=== PATIENT | female | born 1945 | race Caucasian/White ===

== ENCOUNTER 2019-11-25 13:09 | Outpatient (RCR) | payer MEDICARE, MEDICAID, SELFPAY ==
[2019-11-25 14:14] LABS: Basophils % 0.3 %; Eosinophils # 0.2 10^3/uL (0.0-0.8); Eosinophils % 3.2 %; Hematocrit 30.7 % (37.0-47.0); Hemoglobin 9.5 g/dL (11.5-15.3); Lymphocytes # 2.8 10^3/uL (0.8-4.8); Lymphocytes % 39.2 %; Mean Corpuscular HGB Conc 30.9 g/dL (30.0-36.0); Mean Corpuscular Hemoglobin 32.2 pg (28.0-34.0); Mean Corpuscular Volume 104.1 fL (81-99); Mean Platelet Volume 11.5 fL (7.4-10.4); Monocytes # 0.5 10^3/uL (0.2-0.9); Monocytes % 6.8 %; Neutrophils # 3.6 10^3/uL (1.8-7.7); Neutrophils % 50.2 %; Nucleated Red Blood Cells % 0 %; Platelet Count 205 10^3/cmm (130-400); Red Blood Count 2.95 10^6/uL (4.1-5.3); Red Cell Distribution Width 13.2 % (12.1-15.1); White Blood Count 7.1 10^3/uL (4.0-10.0)
[2019-11-25 14:34] LABS: Anion Gap 13.9 (5-19); Blood Urea Nitrogen 39 mg/dL (8-23); Calcium 8.8 mg/dL (8.5-10.5); Carbon Dioxide 29 mmol/L (22-29); Chloride 101 mmol/L (98-107); Glucose 110 mg/dL (74-106); Osmolality Calculated 286 mOsm/kg (285-295); Potassium 4.9 mmol/L (3.5-5.1); Sodium 139 mmol/L (136-145)
[2019-11-25 14:46] LABS: Estmated Average Glucose 189; Hemoglobin A1C 8.2 % (4.0-6.0)
== END 2019-12-03 23:59 | disposition home or self-care (01) ==
LOC: LAB 13:09
PROVIDERS: Family Provider Internal Medicine; Visit Provider Internal Medicine
DX: I50.9 Heart failure, unspecified (principal); E11.9 Type 2 diabetes mellitus without complications
CPT/HCPCS: 80048; 83036; 85025

== ENCOUNTER 2020-01-11 10:23 | Inpatient (IN) | payer MEDICARE, MEDICAID, SELFPAY ==
[2020-01-11] VITALS (46 sets, daily range): BP systolic 76–154; BP diastolic 50–102; PULSE 55–90; RESP 14–28; TEMP 36.3; O2SAT 79–100
--- NOTE | 2020-01-11 10:36 | ED_ITS ---
Entered by Michelle Pearson, acting as scribe for Domingo Aguilar DO HPI - SOB/Dyspnea General: Chief Complaint: Shortness of Breath/Dyspnea Stated Complaint: SOB, FLU LIKE SYMPTOMS Time Seen by Provider: 01/11/20 10:36 Source: patient, EMS and RN notes reviewed Mode of arrival: EMS Limitations: no limitations History of Present Illness: HPI Narrative: 74 yo female presents to ED from [facility] with complaints of shortness of breath. The patient was diagnosed with flu last week and was given Tamiflu. She has been having shortness of breath but she began having increased difficulty breathing this morning. The patient answered yes when asked if she wanted to be intubated for assistance to breathe. Atropine given at 1100. MD elicited complaint: shortness of breath Pertinent past history: other (flu 1 week ago) Onset (ago): hour(s) (today) Context: recent illness (flu) Timing: constant and progressively worsening Severity: severe Exacerbating factors: lying flat, exertion, movement and talking Relieving factors: nothing Known history of: other (flu) Associated symptoms: Reports diaphoresis Treatment prior to arrival: oxygen Review of Systems General: Reports: 10 or more systems reviewed and unremarkable except in HPI and below Const: Reports: diaphoresis [facility] ED PFSH: Social History Smoking and tobacco status: unknown if ever smoked Physical Exam Const: COMMON NORMALS: well nourished HENMT: COMMON NORMALS: normocephalic, head/scalp atraumatic, hearing grossly normal bilaterally, external ears normal, EAC's normal, TM's normal bilaterally, external nose normal, nasal mucous membranes and turbinates normal, moist oral mucous membranes, oropharynx normal, dentition normal and gingiva normal HEAD & SCALP: normocephalic and atraumatic NOSE: external nose normal and nasal mucous membranes and turbinates normal EXTERNAL EAR: Yes external ears normal EXTERNAL AUDITORY CANAL: EAC's normal TYMPANIC MEMBRANE: TM's normal bilaterally Eye: COMMON NORMALS: PERRL, EOMs intact bilaterally, conjunctivae normal, no scleral icterus, no papilledema, normal visual abdi by confrontation and fundi normal bilaterally CONJUNCTIVA: Yes conjunctivae normal PUPIL: Yes PERRL DIRECT OPHTHALMOSCOPY: Yes no papilledema and Yes fundi normal bilaterally Neck/C-Spine: COMMON NORMALS: full ROM, no lymphadenopathy, supple, no meningeal signs, no JVD, thyroid normal and no carotid bruits THYROID: thyroid normal Chest: COMMONS NORMALS: inspection of chest normal and palpation of chest normal Cardio: COMMON NORMALS: no JVD, S1 normal heart sound, S2 normal heart sound, no gallops, no clicks, no murmurs, no rub and peripheral pulses 2+ throughout HEART SOUNDS: S1 normal and S2 normal PERIPHERAL PULSES: pulses 2+ throughout GI: COMMON NORMALS: normal to inspection, nondistended, normoactive bowel sounds, soft to palpation, non-tender, no hepatosplenomegaly, no masses and no bruits PALPATION: Yes soft and Yes no hepatosplenomegaly : COMMON NORMALS: Yes no CVA tenderness and Yes external appearance normal BLADDER/KIDNEY EXAM: Yes no CVA tenderness Back/Pelvis: COMMON NORMALS: no CVA tenderness, thoracic and lumbar spine nor mal to inspection, no thoracic nor lumbar tenderness, thoraco-lumbar ROM normal and straight leg raise negative bilaterally Extremity: COMMON NORMALS: normal to inspection, full ROM, normal capillary refill, no joint enlargement, no clubbing, cyanosis or edema, no calf tenderness and no pedal edema Neuro: MENINGEAL SIGNS: Yes no meningeal signs Skin: COMMON NORMALS: no rashes or lesions noted, no wounds, skin turgor normal, no jaundice, no petechiae and no mottling GENERAL SKIN EXAM: no rashes or lesions noted and turgor normal Procedures Intubation Time out performed: No sedative: Etomidate Mg Given: 20 paralytic: Succinylcholine Mg Given: 200 Laryngoscope: Meghana ET Tube Size: 8 ET Tube Uncuffed: No Tube Placement Confirmation: visualized tube passing through cords, equal breath sounds bilaterally, no breath sounds over epigastrium and confirmation by capnometry Patient Tolerated Procedure: well Intubation Complications: none Course Vital Signs: Vital signs: Vital Signs Pulse Rate 63 01/11/20 11:10 Respiratory Rate 14 01/11/20 11:38 MDM - SOB/Dyspnea MDM Narrative: Medical decision making narrative: Upon arrival to the emergency room patient was lethargic and nearly comatose. She was breathing at a slow rate with a great deal of difficulty and distress. It appeared that the accessory abdominal muscles were the only thing that kept her respirated. Documentation from the longterm reveals patient has signed an advance directive. Patient was still conscious enough to answer whether or not she wished to be put on the ventilator to which she said yes. Lab Data: Labs: Lab Results 01/11/20 01/11/20 01/11/20 Range/Units 11:02 11:02 11:02 WBC 13.8 H (4.0-10.0) 10^3/ uL RBC 2.85 L (4.1-5.3) 10^6/u L Hgb 8.8 L (11.5-15.3) g/dL Hct 30.3 L (37.0-47.0) % MCV 106.3 H (81-99) fL MCH 30.9 (28.0-34.0) pg MCHC 29.0 L (30.0-36.0) g/dL RDW 14.0 (12.1-15.1) % Plt Count 278 (130-400) 10^3/c mm MPV 11.3 H (7.4-10.4) fL Neut % (Auto) 83.7 % Lymph % (Auto) 12.8 % Fountain % (Auto) 2.5 % Eos % (Auto) 0.1 % Baso % (Auto) 0.1 % Neut # (Auto) 11.6 H (1.8-7.7) 10^3/u L Lymph # (Auto) 1.8 (0.8-4.8) 10^3/u L Fountain # (Auto) 0.3 (0.2-0.9) 10^3/u L Eos # (Auto) 0.0 (0.0-0.8) 10^3/u L Baso # (Auto) 0.0 (0.0-0.1) 10^3/u L Nucleated RBC % (a uto) 0 % Nucleated RBCs # 0.0 /100WBC Sodium 130 L (136-145) mmol/L Potassium 9.2 H* (3.5-5.1) mmol/L Chloride 103 (98-107) mmol/L Carbon Dioxide 17 L (22-29) mmol/L Anion Gap 19.2 H (5-19) BUN 96 H* D (8-23) mg/dL Creatinine 5.0 H (0.5-0.9) mg/dL Glucose 205 H (65-115) mg/dL Calculated Osmolal ity 277 L (285-295) mOsm/k g Lactate (0.5-2.2) mmol/L Calcium 8.6 (8.5-10.5) mg/dL Total Bilirubin 0.3 (0.15-1.2) mg/dL AST 12 (0-32) U/L ALT 7 (0-33) U/L Alkaline Phosphata se 74 (35-105) IU/L Troponin T Baselin e 247 H* (0-10) ng/mL NT-Pro-B Natriuret Pep 8723 H (0-450) pg/mL Total Protein 7.2 (6.6-8.7) g/dL Albumin 2.5 L (3.5-5.2) g/dL Globulin 4.7 H (1.3-4.6) g/dL Urine Color (Yellow) Urine Appearance (CLEAR) Urine pH (5-7) Ur Specific Gravit y (1.005-1.030) Urine Protein (Negative) Urine Glucose (UA) (Normal) Urine Ketones (Negative) Urine Blood (Negative) Urine Nitrate (Negative) Urine Bilirubin (NEGATIVE) Urine Urobilinogen (Negative) mg/dL Ur Leukocyte Alfreda ase (Negative) Urine RBC (0-2) /hpf Urine WBC (0-5) /hpf Ur Squamous Epith Cells (0-5) Amorphous Sediment Urine Bacteria (NONE) Urine Mucus 01/11/20 01/11/20 Range/Units 11:58 12:24 WBC (4.0-10.0) 10^3/ uL RBC (4.1-5.3) 10^6/u L Hgb (11.5-15.3) g/dL Hct (37.0-47.0) % MCV (81-99) fL MCH (28.0-34.0) pg MCHC (30.0-36.0) g/dL RDW (12.1-15.1) % Plt Count (130-400) 10^3/c mm MPV (7.4-10.4) fL Neut % (Auto) % Lymph % (Auto) % Fountain % (Auto) % Eos % (Auto) % Baso % (Auto) % Neut # (Auto) (1.8-7.7) 10^3/u L Lymph # (Auto) (0.8-4.8) 10^3/u L Fountain # (Auto) (0.2-0.9) 10^3/u L Eos # (Auto) (0.0-0.8) 10^3/u L Baso # (Auto) (0.0-0.1) 10^3/u L Nucleated RBC % (a uto) % Nucleated RBCs # /100WBC Sodium (136-145) mmol/L Potassium (3.5-5.1) mmol/L Chloride (98-107) mmol/L Carbon Dioxide (22-29) mmol/L Anion Gap (5-19) BUN (8-23) mg/dL Creatinine (0.5-0.9) mg/dL Glucose (65-115) mg/dL Calculated Osmolal ity (285-295) mOsm/k g Lactate 0.8 (0.5-2.2) mmol/L Calcium (8.5-10.5) mg/dL Total Bilirubin (0.15-1.2) mg/dL AST (0-32) U/L ALT (0-33) U/L Alkaline Phosphata se (35-105) IU/L Troponin T Baselin e (0-10) ng/mL NT-Pro-B Natriuret Pep (0-450) pg/mL Total Protein (6.6-8.7) g/dL Albumin (3.5-5.2) g/dL Globulin (1.3-4.6) g/dL Urine Color Yellow (Yellow) Urine Appearance Cloudy (CLEAR) Urine pH 5 (5-7) Ur Specific Gravit y 1.015 (1.005-1.030) Urine Protein Neg (Negative) Urine Glucose (UA) Norm (Normal) Urine Ketones Negative (Negative) Urine Blood 3+ H (Negative) Urine Nitrate Negative (Negative) Urine Bilirubin Neg (NEGATIVE) Urine Urobilinogen Norm (Negative) mg/dL Ur Leukocyte Alfreda ase Negative (Negative) Urine RBC 0-4 H (0-2) /hpf Urine WBC 0-4 H (0-5) /hpf Ur Squamous Epith Cells 0-4 H (0-5) Amorphous Sediment 1+ Urine Bacteria 1+ H (NONE) Urine Mucus Trace Discharge Plan Discharge Patient Disposition: Admitted As Inpatient Clinical Impression: Acute on chronic respiratory failure Qualifiers: Respiratory failure complication: hypoxia and hypercapnia Qualified Code(s): J96.21 - Acute and chronic respiratory failure with hypoxia Congestive heart failure Qualifiers: Heart failure type: unspecified Heart failure chronicity: chronic Qualified Code(s): I50.9 - Heart failure, unspecified Acute renal failure Qualifiers: Acute renal failure type: unspecified Qualified Code(s): N17.9 - Acute kidney failure, unspecified Pneumonia Qualifiers: Pneumonia type: due to unspecified organism Laterality: left Lung location: lower lobe of lung Qualified Code(s): J18.9 - Pneumonia, unspecified organism Condition: Critical Referrals: Alli Quintero MD [Family Provider] - Coding Level of Care Code ED Forest Technician for Chg Fwd Exam Comprehensive The documentation recorded by the Lili mendoza Valerie R, accurately reflects the service I personally performed and the decisions made by , Domingo Aguilar, Jan 11, 2020 10:23
--- NOTE | 2020-01-11 11:26 | XR_ITS ---
WS: [id number] Portable AP upright chest, 01/11/2020 Clinical Data: resp failure Comparison: Portable chest, 03/06/2012 Findings: The endotracheal tube is above the winter. The nasogastric tube appears to end in the stoma ch. No nodules, masses or effusions are seen. The heart is normal. The pulmonary vascularity is not i ncreased. There is a patchy opacity left lower lobe which could represent pneumonia. The aortic arch and descending aorta show calcification and tortuosity. Monitor leads are on the chest wall. There is a slight dextroscoliosis. XR/XR chest 1V portable [id number] Impression: 1. Endotracheal tube and nasogastric tube in satisfactory position. 2. Patchy opacity in left lower lobe could represent pneumonia and/or atelectas is. 3. Atherosclerosis.
[2020-01-11] MEDS: sodium chloride 0.9% 500 ML IV (11:36)
[2020-01-11 11:37] LABS: Basophils % 0.1 %; Eosinophils % 0.1 %; Hematocrit 30.3 % (37.0-47.0); Hemoglobin 8.8 g/dL (11.5-15.3); Lymphocytes # 1.8 10^3/uL (0.8-4.8); Lymphocytes % 12.8 %; Mean Corpuscular Hemoglobin 30.9 pg (28.0-34.0); Mean Corpuscular Volume 106.3 fL (81-99); Mean Platelet Volume 11.3 fL (7.4-10.4); Monocytes # 0.3 10^3/uL (0.2-0.9); Monocytes % 2.5 %; Neutrophils # 11.6 10^3/uL (1.8-7.7); Neutrophils % 83.7 %; Nucleated Red Blood Cells % 0 %; Platelet Count 278 10^3/cmm (130-400); Red Blood Count 2.85 10^6/uL (4.1-5.3); White Blood Count 13.8 10^3/uL (4.0-10.0)
[2020-01-11 11:47] LABS: ABG PCO2 41.3 mmHg (35-45); Arterial Blood Gas Hematocrit 25.3 % (37-47); Blood Gas Operator Identificat glc; Blood Gas Sample Site Brachial, right; Blood Gas Sample Type Arterial; Blood Gas Tidal Volume 0.45; HCO3 ABG 16.2 mmol/L (22-26); Oxygen Device VENT
[2020-01-11] MEDS: midazolam 1 mg/mL INJ 2 mL 4 MG IV (11:51)
[2020-01-11] MEDS: vecuronium 10 mg SDV IVP (11:52)
[2020-01-11] MEDS: water for injection-sterile 10 ML (11:53)
[2020-01-11 11:59] LABS: Alanine Aminotransferase 7 U/L (0-33); Albumin Level 2.5 g/dL (3.5-5.2); Alkaline Phosphatase 74 IU/L (35-105); Anion Gap 19.2 (5-19); Aspartate Amino Transferase 12 U/L (0-32); Calcium 8.6 mg/dL (8.5-10.5); Carbon Dioxide 17 mmol/L (22-29); Chloride 103 mmol/L (98-107); Globulin 4.7 g/dL (1.3-4.6); Glucose 205 mg/dL (65-115); NT Pro B Type Natriuretic Pept 8723 pg/mL (0-450); Osmolality Calculated 277 mOsm/kg (285-295); Sodium 130 mmol/L (136-145); Total Bilirubin 0.3 mg/dL (0.15-1.2); Total Protein 7.2 g/dL (6.6-8.7)
[2020-01-11] MEDS: dextrose 50% syringe 50 mL IVP (12:00)
[2020-01-11] MEDS: sodium bicarbonate 8.4% 1 mEq/mL 50mL Syr 25 MEQ IVP (12:01)
[2020-01-11] MEDS: insulin regular-human 100 units/1 mL 5 UNIT IVP (12:01)
[2020-01-11 12:04] LABS: Blood Urea Nitrogen 96 mg/dL (8-23); Potassium 9.2 mmol/L (3.5-5.1); Troponin(5th) Baseline 247 ng/mL (0-10)
[2020-01-11 12:17] LABS: Lactate (Lactic Acid level) 0.8 mmol/L (0.5-2.2)
[2020-01-11] MEDS: DOPamine drip 400 MG/250 ML PREMIX 22.7 MG (12:22)
[2020-01-11] MEDS: sodium polystyrene sulfonate 15 gm/60 mL Btl PO (12:44)
[2020-01-11 13:17] LABS: Glucose Urine UA Norm (Normal); Protein Urine Neg (Negative); Specific Gravity, Urine 1.015 (1.005-1.030); Urine Appearance Cloudy (CLEAR); Urine Color Yellow (Yellow); pH Urine 5 (5-7)
[2020-01-11 13:18] LABS: Add Urine Microscopic? YES; Bilirubin Urine Neg (NEGATIVE); Blood Urine 3+ (Negative); Ketones Urine Negative (Negative); Leukocyte Esterase Urine Negative (Negative); Nitrate Urine Negative (Negative); Urobilinogen Urine Norm (Negative)
[2020-01-11] MEDS: cefTRIAXone 1,000 MG in sodium chloride 0.9% (plus) 50 ML 100 MG IV (13:18)
[2020-01-11 13:19] LABS: RBC Urine 0-4 /hpf (0-2); Squamous Epithelial Cell Urine 0-4 (0-5); WBC Urine 0-4 /hpf (0-5)
[2020-01-11 13:20] LABS: Add Urine Culture? No; Amorphous Sediment Urine 1+; Bacteria Urine 1+; Mucus Urine TRACE
--- NOTE | 2020-01-11 13:28 | ECG_ITS ---
Measurements Intervals [place] Rate: 62 P: ID: 0 QRS: -61 QRSD: 214 T: 2 QT: 526 QTc: 536 ATRIAL FIBRILLATION RIGHT BUNDLE BRANCH BLOCK [120+ ms QRS DURATION, UPRIGHT V1, 40+ ms S IN I/aVL/V4/V5/V6] ANTERIOR MYOCARDIAL INFARCTION , OF INDETERMINATE AGE [40+ ms Q WAVE AND/OR ST/T ABNORMALITY IN V3/V4] INFERIOR MYOCARDIAL INFARCTION , PROBABLY OLD [40+ ms Q WAVE AND/OR ST/T ABNORMALITY IN II/aVF] No previous ECG available for comparison Electronically Signed On 01-12-2020 9:06:43 CDT by Chuck Cottrell M.D. [email or web address]
--- NOTE | 2020-01-11 13:50 | PM.CONSULT ---
Providers/Reason For Consult Consulting Physican/Specialty*: telenephrology. roslyn lorenz md Reason for Consult*: TOLU on CKD stage 3b/ 4, hyperkalemia, acidosis Requesting Physcian: Dr. 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 h/o CHF, DM, CAD, rods in legs. pt is NH dependent. pt was tld that her kidneys were deteriorating. pt was diagnosed w/ influenzae last week- given tamiflu. she is now in Er in septic shock, w/ hyperkalemia and TOLU. pt is intubated and i can not get a further hx. Review of Systems Narrative: intubated/ unable to obtain Meds/Allergies Home Medications and Allergies Home Medications Medication Instructions Recorded Confirmed Type acetaminophen 650 mg PO Q4H PRN 01/11/20 01/11/20 History albuterol sulfate 2.5 mg INHALATION Q4H PRN 01/11/20 01/11/20 History amlodipine 5 mg PO DAILY 01/11/20 01/11/20 History aspirin 81 mg PO DAILY 01/11/20 01/11/20 History atorvastatin 20 mg PO DAILY 01/11/20 01/11/20 History bisacodyl 5 - 10 mg PO DAILY PRN 01/11/20 01/11/20 History carvedilol 12.5 mg PO BID 01/11/20 01/11/20 History citalopram 20 mg PO DAILY 01/11/20 01/11/20 History clonidine HCl 0.1 mg PO BID 01/11/20 01/11/20 History cyanocobalamin (vitamin B-12) 1,000 mcg IM Q30D 01/11/20 01/11/20 History dextran 70-hypromellose (PF) 1 drp OPHTHALMIC (EYE) QID 01/11/20 01/11/20 History [Artificial Tears (PF)] furosemide [Lasix] 40 mg PO BID 01/11/20 01/11/20 History insulin degludec [Tresiba 60 unit SUBCUT BEDTIME 01/11/20 01/11/20 History FlexTouch U-200] isosorbide mononitrate 60 mg PO DAILY 01/11/20 01/11/20 History loperamide 2 mg PO Q4H PRN 01/11/20 01/11/20 History menthol [Biofreeze (menthol)] 1 % TOPICAL TID PRN 01/11/20 01/11/20 History oseltamivir [Tamiflu] 30 mg PO BID 01/11/20 01/11/20 History polyethylene glycol 3350 [Miralax] 17 g PO DAILY 01/11/20 01/11/20 History potassium chloride 20 meq PO BID 01/11/20 01/11/20 History quinapril 20 mg PO DAILY 01/11/20 01/11/20 History rivaroxaban [Xarelto] 15 mg PO DAILY 01/11/20 01/11/20 History sennosides-docusate sodium 1 tab-cap PO BID 01/11/20 01/11/20 History [Senna-S] spironolactone 25 mg PO DAILY 01/11/20 01/11/20 History vit C,R-Eo-uomlu-lutein-zeaxan 1 tab PO DAILY 01/11/20 01/11/20 History [PreserVision AREDS-2] Allergies Allergy/AdvReac Type Severity Reaction Status Date / Time adhesive tape Allergy Unknown Verified 01/11/20 10:41 nifedipine [From Procardia] Allergy Unknown Verified 01/11/20 10:41 Penicillins Allergy Unknown Verified 01/11/20 10:41 Current Medications Current Medications Generic Name Dose Route Start Last Admin Trade Name Freq PRN Reason Stop Dose Admin Midazolam HCl 4 mg 01/11/20 11:45 01/11/20 11:51 Versed IV 4 mg PRN PRN Administration sedation for et tube Vecuronium [place] 10 mg 01/11/20 11:24 01/11/20 11:52 Norcuron IVP 10 mg ONCE PRN Administration AGITATION PFSH Acute PFSH: Social History Smoking and tobacco status: unknown if ever smoked Vitals/I&O/Wt Last Vital Signs Pulse 55 L 01/11/20 13:34 Resp 18 01/11/20 13:34 BP 107/56 01/11/20 13:34 Pulse Ox 100 01/11/20 13:34 01/10/20 01/11/20 01/11/20 22:59 06:59 14:59 Intake Total 500 / 500 Balance 500 / 500 Weight last 48 hrs Weight 125.191 kg Physical Exam Narrative: EXAM NARRATIVE: ill appearing, intubated on doapmine heent- nc/at neck supple lungs- poor air movement on left side heart reg +TY abd soft, nt, +BS ext + edema- states is chronic neuro- sedated pulses weak Urinary Catheter Management^: Riggins: Cath Placed During This Visit: yes Urinary Catheter Date of Insertion: 01/11/20 Urinary Catheter Time of Insertion: 12:29 Data Micro: Micro: Microbiology 01/11/20 11:50 Blood Culture - Pr eliminary Blood SPECIMEN [facility] FISH 01/11/20 11:58 Blood Culture - Pr eliminary Blood SPECIMEN [facility] FISH A&P Additional A&P Information 74 yr old female w/ CHF, Q a fib, CAD, DM, weak- retirement dep. recent influenzae. now here w/ septic shock and pna. 1. CKD stage 3b/4- b/l cr 2.6 from dm, CHF, HTN -check renal us 2. TOLU- from pt being ill w/ flu and pna- yet on sade-i, lasix, aldactone and other bp meds -likely ATN 3. hyperkalemia- from dm, ckd, AK, sade-i, and aldactone, and takes oral potassium recs- d/c all anti-htn meds give ivf -check renal us -check urine studies -treat k medically -GET A STAT DIALYSIS CATHETER AND WE WILL ATTEMPT DIALYSIS. -I EXPLAINED TO PTS FAMILY THE HIGH RISK OF DIALYSIS. THEY UNDERSTAND AND ACCEPT DIALYSIS CATHETER AND HEMODIALYSIS 4. Sepsis/ pna- abx as per hospitalist and critical care 5. anemia w/ high MCV- check b12 and folate level can be form CKD 6. DM control 7. dose all meds for ESRD 8. VDRF as per critical care and hopitalist Consult Attestations Medical Necessity Statement: septic shock, TOLU, hyperkalemia, VDRF Time Spent in Patient Care: Greater than 35 minutes (>than 50% of time spent in counselling and/or direct pt care on unit). Critical Care Time: Critical Care Time (min): 45 Coding Level of Care Code Acute Photoengraving Photographer for Betty Jerry
--- NOTE | 2020-01-11 15:14 | US_ITS ---
WS: [id number] Bilateral renal ultrasound, 01/11/2020 Clinical Data: milena on ckd Comparison: Renal ultrasound, 06/04/2011. Findings: The right kidney measures 9.1 cm x 5.6 cm x 5.6 cm and the left kidney is 9.1 cm x 5.5 cm x 4.5 cm. T he kidneys were difficult to see. The abdominal aorta and inferior vena cava show no vascular abnorma lities. US/US renal BI with bladder Impression: Negative bilateral renal ultrasound.
--- NOTE | 2020-01-11 15:24 | P.HP_ITS ---
Providers/Chief Complaint Admitting Physician: Lizzy Glez DO Chief Complaint: SOB, FLU LIKE SYMPTOMS History of Present Illness Mora Messer is a 74 year old female that presented from nursing home facility due to concern for shortness of breath. Patient was noted to have history of chronic kidney disease, had been told by providers in the past that she may be nearing dialysis requirements. Family was available at bedside and reported the patient had influenza last week had been on Tamiflu. They reported that she had not been taking any of her other medications over the past week due to trouble swallowing. Patient was noted to have hypoxia and shallow respirations and therefore intubated by ER physician. Labs were obtained and patient was noted to be hyperkalemic therefore nephrology consultation was placed in the ED. No information available from patient due to clinical condition. Review of Systems General: Reports: ROS unobtainable due to endotracheal tube Medications/Allergies Home Medications Medication Instructions Recorded Confirmed Last Taken Type acetaminophen 650 mg PO Q4H PRN 01/11/20 01/11/20 Unknown History albuterol sulfate 2.5 mg INHALATION Q4H PRN 01/11/20 01/11/20 Unknown History amlodipine 5 mg PO DAILY 01/11/20 01/11/20 01/10/20 History aspirin 81 mg PO DAILY 01/11/20 01/11/20 01/10/20 History atorvastatin 20 mg PO DAILY 01/11/20 01/11/20 01/10/20 History bisacodyl 5 - 10 mg PO DAILY PRN 01/11/20 01/11/20 Unknown History carvedilol 12.5 mg PO BID 01/11/20 01/11/20 01/10/20 History citalopram 20 mg PO DAILY 01/11/20 01/11/20 01/10/20 History clonidine HCl 0.1 mg PO BID 01/11/20 01/11/20 01/10/20 History cyanocobalamin (vitamin B-12) 1,000 mcg IM Q30D 01/11/20 01/11/20 12/28/19 His tory dextran 70-hypromellose (PF) 1 drp OPHTHALMIC (EYE) QID 01/11/20 01/11/20 Unknown History [Artificial Tears (PF)] furosemide [Lasix] 40 mg PO BID 01/11/20 01/11/20 Unknown History insulin degludec [Tresiba 60 unit SUBCUT BEDTIME 01/11/20 01/11/20 Unknown History FlexTouch U-200] isosorbide mononitrate 60 mg PO DAILY 01/11/20 01/11/20 Unknown History loperamide 2 mg PO Q4H PRN 01/11/20 01/11/20 Unknown History menthol [Biofreeze (menthol)] 1 % TOPICAL TID PRN 01/11/20 01/11/20 01/10/20 History oseltamivir [Tamiflu] 30 mg PO BID 01/11/20 01/11/20 Unknown History polyethylene glycol 3350 [Miralax] 17 g PO DAILY 01/11/20 01/11/20 Unknown History potassium chloride 20 meq PO BID 01/11/20 01/11/20 Unknown History quinapril 20 mg PO DAILY 01/11/20 01/11/20 Unknown History rivaroxaban [Xarelto] 15 mg PO DAILY 01/11/20 01/11/20 Unknown History sennosides-docusate sodium 1 tab-cap PO BID 01/11/20 01/11/20 Unknown History [Senna-S] spironolactone 25 mg PO DAILY 01/11/20 01/11/20 Unknown History vit C,U-Il-uqdtx-lutein-zeaxan 1 tab PO DAILY 01/11/20 01/11/20 Unknown History [PreserVision AREDS-2] Allergies Allergy/AdvReac Type Severity Reaction Status Date / Time adhesive tape Allergy Unknown Verified 01/11/20 10:41 nifedipine [From Procardia] Allergy Unknown Verified 01/11/20 10:41 Penicillins Allergy Unknown Verified 01/11/20 10:41 PFSH Acute PFSH: Medical History Atrial fibrillation Chronic anticoagulation Chronic venous stasis Coronary artery disease Diabetes mellitus type 2, insulin dependent History of CVA (cerebrovascular accident) Hyperlipidemia Hypertension Macular degeneration Morbid obesity Peripheral neuropathy Pulmonary hypertension Surgical History History of appendectomy History of arthroscopic knee surgery Bilateral History of cholecystectomy History of hysterectomy History of lumpectomy of left breast Social History Smoking and tobacco status: unknown if ever smoked Vitals/I&O/Wt Last Vital Signs Pulse 73 01/11/20 15:20 Resp 18 01/11/20 15:20 BP 125/71 01/11/20 15:20 Pulse Ox 100 01/11/20 15:20 01/11/20 01/11/20 01/11/20 06:59 14:59 22:59 Intake Total 500 / 500 Balance 500 / 500 Weight last 48 hrs Weight 125.191 kg Physical Exam Const: GENERAL APPEARANCE: patient mechanically ventilated HENMT: COMMON NORMALS: normocephalic and head/scalp atraumatic HEAD & SCALP: normocephalic and atraumatic Eye: COMMON NORMALS: PERRL PUPIL: Yes PERRL Neck/C-Spine: COMMON NORMALS: supple GENERAL: Yes normal visual inspection Resp: OTHER: ET tube in place. Diminished breath sounds bilaterally, no appreciable wheezing Cardio: OTHER: Distant heart sounds, bradycardic, regular rhythm GI: OTHER: Morbidly obese with large pannus. Anterior abdominal wall bruising, no appreciable tenderness to palpation, normal bowel sounds Extremity: OTHER: Bilateral lower extremity chronic venous stasis with lower extremity stasis ulcers Neuro: OTHER: Intubated, resting tremor in the left upper extremity Skin: OTHER: Crusting lesions under the breast bilaterally, bilateral lower extremity venous stasis with superficial ulceration Urinary Catheter Management^: Riggins: Cath Placed During This Visit: yes Urinary Catheter Date of Insertion: 01/11/20 Urinary Catheter Time of Insertion: 12:29 Sepsis: Is patient septic: Yes Focused sepsis exam performed: Yes Date exam was performed: 01/11/20 Time exam was performed: 14:30 Data : 01/12/20 04:24 01/12/20 04:24 Micro: Microbiology 01/11/20 11:15 Gram Stain - Final Sputum - Endotracheal Wash 01/11/20 11:50 Blood Culture - Preliminary Blood SPECIMEN COLLECTED 01/11/20 11:58 Blood Culture - Preliminary Blood SPECIMEN COLLECTED A&P Assessment and plan (1) Acute renal failure: Nephrology consulted while patient was in the ER. Plan for emergent dialysis Dialysis catheter placed by wildland fire operations specialist, appreciate consultation and recommendations in patient's care. Patient given sodium bicarb, Insulin and D50 in the emergency department, also given calcium gluconate Admit to ICU Status: Acute Qualifiers: Acute renal failure type: unspecified Qualified Code(s): N17.9 - Acute kidney failure, unspecified Code(s): N17.9 - Acute kidney failure, unspecified (2) Pneumonia: Given Rocephin in the emergency department We will start on broad-spectrum antibiotics due to concern for septic shock, vancomycin and cefepime Blood culture, urine culture and sputum culture are all ordered and pending Caution with aggressive IV fluids due to history of congestive heart failure and acute renal failure Placed on dopamine drip on the emergency department, will continue at this time. Patient had some intermittent bradycardia while in the emergency department. Patient with recent diagnosis of influenza, had completed course of Tamiflu. Treatment was started on 01/04/2020 Status: Acute Qualifiers: Laterality: left Lung location: lower lobe of lung Pneumonia type: due to unspecified organism Qualified Code(s): J18.9 - Pneumonia, unspecified organism Code(s): J18.9 - Pneumonia, unspecified organism (3) Congestive heart failure: Reported history of diastolic CHF, last echocardiogram from 2011 Very cautious with IV fluids at this time, however will continue to monitor blood pressure closely and maintain blood pressure with dopamine at this time. Patient currently on dialysis. Status: Acute Qualifiers: Heart failure chronicity: chronic Heart failure type: unspecified Qualified Code(s): I50.9 - Heart failure, unspecified Code(s): I50.9 - Heart failure, unspecified Additional A&P Information Acute on chronic anemia: Hemoglobin of 8.8, macrocytic, previously baseline hemoglobin appears to be around 10. No evidence of any active bleeding at this time. Hyperkalemia with acute renal failure: Plan as noted above Metabolic acidosis: Secondary to above, continue with treatment as above Diabetes mellitus, insulin-dependent, continue on sliding scale insulin as needed Hypertension: Currently hypotensive, holding home medications. Holding home Coreg, Lasix, Imdur, quinapril, amlodipine, Aldactone Hyperlipidemia: On atorvastatin, holding at this time Recent diagnosis of influenza: Completed course of Tamiflu On chronic anticoagulation: On Xarelto 15 mg daily Atrial fibrillation: On Coreg 12.5 mg twice daily, in sinus rhythm at this time Diastolic congestive heart failure: As noted above holding home Lasix and dialysis plan as above History of CVA with chronic left-sided weakness according to family Elevated troponin: Likely type II process due to sepsis with septic and acute renal failure: Continue monitoring on telemetry with serial EKG and troponin Hypoalbuminemia Morbid obesity Chronic long term resident GERD: IV PPI DVT PPx: Heparin Code Status: DNR/currently intubated, patient reportedly agreed to intubation while in the emergency department. . Long discussion with patient's family members while in the emergency department about patient being critically ill and requiring emergent dialysis. They verbalized understanding, son agreed that she would not want further resuscitat ion, therefore DO NOT RESUSCITATE stands at this time. Patient remains intubated will continue with other measures. Long discussion with many family members present about the severity of her illness and poor prognosis. Attestations Medical Necessity Statement*: Patient requires hospitalization due to acute renal failure with hyperkalemia, acute respiratory failure, metabolic acidosis and sepsis. Expected stay greater than 2 midnights Critical Care Time: The high probability of a clinically significant, sudden or life threatening deterioration of the patient's respiratory, renal, cardiac system(s) required my full and direct attention, intervention and personal management. The critical care time is as shown. This time is in addition to time spent performing any reported procedures but includes the following: [x] Data and vital sign review and interpretation [x] Patient assessment, examination and intervention [x] Documentation [x] Medication orders and management Critical Care Time (min): 65 Coding Level of Care Code Acute Senior Brand Manager for Chg Fwd Exam Expanded Problem Focused Diagnoses Acute renal failure N17.9 Acute renal failure type: unspecified Pneumonia J18.9 Laterality: left Lung location: lower lobe of lung Pneumonia type: due to unspecified organism Congestive heart failure I50.9 Heart failure chronicity: chronic Heart failure type: unspecified
[2020-01-11] MEDS: calcium gluconate 0.1 gm/mL 10% SDV 10mL 1 GM IVP (15:25)
[2020-01-11 15:56] LABS: Glucose Point of Care 277 mg/dL (70-110)
--- NOTE | 2020-01-11 16:15 | USCV_ITS ---
Mora Messer Age: 74 Gender: F : 1945 Exam Date: 01/11/2020 20:03 Ordering Phys: Lizzy Glez DO Technologist: Ximena Bran Exam Location: [facility] [place] Indication: CHF BP: 121 / 63 HR: 60 Rhythm: Sinus Technical Quality: Adequate MEASUREMENTS (Male / Female) Normal Values 2D ECHO LV Diastolic Diameter PLAX 4.4 cm 4.2 - 5.9 / 3.9 - 5.3 cm LV Systolic Diameter PLAX 3.7 cm LV Chamber Size 3.7 cm IVS Diastolic Thickness 1.2 cm 0.6 - 1.0 / 0.6 - 0.9 cm IVS Systolic Thickness 1.7 cm LVPW Diastolic Thickness 2.7 cm 0.6 - 1.0 / 0.6 - 0.9 cm LVPW Systolic Thickness 2.9 cm RV Chamber Size 2.7 cm LVOT Diameter 2.1 cm LV Ejection Fraction 2D Teich 33.8 % LV Ejection Fraction MOD 2C 45.2 % LV Ejection Fraction 2C AL 47.4 % LA Diameter 6.0 cm M-MODE LV Diastolic Diameter MM 6.1 cm 4.2 - 5.9 / 3.9 - 5.3 cm LV Systolic Diameter MM 3.5 cm LV Ejection Fraction MM Teich 73.6 % IVS Diastolic Thickness MM 1.5 cm 0.6 - 1.0 / 0.6 - 0.9 cm IVS Systolic Thickness MM 2.0 cm LVPW Diastolic Thickness MM 0.8 cm 0.6 - 1.0 / 0.6 - 0.9 cm LVPW Systolic Thickness MM 2.1 cm Aortic Annulus Diameter 3.3 cm LA Ao Ratio MM 1.8 MV E Point Septal Separation 0.9 cm DOPPLER AV Peak Velocity 181.0 cm/s LVOT Peak Velocity 127.0 cm/s AV Area Cont Eq vti 2.4 cm squared AV Area Cont Eq pk 2.4 cm squared MV Area PHT 3.1 cm squared Mitral E to A Ratio 5.8 MV E' Velocity 7.0 cm/s Mitral E to MV E' Ratio 13.1 Mitral E to LV E' Lateral Ratio 15.5 Mitral E to LV E' Septal Ratio 11.5 TR Peak Velocity 375.0 cm/s TR Peak Gradient 56.3 mmHg TR Mean Velocity 199.6 cm/s TR Mean Gradient 19.0 mmHg TR Velocity Time Integral 99.8 cm TV Peak E Velocity 84.0 cm/s Right Atrial Pressure 3.0 mmHg Pulmonary Artery Systolic Pressu 59.3 mmHg FINDINGS Left Ventricle Normal left ventricular size and systolic function, EF 55 %. No regional wall motion abnormalities. Right Ventricle Normal right ventricular size and systolic function. Right Atrium Normal right atrial size. Left Atrium Mildly increased left atrial size. Mitral Valve Thickened mitral valve. Mild mitral annular calcification. Trace mitral valve regurgitation. Aortic Valve Thickened aortic valve. Tricuspid Valve No gross abnormalities noted Pulmonic Valve Not visualized well Pericardium No pericardial effusion. Aorta Normal aortic annulus size. CONCLUSIONS Normal left ventricular size and systolic function, EF 55 %. No regional wall motion abnormalities. Mildly increased left atrial size. Thickened mitral valve. Mild mitral annular calcification. Features of the aortic valve sclerosis. There is no pericardial effusion. There are no intracardiac masses. Technically difficult study because of the poor ultrasonic window. No previous study is available for comparison. Dr Jaye Peralta MD FACC (Electronically Signed) Final Date: 11 January 2020 21:16 S
[2020-01-11 16:25] LABS: Urine Appearance SL Hazy (CLEAR); Urine Color Yellow (Yellow)
[2020-01-11 16:26] LABS: Bilirubin Urine Neg (NEGATIVE); Blood Urine 3+ (Negative); Glucose Urine UA 1+ (Normal); Ketones Urine 1+ (Negative); Leukocyte Esterase Urine Negative (Negative); Nitrate Urine Negative (Negative); Protein Urine Neg (Negative); Specific Gravity, Urine 1.015 (1.005-1.030); Urobilinogen Urine Norm (Negative); pH Urine 5 (5-7)
[2020-01-11 16:29] LABS: Bacteria Urine 1+; Squamous Epithelial Cell Urine 0-4 (0-5); WBC Urine 0-4 /hpf (0-5)
[2020-01-11] MEDS: sodium bicarbonate 150 MEQ in dextrose 5% 1,000 ML 125 MEQ IV (16:29)
[2020-01-11 16:30] LABS: Hepatitis B Surface Antigen. Non-Reactive (Nonreactive)
[2020-01-11 16:31] LABS: Hepatitis C Virus Antibody Non-Reactive (Nonreactive)
[2020-01-11 16:31] LABS: Add Urine Culture? No
[2020-01-11 16:46] LABS: ABG PCO2 41.8 mmHg (35-45); ABG PH Result 7.29 (7.35-7.45); Arterial Blood Gas Hematocrit 29.5 % (37-47); Base Excess ABG -5.9 mmol/L (-2.0-2.0); Blood Gas Sample Type Not specified; Carboxyhemoglobin 0.8 %THgb (0.4-20.1); HCO3 ABG 20.3 mmol/L (22-26); HGB O2 Sat 89.4 % (95-100); Ionized Calcium Level - ABG 1.1 mmol/L (1.1-1.4); Methemoglobin 0.4 % (0.4-1.5); Oxygen Device VENT; Oxygen Saturation ABG 90.5; PO2 ABG 55.4 mmHg (80.0-100.0); Total Hemoglobin 9.6 g/dL (12-16)
[2020-01-11] MEDS: propofol 1,000 MG/100 ML INJ 22.5 MG IV (16:50)
[2020-01-11 16:53] LABS: Creatinine Urine, Random 102 mg/dL (28-217); Microalbum Creatinine Ratio Ur 39 mg/dL (0-20); Microalbumin Random Urine 4 ug/dL (0-20); Potassium, Radom Urine 51 mmol/L; Urine Creatinine 103 mg/dL (28-217); Urine Random Chloride 23 mmol/L; Urine Random Sodium 28 mmol/L
[2020-01-11 16:56] LABS: Urine Protein Random 40 mg/dL
--- NOTE | 2020-01-11 17:28 | ECG_ITS ---
Measurements Intervals [place] Rate: 60 P: ID: 0 QRS: 250 QRSD: 194 T: 92 QT: 499 QTc: 502 ATRIAL FIBRILLATION RIGHT AXIS DEVIATION [QRS AXIS > 100] RIGHT BUNDLE BRANCH BLOCK [120+ ms QRS DURATION, UPRIGHT V1, 40+ ms S IN I/aVL/V4/V5/V6] INFERIOR MYOCARDIAL INFARCTION , OF INDETERMINATE AGE [40+ ms Q WAVE AND/OR ST/T ABNORMALITY IN II/aVF] ANTEROLATERAL MYOCARDIAL INFARCTION , OF INDETERMINATE AGE [40+ ms Q WAVE IN I/aVL/V3-V6] ST DEPRESSION, CONSIDER SUBENDOCARDIAL INJURY [0.1+ mV ST DEPRESSION] No previous ECG available for comparison Electronically Signed On 01-12-2020 9:06:24 CDT by Chuck Cottrell M.D. [id number]
[2020-01-11 18:21] LABS: Glucose Point of Care 213 mg/dL (70-110)
[2020-01-11 18:29] LABS: Troponin 5 6HR 192.8 ng/mL (0-10)
[2020-01-11 18:35] LABS: Urine Eosinophil Count 0 (0-0)
[2020-01-11 18:36] LABS: Eosinophil Urine No Eosinophils Seen
--- NOTE | 2020-01-11 18:36 | P.CONIM_ITS ---
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 She has chronic kidney disease, previous history of cerebrovasc ular accident, peripheral neuropathy. She also has history of atrial fibrillation and is on chronic anticoagulation therapy. It appears that the patient has advanced chronic kidney disease. Her creatinine was 2.6 in November 25. The patient was brought to the hospital today from [facility] with worsening shortness of breath. It appears that the patient was treated with Tamiflu for a diagnosis of influenza last week. Upon presentation to the hospital, the patient was barely responsive and was in profound shortness of breath. The patient was DNI DNR however at the emergency department the provider had a conversation with the patient and the patient agreed to get intubated and she was intubated. A post intubation chest x-ray reveals consolidation involving left mid and lower lung zone. On blood work, the patient was found to have leukocytosis. Her potassium was 9.2. The patient was intubated using succinylcholine prior to the labs are available. Her BUN was elevated at 96 from a baseline of higher 30s and her creatinine was 5. The EKG showed atrial fibrillation with prolonged QRS of 240 ms and a QTC of 536 ms. The patient was given insulin and dextrose, half amp of bicarb as I was told by the nurse in the ER. I am unclear whether the patient received any IV calcium gluconate or calcium chloride. When I evaluated the patient in the ER, her heart rate was in the 40s and there was still QRS widening and prolonged QTC. The patient was receiving 5 mcg of dopamine. The patient was emergently given 2 Amp of bicarb. Her minute ventilation was increased to alkalinize her serum. The patient was then brought to the ICU and the dialysis was started. Over the last few hours, we have been able to make significant improvement. Currently the patient is on pressure control ventilation with PEEP of 12, pressure above PEEP of 15, FiO2 of 40% and respiratory rate of 20. I had performed a bedside ultrasound. There are bilateral air eyes in the anterior chest, B-lines in the lateral chest on the left side, small left-sided pleural effusion. There is good cardiac contractility no wall motion abnormalities. No significant valvular abnormalities were identified. After an extensive discussion with the family the family has decided to keep her DNR. Review of Systems Narrative: To assess Meds/Allergies Home Medications and Allergies Home Medications Medication Instructions Recorded Confirmed Type acetaminophen 650 mg PO Q4H PRN 01/11/20 01/11/20 History albuterol sulfate 2.5 mg INHALATION Q4H PRN 01/11/20 01/11/20 History amlodipine 5 mg PO DAILY 01/11/20 01/11/20 History aspirin 81 mg PO DAILY 01/11/20 01/11/20 History atorvastatin 20 mg PO DAILY 01/11/20 01/11/20 History bisacodyl 5 - 10 mg PO DAILY PRN 01/11/20 01/11/20 History carvedilol 12.5 mg PO BID 01/11/20 01/11/20 History citalopram 20 mg PO DAILY 01/11/20 01/11/20 History clonidine HCl 0.1 mg PO BID 01/11/20 01/11/20 History cyanocobalamin (vitamin B-12) 1,000 mcg IM Q30D 01/11/20 01/11/20 History dextran 70-hypromellose (PF) 1 drp OPHTHALMIC (EYE) QID 01/11/20 01/11/20 History [Artificial Tears (PF)] furosemide [Lasix] 40 mg PO BID 01/11/20 01/11/20 History insulin degludec [Tresiba 60 unit SUBCUT BEDTIME 01/11/20 01/11/20 History FlexTouch U-200] isosorbide mononitrate 60 mg PO DAILY 01/11/20 01/11/20 History loperamide 2 mg PO Q4H PRN 01/11/20 01/11/20 History menthol [Biofreeze (menthol)] 1 % TOPICAL TID PRN 01/11/20 01/11/20 History oseltamivir [Tamiflu] 30 mg PO BID 01/11/20 01/11/20 History polyethylene glycol 3350 [Miralax] 17 g PO DAILY 01/11/20 01/11/20 History potassium chloride 20 meq PO BID 01/11/20 01/11/20 History quinapril 20 mg PO DAILY 01/11/20 01/11/20 History rivaroxaban [Xarelto] 15 mg PO DAILY 01/11/20 01/11/20 History sennosides-docusate sodium 1 tab-cap PO BID 01/11/20 01/11/20 History [Senna-S] spironolactone 25 mg PO DAILY 01/11/20 01/11/20 History vit C,D-Vp-ehwbq-lutein-zeaxan 1 tab PO DAILY 01/11/20 01/11/20 History [PreserVision AREDS-2] Allergies Allergy/AdvReac Type Severity Reaction Status Date / Time adhesive tape Allergy Unknown Verified 01/11/20 10:41 nifedipine [From Procardia] Allergy Unknown Verified 01/11/20 10:41 Penicillins Allergy Unknown Verified 01/11/20 10:41 Current Medications Current Medications Generic Name Dose Route Start Last Admin Trade Name Freq PRN Reason Stop Dose Admin Sodium Bicarbonate 150 meq/ 1,150 mls @ 125 mls/hr 01/11/20 15:14 01/11/20 16:29 Dextrose IV 125 mls/hr .Q9H12M NAGA Administration Propofol 1,000 mg in 100 mls @ 0 mls/hr 01/11/20 16:45 01/11/20 16:50 Diprivan IV 30 mcg/kg/min .Q0M NAGA 22.5 mls/hr Administration Protocol Per Protocol Midazolam HCl 4 mg 01/11/20 11:45 01/11/20 11:51 Versed IV 4 mg PRN PRN Administration sedation for et tube Vecuronium [place] 10 mg 01/11/20 11:24 01/11/20 11:52 Norcuron IVP 10 mg ONCE PRN Administration AGITATION PFSH Acute PFSH: Medical History Atrial fibrillation Chronic anticoagulation Chronic venous stasis Coronary artery disease Diabetes mellitus type 2, insulin dependent History of CVA (cerebrovascular accident) Hyperlipidemia Hypertension Macular degeneration Morbid obesity Peripheral neuropathy Pulmonary hypertension Surgical History History of appendectomy History of arthroscopic knee surgery Bilateral History of cholecystectomy History of hysterectomy History of lumpectomy of left breast Social History Smoking and tobacco status: unknown if ever smoked Vitals/I&O/Wt Last Vital Signs Pulse 75 01/11/20 18:00 Resp 20 H 01/11/20 18:10 BP 109/61 01/11/20 18:00 Pulse Ox 97 01/11/20 18:00 01/11/20 01/11/20 01/11/20 06:59 14:59 22:59 Intake Total 500 / 500 Balance 500 / 500 Weight last 48 hrs Weight 276 lb Weight 276 lb Physical Exam Narrative: EXAM NARRATIVE: General: The patient is intubated and sedated. Neck: Assessment of JVD is difficult because of body habitus Respiratory: Auscultation: Crackles at the left lower lung base, no wheezing or rhonchi, bronchial breath sound in the left anterior chest in the midlung zone Cardiovascular: Variable first heart sound, no murmur, chronic skin changes in bilateral lower extremities Abdomen: Soft, distended from obesity, sluggish bowel sounds Skin: Chronic skin changes in bilateral lower extremity, very easy bruising throughout the chest Neuro: Unable to assess because of clinical condition Urinary Catheter Management^: Riggins: Cath Placed During This Visit: yes Urinary Catheter Date of Insertion: 01/11/20 Urinary Catheter Time of Insertion: 12:29 Data Micro: Micro: Microbiology 01/11/20 11:15 Gram Stain - Final Sputum - Endotrac heal Wash 01/11/20 11:50 Blood Culture - Pr eliminary Blood SPECIMEN COLLE FISH 01/11/20 11:58 Blood Culture - Pr eliminary Blood SPECIMEN [facility] Other Data: Other data: I have reviewed the patient's laboratory, microbiologic and radiologic data. Chest x-ray obtained post intubation revealed atelectasis of the left upper lobe with mediastinal shift, infiltrate in the left lower lung. The blood cultures are negative so far. The sputum Gram stain shows gram-negative rods and gram-positive cocci in pairs. A&P Assessment and plan (1) Pneumonia: The patient has left lower lobe pneumonia. The Gram stain of the Endo tracheal aspirate is positive for gram-positive cocci in pairs and gram-negative rods. Given the fact that she is coming from correction home facility she is at high risk for having resistant gram-negative organisms. The patient is currently getting treated with broad-spectrum antibiotic cefepime and vancomycin. We will also add azithromycin for period of 5 days Follow the final culture results. Will optimize and de-escalate on the antibiotic regimen based on the culture data. Status: Acute Qualifiers: Laterality: left Lung location: lower lobe of lung Pneumonia type: due to unspecified organism Qualified Code(s): J18.9 - Pneumonia, unspecified organism Code(s): J18.9 - Pneumonia, unspecified organism (2) Acute on chronic respiratory failure: The patient is currently on mechanical ventilation. She is receiving low tidal volume ventilation with a pressure control of 15 over the PEEP of 12. Her FiO2 requirement has dropped down to 40%. When I initially evaluated the patient in the ER, she was on a significant amount of Pap. I believe this was secondary to the atelectasis of the left upper lobe. I believe this is possibly resolved now with improvement in the lung compliance as well as oxygenation. We will titrate down the FiO2 and a PEEP as possible. The patient has a BMI of 47. She would possibly need a higher PEEP to compensate for the heavy chest wall. We will switch her sedation to fentanyl and as needed propofol infusion. Status: Acute Qualifiers: Respiratory failure complication: hypoxia and hypercapnia Qualified Code(s): J96.21 - Acute and chronic respiratory failure with hypoxia; J96.22 - Acute and chronic respiratory failure with hypercapnia Code(s): J96.20 - Acute and chronic respiratory failure, unspecified whether with hypoxia or hypercapnia (3) Hyperkalemia: The patient is undergoing dialysis. We will repeat a BMP 2 hours post dialysis. As the patient was given therapy for intracellular shift a potassium from the extracellular space there is a chance that following the completion of the dialysis there might be shift from intra-cellular to extracellular space again. The patient will be managed accordingly. Status: Acute Code(s): E87.5 - Hyperkalemia (4) CKD (chronic kidney disease): The etiology of the hyperkalemia is likely related to her CKD. It appears that the patient is on an GOLDEN inhibitor. Whether she had a prerenal component from her recent sickness is unclear. However the patient is having minimal urine output at this point and is in ATN. Thank you for the consultation I will continue to follow her. Status: Acute Code(s): N18.9 - Chronic kidney disease, unspecified Coding Level of Care Code Acute Chipper Feeder for [facility] Fwd Diagnoses Pneumonia J18.9 Laterality: left Lung location: lower lobe of lung Pneumonia type: due to unspecified organism Acute on chronic respiratory failure J96.21; J96.22 Respiratory failure complication: hypoxia and hypercapnia Hyperkalemia E87.5 CKD (chronic kidney disease) N18.9 Time Spent (min) 61
--- NOTE | 2020-01-11 18:54 | PM.DIACAT ---
 Procedure Note: Date of procedure: 01/11/20 Pre-op diagnosis: Hyperkalemia with EKG changes Post-op diagnosis: same Procedure Performed: femoral dialysis catheter Procedure: Name of the procedure: Right femoral vein hemodialysis catheter placement under ultrasound guidance. Anesthesia: The patient was given 10 mL of 1% lidocaine. Description of the procedure: The right femoral vein was identified with ultrasound from compressibility and lack of pulsatility. The site was prepared using sterile technique. The skin, subcutaneous tissue was anesthetized with 1% lidocaine. The introducer needle was then advanced under direct ultrasound guidance until flashback was noted. Dark nonpulsatile blood was noted. Using Seldinger technique the right femoral vein HD catheter was put in. There was flashback from both ports. And there was good blood return. Complication: None Blood loss: 5 mL. Coding Level of Care Code Acute Web Marketing Coordinator for Betty Jerry
--- NOTE | 2020-01-11 18:56 | PM.ACPR ---
Procedure/Consent Time out: Time Out Performed: Yes Consent: Consent for Procedure: Emergency procedure Procedure Narrative: Name of the Procedure: Right femoral Central venous catheter placement under ultrasound guidance. Indication: Access for vasopressor administration Anesthesiia: Lidocaine 1%, 5 ml Description of the procedure: The right femoral vein was identified with the Ultrasound from collapsibility and lack of pulsatility. The site was prepared using sterile technique. The skin and subcuteneous tissue was anesthetized using lidocaine. The introducer needle was advanced under US guidance till flash back was noted. Dark, non pulsatile blood noted. Using seldinger technique the CVC was put in.Blood return was noted in all ports. Catheter was secured with suture and covered with transparent dressing. Complications: None Acute Procedures Epistaxis Control: Time out performed: Yes
[2020-01-11 19:25] LABS: Magnesium 2.4 mg/dL (1.7-2.3); Phosphorus 2.8 mg/dL (2.5-4.5)
[2020-01-11 19:31] LABS: INR 2.06 (0.8-1.2)
[2020-01-11] MEDS: heparin, porcine 1,000 unit/mL INJ 10 mL HE (19:46)
[2020-01-11] MEDS: cefepime 1,000 MG in sodium chloride 0.9% (plus) 100 ML 200 MG IV (20:02)
[2020-01-11] MEDS: vancomycin 1,000 MG in sodium chloride 0.9% 250 ML 250 MG IV (20:02)
--- NOTE | 2020-01-11 20:05 | PC.NURSE ---
1500-IN ER WITH DR QUINONEZ & DR MONTENEGRO. ASSISTED WITH TRANSFER TO ICU AFTER PLACEMENT OF CENTRAL LINES TO RIGHT GROIN. DIALYSIS NURSE HERE & HD STARTED FABIAN TO ROOM. FAMILY UPDATED ON CONDITION. RIGHT GROIN OOZING FROM INSERTION SITES, DR QUINONEZ NOTIFIED, DESMOPRESSIN 28MCG GIVEN OVER 30 MINUTES BY IVPB. DRESSING CHANGE DONE WITH DIALYSIS NURSE MICKI HOLLOWAY. OG TO LIS WITH GREEN DRAINAGE.
[2020-01-11 20:20] LABS: Anion Gap 21.5 (5-19); Blood Urea Nitrogen 50 mg/dL (8-23); Calcium 8.9 mg/dL (8.5-10.5); Carbon Dioxide 22 mmol/L (22-29); Chloride 99 mmol/L (98-107); Glucose 195 mg/dL (65-115); Osmolality Calculated 288 mOsm/kg (285-295); Potassium 5.5 mmol/L (3.5-5.1); Sodium 137 mmol/L (136-145)
[2020-01-11] MEDS: azithromycin 500 MG in sodium chloride 0.9% 250 ML 250 MG IV (21:40)
[2020-01-11 21:43] LABS: Glucose Point of Care 205 mg/dL (70-110)
[2020-01-12] VITALS (98 sets, daily range): BP systolic 83–171; BP diastolic 44–114; PULSE 60–102; RESP 15–37; TEMP 36.4–37.7; O2SAT 91–100
[2020-01-12 04:12] LABS: ABG PCO2 36.2 mmHg (35-45); ABG PH Result 7.35 (7.35-7.45); Alveolar-Arterial Oxygen Gradi 92.7 mmHg (5-10); Base Excess ABG -5.2 mmol/L (-2.0-2.0); Blood Gas Sample Site Brachial, left; Blood Gas Sample Type Arterial; Carboxyhemoglobin 0.7 %THgb (0.4-20.1); HCO3 ABG 19.9 mmol/L (22-26); HGB O2 Sat 96.2 % (95-100); Ionized Calcium Level - ABG 1.2 mmol/L (1.1-1.4); Oxygen Device VENT; Oxygen Saturation ABG 95.8; PO2 ABG 73.3 mmHg (80.0-100.0); Potassium Level - ABG 5.5 mmol/L (3.5-5.0); Total Hemoglobin 9.5 g/dL (12-16)
[2020-01-12 04:44] LABS: Basophils % 0.1 %; Hematocrit 26.2 % (37.0-47.0); Hemoglobin 7.8 g/dL (11.5-15.3); Lymphocytes # 0.7 10^3/uL (0.8-4.8); Lymphocytes % 5.1 %; Mean Corpuscular HGB Conc 29.8 g/dL (30.0-36.0); Mean Corpuscular Hemoglobin 29.7 pg (28.0-34.0); Mean Corpuscular Volume 99.6 fL (81-99); Mean Platelet Volume 11.3 fL (7.4-10.4); Monocytes # 0.3 10^3/uL (0.2-0.9); Monocytes % 1.7 %; Neutrophils # 13.3 10^3/uL (1.8-7.7); Neutrophils % 92.2 %; Nucleated Red Blood Cells % 0 %; Platelet Count 274 10^3/cmm (130-400); Red Blood Count 2.63 10^6/uL (4.1-5.3); White Blood Count 14.4 10^3/uL (4.0-10.0)
[2020-01-12 05:02] LABS: Alanine Aminotransferase 6 U/L (0-33); Albumin Level 2.5 g/dL (3.5-5.2); Alkaline Phosphatase 71 IU/L (35-105); Anion Gap 26.6 (5-19); Aspartate Amino Transferase 10 U/L (0-32); Blood Urea Nitrogen 56 mg/dL (8-23); Calcium 8.9 mg/dL (8.5-10.5); Carbon Dioxide 19 mmol/L (22-29); Chloride 98 mmol/L (98-107); Globulin 4.6 g/dL (1.3-4.6); Glucose 267 mg/dL (65-115); Osmolality Calculated 294 mOsm/kg (285-295); Potassium 5.6 mmol/L (3.5-5.1); Sodium 138 mmol/L (136-145); Total Bilirubin 0.3 mg/dL (0.15-1.2); Total Protein 7.1 g/dL (6.6-8.7)
--- NOTE | 2020-01-12 06:00 | XRR_ITS ---
PROCEDURE INFORMATION: Exam: XR Chest, 1 View Exam date and time: 01/12/2020 5:19 AM Age: 74 years old Clinical indication: Device placement; Other: Og; Additional info: Intubated TECHNIQUE: Imaging protocol: XR of the chest Views: Frontal portable supine view of the chest. COMPARISON: CR XR chest 1V portable [id number] 01/11/2020 12:32 PM FINDINGS: Tubes, catheters and devices: The endotracheal tube tip is approximately 6.5 cm above the winter. EKG leads are present overlying the chest. The feeding tube enters the stomach with the tip off the limits of the image. Lungs: Mild left lateral basilar subsegmental atelectasis. The lungs are otherwise peripherally clear bilaterally. The pulmonary vasculature remains congested. Pleural space: No pleural effusion. No pneumothorax. Heart/Mediastinum: Stable mild cardiomegaly. Mediastinum: Stable. Vasculature: Moderate aortic arch atherosclerotic calcification without ectasia. Bones/joints: Stable. Other findings: Respiratory tubing overlies the right upper chest. XR/XR chest 1V portable [id number] IMPRESSION: 1. Mild left lateral basilar subsegmental atelectasis. 2. Persistent pulmonary vascular congestion.
--- NOTE | 2020-01-12 06:59 | PC.NURSE ---
SHIFT SUMMARY PT HAS REMAINED SEDATED, WILL OPEN EYES AND ANSWER YES OR NO. WILL SQUEEZE HANDS. PT HAD 300 URINE OUTPUT. PT FAMILY HAS BEEN IN AND OUT OF ROOM SEEING PATIENT THROUGH OUT THE SHIFT. PT CENTRAL LINE SITE IS STILL OOZING, PRESSURE DRESSING HAS BEEN APPLIED AND REAPPLIED ONE TIME. PT LUNGS REMAIN VERY DIMINISHED. PT HAS BEEN TURNED PERIODICALLY, PT CENTRAL LINE REMAINS PATENT.
--- NOTE | 2020-01-12 07:34 | P.PN_ITS ---
Subjective Subjective: Interval history: intubated, sedated in ICU- unable to obtain Medications: Reviewed: Yes Medication Review Details: Current Medications Acetaminophen (Tylenol) 650 mg PO Q6H PRN PRN Reason: Mild/Mod Pain Or Temp >/= 101 Dextrose (D50w) 25 ml IVP ONCE PRN; Protocol PRN Reason: hypoglycemia protocol Dextrose (D50w) 50 ml IVP PRN PRN; Protocol PRN Reason: hypoglycemia protocol Glucagon (Glucagen) 1 mg IM ONCE PRN; Protocol PRN Reason: Adult Acute Hypoglycemia Prot. Heparin Sodium (Beef Lung) (Heparin) 5,000 unit SUBCUT Q12H NAGA Last Admin: 01/12/20 02:22 Dose: Not Given Documented by: Vancomycin HCl 1,000 mg/ (Sodium Chloride) 250 mls @ 250 mls/hr IV Q48H NAGA; Protocol Last Infusion: 01/12/20 02:22 Dose: Infused Documented by: Cefepime HCl 1,000 mg/ Sodium (Chloride) 100 mls @ 200 mls/hr IV Q24H NAGA; Protocol Last Infusion: 01/12/20 02:22 Dose: Infused Documented by: Dextrose (D5w) 500 mls @ 100 mls/hr IV ONCE PRN; Protocol PRN Reason: Adult Acute Hypoglycemia Prot Norepinephrine Bitartrate 4 mg (/ Dextrose) 254 mls @ 0 mls/hr IV .Q0M NAGA; Protocol Azithromycin 500 mg/ Sodium (Chloride) 250 mls @ 250 mls/hr IV Q24H NAAG; Tania col Last Infusion: 01/12/20 02:22 Dose: Infused Documented by: Fentanyl 1,000 mcg/ Sodium (Chloride) 100 mls @ 0 mls/hr IV .Q0M NAGA; Protocol Last Titration: 01/12/20 02:22 Dose: 30 mcg/hr, 3 mls/hr Documented by: Insulin Aspart (Novolog) 0 unit SUBCUT BEDTIME NAGA; Protocol Last Admin: 01/11/20 21:40 Dose: 3 unit Documented by: Insulin Aspart (Novolog) 0 unit SUBCUT TIDWM NAGA; Protocol Last Admin: 01/11/20 19:50 Dose: Not Given Documented by: Midazolam HCl (Versed) 4 mg IV PRN PRN PRN Reason: sedation for et tube Last Admin: 01/11/20 11:51 Dose: 4 mg Documented by: Morphine Sulfate (Morphine) 2 mg IVP Q4H PRN PRN Reason: SEVERE PAIN Naloxone HCl (Narcan) 0.1 mg IVP Q2M PRN PRN Reason: OPIATERV Ondansetron HCl (Zofran) 4 mg IVP Q8H PRN PRN Reason: vomiting, or N/V if npo Pantoprazole Sodium (Protonix) 40 mg IVP DAILY NAGA Vitals/I&O/Wt Last Vital Signs Temp 97.8 F 01/12/20 02:00 Pulse 74 01/12/20 06:30 Resp 19 H 01/12/20 06:17 BP 98/55 01/12/20 06:30 Pulse Ox 100 01/12/20 06:30 01/11/20 01/12/20 01/12/20 22:59 06:59 14:59 Intake Total 0 / 500 612.7 / 1112.7 Output Total 300 / 310 Balance -10 490 312.7 / 802.7 Weight last 48 hrs Weight 125.191 kg Weight 125.191 kg Physical Exam Narrative: EXAM NARRATIVE: vs noted- a fib. intubated- fio2 of 30%, overbreathing the vent heent- nc/at, OGT w/ bloody emesis neck supple lungs left > rt ronchi heart irreg irreg abd soft, nt, nd, + bs ext b/l edema rt femorral dialysis catheter and oozing around it neuro- sedated. not interactive. Urinary Catheter Management^: Riggins: Cath Placed During This Visit: yes Urinary Catheter Date of Insertion: 01/11/20 Urinary Catheter Time of Insertion: 12:29 Data : 01/12/20 04:24 01/12/20 04:24 Micro: Microbiology 01/11/20 11:15 Gram Stain - Final Sputum - Endotracheal Wash 01/11/20 11:50 Blood Culture - Preliminary Blood SPECIMEN COLLECTED 01/11/20 11:58 Blood Culture - Preliminary Blood SPECIMEN COLLECTED A&P Additional A&P Information 74 yr old female w/ CHF, Q a fib, CAD, DM, weak- longterm dep. recent influenzae. now here w/ septic shock and pna. 1. CKD stage 3b/4- b/l cr 2.6 from dm, CHF, HTN -check renal us 2. TOLU- from pt being ill w/ flu and pna- yet on sade-i, lasix, aldactone and other bp meds -likely ATN -kand acidosis improved w/ dialysis. -remains oliguric and k is 5.6 -repeat hd today for 3 hrs, 2k bath, no fluid removal 3. hyperkalemia- from dm, ckd, AK, sade-i, and aldactone, and takes oral potassium -improving w/ HD recs- d/c all anti-htn meds -can d/c ivf -check renal us - urine studies noted- no significant proteinuria 4. Sepsis/ pna- abx as per hospitalist and critical care -monitor vanco levels 5. anemia w/ high MCV- check b12 and folate level can be form CKD -hgb dropping and bloody OGT emesis- consider GI eval 6. + troponins w/ relatively normal EF on echo- per cardiology 7.DM control 8. dose all meds for ESRD 9. VDRF as per critical care and hopitalist prognosis remains poor w/ AMI, TOLU, VDRF, PNA beni longterm pt- discuss goals of care w/ family as per hospitalist and critical care. if family has any questions, i am happy to speak w/ them. Attestations Medical Necessity Statement*: tolu, pna, AMI, VDRF Time Spent in Patient Care: Greater than 35 minutes Coding Level of Care Code Acute Surgical Services Director for Patrickg Rosalino
[2020-01-12 07:38] LABS: Glucose Point of Care 265 mg/dL (70-110)
[2020-01-12] MEDS: pantoprazole 40 mg SDV IVP ×2 (07:54→20:50)
--- NOTE | 2020-01-12 10:35 | PC.NURSE ---
1035- DIALYSIS NURSE AT BEDSIDE. ARTIFACT NOTED ON TELEMETRY & UPON ENTERING ROOM. PT HAD A HOLD OF HER ET TUBE & HAD PULLED IT OUT. ORAL SUCTIONING DONE, NON RE-BREATHER PLACED ON PT. DR MONTENEGRO NOTIFIED & AT BEDSIDE. FENTANYL DOSE DECREASED. PT ALERT & ANSWERING QUESTIONS. WILL CONTINUE TO MONITOR CLOSELY. DR QUINONEZ/DR MONTENEGRO/DR ROBISON ALL AWARE, NEW ORDERS RECEIVED. DIALYSIS NURSE AWARE & WILL PULL 1 LITER OFF IF TOLERATED BY PT.
--- NOTE | 2020-01-12 10:48 | PC.CHAP ---
Pastoral Care Encounter/Spiritual Assessment Type of Contact [] Declined fruit washer visit [] Patient/Family/Request visit [] Outpatient visit [] Follow-up visit [] Physician referral [] Code/Alert [x] Routine visit [] Staff referral [] Actively dying [x] Patient sleeping [] Family support [] [] Out of room [] Palliative care [] [] Receiving care in room [] Pre-surgical visit [] Trauma [] Long length of stay [x] ICU visit [] Other: Relational/Emotional Strength [] Patient feels connected with others/family/visitors/staff [] Distress [] Loneliness/isolation [] Abandonment Spirituality of Patient [] Person of Pao [] Attends Voodoo of their Pao [] Believes in Prayer [] Reads Bible or Jehovah'S Witness materials [] There are Spiritual issues to be addressed Senior Safety Management Consultant Interventions [] Prayer [] Active listening [] Non-anxious presence [] Spiritual/emotional support [] Crisis/trauma care [] Spiritual counseling [] Bereavement support [] Provided bereavement packet [] Provided Bible/devotional materials [] Provided toy/stuffed animal, coloring book to patient or family member [] Provided Communion [] Anointing/[place] [] Salvation [x] Completed spiritual assessment [] Other: Impact on Illness or Injury [] Angry [] Fearful [] Anxious [] Often cries [] Exhaustion [] Unable to work [] Unable to attend rastafarian [] Unable to walk/stand [] Unable to read [] Unable to drive [] Unable to eat/drink [] Unable to sleep [] Unable to be with family [] Patient intubated [] Other: Summary Patient resting well. Large amount of family present. Marie Bowles family member... will be assisting with pastoral care. Time spent with patient 10 min
--- NOTE | 2020-01-12 10:58 | P.PN_ITS ---
Subjective Subjective: Interval history: Intubated this morning at time of exam. Medications: Reviewed: Yes Medication Review Details: Current Medications Acetaminophen (Tylenol) 650 mg PO Q6H PRN PRN Reason: Mild/Mod Pain Or Temp >/= 101 Dextrose (D50w) 25 ml IVP ONCE PRN; Protocol PRN Reason: hypoglycemia protocol Dextrose (D50w) 50 ml IVP PRN PRN; Protocol PRN Reason: hypoglycemia protocol Glucagon (Glucagen) 1 mg IM ONCE PRN; Protocol PRN Reason: Adult Acute Hypoglycemia Prot. Heparin Sodium (Beef Lung) (Heparin) 5,000 unit SUBCUT Q12H NAGA Last Admin: 01/12/20 02:22 Dose: Not Given Documented by: Vancomycin HCl 1,000 mg/ (Sodium Chloride) 250 mls @ 250 mls/hr IV Q48H NAGA; Protocol Last Infusion: 01/12/20 02:22 Dose: Infused Documented by: Cefepime HCl 1,000 mg/ Sodium (Chloride) 100 mls @ 200 mls/hr IV Q24H NAGA; Protocol Last Infusion: 01/12/20 02:22 Dose: Infused Documented by: Dextrose (D5w) 500 mls @ 100 mls/hr IV ONCE PRN; Protocol PRN Reason: Adult Acute Hypoglycemia Prot Norepinephrine Bitartrate 4 mg (/ Dextrose) 254 mls @ 0 mls/hr IV .Q0M NAGA; Protocol Azithromycin 500 mg/ Sodium (Chloride) 250 mls @ 250 mls/hr IV Q24H NAGA; Protoc ol Last Infusion: 01/12/20 02:22 Dose: Infused Documented by: Fentanyl 1,000 mcg/ Sodium (Chloride) 100 mls @ 0 mls/hr IV .Q0M NAGA; Protocol Last Titration: 01/12/20 02:22 Dose: 30 mcg/hr, 3 mls/hr Documented by: Insulin Aspart (Novolog) 0 unit SUBCUT BEDTIME NAGA; Protocol Last Admin: 01/11/20 21:40 Dose: 3 unit Documented by: Insulin Aspart (Novolog) 0 unit SUBCUT TIDWM NAGA; Protocol Last Admin: 01/11/20 19:50 Dose: Not Given Documented by: Midazolam HCl (Versed) 4 mg IV PRN PRN PRN Reason: sedation for et tube Last Admin: 01/11/20 11:51 Dose: 4 mg Documented by: Morphine Sulfate (Morphine) 2 mg IVP Q4H PRN PRN Reason: SEVERE PAIN Naloxone HCl (Narcan) 0.1 mg IVP Q2M PRN PRN Reason: OPIATERV Ondansetron HCl (Zofran) 4 mg IVP Q8H PRN PRN Reason: vomiting, or N/V if npo Pantoprazole Sodium (Protonix) 40 mg IVP DAILY NAGA Vitals/I&O/Wt Last Vital Signs Temp 98.6 F 01/12/20 09:45 Pulse 79 01/12/20 09:45 Resp 37 H 01/12/20 09:45 BP 117/57 01/12/20 09:45 Pulse Ox 95 01/12/20 09:45 01/11/20 01/12/20 01/12/20 22:59 06:59 14:59 Intake Total 0 / 500 612.7 / 1112.7 19.067 / 19.067 Output Total 300 / 310 Balance -10 490 312.7 / 802.7 19.067 / 19.067 Weight last 48 hrs Weight 125.191 kg Weight 125.191 kg Physical Exam Const: GENERAL APPEARANCE: patient mechanically ventilated HENMT: COMMON NORMALS: normocephalic and head/scalp atraumatic HEAD & SCALP: normocephalic and atraumatic Eye: COMMON NORMALS: PERRL PUPIL: Yes PERRL Neck/C-Spine: COMMON NORMALS: supple GENERAL: Yes normal visual inspection Resp: OTHER: ET tube in place. Diminished breath sounds bilaterally, no appreciable wheezing Cardio: OTHER: Distant heart sounds, bradycardic, regular rhythm GI: OTHER: Morbidly obese with large pannus. Anterior abdominal wall bruising, no appreciable tenderness to palpation, normal bowel sounds Extremity: OTHER: Bilateral lower extremity chronic venous stasis with lower extremity stasis ulcers Neuro: OTHER: Intubated, resting tremor in the left upper extremity Skin: OTHER: Crusting lesions under the breast bilaterally, bilateral lower extremity venous stasis with superficial ulceration Urinary Catheter Management^: Riggins: Cath Placed During This Visit: yes Urinary Catheter Date of Insertion: 01/11/20 Urinary Catheter Time of Insertion: 12:29 Data : 01/12/20 04:24 01/12/20 04:24 Micro: Microbiology 01/11/20 11:15 Gram Stain - Final Sputum - Endotracheal Wash Sputum Culture - Preliminary Haemophilus species 01/11/20 11:50 Blood Culture - Preliminary Blood SPECIMEN COLLECTED 01/11/20 11:58 Blood Culture - Preliminary Blood SPECIMEN COLLECTED A&P Assessment and plan (1) Acute renal failure: Emergent dialysis performed on admission Repeat dialysis today with removal of [address] Blankenship, nephrology consulted. Appreciate recommendations and assistance in patient's care We will follow-up with recommendations from critical care Potassium improved today Status: Acute Qualifiers: Acute renal failure type: unspecified Qualified Code(s): N17.9 - Acute kidney failure, unspecified Code(s): N17.9 - Acute kidney failure, unspecified (2) Pneumonia: Left lower lobe pneumonia. Sputum culture obtained in the emergency department. Blood culture pending. Continue on broad-spectrum antibiotics with cefepime and vancomycin as well as a azithromycin Respiratory therapy to assess and treat Patient with recent diagnosis of influenza, had completed course of Tamiflu. Treatment was started on 01/04/2020 Status: Acute Qualifiers: Laterality: left Lung location: lower lobe of lung Pneumonia type: due to unspecified organism Qualified Code(s): J18.9 - Pneumonia, unspecified organism Code(s): J18.9 - Pneumonia, unspecified organism (3) Congestive heart failure: Reported history of diastolic CHF, last echocardiogram from 2011, repeat ECHO ordered and LVEF 55% Plan for removal of 1 L of fluid with dialysis today Status: Acute Qualifiers: Heart failure chronicity: chronic Heart failure type: unspecified Qualified Code(s): I50.9 - Heart failure, unspecified Code(s): I50.9 - Heart failure, unspecified Additional A&P Information Acute on chronic anemia: Hemoglobin down to 7.8 today. Type and screen ordered. Transfusion 1 unit packed red blood cells at this time. Patient has had bleeding from the right groin. On chronic Xarelto which is being held. Initially on DVT prophylaxis with heparin, however this is been held due to concern for anemia. Increased Protonix to 40 IV every 12 hours Hyperkalemia with acute renal failure: Improved. Plan as noted above Metabolic acidosis: Improved Diabetes mellitus, insulin-dependent, continue on sliding scale insulin as needed Hypertension: Currently hypotensive, holding home medications. Holding home Coreg, Lasix, Imdur, quinapril, amlodipine, Aldactone Hyperlipidemia: On atorvastatin Recent diagnosis of influenza: Completed course of Tamiflu On chronic anticoagulation: On Xarelto 15 mg daily, holding Atrial fibrillation: On Coreg 12.5 mg twice daily Diastolic congestive heart failure: As noted above holding home Lasix and dialysis plan as above History of CVA with chronic left-sided weakness according to family Elevated troponin: Likely type II process due to sepsis with septic and acute renal failure: Continue monitoring on telemetry Hypoalbuminemia Morbid obesity Chronic intermediate resident GERD: IV PPI DVT PPx: SCDs, heparin discontinued due to concern for acute anemia Code Status: DNR/currently intubated, patient agrees to intubation if needed Attestations Medical Necessity Statement*: Patient requires further hospitalization due to acute renal failure, sepsis, pneumonia Coding Level of Care Code Acute Senior Strategy Manager for [facility] Fwd Exam Expanded Problem Focused Diagnoses Acute renal failure N17.9 Acute renal failure type: unspecified Pneumonia J18.9 Laterality: left Lung location: lower lobe of lung Pneumonia type: due to unspecified organism Congestive heart failure I50.9 Heart failure chronicity: chronic Heart failure type: unspecified
--- NOTE | 2020-01-12 11:11 | PC.RESP ---
1035 pt self extubated, placed on oxymask 5lpm, Dr Glez and Dr Covington notified
[2020-01-12 11:24] LABS: INR 1.72 (0.8-1.2)
[2020-01-12 11:25] LABS: D Dimer 1.17 ug/mIFEU (0-0.59); Fibrinogen 779 mg/dL (184-529); Partial Thromboplastin Time 40.7 SECONDS (23.9-36.7)
[2020-01-12 12:01] LABS: Glucose Point of Care 143 mg/dL (70-110)
[2020-01-12 12:07] LABS: ABG PCO2 46.1 mmHg (35-45); ABG PH Result 7.38 (7.35-7.45); Arterial Blood Gas Hematocrit 31.8 % (37-47); Base Excess ABG 1.4 mmol/L (-2.0-2.0); Blood Gas Allen Test Pos; Blood Gas Sample Site Brachial, right; Blood Gas Sample Type Arterial; Oxygen Device OXY MASK
--- NOTE | 2020-01-12 15:23 | PC.RESP ---
Patient given Pulmonary Rehab information.
--- NOTE | 2020-01-12 16:17 | PC.NURSE ---
SPOKE WITH MICHELA HOLLOWAY AT [facility]. SHE STATES THAT PT WAS TAKING HER MEDICATIONS UNTIL 01/11/20 AM & THAT WAS THE FIRST TIME SHE REFUSED MEDS. STATES THAT PT DOESN'T LIKE TO BATHE OR REPOSITION.
--- NOTE | 2020-01-12 16:42 | PM.PN ---
Subjective Subjective: Interval history: The patient was seen and examined earlier during the day. She had received emergent dialysis yesterday for hyperkalemia with EKG changes. Postdialysis potassium was 5.5. This morning the patient was noted to have worsening acidosis and slowly rising level of potassium and she underwent second dialysis session. The patient self extubated herself. Likely, following extubation she did well. She was saturating well with 15 L oxygen. The patient was still undergoing dialysis. Upon discussion with the clay structure builder and servicer, we decided to remove 1 L of ultrafiltrate. Following that, were able to come down on the oxygen to 2 L. The patient is easily arousable, responsive. Her endotracheal aspirate culture is positive for Haemophilus. Medications: Reviewed: Yes Vitals/I&O/Wt Last Vital Signs Temp 98.7 F 01/12/20 16:00 Pulse 78 01/12/20 16:00 Resp 35 H 01/12/20 16:00 BP 109/63 01/12/20 16:00 Pulse Ox 91 01/12/20 16:00 01/12/20 01/12/20 01/12/20 06:59 14:59 22:59 Intake Total 612.7 / 1112.7 381.108 / 381.108 Output Total 300 / 310 800 / 800 Balance 312.7 / 802.7 -418.892 / -418.892 Weight last 48 hrs Weight 276 lb Weight 276 lb Physical Exam Narrative: EXAM NARRATIVE: General: Patient is easily arousable and responsive Neck: Assessment of JVD is difficult because of body habitus Respiratory: Auscultation: Crackles at the left lower lung base, no wheezing or rhonchi, bronchial breath sound in the left anterior chest in the midlung zone Cardiovascular: Variable first heart sound, no murmur, chronic skin changes in bilateral lower extremities Abdomen: Soft, distended from obesity, sluggish bowel sounds Skin: Chronic skin changes in bilateral lower extremity, very easy bruising throughout the chest Neuro: Patient is arousable and follows simple commands and answer questions Urinary Catheter Management^: Riggins: Cath Placed During This Visit: yes Urinary Catheter Date of Insertion: 01/11/20 Urinary Catheter Time of Insertion: 12:29 Data : 01/12/20 04:24 01/12/20 04:24 Micro: Microbiology 01/11/20 11:50 Blood Culture - Preliminary Blood NEGATIVE TO DATE 01/11/20 11:58 Blood Culture - Preliminary Blood NEGATIVE TO DATE 01/11/20 11:15 Gram Stain - Final Sputum - Endotracheal Wash Sputum Culture - Preliminary Haemophilus species Other data: I have reviewed the patient laboratory, radiology and microbiology data. A chest x-ray this morning while the patient was intubated revealed persistent left upper lobe atelectasis with volume loss, left lower lobe consolidation and small pleural effusion. Endotracheal aspirate is growing Haemophilus. The patient has a drop in hemoglobin to 7.8. A&P Assessment and plan (1) Pneumonia: The patient has left lower lobe pneumonia secondary to Haemophilus infection. We have discontinued vancomycin, cefepime and azithromycin and starting her on ceftriaxone. She does have evidence of left upper lobe atelectasis. She is going to likely to require aggressive chest physical therapy. Status: Acute Qualifiers: Laterality: left Lung location: lower lobe of lung Pneumonia type: due to unspecified organism Qualified Code(s): J18.9 - Pneumonia, unspecified organism Code(s): J18.9 - Pneumonia, unspecified organism (2) Acute on chronic respiratory failure: The respiratory failure is getting better. Patient is on antibiotic for her pneumonia. The patient will benefit from mobilization to a chair as soon as she is stable. We were able to come down on the oxygen requirement upon removal of a liter of ultrafiltrate. An echocardiogram performed yesterday the mitral valve E over E prime was 15 which is consistent with increased pulmonary capillary wedge pressure. The patient has a previous diagnosis of heart failure with preserved ejection fraction. We will have to keep a close eye for her to get volume overloaded. Status: Acute Qualifiers: Respiratory failure complication: hypoxia and hypercapnia Qualified Code(s): J96.21 - Acute and chronic respiratory failure with hypoxia; J96.22 - Acute and chronic respiratory failure with hypercapnia Code(s): J96.20 - Acute and chronic respiratory failure, unspecified whether with hypoxia or hypercapnia (3) Hyperkalemia: There are multiple etiologies for hyperkalemia. The patient was on GOLDEN inhibitor, getting potassium supplementation and on potassium sparing diuretic. She also had received succinylcholine for paralysis yesterday. She received 2 sessions of dialysis so far. There is no EKG evidence for hyperkalemic changes. Status: Acute Code(s): E87.5 - Hyperkalemia (4) CKD (chronic kidney disease): The patient has developed TOLU on CKD. She likely has ATN. Likely, she has put is about 300 cc of urine so far. Am hoping this would get better down the line. Status: Acute Code(s): N18.9 - Chronic kidney disease, unspecified Attestations Medical Necessity Statement*: Will defer to the primary team. Coding Level of Care Code Acute Branch Administrator for [facility] Fwd Diagnoses Pneumonia J18.9 Laterality: left Lung location: lower lobe of lung Pneumonia type: due to unspecified organism Acute on chronic respiratory failure J96.21; J96.22 Respiratory failure complication: hypoxia and hypercapnia Hyperkalemia E87.5 CKD (chronic kidney disease) N18.9 Time Spent (min) 35
[2020-01-12 17:25] LABS: Glucose Point of Care 176 mg/dL (70-110)
[2020-01-12] MEDS: cefTRIAXone 1,000 MG in sodium chloride 0.9% (plus) 100 ML 100 MG IV (17:26)
--- NOTE | 2020-01-12 18:06 | XRR_ITS ---
PROCEDURE INFORMATION: Exam: XR Chest, 1 View Exam date and time: 01/12/2020 6:55 PM Age: 74 years old Clinical indication: Shortness of breath; Additional info: SOB TECHNIQUE: Imaging protocol: XR of the chest Views: 1 view. COMPARISON: CR XR chest 1V portable [id number] 01/12/2020 5:07 AM FINDINGS: Tubes, catheters and devices: The NG tube and ET tube have been removed. Lungs: Mild bronchial cuffing. The lungs are clear. Pleural space: Unremarkable. No pleural effusion. No pneumothorax. Heart/Mediastinum: The heart size is upper normal. Bones/joints: Unremarkable. XR/XR chest 1V portable [id number] IMPRESSION: 1. Mild bronchial cuffing can be seen with bronchitis or vascular congestion.
--- NOTE | 2020-01-12 19:24 | PC.NURSE ---
BLOOD TRANSFUSED PER DIALYSIS NURSE.
--- NOTE | 2020-01-12 19:32 | PC.NURSE ---
WASTE 55ML FENTANYL IV DRIP. WITNESSED BY SHANNA RODRIGUEZ RN.
[2020-01-12] MEDS: FUROsemide 10 mg/mL SDV 10mL 120 MG IVP (20:52)
[2020-01-12 21:03] LABS: Glucose Point of Care 177 mg/dL (70-110)
[2020-01-13] VITALS (102 sets, daily range): BP systolic 125–166; BP diastolic 67–105; PULSE 77–125; RESP 8–37; TEMP 36.9–37.4; O2SAT 90–100
[2020-01-13 05:14] LABS: Basophils % 0.1 %; Hematocrit 28.5 % (37.0-47.0); Hemoglobin 8.6 g/dL (11.5-15.3); Lymphocytes # 1.8 10^3/uL (0.8-4.8); Lymphocytes % 13.2 %; Mean Corpuscular HGB Conc 30.2 g/dL (30.0-36.0); Mean Corpuscular Hemoglobin 29.3 pg (28.0-34.0); Mean Corpuscular Volume 96.9 fL (81-99); Monocytes % 6.9 %; Neutrophils # 10.9 10^3/uL (1.8-7.7); Neutrophils % 78.4 %; Nucleated Red Blood Cells % 0 %; Platelet Count 281 10^3/cmm (130-400); Red Blood Count 2.94 10^6/uL (4.1-5.3); Red Cell Distribution Width 14.7 % (12.1-15.1)
[2020-01-13 05:33] LABS: Alanine Aminotransferase 6 U/L (0-33); Albumin Level 2.5 g/dL (3.5-5.2); Alkaline Phosphatase 75 IU/L (35-105); Anion Gap 18.5 (5-19); Aspartate Amino Transferase 11 U/L (0-32); Blood Urea Nitrogen 37 mg/dL (8-23); Calcium 8.8 mg/dL (8.5-10.5); Carbon Dioxide 27 mmol/L (22-29); Chloride 97 mmol/L (98-107); Globulin 4.6 g/dL (1.3-4.6); Glucose 195 mg/dL (65-115); Osmolality Calculated 289 mOsm/kg (285-295); Potassium 4.5 mmol/L (3.5-5.1); Sodium 138 mmol/L (136-145); Total Bilirubin 0.3 mg/dL (0.15-1.2); Total Protein 7.1 g/dL (6.6-8.7)
[2020-01-13 09:20] LABS: Glucose Point of Care 174 mg/dL (70-110)
[2020-01-13] MEDS: pantoprazole 40 mg SDV IVP ×2 (09:38→20:20)
--- NOTE | 2020-01-13 10:25 | PM.PN ---
Subjective Subjective: Interval history: Self extubated yesterday during dialysis. She had a pretty good night, temporarily needing BIPAP. She is now breathing comfortably on nasal O2. Still has overt generalized edema. Had 400ml yesterday in response to lasix. Choked on some ice chips today, pending S&S eval. No coughing or resp distress. Medications: Reviewed: Yes Medication Review Details: Current Medications Acetaminophen (Tylenol) 650 mg PO Q6H PRN PRN Reason: Mild/Mod Pain Or Temp >/= 101 Dextrose (D50w) 25 ml IVP ONCE PRN; Protocol PRN Reason: hypoglycemia protocol Dextrose (D50w) 50 ml IVP PRN PRN; Protocol PRN Reason: hypoglycemia protocol Glucagon (Glucagen) 1 mg IM ONCE PRN; Protocol PRN Reason: Adult Acute Hypoglycemia Prot. Heparin Sodium (Beef Lung) (Heparin) 5,000 unit SUBCUT Q12H NAGA Last Admin: 01/12/20 02:22 Dose: Not Given Documented by: Vancomycin HCl 1,000 mg/ (Sodium Chloride) 250 mls @ 250 mls/hr IV Q48H NAGA; Protocol Last Infusion: 01/12/20 02:22 Dose: Infused Documented by: Cefepime HCl 1,000 mg/ Sodium (Chloride) 100 mls @ 200 mls/hr IV Q24H NAGA; Protocol Last Infusion: 01/12/20 02:22 Dose: Infused Documented by: Dextrose (D5w) 500 mls @ 100 mls/hr IV ONCE PRN; Protocol PRN Reason: Adult Acute Hypoglycemia Prot Norepinephrine Bitartrate 4 mg (/ Dextrose) 254 mls @ 0 mls/hr IV .Q0M NAGA; Protocol Azithromycin 500 mg/ Sodium (Chloride) 250 mls @ 250 mls/hr IV Q24H NAGA; Protocol Last Infusion: 01/12/20 02:22 Dose: Infused Documented by: Fentanyl 1,000 mcg/ Sodium (Chloride) 100 mls @ 0 mls/hr IV .Q0M NAGA; Protocol Last Titration: 01/12/20 02:22 Dose: 30 mcg/hr, 3 mls/hr Documented by: Insulin Aspart (Novolog) 0 unit SUBCUT BEDTIME NAGA; Protocol Last Admin: 01/11/20 21:40 Dose: 3 unit Documented by: Insulin Aspart (Novolog) 0 unit SUBCUT TIDWM NAGA; Protocol Last Admin: 01/11/20 19:50 Dose: Not Given Documented by: Midazolam HCl (Versed) 4 mg IV PRN PRN PRN Reason: sedation for et tube Last Admin: 01/11/20 11:51 Dose: 4 mg Documented by: Morphine Sulfate (Morphine) 2 mg IVP Q4H PRN PRN Reason: SEVERE PAIN Naloxone HCl (Narcan) 0.1 mg IVP Q2M PRN PRN Reason: OPIATERV Ondansetron HCl (Zofran) 4 mg IVP Q8H PRN PRN Reason: vomiting, or N/V if npo Pantoprazole Sodium (Protonix) 40 mg IVP DAILY [facility] Vitals/I&O/Wt Last Vital Signs Temp 99.0 F 01/13/20 08:00 Pulse 91 01/13/20 09:21 Resp 18 01/13/20 08:00 BP 164/99 01/13/20 08:00 Pulse Ox 98 01/13/20 09:21 01/12/20 01/13/20 01/13/20 22:59 06:59 14:59 Intake Total 100 / 831.108 Output Total 225 / 1025 275 / 1300 Balance -125 / -193.892 -275 / -468.892 Weight last 48 hrs Weight 119.89 kg Weight 125.191 kg Physical Exam Narrative: EXAM NARRATIVE: General: Patient is easily arousable and responsive Neck: Assessment of JVD is difficult because of body habitus Respiratory: Auscultation: Crackles at the left lower lung base, no wheezing or rhonchi, bronchial breath sound in the left anterior chest in the midlung zone Cardiovascular: Variable first heart sound, no murmur, chronic skin changes in bilateral lower extremities Abdomen: Soft, distended from obesity, sluggish bowel sounds Skin: Chronic skin changes in bilateral lower extremity, very easy bruising throughout the chest Neuro: Patient is arousable and follows simple commands and answer questions Const: COMMON NORMALS: well nourished GENERAL APPEARANCE: patient mechanically ventilated HENMT: COMMON NORMALS: normocephalic, head/scalp atraumatic, hearing grossly normal bilaterally, external ears normal, EAC's normal, TM's normal bilaterally, external nose normal, nasal mucous membranes and turbinates normal, moist oral mucous membranes, oropharynx normal, dentition normal and gingiva normal HEAD & SCALP: normocephalic and atraumatic NOSE: external nose normal and nasal mucous membranes and turbinates normal EXTERNAL EAR: Yes external ears normal EXTERNAL AUDITORY CANAL: EAC's normal TYMPANIC MEMBRANE: TM's normal bilaterally Eye: COMMON NORMALS: PERRL, EOMs intact bilaterally, conjunctivae normal, no scleral icterus, no papilledema, normal visual abdi by confrontation and fundi normal bilaterally CONJUNCTIVA: Yes conjunctivae normal PUPIL: Yes PERRL DIRECT OPHTHALMOSCOPY: Yes no papilledema and Yes fundi normal bilaterally Neck/C-Spine: COMMON NORMALS: full ROM, no lymphadenopathy, supple, no meningeal signs, no JVD, thyroid normal and no carotid bruits GENERAL: Yes normal visual inspection THYROID: thyroid normal Chest: COMMONS NORMALS: inspection of chest normal and palpation of chest normal Resp: OTHER: ET tube in place. Diminished breath sounds bilaterally, no appreciable wheezing Cardio: COMMON NORMALS: no JVD, S1 normal heart sound, S2 normal heart sound, no gallops, no clicks, no murmurs, no rub and peripheral pulses 2+ throughout HEART SOUNDS: S1 normal and S2 normal PERIPHERAL PULSES: pulses 2+ throughout OTHER: Distant heart sounds, bradycardic, regular rhythm GI: COMMON NORMALS: normal to inspection, nondistended, normoactive bowel sounds, soft to palpation, non-tender, no hepatosplenomegaly, no masses and no bruits PALPATION: Yes soft and Yes no hepatosplenomegaly OTHER: Morbidly obese with large pannus. Anterior abdominal wall bruising, no appreciable tenderness to palpation, normal bowel sounds : COMMON NORMALS: Yes no CVA tenderness and Yes external appearance normal BLADDER/KIDNEY EXAM: Yes no CVA tenderness Back/Pelvis: COMMON NORMALS: no CVA tenderness, thoracic and lumbar spine normal to inspection, no thoracic nor lumbar tenderness, thoraco-lumbar ROM normal and straight leg raise negative bilaterally Extremity: COMMON NORMALS: normal to inspection, full ROM, normal capillary refill, no joint enlargement, no clubbing, cyanosis or edema, no calf tenderness and no pedal edema OTHER: Bilateral lower extremity chronic venous stasis with lower extremity stasis ulcers Neuro: MENINGEAL SIGNS: Yes no meningeal signs OTHER: Intubated, resting tremor in the left upper extremity Skin: COMMON NORMALS: no rashes or lesions noted, no wounds, skin turgor normal, no jaundice, no petechiae and no mottling GENERAL SKIN EXAM: no rashes or lesions noted and turgor normal OTHER: Crusting lesions under the breast bilaterally, bilateral lower extremity venous stasis with superficial ulceration Urinary Catheter Management^: Riggins: Cath Placed During This Visit: yes Urinary Catheter Date of Insertion: 01/11/20 Urinary Catheter Time of Insertion: 12:29 Data : 01/13/20 04:35 01/13/20 04:35 Micro: Microbiology 01/11/20 11:15 Gram Stain - Final Sputum - Endotracheal Wash Sputum Culture - Final Haemophilus influenzae 01/11/20 12:24 Urine Culture - Preliminary Urine Catheterized Gram Negative Rods 01/11/20 11:50 Blood Culture - Preliminary Blood NEGATIVE TO DATE 01/11/20 11:58 Blood Culture - Preliminary Blood NEGATIVE TO DATE A&P Additional A&P Information 1. TOLU - Baseline creatinine ~ 2.6ml/min, eGFR 17ml/min - TOLU likely related to infection and hemodynamics causing ATN picture - UO marginal, no indication for dialysis today, and will give her the day to monitor with likelihood of dialysis tomorrow - Lasix 80mg iv x 1 today - avoid the usuals - dose meds for eGFR <15 2. Resp distress from pna - H-influenzae - on Abx - O2 and BIPAP as needed 3. Lytes ok 4. Anemia mild 5. S&S eval 6. OOB to chair, PT/OT - making good progress Attestations Medical Necessity Statement*: eal for TOLU Coding Level of Care Code Acute Engraver Picture for [facility] Rosalino
--- NOTE | 2020-01-13 11:08 | ECG_ITS ---
Measurements Intervals [place] Rate: 88 P: [place]: 0 QRS: 18 QRSD: 155 T: -34 QT: 409 QTc: 495 ATRIAL FIBRILLATION WITH ABERRANT CONDUCTION OR VENTRICULAR PREMATURE COMPLEXES RIGHT BUNDLE BRANCH BLOCK [120+ ms QRS DURATION, UPRIGHT V1, 40+ ms S IN I/aVL/V4/V5/V6] POSSIBLE SEPTAL MYOCARDIAL INFARCTION [30 ms Q WAVE IN V1/V2], OF INDETERMINATE AGE Compared to ECG 01/11/2020 13:55:18 Ventricular premature complex(es) now present Aberrant conduction of supraventricular beat(s) now present Myocardial infarct finding still present Electronically Signed On 01-13-2020 17:24:51 CDT by Chuck Cottrell M.D. [email or web address]
[2020-01-13] MEDS: FUROsemide 10 mg/mL SDV 10mL 80 MG IVP (11:35)
[2020-01-13 11:45] LABS: Glucose Point of Care 175 mg/dL (70-110)
--- NOTE | 2020-01-13 13:02 | P.PN_ITS ---
Subjective Subjective: Interval history: Patient awake in bed at time of exam this morning. Eating ice chips but continued to have cough, nonproductive. She denied any abdominal pain, no nausea, no chest pain. Discussed with patient reason for admission and treatment that has been performed thus far, she denied any questions or concerns Medications: Reviewed: Yes Medication Review Details: Current Medications Acetaminophen (Tylenol) 650 mg PO Q6H PRN PRN Reason: Mild/Mod Pain Or Temp >/= 101 Dextrose (D50w) 25 ml IVP ONCE PRN; Protocol PRN Reason: hypoglycemia protocol Dextrose (D50w) 50 ml IVP PRN PRN; Protocol PRN Reason: hypoglycemia protocol Glucagon (Glucagen) 1 mg IM ONCE PRN; Protocol PRN Reason: Adult Acute Hypoglycemia Prot. Heparin Sodium (Beef Lung) (Heparin) 5,000 unit SUBCUT Q12H NAGA Last Admin: 01/12/20 02:22 Dose: Not Given Documented by: Vancomycin HCl 1,000 mg/ (Sodium Chloride) 250 mls @ 250 mls/hr IV Q48H NAGA; Protocol Last Infusion: 01/12/20 02:22 Dose: Infused Documented by: Cefepime HCl 1,000 mg/ Sodium (Chloride) 100 mls @ 200 mls/hr IV Q24H NAGA; Protocol Last Infusion: 01/12/20 02:22 Dose: Infused Documented by: Dextrose (D5w) 500 mls @ 100 mls/hr IV ONCE PRN; Protocol PRN Reason: Adult Acute Hypoglycemia Prot Norepinephrine Bitartrate 4 mg (/ Dextrose) 254 mls @ 0 mls/hr IV .Q0M NAGA; Protocol Azithromycin 500 mg/ Sodium (Chloride) 250 mls @ 250 mls/hr IV Q24H NAGA; Protocol Last Infusion: 01/12/20 02:22 Dose: Infused Documented by: Fentanyl 1,000 mcg/ Sodium (Chloride) 100 mls @ 0 mls/hr IV .Q0M NAGA; Protocol Last Titration: 01/12/20 02:22 Dose: 30 mcg/hr, 3 mls/hr Documented by: Insulin Aspart (Novolog) 0 unit SUBCUT BEDTIME NAGA; Protocol Last Admin: 01/11/20 21:40 Dose: 3 unit Documented by: Insulin Aspart (Novolog) 0 unit SUBCUT TIDWM NAGA; Protocol Last Admin: 01/11/20 19:50 Dose: Not Given Documented by: Midazolam HCl (Versed) 4 mg IV PRN PRN PRN Reason: sedation for et tube Last Admin: 01/11/20 11:51 Dose: 4 mg Documented by: Morphine Sulfate (Morphine) 2 mg IVP Q4H PRN PRN Reason: SEVERE PAIN Naloxone HCl (Narcan) 0.1 mg IVP Q2M PRN PRN Reason: OPIATERV Ondansetron HCl (Zofran) 4 mg IVP Q8H PRN PRN Reason: vomiting, or N/V if npo Pantoprazole Sodium (Protonix) 40 mg IVP DAILY NAGA Vitals/I&O/Wt Last Vital Signs Temp 99.0 F 01/13/20 08:00 Pulse 94 01/13/20 12:00 Resp 33 H 01/13/20 12:00 BP 158/80 01/13/20 12:00 Pulse Ox 99 01/13/20 12:00 01/12/20 01/13/20 01/13/20 22:59 06:59 14:59 Intake Total 100 / 831.108 120 / 120 Output Total 225 / 1025 275 / 1300 600 / 600 Balance -125 / -193.892 -275 / -468.892 -480 / -480 Weight last 48 hrs Weight 119.89 kg Weight 125.191 kg Physical Exam Const: COMMON NORMALS: oriented x3 GENERAL APPEARANCE: cooperative NUTRITIONAL APPEARANCE: obese HENMT: COMMON NORMALS: normocephalic and head/scalp atraumatic HEAD & SCALP: normocephalic and atraumatic Eye: COMMON NORMALS: PERRL PUPIL: Yes PERRL Neck/C-Spine: COMMON NORMALS: supple GENERAL: Yes normal visual inspection Resp: EFFORT & INSPECTION: Yes actively coughing AUSCULTATION: diminished lung sounds OTHER: improved breath sounds bilaterally today, NC in place, cough with ice ships GI: OTHER: Morbidly obese with large pannus. Abdomen is soft, nontender, normal bowel sounds Extremity: OTHER: 2+ edema in LE bilaterally Neuro: COMMON NORMALS: oriented x3 Skin: OTHER: Crusting lesions under the breast bilaterally, bilateral lower extremity venous stasis with superficial ulceration Urinary Catheter Management^: Riggins: Cath Placed During This Visit: yes Urinary Catheter Date of Insertion: 01/11/20 Urinary Catheter Time of Insertion: 12:29 Data : 01/13/20 04:35 01/13/20 04:35 Micro: Microbiology 01/11/20 11:15 Gram Stain - Final Sputum - Endotracheal Wash Sputum Culture - Final Haemophilus influenzae 01/11/20 12:24 Urine Culture - Preliminary Urine Catheterized Gram Negative Rods 01/11/20 11:50 Blood Culture - Preliminary Blood NEGATIVE TO DATE 01/11/20 11:58 Blood Culture - Preliminary Blood NEGATIVE TO DATE A&P Assessment and plan (1) Acute renal failure: Improved today Holding nephrotoxic medications. Hold on further dialysis at this time. Urine output slightly increased Dr. Blankenship, nephrology consulted. Appreciate recommendations and assistance in patient's care Lasix 80mg IV today Strict I/Os Dr. Covington, critical care physician, consulted. Appreciate recommendations and assistance in patient's care Status: Acute Qualifiers: Acute renal failure type: unspecified Qualified Code(s): N17.9 - Acute kidney failure, unspecified Code(s): N17.9 - Acute kidney failure, unspecified (2) Pneumonia: Left lower lobe pneumonia. Sputum culture obtained in the emergency department showing Haemophilus influenza. Antibiotic coverage de-escalated to Rocephin Patient with recent diagnosis of influenza, had completed course of Tamiflu. Treatment was started on 01/04/2020 Status: Acute Qualifiers: Laterality: left Lung location: lower lobe of lung Pneumonia type: due to unspecified organism Qualified Code(s): J18.9 - Pneumonia, unspecified organism Code(s): J18.9 - Pneumonia, unspecified organism (3) Congestive heart failure: Diastolic CHF Continues to be fluid overloaded, IV Lasix 80 mg today we will continue to monitor response to diuresis Status: Acute Qualifiers: Heart failure chronicity: chronic Heart failure type: unspecified Qualified Code(s): I50.9 - Heart failure, unspecified Code(s): I50.9 - Heart failure, unspecified Additional A&P Information Acute on chronic anemia: Continue on IV PPI every 12 hours. Hemoglobin at 8.6 today status post 1 unit of packed red blood cells on 01/12/2020. Hyperkalemia with acute renal failure: Resolved Diabetes mellitus, insulin-dependent, continue on sliding scale insulin as needed Hypertension: hypotension resolved and remains off pressors. Restart home Coreg, lasix ordered as noted. Quinapril, amlodipine and aldactone on hold. Hyperlipidemia: On atorvastatin Recent diagnosis of influenza: Completed course of Tamiflu On chronic anticoagulation: On Xarelto 15 mg daily, holding Atrial fibrillation: rate controlled at this time, holding Xarelto and further anticoagulation. 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
[2020-01-13] MEDS: citalopram 20 mg Tablet PO (15:54)
[2020-01-13] MEDS: ipratropium-albuterol 3 mL Neb INHALATION ×2 (16:10→21:16)
[2020-01-13] MEDS: cefTRIAXone 1,000 MG in sodium chloride 0.9% (plus) 100 ML 100 MG IV (17:08)
[2020-01-13] MEDS: carvedilol 12.5 mg Tablet PO (17:09)
[2020-01-13 17:27] LABS: Glucose Point of Care 201 mg/dL (70-110)
--- NOTE | 2020-01-13 18:42 | PM.PN ---
Subjective Subjective: Interval history: Patient is doing much better. She denies any significant shortness of breath. The patient had good urine output overnight after high-dose Lasix. She received another dose of 80 mg of Lasix this morning. I had performed a bedside ultrasound which did not reveal any significant bilateral B-lines, good ejection fraction no evidence of volume overload at this time. Medications: Reviewed: Yes Vitals/I&O/Wt Last Vital Signs Temp 99.0 F 01/13/20 08:00 Pulse 90 01/13/20 18:00 Resp 31 H 01/13/20 18:00 BP 156/81 01/13/20 18:00 Pulse Ox 93 01/13/20 18:00 01/13/20 01/13/20 01/13/20 06:59 14:59 22:59 Intake Total 120 / 120 Output Total 275 / 1300 600 / 600 400 / 1000 Balance -275 / -468.892 -480 / -480 -400 / -880 Weight last 48 hrs Weight 264 lb 5 oz Physical Exam Narrative: EXAM NARRATIVE: General: Patient is awake alert and oriented, no acute distress Neck: Assessment of JVD is difficult because of body habitus Respiratory: Auscultation: Significantly improved breath sound bilaterally, minimal crackles at the right lung base, no wheezing or rhonchi Cardiovascular: Variable first heart sound, no murmur, chronic skin changes in bilateral lower extremities Abdomen: Soft, nontender, distended from obesity, sluggish bowel sounds Skin: Chronic skin changes in bilateral lower extremity, very easy bruising throughout the chest Neuro: Patient is awake alert and oriented, no focal deficit Urinary Catheter Management^: Riggins: Cath Placed During This Visit: yes Urinary Catheter Date of Insertion: 01/11/20 Urinary Catheter Time of Insertion: 12:29 Data : 01/13/20 04:35 01/13/20 04:35 Micro: Microbiology 01/11/20 11:15 Gram Stain - Final Sputum - Endotracheal Wash Sputum Culture - Final Haemophilus influenzae 01/11/20 12:24 Urine Culture - Preliminary Urine Catheterized Gram Negative Rods Other data: I reviewed the patient's laboratory, microbiologic and radiologic data. Sputum culture is positive for Haemophilus, urine culture is growing gram-negative rods however this is only 10-20,000 colonies. Her creatinine is at baseline and acidosis has resolved completely. Last dialysis was yesterday morning. A&P Assessment and plan (1) Pneumonia: Patient is doing well with ceftriaxone. Status: Acute Qualifiers: Laterality: left Lung location: lower lobe of lung Pneumonia type: due to unspecified organism Qualified Code(s): J18.9 - Pneumonia, unspecified organism Code(s): J18.9 - Pneumonia, unspecified organism (2) Acute on chronic respiratory failure: The patient does have evidence of heart failure with preserved ejection fraction however based on the echocardiographic and lung ultrasound there is no evidence of fluid overload. The patient is fortunately making urine with the diuretic. Status: Acute Qualifiers: Respiratory failure complication: hypoxia and hypercapnia Qualified Code(s): J96.21 - Acute and chronic respiratory failure with hypoxia; J96.22 - Acute and chronic respiratory failure with hypercapnia Code(s): J96.20 - Acute and chronic respiratory failure, unspecified whether with hypoxia or hypercapnia (3) Hyperkalemia: Resolved Status: Acute Code(s): E87.5 - Hyperkalemia (4) CKD (chronic kidney disease): I had a discussion with the patient and her granddaughters today. It appears that in November of this year the patient was told that she has some kidney damage and might require dialysis down the line. At that time the patient was not ready for it. The last dialysis session was yesterday. Currently the patient does not have any significant acidosis and hyperkalemia is resolved completely. She is making good urine with some support of the diuretic regimen. I do not believe the patient is current need to be on dialysis at this point. We can resume her diuretic regimen. She is likely to need metolazone in addition to the Lasix to be discharged home. I am going to discontinue the HD catheter as well as the central line tomorrow. Once I take the hemodialysis catheter out tomorrow. The patient can be started on anticoagulation. 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
[2020-01-13] MEDS: atorvastatin 40 mg Tablet 20 MG PO (21:09)
[2020-01-13] MEDS: budesonide 0.5 mg/2 mL Neb INHALATION (21:15)
[2020-01-13 21:22] LABS: Glucose Point of Care 174 mg/dL (70-110)
[2020-01-14] VITALS (49 sets, daily range): BP systolic 99–161; BP diastolic 73–101; PULSE 66–103; RESP 12–33; TEMP 36.4–37.1; O2SAT 80–100
[2020-01-14] MEDS: ipratropium-albuterol 3 mL Neb INHALATION ×4 (03:09→20:18)
[2020-01-14 04:45] LABS: Basophils % 0.2 %; Eosinophils % 0.1 %; Hemoglobin 8.8 g/dL (11.5-15.3); Lymphocytes # 2.1 10^3/uL (0.8-4.8); Lymphocytes % 16.5 %; Mean Corpuscular HGB Conc 30.3 g/dL (30.0-36.0); Mean Corpuscular Hemoglobin 29.2 pg (28.0-34.0); Mean Corpuscular Volume 96.3 fL (81-99); Mean Platelet Volume 10.9 fL (7.4-10.4); Monocytes # 1.1 10^3/uL (0.2-0.9); Monocytes % 8.5 %; Neutrophils # 9.2 10^3/uL (1.8-7.7); Neutrophils % 71.6 %; Nucleated Red Blood Cells % 0 %; Platelet Count 270 10^3/cmm (130-400); Red Blood Count 3.01 10^6/uL (4.1-5.3); Red Cell Distribution Width 14.4 % (12.1-15.1); White Blood Count 12.8 10^3/uL (4.0-10.0)
[2020-01-14 04:56] LABS: INR 1.76 (0.8-1.2)
[2020-01-14 05:07] LABS: Alanine Aminotransferase 6 U/L (0-33); Albumin Level 2.5 g/dL (3.5-5.2); Alkaline Phosphatase 83 IU/L (35-105); Anion Gap 17.1 (5-19); Aspartate Amino Transferase 11 U/L (0-32); Blood Urea Nitrogen 42 mg/dL (8-23); Calcium 8.9 mg/dL (8.5-10.5); Carbon Dioxide 29 mmol/L (22-29); Chloride 97 mmol/L (98-107); Globulin 4.4 g/dL (1.3-4.6); Glucose 199 mg/dL (65-115); Osmolality Calculated 291 mOsm/kg (285-295); Potassium 4.1 mmol/L (3.5-5.1); Sodium 139 mmol/L (136-145); Total Bilirubin 0.4 mg/dL (0.15-1.2); Total Protein 6.9 g/dL (6.6-8.7)
[2020-01-14 07:49] LABS: Glucose Point of Care 199 mg/dL (70-110)
[2020-01-14] MEDS: carvedilol 12.5 mg Tablet PO ×2 (08:08→18:17)
[2020-01-14] MEDS: citalopram 20 mg Tablet PO (08:09)
[2020-01-14] MEDS: pantoprazole 40 mg SDV IVP ×2 (08:09→21:40)
[2020-01-14] MEDS: budesonide 0.5 mg/2 mL Neb INHALATION ×2 (08:58→20:18)
--- NOTE | 2020-01-14 09:50 | PC.SOCIAL ---
IMM Update Pg 2 of IMM given and explained to patient. Verbalized understanding. Copy provided to patient.
--- NOTE | 2020-01-14 10:04 | PC.CHAP ---
Pastoral Care Encounter/Spiritual Assessment Type of Contact [] Declined batter mixer helper visit [] Patient/Family/Request visit [] Outpatient visit [] Follow-up visit [] Physician referral [] Code/Alert [x] Routine visit [] Staff referral [] Actively dying [] Patient sleeping [x] Family support [] [] Out of room [] Palliative care [] [x] Receiving care in room [] Pre-surgical visit [] Trauma [] Long length of stay [x] ICU visit [] Other: Relational/Emotional Strength [] Patient feels connected with others/family/visitors/staff [] Distress [] Loneliness/isolation [] Abandonment Spirituality of Patient [] Person of Pao [] Attends Scientologist of their Pao [] Believes in Prayer [] Reads Bible or Roman Catholic materials [] There are Spiritual issues to be addressed Title I Director Interventions [] Prayer [] Active listening [] Non-anxious presence [] Spiritual/emotional support [] Crisis/trauma care [] Spiritual counseling [] Bereavement support [] Provided bereavement packet [] Provided Bible/devotional materials [] Provided toy/stuffed animal, coloring book to patient or family member [] Provided Communion [] Anointing/[place] [] Salvation [x] Completed spiritual assessment [] Other: Impact on Illness or Injury [] Angry [] Fearful [] Anxious [] Often cries [] Exhaustion [] Unable to work [] Unable to attend gnosticism [] Unable to walk/stand [] Unable to read [] Unable to drive [] Unable to eat/drink [] Unable to sleep [] Unable to be with family [] Patient intubated [] Other: Summary Patient trying to rest. [place] did not disturb. Time spent with patient
[2020-01-14 12:07] LABS: Glucose Point of Care 236 mg/dL (70-110)
--- NOTE | 2020-01-14 14:02 | P.PN_ITS ---
Subjective Subjective: Interval history: no complaints Medications: Reviewed: Yes Vitals/I&O/Wt Last Vital Signs Temp 97.6 F 01/14/20 12:00 Pulse 93 01/14/20 13:00 Resp 19 H 01/14/20 13:00 BP 99/76 01/14/20 13:00 Pulse Ox 84 L 01/14/20 13:00 01/13/20 01/14/20 01/14/20 22:59 06:59 14:59 Intake Total 100 / 220 200 / 200 Output Total 1400 / 2000 350 / 2350 Balance -1300 / -1780 -350 / -2130 200 / 200 Weight last 48 hrs Weight 118.841 kg Weight 119.89 kg Physical Exam Resp: COMMON NORMALS: normal respiratory effort and clear to auscultation bilaterally AUSCULTATION: clear to auscultation bilaterally Cardio: COMMON NORMALS: regular rate and regular rhythm RATE: regular rate RHYTHM: regular rhythm Extremity: COMMON NORMALS: no pedal edema Urinary Catheter Management^: Riggins: Cath Placed During This Visit: yes Urinary Catheter Date of Insertion: 01/11/20 Urinary Catheter Time of Insertion: 12:29 Data : 01/14/20 04:07 01/14/20 04:07 Micro: Microbiology 01/11/20 12:24 Urine Culture - Final Urine Catheterized Escherichia coli 01/11/20 11:15 Gram Stain - Final Sputum - Endotracheal Wash Sputum Culture - Final Haemophilus influenzae A&P Additional A&P Information TOLU - renal function appears close to baseline. No indication for dialysis at this time. Can remove dialysis catheter. Attestations Medical Necessity Statement*: per primary service Coding Level of Care Code Acute Special Assemblies Supervisor for [facility]
--- NOTE | 2020-01-14 14:39 | PC.SOCIAL ---
Patient signed for the MCR Recipient letter for the BPCI advanced and the original is in the chart. Information provided.
--- NOTE | 2020-01-14 14:57 | PM.PN ---
Subjective Subjective: Interval history: Patient resting in bed at time of exam this morning. She denied any chest pain or shortness of breath. Reported her only concern was that she felt tired. Medications: Reviewed: Yes Medication Review Details: Current Medications Acetaminophen (Tylenol) 650 mg PO Q6H PRN PRN Reason: Mild/Mod Pain Or Temp >/= 101 Dextrose (D50w) 25 ml IVP ONCE PRN; Protocol PRN Reason: hypoglycemia protocol Dextrose (D50w) 50 ml IVP PRN PRN; Protocol PRN Reason: hypoglycemia protocol Glucagon (Glucagen) 1 mg IM ONCE PRN; Protocol PRN Reason: Adult Acute Hypoglycemia Prot. Heparin Sodium (Beef Lung) (Heparin) 5,000 unit SUBCUT Q12H NAGA Last Admin: 01/12/20 02:22 Dose: Not Given Documented by: Vancomycin HCl 1,000 mg/ (Sodium Chloride) 250 mls @ 250 mls/hr IV Q48H NAGA; Protocol Last Infusion: 01/12/20 02:22 Dose: Infused Documented by: Cefepime HCl 1,000 mg/ Sodium (Chloride) 100 mls @ 200 mls/hr IV Q24H NAGA; Protocol Last Infusion: 01/12/20 02:22 Dose: Infused Documented by: Dextrose (D5w) 500 mls @ 100 mls/hr IV ONCE PRN; Protocol PRN Reason: Adult Acute Hypoglycemia Prot Norepinephrine Bitartrate 4 mg (/ Dextrose) 254 mls @ 0 mls/hr IV .Q0M NAGA; Protocol Azithromycin 500 mg/ Sodium (Chloride) 250 mls @ 250 mls/hr IV Q24H NAGA; Protocol Last Infusion: 01/12/20 02:22 Dose: Infused Documented by: Fentanyl 1,000 mcg/ Sodium (Chloride) 100 mls @ 0 mls/hr IV .Q0M NAGA; Protocol Last Titration: 01/12/20 02:22 Dose: 30 mcg/hr, 3 mls/hr Documented by: Insulin Aspart (Novolog) 0 unit SUBCUT BEDTIME NAGA; Protocol Last Admin: 01/11/20 21:40 Dose: 3 unit Documented by: Insulin Aspart (Novolog) 0 unit SUBCUT TIDWM NAGA; Protocol Last Admin: 01/11/20 19:50 Dose: Not Given Documented by: Midazolam HCl (Versed) 4 mg IV PRN PRN PRN Reason: sedation for et tube Last Admin: 01/11/20 11:51 Dose: 4 mg Documented by: Morphine Sulfate (Morphine) 2 mg IVP Q4H PRN PRN Reason: SEVERE PAIN Naloxone HCl (Narcan) 0.1 mg IVP Q2M PRN PRN Reason: OPIATERV Ondansetron HCl (Zofran) 4 mg IVP Q8H PRN PRN Reason: vomiting, or N/V if npo Pantoprazole Sodium (Protonix) 40 mg IVP DAILY NAGA Vitals/I&O/Wt Last Vital Signs Temp 97.6 F 01/14/20 12:00 Pulse 95 01/14/20 14:27 Resp 18 01/14/20 14:23 BP 99/76 01/14/20 13:00 Pulse Ox 92 01/14/20 14:23 01/13/20 01/14/20 01/14/20 22:59 06:59 14:59 Intake Total 100 / 220 200 / 200 Output Total 1400 / 2000 350 / 2350 Balance -1300 / -1780 -350 / -2130 200 / 200 Weight last 48 hrs Weight 118.841 kg Weight 119.89 kg Physical Exam Const: COMMON NORMALS: oriented x3 GENERAL APPEARANCE: cooperative NUTRITIONAL APPEARANCE: obese HENMT: COMMON NORMALS: normocephalic and head/scalp atraumatic HEAD & SCALP: normocephalic and atraumatic Eye: COMMON NORMALS: PERRL PUPIL: Yes PERRL Neck/C-Spine: COMMON NORMALS: supple GENERAL: Yes normal visual inspection Resp: EFFORT & INSPECTION: Yes actively coughing AUSCULTATION: diminished lung sounds OTHER: improved breath sounds bilaterally today, NC in place Cardio: OTHER: Irregularly irregular GI: OTHER: Morbidly obese with large pannus. Abdomen is soft, nontender, normal bowel sounds Extremity: OTHER: 2+ edema in LE bilaterally Neuro: COMMON NORMALS: oriented x3 OTHER: Alert and oriented x3 with no acute focal neurologic deficit, mild left-sided weakness that is chronic from prior CVA Skin: OTHER: Crusting lesions under the breast bilaterally, bilateral lower extremity venous stasis with superficial ulceration Urinary Catheter Management^: Riggins: Cath Placed During This Visit: yes Urinary Catheter Date of Insertion: 01/11/20 Urinary Catheter Time of Insertion: 12:29 Data : 01/14/20 04:07 01/14/20 04:07 Micro: Microbiology 01/11/20 12:24 Urine Culture - Final Urine Catheterized Escherichia coli A&P Assessment and plan (1) Acute renal failure: Requiring emergent dialysis on admission, now improved Removal of dialysis catheter today Transfer out of ICU Patient with [address] Covington, critical care physician, consulted. Appreciate recommendations and assistance in patient's care Status: Acute Qualifiers: Acute renal failure type: unspecified Qualified Code(s): N17.9 - Acute kidney failure, unspecified Code(s): N17.9 - Acute kidney failure, unspecified (2) Pneumonia: Left lower lobe pneumonia. Sputum culture obtained in the emergency department showing Haemophilus influenza. Antibiotic coverage de-escalated to Rocephin Patient with recent diagnosis of influenza, had completed course of Tamiflu. Treatment was started on 01/04/2020 Status: Acute Qualifiers: Laterality: left Lung location: lower lobe of lung Pneumonia type: due to unspecified organism Qualified Code(s): J18.9 - Pneumonia, unspecified organism Code(s): J18.9 - Pneumonia, unspecified organism (3) Congestive heart failure: Diastolic CHF Negative fluid balance at this time Status: Acute Qualifiers: Heart failure chronicity: chronic Heart failure type: unspecified Qualified Code(s): I50.9 - Heart failure, unspecified Code(s): I50.9 - Heart failure, unspecified Additional A&P Information Acute on chronic anemia: Continue on IV PPI every 12 hours. Hemoglobin at 8.8 today status post 1 unit of packed red blood cell on 01/12/2020. Hyperkalemia with acute renal failure: Resolved Diabetes mellitus, insulin-dependent, continue on sliding scale insulin as needed Hypertension: hypotension resolved and remains off pressors. Restart home Coreg, lasix ordered as noted. Quinapril, amlodipine and aldactone on hold. 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 GERD: IV PPI DVT PPx: SCDs, heparin discontinued due to concern for acute anemia Code Status: DNR Transfer out of ICU today Attestations Medical Necessity Statement*: Patient transferred out the ICU today, requires further hospitalization due to TOLU with CHF Coding Level of Care Code Acute Securities Compliance Examiner for g Fwd Exam Detailed Diagnoses Acute renal failure N17.9 Acute renal failure type: unspecified Pneumonia J18.9 Laterality: left Lung location: lower lobe of lung Pneumonia type: due to unspecified organism Congestive heart failure I50.9 Heart failure chronicity: chronic Heart failure type: unspecified
[2020-01-14] MEDS: cefTRIAXone 1,000 MG in sodium chloride 0.9% (plus) 100 ML 100 MG IV (16:59)
[2020-01-14 17:31] LABS: Glucose Point of Care 184 mg/dL (70-110)
[2020-01-14] MEDS: atorvastatin 40 mg Tablet 20 MG PO (21:39)
[2020-01-14 21:49] LABS: Glucose Point of Care 221 mg/dL (70-110)
[2020-01-15] VITALS (14 sets, daily range): BP systolic 126–159; BP diastolic 78–97; PULSE 79–95; RESP 17–18; TEMP 36.4–36.8; O2SAT 89–94
[2020-01-15] MEDS: ipratropium-albuterol 3 mL Neb INHALATION ×4 (03:03→21:00)
[2020-01-15 04:58] LABS: Basophils # 0.1 10^3/uL (0.0-0.1); Basophils % 0.5 %; Eosinophils # 0.1 10^3/uL (0.0-0.8); Eosinophils % 0.8 %; Hematocrit 30.1 % (37.0-47.0); Hemoglobin 9.3 g/dL (11.5-15.3); Lymphocytes # 2.1 10^3/uL (0.8-4.8); Lymphocytes % 18.3 %; Mean Corpuscular HGB Conc 30.9 g/dL (30.0-36.0); Mean Corpuscular Hemoglobin 30.2 pg (28.0-34.0); Mean Corpuscular Volume 97.7 fL (81-99); Mean Platelet Volume 10.5 fL (7.4-10.4); Monocytes # 0.8 10^3/uL (0.2-0.9); Monocytes % 7.3 %; Neutrophils # 7.6 10^3/uL (1.8-7.7); Neutrophils % 67.5 %; Nucleated Red Blood Cells % 0 %; Platelet Count 266 10^3/cmm (130-400); Red Blood Count 3.08 10^6/uL (4.1-5.3); White Blood Count 11.3 10^3/uL (4.0-10.0)
[2020-01-15 05:23] LABS: Anion Gap 17.1 (5-19); Blood Urea Nitrogen 44 mg/dL (8-23); Carbon Dioxide 27 mmol/L (22-29); Chloride 95 mmol/L (98-107); Glucose 201 mg/dL (65-115); Osmolality Calculated 284 mOsm/kg (285-295); Potassium 4.1 mmol/L (3.5-5.1); Sodium 135 mmol/L (136-145)
[2020-01-15 05:55] LABS: Slide Review Slide Review Perform
[2020-01-15 06:48] LABS: Glucose Point of Care 197 mg/dL (70-110)
[2020-01-15] MEDS: carvedilol 12.5 mg Tablet PO ×2 (07:41→17:46)
[2020-01-15] MEDS: citalopram 20 mg Tablet PO (07:41)
[2020-01-15] MEDS: aspirin 81 mg Chew Tablet PO (07:41)
[2020-01-15] MEDS: pantoprazole 40 mg SDV IVP ×2 (08:38→21:36)
[2020-01-15] MEDS: budesonide 0.5 mg/2 mL Neb INHALATION ×2 (08:57→21:00)
[2020-01-15 11:16] LABS: Glucose Point of Care 288 mg/dL (70-110)
--- NOTE | 2020-01-15 12:21 | P.PN_ITS ---
Subjective Subjective: Interval history: This morning patient was examined, son is at bedside Patient states that she is doing much better, breathing has improved, still on 5 L oxygen, patient and son are concerned about her going home too soon, she has not gotten out of bed yet Riggins catheter still in place, still feels weak Vitals/I&O/Wt Last Vital Signs Temp 97.5 F L 01/15/20 11:45 Pulse 85 01/15/20 11:45 Resp 18 01/15/20 11:45 BP 153/85 01/15/20 11:45 Pulse Ox 94 01/15/20 11:45 01/14/20 01/15/20 01/15/20 22:59 06:59 14:59 Intake Total 560 / 980 160 / 160 Output Total 820 / 820 150 / 970 200 / 200 Balance -260 / 160 -150 / 10 -40 / -40 Weight last 48 hrs Weight 113.001 kg Weight 113.001 kg Weight 118.841 kg Physical Exam Const: COMMON NORMALS: no apparent distress and oriented x3 HENMT: COMMON NORMALS: normocephalic HEAD & SCALP: normocephalic Neck/C-Spine: COMMON NORMALS: no JVD Resp: COMMON NORMALS: normal respiratory effort, no retractions, no use of accessory muscles and clear to auscultation bilaterally AUSCULTATION: clear to auscultation bilaterally Cardio: COMMON NORMALS: no JVD, regular rate, regular rhythm, S1 normal heart sound and S2 normal heart sound RATE: regular rate RHYTHM: regular rhythm HEART SOUNDS: S1 normal and S2 normal GI: COMMON NORMALS: normal to inspection, nondistended, normoactive bowel sounds, soft to palpation, non-tender, no hepatosplenomegaly, no masses and no bruits PALPATION: Yes soft and Yes no hepatosplenomegaly Extremity: COMMON NORMALS: normal capillary refill, no clubbing, cyanosis or edema, no calf tenderness and no pedal edema Neuro: COMMON NORMALS: oriented x3 Psych: COMMON NORMALS: mental status grossly normal Urinary Catheter Management^: Riggins: Cath Placed During This Visit: yes Urinary Catheter Date of Insertion: 01/11/20 Urinary Catheter Time of Insertion: 12:29 Data : 01/15/20 04:49 01/15/20 04:49 Micro: Microbiology 01/11/20 12:24 Urine Culture - Final Urine Catheterized Escherichia coli A&P Assessment and plan (1) Acute renal failure: Requiring emergent dialysis on admission, now improved Removal of dialysis catheter Creatinine improved to 2.7, diuretics held Patient with 900 cc of urine output in the last 24 hours Status: Acute Qualifiers: Acute renal failure type: unspecified Qualified Code(s): N17.9 - Acute kidney failure, unspecified Code(s): N17.9 - Acute kidney failure, unspecified (2) Pneumonia: Left lower lobe pneumonia. Sputum culture obtained in the emergency department showing Haemophilus influenza. Antibiotic coverage de-escalated to Rocephin Patient with recent diagnosis of influenza, had completed course of Tamiflu. Treatment was started on 01/04/2020 Still requiring 5 L oxygen Nursing staff was advised of up out of bed daily, Bradley lift if required Status: Acute Qualifiers: Laterality: left Lung location: lower lobe of lung Pneumonia type: due to unspecified organism Qualified Code(s): J18.9 - Pneumonia, unspecified organism Code(s): J18.9 - Pneumonia, unspecified organism (3) Congestive heart failure: Diastolic CHF Negative fluid balance at this time Hold Lasix therapy Status: Acute Qualifiers: Heart failure chronicity: chronic Heart failure type: unspecified Qualified Code(s): I50.9 - Heart failure, unspecified Code(s): I50.9 - Heart failure, unspecified Additional A&P Information Acute on chronic anemia: Continue on IV PPI every 12 hours. Hemoglobin at 9.3 today status post 1 unit of packed red blood cell on 01/12/2020. Hyperkalemia with acute renal failure: Resolved Diabetes mellitus, insulin-dependent, continue on sliding scale insulin as needed Hypertension: hypotension resolved and remains off pressors. Restart home Coreg, lasix held . Quinapril, amlodipine and aldactone on hold. Hyperlipidemia: On atorvastatin Recent diagnosis of influenza: Completed course of Tamiflu On chronic anticoagulation: On Xarelto 15 mg daily, holding given anemia Atrial fibrillation: Coreg continued, holding xarelto due to anemia History of CVA with chronic left-sided weakness according to family Elevated troponin: Likely type II process due to sepsis with septic and acute renal failure Hypoalbuminemia Morbid obesity Chronic detention resident patient was advised to get up out of bed GERD: IV PPI DVT PPx: SCDs, heparin discontinued due to concern for acute anemia Code Status: DNR Attestations Medical Necessity Statement*: Patient requires hospitalization for pneumonia, acute renal failure Coding Level of Care Code Acute Development Intern for [facility] Fwd Diagnoses Acute renal failure N17.9 Acute renal failure type: unspecified Pneumonia J18.9 Laterality: left Lung location: lower lobe of lung Pneumonia type: due to unspecified organism Congestive heart failure I50.9 Heart failure chronicity: chronic Heart failure type: unspecified
--- NOTE | 2020-01-15 16:10 | PC.NURSE ---
Pt. up to chair using tangela lift at 1220. pt sat up in chair 4 hours. pt placed back into bed at 1620.
[2020-01-15] MEDS: cefTRIAXone 1,000 MG in sodium chloride 0.9% (plus) 100 ML 100 MG IV (16:44)
[2020-01-15 17:03] LABS: Glucose Point of Care 209 mg/dL (70-110)
[2020-01-15] MEDS: atorvastatin 40 mg Tablet 20 MG PO (21:36)
[2020-01-15 21:43] LABS: Glucose Point of Care 250 mg/dL (70-110)
[2020-01-16] VITALS (14 sets, daily range): BP systolic 112–144; BP diastolic 74–88; PULSE 76–106; RESP 16–20; TEMP 36.6–36.9; O2SAT 89–96
[2020-01-16] MEDS: ipratropium-albuterol 3 mL Neb INHALATION ×4 (02:57→20:53)
[2020-01-16 05:20] LABS: Basophils % 0.3 %; Eosinophils # 0.3 10^3/uL (0.0-0.8); Eosinophils % 2.9 %; Hematocrit 30.4 % (37.0-47.0); Hemoglobin 9.3 g/dL (11.5-15.3); Lymphocytes # 2.1 10^3/uL (0.8-4.8); Lymphocytes % 19.7 %; Mean Corpuscular HGB Conc 30.6 g/dL (30.0-36.0); Mean Corpuscular Hemoglobin 30.3 pg (28.0-34.0); Mean Platelet Volume 10.8 fL (7.4-10.4); Monocytes # 0.8 10^3/uL (0.2-0.9); Monocytes % 7.5 %; Neutrophils # 6.5 10^3/uL (1.8-7.7); Neutrophils % 62.1 %; Nucleated Red Blood Cells % 0 %; Platelet Count 297 10^3/cmm (130-400); Red Blood Count 3.07 10^6/uL (4.1-5.3); Red Cell Distribution Width 13.8 % (12.1-15.1); White Blood Count 10.4 10^3/uL (4.0-10.0)
[2020-01-16 05:40] LABS: Alanine Aminotransferase 7 U/L (0-33); Albumin Level 2.2 g/dL (3.5-5.2); Alkaline Phosphatase 66 IU/L (35-105); Anion Gap 13.3 (5-19); Aspartate Amino Transferase 12 U/L (0-32); Blood Urea Nitrogen 38 mg/dL (8-23); Calcium 8.3 mg/dL (8.5-10.5); Carbon Dioxide 33 mmol/L (22-29); Chloride 96 mmol/L (98-107); Globulin 4.4 g/dL (1.3-4.6); Glucose 236 mg/dL (65-115); Magnesium 1.9 mg/dL (1.7-2.3); Osmolality Calculated 291 mOsm/kg (285-295); Phosphorus 2.9 mg/dL (2.5-4.5); Potassium 4.3 mmol/L (3.5-5.1); Sodium 138 mmol/L (136-145); Total Bilirubin 0.4 mg/dL (0.15-1.2); Total Protein 6.6 g/dL (6.6-8.7)
[2020-01-16 05:53] LABS: Slide Review Slide Review Perform
[2020-01-16 06:10] LABS: Glucose Point of Care 214 mg/dL (70-110)
--- NOTE | 2020-01-16 07:45 | P.PN_ITS ---
Subjective Subjective: Interval history: feels better. has some edema. no n/v/f/c/german/d. states she is eating okay. Medications: Reviewed: Yes Medication Review Details: Current Medications Acetaminophen (Tylenol) 650 mg PO Q6H PRN PRN Reason: Mild/Mod Pain Or Temp >/= 101 Albuterol Sulfate (Albuterol) 2.5 mg INHALATION Q4H.RESPIRATORY PRN PRN Reason: SHORTNESS OF BREATH Albuterol/Ipratropium (Duoneb) 3 ml INHALATION Q6H.RESPIRATORY NAGA Last Admin: 01/16/20 02:57 Dose: 3 ml Documented by: Aspirin (Aspirin Chewable) 81 mg PO DAILY NAGA Last Admin: 01/15/20 07:41 Dose: 81 mg Documented by: Atorvastatin Calcium (Lipitor) 20 mg PO BEDTIME NAGA Last Admin: 01/15/20 21:36 Dose: 20 mg Documented by: Bisacodyl (Dulcolax) 1 - 2 mg PO DAILY PRN PRN Reason: CONSTIPATION Budesonide (Pulmicort) 0.5 mg INHALATION BID.RESPIRATORY NAGA Last Admin: 01/15/20 21:00 Dose: 0.5 mg Documented by: Carvedilol (Coreg) 12.5 mg PO BID NAGA Last Admin: 01/15/20 17:46 Dose: 12.5 mg Documented by: Citalopram Hydrobromide (Celexa) 20 mg PO DAILY NAGA Last Admin: 01/15/20 07:41 Dose: 20 mg Documented by: Dextrose (D50w) 25 ml IVP ONCE PRN; Protocol PRN Reason: hypoglycemia protocol Dextrose (D50w) 50 ml IVP PRN PRN; Protocol PRN Reason: hypoglycemia protocol Glucagon (Glucagen) 1 mg IM ONCE PRN; Protocol PRN Reason: Adult Acute Hypoglycemia Prot. Dextrose (D5w) 500 mls @ 100 mls/hr IV ONCE PRN; Protocol PRN Reason: Adult Acute Hypoglycemia Prot Ceftriaxone Sodium 1,000 mg/ (Sodium Chloride) 100 mls @ 100 mls/hr IV Q24H NAGA; Protocol Last Admin: 01/15/20 16:44 Dose: 100 mls/hr Documented by: Insulin Aspart (Novolog) 0 unit SUBCUT BEDTIME NAGA; Protocol Last Admin: 01/15/20 21:36 Dose: 4 unit Documented by: Insulin Aspart (Novolog) 0 unit SUBCUT TIDWM [facility]; Protocol Last Admin: 01/15/20 17:47 Dose: 6 unit Documented by: Lorazepam (Ativan) 0.5 mg PO BID PRN PRN Reason: ANXIETY Naloxone HCl (Narcan) 0.1 mg IVP Q2M PRN PRN Reason: OPIATERV Ondansetron HCl (Zofran) 4 mg IVP Q8H PRN PRN Reason: vomiting, or N/V if npo Pantoprazole Sodium (Protonix) 40 mg IVP Q12H [facility] Last Admin: 01/15/20 21:36 Dose: 40 mg Documented by: Vitals/I&O/Wt Last Vital Signs Temp 97.9 F 01/16/20 07:27 Pulse 106 H 01/16/20 07:27 Resp 20 H 01/16/20 07:27 BP 144/88 01/16/20 07:27 Pulse Ox 91 01/16/20 07:27 Weight last 48 hrs Weight 114.305 kg Weight 113.001 kg Weight 113.001 kg Physical Exam Narrative: EXAM NARRATIVE: vs noted- a fib heent- nc/at, eomi, anicteric neck supple, no jvp, lungs left base dullness, rt clear heart irreg irreg. +TY abd soft, nt, nd, + bs ext b/l edema trace pulses + b/l neuro- a,a, o x 3, weak, but moves. Urinary Catheter Management^: Riggins: Cath Placed During This Visit: yes Urinary Catheter Date of Insertion: 01/11/20 Urinary Catheter Time of Insertion: 12:29 Data : 01/16/20 04:46 01/16/20 04:46 A&P Additional A&P Information TOLU - renal function appears close to baseline. improved atn 2. dm control 3. ckd stage 4- stable 4. metabolic alkalosis- either dry or compensation of resp acidosis- defer to hospitalist if want to check abg 5. dose meds for CKD stage 4 5. pna- renal dose abc Attestations Medical Necessity Statement*: improved tolu. cjd stable stage 4. pna as per hospitlaits. needs rehab Time Spent in Patient Care: 16 - 35 minutes Coding Level of Care Code Acute Electro Mechanical Engineer for [facility] Rosalino
[2020-01-16] MEDS: aspirin 81 mg Chew Tablet PO (08:29)
[2020-01-16] MEDS: carvedilol 12.5 mg Tablet PO ×2 (08:29→17:14)
[2020-01-16] MEDS: pantoprazole 40 mg SDV IVP ×2 (08:29→21:53)
[2020-01-16] MEDS: citalopram 20 mg Tablet PO (08:29)
[2020-01-16] MEDS: budesonide 0.5 mg/2 mL Neb INHALATION ×2 (09:30→20:53)
--- NOTE | 2020-01-16 10:53 | PC.CHAP ---
Pastoral Care Encounter/Spiritual Assessment Type of Contact [] Declined small products ii assembler visit [] Patient/Family/Request visit [] Outpatient visit [] Follow-up visit [] Physician referral [] Code/Alert [] Routine visit [] Staff referral [] Actively dying [] Patient sleeping [] Family support [] [] Out of room [] Palliative care [] [] Receiving care in room [] Pre-surgical visit [] Trauma [] Long length of stay [] ICU visit [x] Other:Patient sleeping. Relational/Emotional Strength [] Patient feels connected with others/family/visitors/staff [] Distress [] Loneliness/isolation [] Abandonment Spirituality of Patient [] Person of Pao [] Attends Hindu of their Pao [] Believes in Prayer [] Reads Bible or Tenriism materials [] There are Spiritual issues to be addressed Instructor Physical Education Interventions [] Prayer [] Active listening [] Non-anxious presence [] Spiritual/emotional support [] Crisis/trauma care [] Spiritual counseling [] Bereavement support [] Provided bereavement packet [] Provided Bible/devotional materials [] Provided toy/stuffed animal, coloring book to patient or family member [] Provided Communion [] Anointing/[place] [] Salvation [] Completed spiritual assessment [] Other: Impact on Illness or Injury [] Angry [] Fearful [] Anxious [] Often cries [] Exhaustion [] Unable to work [] Unable to attend islam [] Unable to walk/stand [] Unable to read [] Unable to drive [] Unable to eat/drink [] Unable to sleep [] Unable to be with family [] Patient intubated [] Other: Summary Follow up needed. Time spent with patient
[2020-01-16 11:48] LABS: Glucose Point of Care 261 mg/dL (70-110)
--- NOTE | 2020-01-16 13:16 | PC.SOCIAL ---
IMM Updated Updated pt on Pg 2 IMM. Pt verbally understands, no questions voiced. Provided pt a copy & left on pt's bedside table. Signed, dated, & timed copy in chart.
--- NOTE | 2020-01-16 16:40 | P.PN_ITS ---
Subjective Subjective: Interval history: Patient states that she got up out of bed yesterday, into a chair, still feels weak to bear weight, no fevers, chills, shortness of breath, is worried about leaving the hospital too soon going to the custodial Vitals/I&O/Wt Last Vital Signs Temp 98.2 F 01/16/20 15:42 Pulse 76 01/16/20 15:42 Resp 18 01/16/20 15:42 BP 124/79 01/16/20 15:42 Pulse Ox 90 01/16/20 15:42 01/16/20 01/16/20 01/16/20 06:59 14:59 22:59 Intake Total 480 / 480 Balance 480 / 480 Weight last 48 hrs Weight 114.305 kg Weight 113.001 kg Weight 113.001 kg Physical Exam Const: COMMON NORMALS: no apparent distress and oriented x3 HENMT: COMMON NORMALS: normocephalic HEAD & SCALP: normocephalic Neck/C-Spine: COMMON NORMALS: no JVD Resp: COMMON NORMALS: normal respiratory effort, no retractions, no use of accessory muscles and clear to auscultation bilaterally AUSCULTATION: clear to auscultation bilaterally Cardio: COMMON NORMALS: no JVD, regular rate, regular rhythm, S1 normal heart sound and S2 normal heart sound RATE: regular rate RHYTHM: regular rhythm HEART SOUNDS: S1 normal and S2 normal GI: COMMON NORMALS: normal to inspection, nondistended, normoactive bowel sounds, soft to palpation, non-tender, no hepatosplenomegaly, no masses and no bruits PALPATION: Yes soft and Yes no hepatosplenomegaly Extremity: COMMON NORMALS: normal capillary refill, no clubbing, cyanosis or edema, no calf tenderness and no pedal edema Neuro: COMMON NORMALS: oriented x3 Psych: COMMON NORMALS: mental status grossly normal Urinary Catheter Management^: Riggins: Cath Placed During This Visit: yes Urinary Catheter Date of Insertion: 01/11/20 Urinary Catheter Time of Insertion: 12:29 Data : 01/16/20 04:46 01/16/20 04:46 Micro: Microbiology 01/11/20 11:50 Blood Culture - Final Blood NO GROWTH AFTER 5 DAYS 01/11/20 11:58 Blood Culture - Final Blood NO GROWTH AFTER 5 DAYS A&P Assessment and plan (1) Acute renal failure: Requiring emergent dialysis on admission, now improved Removal of dialysis catheter Creatinine improved to 2.6, diuretics held Patient with 900 cc of urine output in the last 24 hours Status: Acute Qualifiers: Acute renal failure type: unspecified Qualified Code(s): N17.9 - Acute kidney failure, unspecified Code(s): N17.9 - Acute kidney failure, unspecified (2) Pneumonia: Left lower lobe pneumonia. Sputum culture obtained in the emergency department showing Haemophilus influenza. Antibiotic coverage de-escalated to Rocephin Patient with recent diagnosis of influenza, had completed course of Tamiflu. Treatment was started on 01/04/2020 Still requiring 5 L oxygen Nursing staff was advised of up out of bed daily, Bradley lift if required Status: Acute Qualifiers: Laterality: left Lung location: lower lobe of lung Pneumonia type: due to unspecified organism Qualified Code(s): J18.9 - Pneumonia, unspecified organism Code(s): J18.9 - Pneumonia, unspecified organism (3) Congestive heart failure: Diastolic CHF Negative fluid balance at this time Hold Lasix therapy Status: Acute Qualifiers: Heart failure chronicity: chronic Heart failure type: unspecified Qualified Code(s): I50.9 - Heart failure, unspecified Code(s): I50.9 - Heart failure, unspecified Additional A&P Information Acute on chronic anemia: Continue on IV PPI every 12 hours. Hemoglobin at 9.3 today status post 1 unit of packed red blood cell on 01/12/2020. Hyperkalemia with acute renal failure: Resolved Diabetes mellitus, insulin-dependent, continue on sliding scale insulin as needed Hypertension: hypotension resolved and remains off pressors. Restart home Coreg, lasix held . Quinapril, amlodipine and aldactone on hold. Hyperlipidemia: On atorvastatin Recent diagnosis of influenza: Completed course of Tamiflu On chronic anticoagulation: On Xarelto 15 mg daily, holding given anemia Atrial fibrillation: Coreg continued, holding xarelto due to anemia History of CVA with chronic left-sided weakness according to family Elevated troponin: Likely type II process due to sepsis with septic and acute renal failure Hypoalbuminemia Morbid obesity Chronic custodial resident patient was advised to get up out of bed GERD: IV PPI DVT PPx: SCDs, heparin discontinued due to concern for acute anemia Code Status: DNR Attestations Medical Necessity Statement*: Patient requires continued hospitalization due to acute renal failure, acute respiratory failure Coding Level of Care Code Acute Foreign Food Specialty Cook for g Fwd Diagnoses Acute renal failure N17.9 Acute renal failure type: unspecified Pneumonia J18.9 Laterality: left Lung location: lower lobe of lung Pneumonia type: due to unspecified organism Congestive heart failure I50.9 Heart failure chronicity: chronic Heart failure type: unspecified
[2020-01-16 17:02] LABS: Glucose Point of Care 213 mg/dL (70-110)
[2020-01-16] MEDS: cefTRIAXone 1,000 MG in sodium chloride 0.9% (plus) 100 ML 100 MG IV (17:16)
[2020-01-16 21:35] LABS: Glucose Point of Care 267 mg/dL (70-110)
[2020-01-16] MEDS: atorvastatin 40 mg Tablet 20 MG PO (21:52)
[2020-01-17] VITALS (16 sets, daily range): BP systolic 120–152; BP diastolic 61–88; PULSE 78–91; RESP 16–20; TEMP 36.4–36.8; O2SAT 85–95
[2020-01-17] MEDS: ipratropium-albuterol 3 mL Neb INHALATION ×4 (02:50→21:56)
[2020-01-17 06:24] LABS: Glucose Point of Care 270 mg/dL (70-110)
[2020-01-17 06:29] LABS: Basophils # 0.1 10^3/uL (0.0-0.1); Basophils % 0.6 %; Eosinophils # 0.3 10^3/uL (0.0-0.8); Eosinophils % 3.4 %; Hematocrit 29.2 % (37.0-47.0); Hemoglobin 8.9 g/dL (11.5-15.3); Lymphocytes # 2.3 10^3/uL (0.8-4.8); Mean Corpuscular HGB Conc 30.5 g/dL (30.0-36.0); Mean Corpuscular Hemoglobin 29.9 pg (28.0-34.0); Mean Platelet Volume 10.7 fL (7.4-10.4); Monocytes # 0.9 10^3/uL (0.2-0.9); Monocytes % 8.6 %; Neutrophils # 5.8 10^3/uL (1.8-7.7); Neutrophils % 57.2 %; Nucleated Red Blood Cells % 0 %; Platelet Count 279 10^3/cmm (130-400); Red Blood Count 2.98 10^6/uL (4.1-5.3); Red Cell Distribution Width 13.7 % (12.1-15.1); White Blood Count 10.1 10^3/uL (4.0-10.0)
--- NOTE | 2020-01-17 06:53 | PM.PN ---
Subjective Subjective: Interval history: feels better. denies n/v/f/c/german/d/sob. she remains swollen. eats well. very weak. needs tangela lift to get OOB Medications: Reviewed: Yes Medication Review Details: Current Medications Acetaminophen (Tylenol) 650 mg PO Q6H PRN PRN Reason: Mild/Mod Pain Or Temp >/= 101 Albuterol Sulfate (Albuterol) 2.5 mg INHALATION Q4H.RESPIRATORY PRN PRN Reason: SHORTNESS OF BREATH Albuterol/Ipratropium (Duoneb) 3 ml INHALATION Q6H.RESPIRATORY NAGA Last Admin: 01/17/20 02:50 Dose: 3 ml Documented by: Aspirin (Aspirin Chewable) 81 mg PO DAILY NAGA Last Admin: 01/16/20 08:29 Dose: 81 mg Documented by: Atorvastatin Calcium (Lipitor) 20 mg PO BEDTIME NAGA Last Admin: 01/16/20 21:52 Dose: 20 mg Documented by: Bisacodyl (Dulcolax) 1 - 2 mg PO DAILY PRN PRN Reason: CONSTIPATION Budesonide (Pulmicort) 0.5 mg INHALATION BID.RESPIRATORY NAGA Last Admin: 01/16/20 20:53 Dose: 0.5 mg Documented by: Carvedilol (Coreg) 12.5 mg PO BID NAGA Last Admin: 01/16/20 17:14 Dose: 12.5 mg Documented by: Citalopram Hydrobromide (Celexa) 20 mg PO DAILY NAGA Last Admin: 01/16/20 08:29 Dose: 20 mg Documented by: Dextrose (D50w) 25 ml IVP ONCE PRN; Protocol PRN Reason: hypoglycemia protocol Dextrose (D50w) 50 ml IVP PRN PRN; Protocol PRN Reason: hypoglycemia protocol Glucagon (Glucagen) 1 mg IM ONCE PRN; Protocol PRN Reason: Adult Acute Hypoglycemia Prot. Dextrose (D5w) 500 mls @ 100 mls/hr IV ONCE PRN; Protocol PRN Reason: Adult Acute Hypoglycemia Prot Ceftriaxone Sodium 1,000 mg/ (Sodium Chloride) 100 mls @ 100 mls/hr IV Q24H NAG[facility]; Protocol Last Admin: 01/16/20 17:16 Dose: 100 mls/hr Documented by: Insulin Aspart (Novolog) 0 unit SUBCUT BEDTIME NAGA; Protocol Last Admin: 01/16/20 21:53 Dose: 5 unit Documented by: Insulin Aspart (Novolog) 0 unit SUBCUT TIDWM [facility]; Protocol Last Admin: 01/16/20 17:29 Dose: 6 unit Documented by: Lorazepam (Ativan) 0.5 mg PO BID PRN PRN Reason: ANXIETY Naloxone HCl (Narcan) 0.1 mg IVP Q2M PRN PRN Reason: OPIATERV Ondansetron HCl (Zofran) 4 mg IVP Q8H PRN PRN Reason: vomiting, or N/V if npo Pantoprazole Sodium (Protonix) 40 mg IVP Q12H NAGA Last Admin: 01/16/20 21:53 Dose: 40 mg Documented by: Vitals/I&O/Wt Last Vital Signs Temp 97.5 F L 01/17/20 04:00 Pulse 85 01/17/20 04:00 Resp 20 H 01/17/20 04:00 BP 134/81 01/17/20 04:00 Pulse Ox 94 01/17/20 04:00 01/16/20 01/16/20 01/17/20 14:59 22:59 06:59 Intake Total 480 / 480 0 / 480 Output Total 0 / 0 Balance 480 / 480 0 / 480 Weight last 48 hrs Weight 115.439 kg Weight 114.305 kg Physical Exam Narrative: EXAM NARRATIVE: vs noted- a fib heent- nc/at, eomi, anicteric neck supple, no jvp, lungs - basal dullness and crackles heart irreg irreg. +TY abd soft, nt, nd, + bs ext b/l edema -increasing in both legs pulses + b/l neuro- a,a, o x 3, weak, but moves. Urinary Catheter Management^: Riggins: Cath Placed During This Visit: yes Urinary Catheter Date of Insertion: 01/11/20 Urinary Catheter Time of Insertion: 12:29 Data : 01/16/20 04:46 01/16/20 04:46 Micro: Microbiology 01/11/20 11:50 Blood Culture - Final Blood NO GROWTH AFTER 5 DAYS 01/11/20 11:58 Blood Culture - Final Blood NO GROWTH AFTER 5 DAYS A&P Additional A&P Information TOLU - renal function appears close to baseline. improved atn 2. dm control 3. ckd stage 4- stable 4. metabolic alkalosis- either dry or compensation of resp acidosis- defer to hospitalist if want to check abg 5. dose meds for CKD stage 4 6. pna- renal dose abx 7. has edema- will restart diuretics and monitor uop and labs Attestations Medical Necessity Statement*: per hospitalist. at baseline cr Time Spent in Patient Care: 16 - 35 minutes Coding Level of Care Code Acute Intelligence Specialist for [facility] Rosalino
[2020-01-17 06:54] LABS: Alanine Aminotransferase 7 U/L (0-33); Albumin Level 2.4 g/dL (3.5-5.2); Alkaline Phosphatase 67 IU/L (35-105); Anion Gap 11.5 (5-19); Aspartate Amino Transferase 12 U/L (0-32); Blood Urea Nitrogen 37 mg/dL (8-23); Calcium 8.7 mg/dL (8.5-10.5); Carbon Dioxide 33 mmol/L (22-29); Chloride 97 mmol/L (98-107); Globulin 4.4 g/dL (1.3-4.6); Glucose 269 mg/dL (65-115); Osmolality Calculated 291 mOsm/kg (285-295); Phosphorus 3.2 mg/dL (2.5-4.5); Potassium 4.5 mmol/L (3.5-5.1); Sodium 137 mmol/L (136-145); Total Bilirubin 0.4 mg/dL (0.15-1.2); Total Protein 6.8 g/dL (6.6-8.7)
[2020-01-17 07:43] LABS: Slide Review Slide Review Perform
[2020-01-17 07:46] LABS: Absolute Eosinophils 0.3 10^3/cmm (0.0-0.7); Absolute Segmented Neutrophil 5.6 10/cmm (1.6-7.1); Band Neutrophils Absolute 1.4 10^3/cmm (0.0-1.2); Eosinophils 3 %; Lymphocytes 17 %; Lymphocytes Absolute 1.8 10^3/cmm (1.2-3.4); Monocytes Absolute 0.5 10^3/cmm (0.1-0.6); Segmented Neutrophils 56 %; Total Cells Counted 100 (0-100)
[2020-01-17 07:48] LABS: Platelet Estimate Normal (Normal)
[2020-01-17] MEDS: budesonide 0.5 mg/2 mL Neb INHALATION ×2 (08:33→21:56)
[2020-01-17] MEDS: pantoprazole 40 mg SDV IVP (09:09)
[2020-01-17] MEDS: FUROsemide 10 mg/mL SDV 2mL 20 MG IVP (09:10)
[2020-01-17] MEDS: aspirin 81 mg Chew Tablet PO (09:10)
[2020-01-17] MEDS: carvedilol 12.5 mg Tablet PO ×2 (09:10→17:01)
[2020-01-17] MEDS: citalopram 20 mg Tablet PO (09:10)
[2020-01-17 11:36] LABS: Glucose Point of Care 291 mg/dL (70-110)
[2020-01-17 16:35] LABS: Glucose Point of Care 262 mg/dL (70-110)
--- NOTE | 2020-01-17 17:54 | PM.PN ---
Subjective Subjective: Interval history: I spoke to patient and her son over [employer] video today, I am ready to discharge to retirement, her oxygen requirements have decreased to 3 L, her blood work looks improved, she is getting better, she still quite weak to get out of bed, but is progressing, her kidney function is improving, her creatinine is 2.5, she has been discharged from the nephrology service -However patient states that she does not want to go to the retirement, as the nursing homes are locked down and she will be able to see her family -According to her son, he is concerned about going her going to the retirement, he states that they do not do adequate physical therapy, she developed bedsores, she remains bedbound according to him, he, she does not get the care that she needs, she is at increased risk of getting infections, -Patient states that he wants her to go to a rehab facility at [facility] -I spoke to patient and son, she is ready to discharge, and I will discharge her, I will leave it up to patient and her family to determine with the caseworkers were she would like to go, but medically she is stable to go to the retirement Vitals/I&O/Wt Last Vital Signs Temp 97.7 F 01/17/20 16:00 Pulse 81 01/17/20 16:00 Resp 18 01/17/20 16:00 BP 120/61 01/17/20 16:00 Pulse Ox 91 01/17/20 16:00 01/17/20 01/17/20 01/17/20 06:59 14:59 22:59 Intake Total 600 / 600 Balance 600 / 600 Weight last 48 hrs Weight 115.439 kg Weight 114.305 kg Physical Exam Const: COMMON NORMALS: no apparent distress and oriented x3 HENMT: COMMON NORMALS: normocephalic HEAD & SCALP: normocephalic Neck/C-Spine: COMMON NORMALS: no JVD Resp: COMMON NORMALS: normal respiratory effort, no retractions, no use of accessory muscles and clear to auscultation bilaterally AUSCULTATION: clear to auscultation bilaterally Cardio: COMMON NORMALS: no JVD, regular rate, regular rhythm, S1 normal heart sound and S2 normal heart sound RATE: regular rate RHYTHM: regular rhythm HEART SOUNDS: S1 normal and S2 normal GI: COMMON NORMALS: normal to inspection, nondistended, normoactive bowel sounds, soft to palpation, non-tender, no hepatosplenomegaly, no masses and no bruits PALPATION: Yes soft and Yes no hepatosplenomegaly Extremity: COMMON NORMALS: no pedal edema Neuro: COMMON NORMALS: oriented x3 Psych: COMMON NORMALS: mental status grossly normal Urinary Catheter Management^: Riggins: Cath Placed During This Visit: yes Urinary Catheter Date of Insertion: 01/11/20 Urinary Catheter Time of Insertion: 12:29 Data : 01/17/20 06:04 01/17/20 06:04 A&P Assessment and plan (1) Acute renal failure: Requiring emergent dialysis on admission, now improved Removal of dialysis catheter Creatinine improved to 2.5, diuretics held Patient with 900 cc of urine output in the last 24 hours Status: Acute Qualifiers: Acute renal failure type: unspecified Qualified Code(s): N17.9 - Acute kidney failure, unspecified Code(s): N17.9 - Acute kidney failure, unspecified (2) Pneumonia: Left lower lobe pneumonia Improving Sputum culture obtained in the emergency department showing Haemophilus influenza. Antibiotic coverage de-escalated to doxycycline Patient with recent diagnosis of influenza, had completed course of Tamiflu. Treatment was started on 01/04/2020 Still requiring 3 L oxygen, but improved from 5 L a few days ago Nursing staff was advised of up out of bed daily, Bradley lift if required Status: Acute Qualifiers: Laterality: left Lung location: lower lobe of lung Pneumonia type: due to unspecified organism Qualified Code(s): J18.9 - Pneumonia, unspecified organism Code(s): J18.9 - Pneumonia, unspecified organism (3) Congestive heart failure: Diastolic CHF Negative fluid balance at this time Hold Lasix therapy Status: Acute Qualifiers: Heart failure chronicity: chronic Heart failure type: unspecified Qualified Code(s): I50.9 - Heart failure, unspecified Code(s): I50.9 - Heart failure, unspecified Additional A&P Information Acute on chronic anemia: Switch to oral PPI, hemoglobin stable at 8.9 Hyperkalemia with acute renal failure: Resolved Diabetes mellitus, insulin-dependent, continue on sliding scale insulin as needed, will start 10 units of Tresiba tonight Hypertension: Restart amlodipine 5 mg once daily, Coreg 12.5 mg twice daily, clonidine 0.1 mg twice daily on hold, Imdur 60 mg once daily on hold, nephrotoxic agents on hold Hyperlipidemia: On atorvastatin Recent diagnosis of influenza: Completed course of Tamiflu On chronic anticoagulation with atrial fibrillation: On Xarelto 15 mg daily, will continue Xarelto, monitor hemoglobin Atrial fibrillation: Coreg continued, holding xarelto due to anemia History of CVA with chronic left-sided weakness according to family Elevated troponin: Likely type II process due to sepsis with septic and acute renal failure Hypoalbuminemia Morbid obesity Chronic retirement resident patient was advised to get up out of bed GERD: Oral Protonix DVT PPx: SCDs, Xarelto Code Status: DNR Attestations Medical Necessity Statement*: Patient has been discharged with medical service, appealing discharge, Coding Level of Care Code Acute Mechanical 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 Diagnoses Acute renal failure N17.9 Acute renal failure type: unspecified Pneumonia J18.9 Laterality: left Lung location: lower lobe of lung Pneumonia type: due to unspecified organism Congestive heart failure I50.9 Heart failure chronicity: chronic Heart failure type: unspecified
[2020-01-17] MEDS: atorvastatin 40 mg Tablet 20 MG PO (20:36)
[2020-01-17 21:42] LABS: Glucose Point of Care 274 mg/dL (70-110)
[2020-01-18] VITALS (13 sets, daily range): BP systolic 116–130; BP diastolic 58–82; PULSE 71–106; RESP 16–24; TEMP 36.4–37.1; O2SAT 90–96
[2020-01-18] MEDS: ipratropium-albuterol 3 mL Neb INHALATION ×4 (02:49→20:04)
[2020-01-18 05:24] LABS: Basophils % 0.3 %; Eosinophils # 0.4 10^3/uL (0.0-0.8); Eosinophils % 4.4 %; Hemoglobin 9.2 g/dL (11.5-15.3); Lymphocytes # 2.5 10^3/uL (0.8-4.8); Lymphocytes % 27.8 %; Mean Corpuscular HGB Conc 30.7 g/dL (30.0-36.0); Mean Corpuscular Hemoglobin 30.5 pg (28.0-34.0); Mean Corpuscular Volume 99.3 fL (81-99); Mean Platelet Volume 10.9 fL (7.4-10.4); Monocytes # 0.9 10^3/uL (0.2-0.9); Monocytes % 10.4 %; Neutrophils # 4.5 10^3/uL (1.8-7.7); Neutrophils % 50.3 %; Nucleated Red Blood Cells % 0 %; Platelet Count 293 10^3/cmm (130-400); Red Blood Count 3.02 10^6/uL (4.1-5.3); Red Cell Distribution Width 13.6 % (12.1-15.1); White Blood Count 8.9 10^3/uL (4.0-10.0)
[2020-01-18 05:43] LABS: Alanine Aminotransferase 8 U/L (0-33); Albumin Level 2.5 g/dL (3.5-5.2); Alkaline Phosphatase 64 IU/L (35-105); Anion Gap 15.1 (5-19); Aspartate Amino Transferase 15 U/L (0-32); Blood Urea Nitrogen 40 mg/dL (8-23); Calcium 8.9 mg/dL (8.5-10.5); Carbon Dioxide 28 mmol/L (22-29); Chloride 95 mmol/L (98-107); Glucose 217 mg/dL (65-115); Magnesium 2.1 mg/dL (1.7-2.3); Osmolality Calculated 282 mOsm/kg (285-295); Phosphorus 3.3 mg/dL (2.5-4.5); Potassium 4.1 mmol/L (3.5-5.1); Sodium 134 mmol/L (136-145); Total Bilirubin 0.4 mg/dL (0.15-1.2); Total Protein 6.5 g/dL (6.6-8.7)
[2020-01-18 06:38] LABS: Slide Review Slide Review Perform
[2020-01-18 06:49] LABS: Glucose Point of Care 244 mg/dL (70-110)
--- NOTE | 2020-01-18 08:01 | PM.PN ---
Subjective Subjective: Interval history: feels better. no n/v/f/c/german/d. at baseline breathing. Medications: Reviewed: Yes Medication Review Details: Current Medications Acetaminophen (Tylenol) 650 mg PO Q6H PRN PRN Reason: Mild/Mod Pain Or Temp >/= 101 Albuterol Sulfate (Albuterol) 2.5 mg INHALATION Q4H.RESPIRATORY PRN PRN Reason: SHORTNESS OF BREATH Albuterol/Ipratropium (Duoneb) 3 ml INHALATION Q6H.RESPIRATORY NAGA Last Admin: 01/18/20 02:49 Dose: 3 ml Documented by: Amlodipine Besylate (Norvasc) 5 mg PO DAILY NAGA Aspirin (Aspirin Chewable) 81 mg PO DAILY NAGA Last Admin: 01/17/20 09:10 Dose: 81 mg Documented by: Atorvastatin Calcium (Lipitor) 20 mg PO BEDTIME NAGA Last Admin: 01/17/20 20:36 Dose: 20 mg Documented by: Bisacodyl (Dulcolax) 1 - 2 mg PO DAILY PRN PRN Reason: CONSTIPATION Budesonide (Pulmicort) 0.5 mg INHALATION BID.RESPIRATORY NAGA Last Admin: 01/17/20 21:56 Dose: 0.5 mg Documented by: Carvedilol (Coreg) 12.5 mg PO BID NAGA Last Admin: 01/17/20 17:01 Dose: 12.5 mg Documented by: Citalopram Hydrobromide (Celexa) 20 mg PO DAILY NAGA Last Admin: 01/17/20 09:10 Dose: 20 mg Documented by: Dextrose (D50w) 25 ml IVP ONCE PRN; Protocol PRN Reason: hypoglycemia protocol Dextrose (D50w) 50 ml IVP PRN PRN; Protocol PRN Reason: hypoglycemia protocol Doxycycline Monohydrate (Vibramycin) 100 mg PO BID NAGA; Protocol Furosemide (Lasix) 20 mg PO DAILY@0800 NAGA Glucagon (Glucagen) 1 mg IM ONCE PRN; Protocol PRN Reason: Adult Acute Hypoglycemia Prot. Dextrose (D5w) 500 mls @ 100 mls/hr IV ONCE PRN; Protocol PRN Reason: Adult Acute Hypoglycemia Prot Insulin Aspart (Novolog) 0 unit SUBCUT BEDTIME NAGA; Protocol Last Admin: 01/17/20 21:13 Dose: 5 unit Documented by: Insulin Aspart (Novolog) 0 unit SUBCUT TIDWM NAGA; Protocol Last Admin: 01/17/20 17:01 Dose: 10 unit Documented by: Lorazepam (Ativan) 0.5 mg PO BID PRN PRN Reason: ANXIETY Naloxone HCl (Narcan) 0.1 mg IVP Q2M PRN PRN Reason: OPIATERV Non-Formulary Medication (Vit C,R-Of-Xchsa-Lutein-Zeaxan [Preservision Areds-2]) 1 tab PO DAILY NAGA Non-Formulary Medication (Insulin Degludec [Tresiba Flextouch U-200]) 10 unit SUBCUT BEDTIME NAGA Last Admin: 01/17/20 22:07 Dose: Not Given Documented by: Ondansetron HCl (Zofran) 4 mg IVP Q8H PRN PRN Reason: vomiting, or N/V if npo Pantoprazole Sodium (Protonix) 40 mg PO BID NAGA Potassium Chloride (Klor-Con 10) 20 meq PO DAILY [facility] Vitals/I&O/Wt Last Vital Signs Temp 97.6 F 01/18/20 04:00 Pulse 84 01/18/20 04:00 Resp 20 H 01/18/20 04:00 BP 130/63 01/18/20 04:00 Pulse Ox 90 01/18/20 04:00 01/17/20 01/18/20 01/18/20 22:59 06:59 14:59 Intake Total 120 / 720 Balance 120 / 720 Weight last 48 hrs Weight 112.582 kg Weight 115.439 kg Physical Exam Narrative: EXAM NARRATIVE: vs noted- a fib heent- nc/at, eomi, anicteric neck supple, no jvp, lungs - basal dullness and crackles heart irreg irreg. +TY abd soft, nt, nd, + bs ext b/l edema -stable pulses + b/l neuro- a,a, o x 3, weak Urinary Catheter Management^: Riggins: Cath Placed During This Visit: yes Urinary Catheter Date of Insertion: 01/11/20 Urinary Catheter Time of Insertion: 12:29 Data : 01/18/20 04:21 01/18/20 04:21 A&P Additional A&P Information TOLU - renal function appears close to baseline. improved atn 2. dm control 3. ckd stage 4- stable 4. hyponatremia- fluid restrict. chck ur lytes and tsh. -can be lasix or chf k okay w/ lasix and low dose potassium 5. dose meds for CKD stage 4 6. pna- renal dose abx 7.agree w/ PT Attestations Medical Necessity Statement*: per hospitalist Time Spent in Patient Care: 16 - 35 minutes Coding Level of Care Code Acute Ingredient Scaler for Betty Jerry
[2020-01-18] MEDS: budesonide 0.5 mg/2 mL Neb INHALATION ×2 (08:35→20:04)
[2020-01-18 08:54] LABS: Thyroid Stimulating Hormone 3.41 uIU/mL (0.27-4.20)
[2020-01-18] MEDS: doxycycline 100 mg Tablet PO ×3 (09:07→17:54)
[2020-01-18] MEDS: pantoprazole DR 40 mg Tablet PO ×2 (09:08→17:56)
[2020-01-18] MEDS: citalopram 20 mg Tablet PO (09:08)
[2020-01-18] MEDS: carvedilol 12.5 mg Tablet PO ×2 (09:09→17:56)
[2020-01-18] MEDS: FUROsemide 20 mg Tablet PO (09:09)
[2020-01-18] MEDS: aspirin 81 mg Chew Tablet PO (09:10)
[2020-01-18] MEDS: amlodipine 5 mg Tablet 2.5 MG PO (09:10)
[2020-01-18] MEDS: rivaroxaban 10 mg Tablet 15 MG PO (09:14)
[2020-01-18 11:32] LABS: Glucose Point of Care 250 mg/dL (70-110)
--- NOTE | 2020-01-18 12:12 | PC.RESP ---
Patient given Pulmonary Rehab information.
--- NOTE | 2020-01-18 13:04 | PC.SOCIAL ---
Late Entry for 01/17/2020 1700 Received a call from JANNET Aguilar that patient has appealed discharge. Detailed Notice of Discharge filled out, signed by patient and faxed to [facility] with requested records. A copy was given to patient. . Faxed information approx [phone]. Received confirmation that fax was successfully sent.
--- NOTE | 2020-01-18 14:41 | P.PN_ITS ---
Subjective Subjective: Interval history: This morning patient is sitting in bed, having lunch, has no complaints, is on 2 L nasal cannula, creatinine is 2.7, patient's and family are appealing discharge Vitals/I&O/Wt Last Vital Signs Temp 97.8 F 01/18/20 11:40 Pulse 103 H 01/18/20 14:09 Resp 17 01/18/20 14:04 BP 127/82 01/18/20 11:40 Pulse Ox 91 01/18/20 14:04 01/17/20 01/18/20 01/18/20 22:59 06:59 14:59 Intake Total 120 / 720 Balance 120 / 720 Weight last 48 hrs Weight 112.582 kg Weight 115.439 kg Physical Exam Const: COMMON NORMALS: no apparent distress and oriented x3 HENMT: COMMON NORMALS: normocephalic HEAD & SCALP: normocephalic Neck/C-Spine: COMMON NORMALS: no JVD Resp: COMMON NORMALS: normal respiratory effort, no retractions, no use of accessory muscles and clear to auscultation bilaterally AUSCULTATION: clear to auscultation bilaterally Cardio: COMMON NORMALS: no JVD, regular rate, regular rhythm, S1 normal heart sound and S2 normal heart sound RATE: regular rate RHYTHM: regular rhythm HEART SOUNDS: S1 normal and S2 normal GI: COMMON NORMALS: normal to inspection, nondistended, normoactive bowel sounds, soft to palpation, non-tender, no hepatosplenomegaly, no masses and no bruits PALPATION: Yes soft and Yes no hepatosplenomegaly Extremity: COMMON NORMALS: normal capillary refill, no clubbing, cyanosis or edema, no calf tenderness and no pedal edema Neuro: COMMON NORMALS: oriented x3 Psych: COMMON NORMALS: mental status grossly normal Urinary Catheter Management^: Riggins: Cath Placed During This Visit: yes, but has since been removed by the nurse Reason for Continuing Indwelling Catheter: Decision to DC Catheter Urinary Catheter Date of Insertion: 01/11/20 Urinary Catheter Time of Insertion: 12:29 Date Urinary Catheter Removed: 01/15/20 Time Urinary Catheter Discontinued: 11:19 Data : 01/18/20 04:21 01/18/20 04:21 A&P Assessment and plan (1) Acute renal failure: Requiring emergent dialysis on admission, now improved Removal of dialysis catheter Creatinine improved to 2.7, diuretics held Status: Acute Qualifiers: Acute renal failure type: unspecified Qualified Code(s): N17.9 - Acute kidney failure, unspecified Code(s): N17.9 - Acute kidney failure, unspecified (2) Pneumonia: Left lower lobe pneumonia Improving Sputum culture obtained in the emergency department showing Haemophilus influenza. Antibiotic coverage de-escalated to doxycycline Patient with recent diagnosis of influenza, had completed course of Tamiflu. Treatment was started on 01/04/2020 Now on 2 L nasal cannula Nursing staff was advised of up out of bed daily, Bradley lift if required Status: Acute Qualifiers: Laterality: left Lung location: lower lobe of lung Pneumonia type: due to unspecified organism Qualified Code(s): J18.9 - Pneumonia, unspecified organism Code(s): J18.9 - Pneumonia, unspecified organism (3) Congestive heart failure: Diastolic CHF Negative fluid balance at this time Hold Lasix therapy Status: Acute Qualifiers: Heart failure chronicity: chronic Heart failure type: unspecified Qualified Code(s): I50.9 - Heart failure, unspecified Code(s): I50.9 - Heart failure, unspecified Additional A&P Information Acute on chronic anemia: Switch to oral PPI, hemoglobin stable at 9.2, on Xarelto Hyperkalemia with acute renal failure: Resolved Diabetes mellitus, insulin-dependent, continue on sliding scale insulin as needed, on 10 units of Tresiba nightly Hypertension: Restart amlodipine 5 mg once daily, Coreg 12.5 mg twice daily, clonidine 0.1 mg twice daily on hold, Imdur 60 mg once daily on hold, nephrotoxic agents on hold Hyperlipidemia: On atorvastatin Recent diagnosis of influenza: Completed course of Tamiflu On chronic anticoagulation with atrial fibrillation: On Xarelto 15 mg daily, will continue Xarelto, monitor hemoglobin Atrial fibrillation: Coreg continued, holding xarelto due to anemia History of CVA with chronic left-sided weakness according to family Elevated troponin: Likely type II process due to sepsis with septic and acute renal failure Hypoalbuminemia Morbid obesity Chronic skilled nursing resident patient was advised to get up out of bed GERD: Oral Protonix DVT PPx: SCDs, Xarelto Code Status: DNR Attestations Medical Necessity Statement*: Patient is ready for discharge, appealing discharge Coding Level of Care Code Acute 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
[2020-01-18 15:10] LABS: Potassium, Radom Urine 19 mmol/L; Urine Creatinine 84 mg/dL (28-217); Urine Random Chloride 23 mmol/L; Urine Random Sodium 37 mmol/L
[2020-01-18 16:31] LABS: Glucose Point of Care 166 mg/dL (70-110)
--- NOTE | 2020-01-18 17:10 | PC.SOCIAL ---
Received call from [facility] at 1615 indicating physician reviewer has completed review and does agree with DC. Clarified patient has until 12 noon tomorrow to DC before charges incur. Updated patient and let her know transport will be arranged in am to discharge to [facility] and she verbalized understanding of outcome and agreement to dc in am. Updated Dr Gant. Notified Elysia HOLLOWAY CM and she will update [facility] and patients Son.
[2020-01-18] MEDS: atorvastatin 40 mg Tablet 20 MG PO (20:57)
[2020-01-18 21:35] LABS: Glucose Point of Care 314 mg/dL (70-110)
[2020-01-19] VITALS (8 sets, daily range): BP systolic 121–145; BP diastolic 72–78; PULSE 66–88; RESP 17–19; TEMP 36.3–36.7; O2SAT 96–99
[2020-01-19] MEDS: ipratropium-albuterol 3 mL Neb INHALATION ×2 (02:15→08:29)
[2020-01-19 05:21] LABS: Basophils # 0.1 10^3/uL (0.0-0.1); Basophils % 0.7 %; Eosinophils # 0.3 10^3/uL (0.0-0.8); Eosinophils % 4.5 %; Hematocrit 29.6 % (37.0-47.0); Hemoglobin 9.1 g/dL (11.5-15.3); Lymphocytes # 2.4 10^3/uL (0.8-4.8); Lymphocytes % 31.8 %; Mean Corpuscular HGB Conc 30.7 g/dL (30.0-36.0); Mean Corpuscular Hemoglobin 30.2 pg (28.0-34.0); Mean Corpuscular Volume 98.3 fL (81-99); Mean Platelet Volume 10.5 fL (7.4-10.4); Monocytes # 0.8 10^3/uL (0.2-0.9); Monocytes % 10.3 %; Neutrophils # 3.6 10^3/uL (1.8-7.7); Neutrophils % 47.5 %; Nucleated Red Blood Cells % 0 %; Platelet Count 279 10^3/cmm (130-400); Red Blood Count 3.01 10^6/uL (4.1-5.3); Red Cell Distribution Width 13.8 % (12.1-15.1); White Blood Count 7.6 10^3/uL (4.0-10.0)
[2020-01-19 05:47] LABS: Alanine Aminotransferase 10 U/L (0-33); Albumin Level 2.4 g/dL (3.5-5.2); Alkaline Phosphatase 70 IU/L (35-105); Anion Gap 12.3 (5-19); Aspartate Amino Transferase 13 U/L (0-32); Blood Urea Nitrogen 38 mg/dL (8-23); Calcium 8.8 mg/dL (8.5-10.5); Carbon Dioxide 32 mmol/L (22-29); Chloride 96 mmol/L (98-107); Globulin 4.5 g/dL (1.3-4.6); Glucose 241 mg/dL (65-115); Osmolality Calculated 287 mOsm/kg (285-295); Potassium 4.3 mmol/L (3.5-5.1); Sodium 136 mmol/L (136-145); Total Bilirubin 0.4 mg/dL (0.15-1.2); Total Protein 6.9 g/dL (6.6-8.7)
[2020-01-19 05:53] LABS: Slide Review Slide Review Perform
[2020-01-19 06:46] LABS: Glucose Point of Care 214 mg/dL (70-110)
--- NOTE | 2020-01-19 08:01 | P.PN_ITS ---
Subjective Subjective: Interval history: feels better. no n/v/f/cp/ german/ diarrhea. improving strength Medications: Reviewed: Yes Medication Review Details: Current Medications Acetaminophen (Tylenol) 650 mg PO Q6H PRN PRN Reason: Mild/Mod Pain Or Temp >/= 101 Albuterol Sulfate (Albuterol) 2.5 mg INHALATION Q4H.RESPIRATORY PRN PRN Reason: SHORTNESS OF BREATH Albuterol/Ipratropium (Duoneb) 3 ml INHALATION Q6H.RESPIRATORY NAGA Last Admin: 01/19/20 02:15 Dose: 3 ml Documented by: Amlodipine Besylate (Norvasc) 2.5 mg PO DAILY [facility] Last Admin: 01/18/20 09:10 Dose: 2.5 mg Documented by: Aspirin (Aspirin Chewable) 81 mg PO DAILY [facility] Last Admin: 01/18/20 09:10 Dose: 81 mg Documented by: Atorvastatin Calcium (Lipitor) 20 mg PO BEDTIME [facility] Last Admin: 01/18/20 20:57 Dose: 20 mg Documented by: Bisacodyl (Dulcolax) 1 - 2 mg PO DAILY PRN PRN Reason: CONSTIPATION Budesonide (Pulmicort) 0.5 mg INHALATION BID.RESPIRATORY [facility] Last Admin: 01/18/20 20:04 Dose: 0.5 mg Documented by: Carvedilol (Coreg) 12.5 mg PO BID [facility] Last Admin: 01/18/20 17:56 Dose: 12.5 mg Documented by: Citalopram Hydrobromide (Celexa) 20 mg PO DAILY [facility] Last Admin: 01/18/20 09:08 Dose: 20 mg Documented by: Dextrose (D50w) 25 ml IVP ONCE PRN; Protocol PRN Reason: hypoglycemia protocol Dextrose (D50w) 50 ml IVP PRN PRN; Protocol PRN Reason: hypoglycemia protocol Doxycycline Monohydrate (Vibramycin) 100 mg PO BID [facility]; Protocol Last Admin: 01/18/20 17:54 Dose: 100 mg Documented by: Furosemide (Lasix) 20 mg PO DAILY@0800 [facility] Last Admin: 01/18/20 09:09 Dose: 20 mg Documented by: Glucagon (Glucagen) 1 mg IM ONCE PRN; Protocol PRN Reason: Adult Acute Hypoglycemia Prot. Dextrose (D5w) 500 mls @ 100 mls/hr IV ONCE PRN; Protocol PRN Reason: Adult Acute Hypoglycemia Prot Insulin Aspart (Novolog) 0 unit SUBCUT BEDTIME NAGA; Protocol Last Admin: 01/18/20 22:16 Dose: 6 unit Documented by: Insulin Aspart (Novolog) 0 unit SUBCUT TIDWM NAGA; Protocol Last Admin: 01/18/20 17:54 Dose: 4 unit Documented by: Naloxone HCl (Narcan) 0.1 mg IVP Q2M PRN PRN Reason: OPIATERV Non-Formulary Medication (Vit C,L-Kx-Icsbw-Lutein-Zeaxan [Preservision Areds-2]) 1 tab PO DAILY [facility] Last Admin: 01/18/20 09:24 Dose: Not Given Documented by: Non-Formulary Medication (Insulin Degludec [Tresiba Flextouch U-200]) 10 unit SUBCUT BEDTIME [facility] Last Admin: 01/18/20 22:18 Dose: Not Given Documented by: Ondansetron HCl (Zofran) 4 mg IVP Q8H PRN PRN Reason: vomiting, or N/V if npo Pantoprazole Sodium (Protonix) 40 mg PO BID [facility] Last Admin: 01/18/20 17:56 Dose: 40 mg Documented by: Potassium Chloride (Klor-Con 10) 20 meq PO EVERY OTHER DAY [facility] Last Admin: 01/18/20 09:08 Dose: 20 meq Documented by: Vitals/I&O/Wt Last Vital Signs Temp 97.6 F 01/19/20 07:52 Pulse 77 01/19/20 07:52 Resp 18 01/19/20 07:52 BP 145/78 01/19/20 07:52 Pulse Ox 96 01/19/20 07:52 01/18/20 01/19/20 01/19/20 22:59 06:59 14:59 Intake Total 300 / 300 Output Total 224 / 224 Balance 76 / 76 Weight last 48 hrs Weight 113.58 kg Weight 112.582 kg Physical Exam Narrative: EXAM NARRATIVE: vs noted- a fib comfortable in bed, NARD heent- nc/at, eomi, anicteric neck supple, no jvp, lungs - basal dullness and crackles heart irreg irreg. +TY abd soft, nt, nd, + bs ext b/l edema -stable pulses + b/l neuro- a,a, o x 3, improving strength daily. mood- good Urinary Catheter Management^: Riggins: Cath Placed During This Visit: yes, but has since been removed by the nurse Reason for Continuing Indwelling Catheter: Decision to DC Catheter Urinary Catheter Date of Insertion: 01/11/20 Urinary Catheter Time of Insertion: 12:29 Date Urinary Catheter Removed: 01/15/20 Time Urinary Catheter Discontinued: 11:19 Data : 01/19/20 05:06 01/19/20 05:06 A&P Additional A&P Information TOLU - renal function appears close to baseline. improved atn 2. dm control 3. ckd stage 4- stable. from dm, htn, obesity 4. hyponatremia- fluid restrict. chck ur lytes and tsh. -can be lasix or chf potassium okay w/ lasix and low dose potassium -monitor weekly chemistries as on kcl and lasix 5. dose meds for CKD stage 4 6 outpt renal f/u. will likely benefit from an ARB- if cr remains stable as outpt. Attestations Medical Necessity Statement*: per hospitalist Time Spent in Patient Care: 16 - 35 minutes Coding Level of Care Code Acute Jigger Machine Operator for Patrickg Rosalino
[2020-01-19] MEDS: rivaroxaban 10 mg Tablet 15 MG PO (08:23)
[2020-01-19] MEDS: FUROsemide 20 mg Tablet PO (08:23)
[2020-01-19] MEDS: doxycycline 100 mg Tablet PO (08:24)
[2020-01-19] MEDS: citalopram 20 mg Tablet PO (08:24)
[2020-01-19] MEDS: amlodipine 5 mg Tablet 2.5 MG PO (08:25)
[2020-01-19] MEDS: aspirin 81 mg Chew Tablet PO (08:25)
[2020-01-19] MEDS: carvedilol 12.5 mg Tablet PO (08:25)
[2020-01-19] MEDS: pantoprazole DR 40 mg Tablet PO (08:26)
[2020-01-19] MEDS: budesonide 0.5 mg/2 mL Neb INHALATION (08:29)
[2020-01-19 11:32] LABS: Osmolality Urine 297 mOsm/kg (50-1200)
== END 2020-01-19 09:20 | disposition skilled nursing facility (03) | DRG 871 ==
LOC: ER 13:27 → ICU 14:33 → MEDSURG 01-14 21:04
PROVIDERS: Internal Medicine Critical Care Medicine; Internal Medicine Nephrology; Admitting Provider Family Medicine; Emergency Provider Family Medicine; Family Provider Internal Medicine; Visit Provider Family Medicine
DX: A41.9 Sepsis, unspecified organism (principal); J18.9 Pneumonia, unspecified organism; J96.21 Acute and chronic respiratory failure with hypoxia; N17.0 Acute kidney failure with tubular necrosis; J96.22 Acute and chronic respiratory failure with hypercapnia; N18.4 Chronic kidney disease, stage 4 (severe); E87.1 Hypo-osmolality and hyponatremia; I13.0 Hypertensive heart and chronic kidney disease with heart failure and stage 1 through stage 4 chronic kidney disease, or unspecified chronic kidney disease; E87.2 Acidosis; I50.30 Unspecified diastolic (congestive) heart failure; E11.9 Type 2 diabetes mellitus without complications; E78.5 Hyperlipidemia, unspecified; I48.91 Unspecified atrial fibrillation; E66.01 Morbid (severe) obesity due to excess calories; K21.9 Gastro-esophageal reflux disease without esophagitis; E87.5 Hyperkalemia; D63.1 Anemia in chronic kidney disease; J10.1 Influenza due to other identified influenza virus with other respiratory manifestations; Z66 Do not resuscitate; Z79.4 Long term (current) use of insulin; Z79.51 Long term (current) use of inhaled steroids; Z79.82 Long term (current) use of aspirin; Z99.2 Dependence on renal dialysis
CPT/HCPCS: 12345; 31500; 36415; 36416; 36430; 36592; 36600; 51702; 71045; 76770; 76857; 80048; 80051; 80053; 80202; 81001; 82044; 82436; 82570; 82803; 82810; 82962; 83605; 83735; 83880; 83935; 83986; 84100; 84133; 84156; 84300; 84443; 84484; 85007; 85025; 85362; 85378; 85384; 85610; 85730; 85999; 86803; 86850; 86900; 86920; 87040; 87070; 87077; 87086; 87186; 87205; 87340; 90935; 92523; 92526; 92610; 93005; 93306; 94002; 94003; 94640; 94660; 94799; 96105; 96372; 96374; 96375; 97110; 97162; 97165; 97530; 97535; 99284; A4570; C9113; J0456; J0610; J0692; J0696; J1265; J1644; J1815; J1940; J2250; J2704; J3010; J3370; J3490; J7040; J7050; J7626; P9016; Q3014

== ENCOUNTER 2020-03-16 10:38 | Inpatient (IN) | payer MEDICARE, MEDICAID, SELFPAY ==
[2020-03-16] VITALS (11 sets, daily range): BP systolic 113–171; BP diastolic 60–104; PULSE 58–70; RESP 22–28; TEMP 36.7–37.1; O2SAT 97–100; BMI 80.6
--- NOTE | 2020-03-16 10:48 | ED_ITS ---
HPI - SOB/Dyspnea General: Chief Complaint: Shortness of Breath/Dyspnea Stated Complaint: SHORT OF BREATH, INC EDEMA [id number] Time Seen by Provider: 03/16/20 10:41 History of Present Illness: HPI Narrative: Patient is a long-term resident presenting by renny today with shortness of breath. She has had these symptoms for several weeks and her lasix dose has been increased but without improvement. She doesn't feel like the lasix is making her urinate like it should. She denies chest pain or abdominal pain. no cough. She has had a low grade temp around 99 per EMS - no temp today. She has had swelling in her legs and her abdomen feels like. MD elicited complaint: shortness of breath Pertinent past history: congestive heart failure Onset (ago): week(s) (2) Severity: moderate Exacerbating factors: lying flat, exertion, movement and talking Relieving factors: oxygen Known history of: congestive heart failure Associated symptoms: Reports orthopnea; Deny abdominal pain, chest pain, nausea, palpitations, polydipsia, polyuria or vomiting Review of Systems General: Reports: 10 or more systems reviewed and unremarkable except in HPI and below Const: Reports: change in appetite and fatigue; Denies: chills or malaise Card: Reports: edema, swelling of feet/ankles, dyspnea on exertion and orthopnea; Denies: chest pain, palpitations or irregular heart rhythm Resp: Reports: dyspnea; Denies: productive cough, non-productive cough or pain on inspiration GI: Reports: bloating; Denies: abdominal pain, nausea or vomiting : Reports: oliguria Neuro: Denies: weakness in extremities or sensory changes Psych: Reports: change in appetite Endo: Reports: tired all the time and cold intolerance; Denies: polyuria or polydipsia PFSH ED PFSH: Medical History (Updated 03/16/20 @ 12:31 by Alli Quintero MD) Atrial fibrillation Chronic anticoagulation Chronic venous stasis CKD (chronic kidney disease) Congestive heart failure Coronary artery disease Diabetes mellitus type 2, insulin dependent History of CVA (cerebrovascular accident) Hyperlipidemia Hypertension Macular degeneration Morbid obesity Peripheral neuropathy Pulmonary hypertension Surgical History History of appendectomy History of arthroscopic knee surgery Bilateral History of cholecystectomy History of hysterectomy History of lumpectomy of left breast Family History (Updated 03/16/20 @ 12:34 by Alli Quintero MD) Other Diabetes Social History (Updated 03/16/20 @ 12:30 by Alli Quintero MD) Smoking and tobacco status: never smoked Alcohol intake: never Substance/Drug Use: never Physical Exam Const: COMMON NORMALS: patient oriented x3 and alert GENERAL APPEARANCE: cooperative and in distress NUTRITIONAL APPEARANCE: obese morbidly obese HENMT: HEAD & SCALP: normal to inspection FACE & SINUS: normal facial exam Neck/C-Spine: COMMON NORMALS: supple and no JVD (unable to appreciate due to body habitus) Resp: EFFORT & INSPECTION: Yes tachypneic, Yes uses accessory muscles and Yes paradoxical thoraco-abdominal movements AUSCULTATION: no rales, no rhonchi, no wheezes and diminished lung sounds bilateral in the lower lung abdi Cardio: COMMON NORMALS: no JVD (unable to appreciate due to body habitus), reg ular rate, regular rhythm and No murmurs present (Cardio) RATE: regular rate RHYTHM: regular rhythm GI: COMMON NORMALS: Normal to inspection, nondistended, normoactive bowel sounds present, Soft to palpation and non-tender PALPATION: Yes Soft to palpation Back/Pelvis: THORACIC SPINE/UPPER BACK: Yes normal to inspection LUMBAR SPINE/LOWER BACK: Yes normal to inspection Extremity: NARRATIVE EXTREMITY EXAM: edema, venous stasis changes on both legs Neuro: COMMON NORMALS: patient oriented x3 SENSORIUM/ORIENTATION: Yes alert Skin: NARRATIVE SKIN EXAM: venous stasis changes to both lower legs Course ED course: CHF - has been on escalating doses of lasix without improvement - a dose of bumex was given in the ED. Bilateral venous dupplex US done and ruled out DVT though technically limited. Seen by Dr. Quintero in the ED and will be admitted for further management. Vital Signs: Vital signs: Vital Signs Temperature 98.8 F 03/16/20 10:39 Pulse Rate 67 03/16/20 13:43 Respiratory Rate 22 H 03/16/20 13:43 Blood Pressure 153/81 03/16/20 13:43 Pulse Oximetry 100 03/16/20 13:43 MDM - SOB/Dyspnea Lab Data: Labs: Lab Results 03/16/20 03/16/20 03/16/20 Range/Units 11:04 11:04 11:04 WBC 8.7 (4.0-10.0) 10^3/ uL RBC 3.22 L (4.1-5.3) 10^6/u L Hgb 9.4 L (11.5-15.3) g/dL Hct 32.8 L (37.0-47.0) % MCV 101.9 H (81-99) fL MCH 29.2 (28.0-34.0) pg MCHC 28.7 L (30.0-36.0) g/dL RDW 14.5 (12.1-15.1) % Plt Count 236 (130-400) 10^3/c mm MPV 10.8 H (7.4-10.4) fL Neut % (Auto) 63.0 % Lymph % (Auto) 26.8 % [place] % (Auto) 6.3 % Eos % (Auto) 3.3 % Baso % (Auto) 0.3 % Neut # (Auto) 5.5 (1.8-7.7) 10^3/u L Lymph # (Auto) 2.3 (0.8-4.8) 10^3/u L [place] # (Auto) 0.6 (0.2-0.9) 10^3/u L Eos # (Auto) 0.3 (0.0-0.8) 10^3/u L Baso # (Auto) 0.0 (0.0-0.1) 10^3/u L Nucleated RBC % (a uto) 0 % Nucleated RBCs # 0.0 /100WBC PT 29.40 H (10.5-13.3) SECO NDS INR 2.67 H (0.8-1.2) Sodium 141 (136-145) mmol/L Potassium 4.6 (3.5-5.1) mmol/L Chloride 98 (98-107) mmol/L Carbon Dioxide 32 H (22-29) mmol/L Anion Gap 15.6 (5-19) BUN 19 (8-23) mg/dL Creatinine 2.0 H (0.5-0.9) mg/dL Glucose 167 H (65-115) mg/dL Calculated Osmolal ity 292 (285-295) mOsm/k g Calcium 8.9 (8.5-10.5) mg/dL Total Bilirubin 0.3 (0.15-1.2) mg/dL AST 13 (0-32) U/L ALT < 5 (0-33) U/L Alkaline Phosphata se 119 H (35-105) IU/L Troponin T Baselin e (0-10) ng/mL NT-Pro-B Natriuret Pep 3762 H (0-450) pg/mL Total Protein 6.6 (6.6-8.7) g/dL Albumin 2.8 L (3.5-5.2) g/dL Globulin 3.8 (1.3-4.6) g/dL / Range/Units 11:04 WBC (4.0-10.0) 10^3/ uL RBC (4.1-5.3) 10^6/u L Hgb (11.5-15.3) g/dL Hct (37.0-47.0) % MCV (81-99) fL MCH (28.0-34.0) pg MCHC (30.0-36.0) g/dL RDW (12.1-15.1) % Plt Count (130-400) 10^3/c mm MPV (7.4-10.4) fL Neut % (Auto) % Lymph % (Auto) % [place] % (Auto) % Eos % (Auto) % Baso % (Auto) % Neut # (Auto) (1.8-7.7) 10^3/u L Lymph # (Auto) (0.8-4.8) 10^3/u L [place] # (Auto) (0.2-0.9) 10^3/u L Eos # (Auto) (0.0-0.8) 10^3/u L Baso # (Auto) (0.0-0.1) 10^3/u L Nucleated RBC % (a uto) % Nucleated RBCs # /100WBC PT (10.5-13.3) SECO NDS INR (0.8-1.2) Sodium (136-145) mmol/L Potassium (3.5-5.1) mmol/L Chloride (98-107) mmol/L Carbon Dioxide (22-29) mmol/L Anion Gap (5-19) BUN (8-23) mg/dL Creatinine (0.5-0.9) mg/dL Glucose (65-115) mg/dL Calculated Osmolal ity (285-295) mOsm/k g Calcium (8.5-10.5) mg/dL Total Bilirubin (0.15-1.2) mg/dL AST (0-32) U/L ALT (0-33) U/L Alkaline Phosphata se (35-105) IU/L Troponin T Baselin e 120 H* (0-10) ng/mL NT-Pro-B Natriuret Pep (0-450) pg/mL Total Protein (6.6-8.7) g/dL Albumin (3.5-5.2) g/dL Globulin (1.3-4.6) g/dL EKG Data^: EKG 1: EKG Interpretation Date: 03/16/20 EKG interpretation time: 11:34 Prior EKG tracings: available for review Ischemic changes: non-specific ST-T wave changes Interpretation: no STEMI - rate 72 - sinus arryhtmia. LAD. q wave in III. Unchanged from prior EKG 2: EKG Interpretation Date: 03/16/20 EKG interpretation time: 13:28 Prior EKG tracings: available for review Interpretation: now showing a fib - which in retrospect was likely the rhythm on the first EKG as well. No ischemic changes. small voltage. Rate 66, QRS 150 Discharge Plan Discharge Patient Disposition: Admitted As Inpatient Admit Provider: lAli Quintero Condition: Stable Coding Level of Care Code ED Geospatial Imagery Intelligence Analyst for Chg Fwd Exam Detailed
--- NOTE | 2020-03-16 10:48 | XR_ITS ---
WS: [id number] PORTABLE CHEST HISTORY: SOB, h/o CHF COMPARISON: 01/12/2020 Lungs are hyperinflated. Mild pulmonary venous congestion. Small bilateral pleural effusions. Partial obscuration of the LEFT lower lobe. Small bilateral pleural effusions. Cardiac size: Moderately enlarged cardiac silhouette. Mediastinum/Aorta: Moderate atherosclerosis aorta. No osseous abnormality seen. XR/XR chest 1V portable [id number] IMPRESSION: 1. Mild CHF. 2. Increasing cardiomegaly and small bilateral pleural effusions. 3. LEFT lower lobe pneumonia not excluded.
[2020-03-16 11:13] LABS: Basophils % 0.3 %; Eosinophils # 0.3 10^3/uL (0.0-0.8); Eosinophils % 3.3 %; Hematocrit 32.8 % (37.0-47.0); Hemoglobin 9.4 g/dL (11.5-15.3); Lymphocytes # 2.3 10^3/uL (0.8-4.8); Lymphocytes % 26.8 %; Mean Corpuscular HGB Conc 28.7 g/dL (30.0-36.0); Mean Corpuscular Hemoglobin 29.2 pg (28.0-34.0); Mean Corpuscular Volume 101.9 fL (81-99); Mean Platelet Volume 10.8 fL (7.4-10.4); Monocytes # 0.6 10^3/uL (0.2-0.9); Monocytes % 6.3 %; Neutrophils # 5.5 10^3/uL (1.8-7.7); Nucleated Red Blood Cells % 0 %; Platelet Count 236 10^3/cmm (130-400); Red Blood Count 3.22 10^6/uL (4.1-5.3); Red Cell Distribution Width 14.5 % (12.1-15.1); White Blood Count 8.7 10^3/uL (4.0-10.0)
--- NOTE | 2020-03-16 11:14 | PC.NURSE ---
pt has bilateral lower extremity pitted edema +3
[2020-03-16 11:20] LABS: INR 2.67 (0.8-1.2)
[2020-03-16 11:31] LABS: Troponin(5th) Baseline 120 ng/mL (0-10)
[2020-03-16 11:37] LABS: Alanine Aminotransferase < 5 U/L (0-33); Albumin Level 2.8 g/dL (3.5-5.2); Alkaline Phosphatase 119 IU/L (35-105); Anion Gap 15.6 (5-19); Blood Urea Nitrogen 19 mg/dL (8-23); Calcium 8.9 mg/dL (8.5-10.5); Carbon Dioxide 32 mmol/L (22-29); Chloride 98 mmol/L (98-107); Globulin 3.8 g/dL (1.3-4.6); Glucose 167 mg/dL (65-115); NT Pro B Type Natriuretic Pept 3762 pg/mL (0-450); Osmolality Calculated 292 mOsm/kg (285-295); Potassium 4.6 mmol/L (3.5-5.1); Sodium 141 mmol/L (136-145); Total Bilirubin 0.3 mg/dL (0.15-1.2); Total Protein 6.6 g/dL (6.6-8.7)
[2020-03-16 11:40] LABS: Aspartate Amino Transferase 13 U/L (0-32)
--- NOTE | 2020-03-16 12:24 | USCV_ITS ---
Mora Messer Age: 74 Gender: F : 1945 Exam Date: 03/16/2020 12:49 Ordering Phys: Humaira Brewer MD Technologist: Susan Cox [place] [facility] [place]ication: SWOLLEN PAINFUL LEGS HISTORY: Swollen painful legs PROCEDURES: The venous duplex Doppler examination of both lower extremities was performed in the standard fashion. The following venous structures were evaluated: common femoral vein, profunda vein, proximal portion of the greater saphenous vein, superficial femoral vein, and the popliteal vein. In addition, the posterior tibial and peroneal trunk were evaluated. Serial compression, augmentation maneuvers, and spectral Doppler flow evaluation were performed. FINDINGS: Normal 2-D Doppler and augmentation and compressibility throughout the lower extremity venous structures. Additional imaging through the proximal calf veins also reveals no thrombus. Limited evaluation of the greater saphenous vein is patent with no thrombus. CONCLUSIONS No DVT bilateral lower extremities. Limited quality examination. Dr. La Nena Kinney DO (Electronically Signed) Final Date: 16 Mar 2020 13:39 S
--- NOTE | 2020-03-16 12:24 | P.HP_ITS ---
Providers/Chief Complaint Chief Complaint: SHORT OF BREATH, INC EDEMA [id number] History of Present Illness Mora Messer is a 74 year old female who presents to the hospital with shortness of breath. Patient reports this is been going on several weeks. No fever. Occasional cough. No vomiting or diarrhea. In reviewing with the nurse they relate that for 2 weeks she has had a worsening accumulation of fluid. They have tried IM Lasix and she did not diurese. She continues to complain of increasing abdominal swelling and shortness of breath. She has had no fevers. She has had no significant cough. She had had no exposure to COVID. Review of Systems General: Reports: 10 or more systems reviewed and unremarkable except in HPI and below Const: Denies: fever(s) or chills Eyes: Denies: change in vision ENMT: Denies: throat pain Card: Reports: dyspnea on exertion and orthopnea; Denies: chest pain Resp: Reports: dyspnea GI: Reports: other (Abdominal bloating) : Denies: difficulty voiding Musc: Denies: neck pain Skin/Breast: Denies: rash Neuro: Denies: headache(s) Psych: Denies: anxiety Endo: Denies: polyuria Reynold/Lymph: Denies: easy bruising All/Imm: Denies: urticaria Medications/Allergies Home Medications Medication Instructions Recorded Confirmed Last Taken Type Artificial Tears (PF) 1 drp OPHTHALMIC (EYE) QID 01/11/20 01/11/20 Unknown History Biofreeze (menthol) 1 % TOPICAL TID PRN 01/11/20 01/11/20 01/10/20 History Miralax 17 g PO DAILY 01/11/20 01/11/20 Unknown History PreserVision AREDS-2 1 tab PO DAILY 01/11/20 01/11/20 Unknown History Senna-S 1 tab-cap PO BID 01/11/20 01/11/20 Unknown History Tresiba FlexTouch U-200 60 unit SUBCUT BEDTIME 01/11/20 01/11/20 Unknown History Xarelto 15 mg PO DAILY 01/11/20 01/11/20 Unknown History acetaminophen 650 mg PO Q4H PRN 01/11/20 01/11/20 Unknown History albuterol sulfate 2.5 mg INHALATION Q4H PRN 01/11/20 01/11/20 Unknown History amlodipine 5 mg PO DAILY 01/11/20 01/11/20 01/10/20 History aspirin 81 mg PO DAILY 01/11/20 01/11/20 01/10/20 History atorvastatin 20 mg PO DAILY 01/11/20 01/11/20 01/10/20 History bisacodyl 5 - 10 mg PO DAILY PRN 01/11/20 01/11/20 Unknown History carvedilol 12.5 mg PO BID 01/11/20 01/11/20 01/10/20 History citalopram 20 mg PO DAILY 01/11/20 01/11/20 01/10/20 History clonidine HCl 0.1 mg PO BID 01/11/20 01/11/20 01/10/20 History cyanocobalamin (vitamin B-12) 1,000 mcg IM Q30D 01/11/20 01/11/20 12/28/19 History isosorbide mononitrate 60 mg PO DAILY 01/11/20 01/11/20 Unknown History loperamide 2 mg PO Q4H PRN 01/11/20 01/11/20 Unknown History insulin aspart U-100 [Novolog See Rx Instructions .ROUTE 01/17/20 Unknown Rx U-100 Insulin aspart] .COMPLEX 30 Days #10 ml potassium chloride 20 meq PO DAILY #0 tab 01/17/20 01/11/20 Unknown Rx Allergies Allergy/AdvReac Type Severity Reaction Status Date / Time adhesive tape Allergy Unknown Verified 03/16/20 10:49 nifedipine [From Procardia] Allergy Unknown Verified 03/16/20 10:49 Penicillins Allergy Unknown Verified 03/16/20 10:49 PFSH Acute PFSH: Medical History (Updated 03/16/20 @ 12:31 by Alli Quintero MD) Atrial fibrillation Chronic anticoagulation Chronic venous stasis CKD (chronic kidney disease) Congestive heart failure Coronary artery disease Diabetes mellitus type 2, insulin dependent History of CVA (cerebrovascular accident) Hyperlipidemia Hypertension Macular degeneration Morbid obesity Peripheral neuropathy Pulmonary hypertension Surgical History History of appendectomy History of arthroscopic knee surgery Bilateral History of cholecystectomy History of hysterectomy History of lumpectomy of left breast Family History (Updated 03/16/20 @ 12:34 by Alli Quintero MD) Other Diabetes Social History (Updated 03/16/20 @ 12:30 by Alli Quintero MD) Smoking and tobacco status: never smoked Alcohol intake: never Substance/Drug Use: never Vitals/I&O/Wt Last Vital Signs Temp 98.8 F 03/16/20 10:39 Pulse 69 03/16/20 12:16 Resp 25 H 03/16/20 12:16 BP 171/104 03/16/20 12:16 Pulse Ox 98 03/16/20 12:16 Weight last 48 hrs Weight 213.188 kg Physical Exam Narrative: EXAM NARRATIVE: General exam demonstrates an obese white female, in mild respiratory distress HEENT: Pupils equally round. Oropharynx clear. Neck is supple, obese, no lymphadenopathy or thyromegaly Cardiovascular regular rate and rhythm without murmur, no S3 or S4 Lungs clear but with significantly diminished breath sounds bilaterally. No crackles. Abdomen is significantly obese making exam difficult. No significant tenderness. Patient reports she feels bloated and swollen. deferred Extremities chronic venous stasis changes with 3+ edema bilaterally left greater than right. Skin findings as above Neuro some evidence of left hemiparesis. Data : 03/16/20 11:04 03/16/20 11:04 Other data: INR is 2.67, LFTs largely normal, troponin I 20, BNP 3762 Chest x-ray with cardiomegaly, small bilateral effusions, increased congestion consistent with CHF EKG demonstrates atrial fibrillation, normal axis, rate of 72, right bundle branch block A&P Assessment and plan (1) Congestive heart failure: Appears to have acute diastolic heart failure. Bumex IV has been given 1 time in the emergency department. Recent echocardiogram demonstrated preserved EF. Tonight, will initiate Lasix 80 mg IV every 12 hours Riggins, to monitor output Close follow-up of renal function No need to repeat echocardiogram Check procalcitonin as x-ray was read as possible left-sided pneumonia. I think this is likely secondary to her heart failure. Secondary to significant lower extremity edema venous duplex bilateral was checked and pending Status: Acute Qualifiers: Heart failure chronicity: chronic Heart failure type: unspecified Qualified Code(s): I50.9 - Heart failure, unspecified Additional A&P Information Chronic kidney disease. Recent renal ultrasound demonstrated no obstruction. Continue to follow closely as we will be diuresing the patient. Type 2 diabetes, sliding scale insulin Morbid obesity. TSH previously checked and normal History of atrial fibrillation, on chronic anticoagulation. Rate is currently controlled. Continue current medications. Hypertension History of CVA with residual left hemiparesis History of coronary artery disease. Troponin elevated, likely type II. Will trend. Likely elevated secondary to heart failure Hyperlipidemia, continue statin Other medical problems as listed in past medical history Attestations Medical Necessity Statement*: Will need greater than 2 midnight stay for evaluation and treatment of congestive heart failure with IV diuresis Time Spent in Patient Care: Greater than 35 minutes Coding Level of Care Code Acute Electric Meter Installer for Betty Jerry Diagnoses Congestive heart failure I50.9 Heart failure chronicity: chronic Heart failure type: unspecified
--- NOTE | 2020-03-16 12:48 | ECG_ITS ---
Measurements Intervals [place] Rate: 66 P: [place]: 0 QRS: 17 QRSD: 150 T: -19 QT: 434 QTc: 458 ATRIAL FIBRILLATION RIGHT BUNDLE BRANCH BLOCK [120+ ms QRS DURATION, UPRIGHT V1, 40+ ms S IN I/aVL/V4/V5/V6] ANTEROSEPTAL MYOCARDIAL INFARCTION , OF INDETERMINATE AGE [40+ ms Q WAVE IN V1-V4] Compared to ECG 03/16/2020 11:37:03 ST (T wave) deviation no longer present Myocardial infarct finding still present Electronically Signed On 03-17-2020 13:06:26 CDT by Chuck Cottrell M.D. [email or web address]
[2020-03-16] MEDS: bumetanide 0.25 mg/mL SDV 10 mL 1 MG IV (13:26)
[2020-03-16 14:05] LABS: Troponin 5 2HR Delta 4.1 ABS# (0-10)
[2020-03-16 14:26] LABS: Troponin 5 2HR 124.1 ng/mL (0-10)
[2020-03-16 14:54] LABS: Procalcitonin 0.04 ng/mL (0-0.5)
[2020-03-16 15:26] LABS: Specific Gravity, Urine 1.015 (1.005-1.030); Urine Color Yellow (Yellow); pH Urine 5 (5-7)
[2020-03-16 15:27] LABS: Bacteria Urine 2+; Bilirubin Urine Neg (NEGATIVE); Blood Urine 3+ (Negative); Glucose Urine UA Norm (Normal); Ketones Urine Negative (Negative); Leukocyte Esterase Urine Negative (Negative); Nitrate Urine Negative (Negative); Protein Urine Neg (Negative); RBC Urine 25-40 /hpf (0-2); Urobilinogen Urine Norm (Negative); WBC Urine 25-40 /hpf (0-5)
[2020-03-16 15:28] LABS: Add Urine Culture? Yes
[2020-03-16 16:46] LABS: Glucose Point of Care 125 mg/dL (70-110)
--- NOTE | 2020-03-16 16:48 | ECG_ITS ---
Measurements Intervals [place] Rate: 72 P: 5 NM: 92 QRS: -44 QRSD: 60 T: -13 QT: 345 QTc: 378 Uncertain irregular rhythm. Atrial fibrillation likely LOW QRS VOLTAGE [QRS DEFLECTION < 0.5/1.0 mV IN LIMB/CHEST LEADS] ANTERIOR MYOCARDIAL INFARCTION , OF INDETERMINATE AGE [40+ ms Q WAVE AND/OR ST/T ABNORMALITY IN V3/V4] Right bundle branch block POSSIBLE INFERIOR MYOCARDIAL INFARCTION , PROBABLY OLD [30 ms Q WAVE IN II/aVF] MARKED ST DEPRESSION, CONSIDER SUBENDOCARDIAL INJURY [0.2+ mV ST DEPRESSION] Compared to ECG 01/13/2020 12:23:28 Short NM interval now present Low QRS voltage now present ST (T wave) deviation now present Myocardial infarct finding still present Electronically Signed On 03-16-2020 11:52:35 CDT by Chuck Cottrell M.D. [email or web address]
[2020-03-16] MEDS: carvedilol 12.5 mg Tablet PO (18:23)
[2020-03-16] MEDS: sennosides-docusate Tablet 1 TAB PO (18:24)
[2020-03-16] MEDS: cloNIDine 0.1 mg Tablet PO (18:24)
[2020-03-16] MEDS: atorvastatin 40 mg Tablet 20 MG PO (20:23)
[2020-03-16] MEDS: FUROsemide 10 mg/mL SDV 10mL 80 MG IVP (20:23)
[2020-03-16 20:31] LABS: Troponin 5 6HR 115.7 ng/mL (0-10)
[2020-03-16 20:44] LABS: Glucose Point of Care 95 mg/dL (70-110)
[2020-03-17] VITALS (9 sets, daily range): BP systolic 130–155; BP diastolic 59–86; PULSE 65–72; RESP 17–29; TEMP 36.4–37; O2SAT 95–98
[2020-03-17 05:05] LABS: Anion Gap 13.7 (5-19); Blood Urea Nitrogen 21 mg/dL (8-23); Calcium 8.3 mg/dL (8.5-10.5); Carbon Dioxide 34 mmol/L (22-29); Chloride 101 mmol/L (98-107); Glucose 81 mg/dL (65-115); Osmolality Calculated 296 mOsm/kg (285-295); Potassium 3.7 mmol/L (3.5-5.1); Sodium 145 mmol/L (136-145)
[2020-03-17 06:24] LABS: Glucose Point of Care 87 mg/dL (70-110)
[2020-03-17 08:24] LABS: Basophils % 0.3 %; Eosinophils # 0.2 10^3/uL (0.0-0.8); Eosinophils % 2.9 %; Hematocrit 34.7 % (37.0-47.0); Hemoglobin 9.9 g/dL (11.5-15.3); Lymphocytes # 2.1 10^3/uL (0.8-4.8); Mean Corpuscular HGB Conc 28.5 g/dL (30.0-36.0); Mean Corpuscular Hemoglobin 28.9 pg (28.0-34.0); Mean Corpuscular Volume 101.5 fL (81-99); Mean Platelet Volume 10.3 fL (7.4-10.4); Monocytes # 0.4 10^3/uL (0.2-0.9); Monocytes % 6.6 %; Neutrophils # 3.8 10^3/uL (1.8-7.7); Neutrophils % 57.9 %; Nucleated Red Blood Cells % 0 %; Platelet Count 236 10^3/cmm (130-400); Red Blood Count 3.42 10^6/uL (4.1-5.3); Red Cell Distribution Width 14.4 % (12.1-15.1); White Blood Count 6.6 10^3/uL (4.0-10.0)
[2020-03-17] MEDS: aspirin 81 mg Chew Tablet PO (08:34)
[2020-03-17] MEDS: citalopram 20 mg Tablet PO (08:34)
[2020-03-17] MEDS: rivaroxaban 10 mg Tablet 15 MG PO (08:34)
[2020-03-17] MEDS: carvedilol 12.5 mg Tablet PO ×2 (08:34→17:22)
--- NOTE | 2020-03-17 08:34 | PM.PN ---
Subjective Subjective: Interval history: Mora reports she feels a little bit better. Less short of breath. Less swollen. No chest pain. Medications: Reviewed: Yes Vitals/I&O/Wt Last Vital Signs Temp 97.6 F 03/17/20 08:26 Pulse 66 03/17/20 08:26 Resp 29 H 03/17/20 08:26 BP 155/85 03/17/20 08:26 Pulse Ox 95 03/17/20 08:26 03/16/20 03/17/20 03/17/20 22:59 06:59 14:59 Intake Total 120 / 120 400 / 520 Output Total 2500 / 2500 Balance 120 / 120 -2100 / -1980 Weight last 48 hrs Weight 135.715 kg Weight 213.188 kg Physical Exam Narrative: EXAM NARRATIVE: General exam no apparent distress Cardiovascular regular rate and rhythm without murmur, no S3 or S4 Lungs diminished breath sounds bilaterally. No wheezing Abdomen obese, positive bowel sounds Extremities with 2-3+ edema Urinary Catheter Management^: Riggins: Cath Placed During This Visit: yes Reason for Continuing Indwelling Catheter: Acute Urinary Retention or Obstruction Urinary Catheter Date of Insertion: 03/16/20 Urinary Catheter Time of Insertion: 13:21 Data : 03/17/20 07:57 03/17/20 04:15 A&P Assessment and plan (1) Congestive heart failure: Consistent with acute diastolic heart failure. Recent echocardiogram demonstrates preserved EF Continue Lasix 80 mg every 12 hours. She has diuresed approximately 2000 cc since admission Renal function has improved Continue Riggins Venous duplex was done of the lower extremities secondary to edema and no DVT was noted. Of note she is on chronic anticoagulation. Status: Acute Qualifiers: Heart failure chronicity: chronic Heart failure type: unspecified Qualified Code(s): I50.9 - Heart failure, unspecified Additional A&P Information Possible UTI. Rocephin initiated. Chronic kidney disease. Recent renal ultrasound demonstrated no obstruction. Renal function improved Type 2 diabetes, sliding scale insulin Morbid obesity. TSH previously checked and normal History of atrial fibrillation, on chronic anticoagulation. Rate is currently controlled. Continue current medications. Hypertension History of CVA with residual left hemiparesis History of coronary artery disease. Troponin elevated, likely type II. Will trend. Likely elevated secondary to heart failure Hyperlipidemia, continue statin Other medical problems as listed in past medical history Attestations Medical Necessity Statement*: Needs continued hospitalization for further diuresis secondary to acute diastolic heart failure Coding Level of Care Code Acute Vacuum Forming Machine Operator for g Fwd Diagnoses Congestive heart failure I50.9 Heart failure chronicity: chronic Heart failure type: unspecified
[2020-03-17] MEDS: isosorbide mononitrate ER 60 mg Tablet PO (08:35)
[2020-03-17] MEDS: cloNIDine 0.1 mg Tablet PO ×2 (08:35→17:22)
[2020-03-17] MEDS: amlodipine 5 mg Tablet PO (08:35)
[2020-03-17] MEDS: FUROsemide 10 mg/mL SDV 10mL 80 MG IVP ×2 (08:36→20:19)
[2020-03-17] MEDS: cefTRIAXone 1,000 MG in sodium chloride 0.9% (plus) 50 ML 100 MG IV (08:50)
--- NOTE | 2020-03-17 10:56 | PC.CHAP ---
Pastoral Care Encounter/Spiritual Assessment Type of Contact [] Declined portable machine cutter visit [] Patient/Family/Request visit [] Outpatient visit [] Follow-up visit [] Physician referral [] Code/Alert [x] Routine visit [] Staff referral [] Actively dying [] Patient sleeping [] Family support [] [] Out of room [] Palliative care [] [] Receiving care in room [] Pre-surgical visit [] Trauma [] Long length of stay [] ICU visit [] Other: Relational/Emotional Strength [x] Patient feels connected with others/family/visitors/staff [] Distress [] Loneliness/isolation [] Abandonment Spirituality of Patient [x] Person of Apo [x] Attends Protestant of their Pao [x] Believes in Prayer [x] Reads Bible or Jain materials [] There are Spiritual issues to be addressed Components Engineer Interventions [x] Prayer [x] Active listening [x] Non-anxious presence [] Spiritual/emotional support [] Crisis/trauma care [] Spiritual counseling [] Bereavement support [] Provided bereavement packet [] Provided Bible/devotional materials [] Provided toy/stuffed animal, coloring book to patient or family member [] Provided Communion [] Anointing/[place] [] Salvation [x] Completed spiritual assessment [] Other: Impact on Illness or Injury [] Angry [] Fearful [] Anxious [] Often cries [] Exhaustion [] Unable to work [] Unable to attend lutheran [] Unable to walk/stand [] Unable to read [] Unable to drive [] Unable to eat/drink [] Unable to sleep [] Unable to be with family [] Patient intubated [] Other: Summary [facility] where she has many friends. She is involved in many activities and synagogue services at the facility. Sh has been there about 8 years and is content. Family have been able to visit only by phone through her window where she can see them. Physical visitation still not allowed and she desperately misses it. (COVID-19 restrictions) Components Engineer Regina Romo Time spent with patient 10 minutes
[2020-03-17 12:09] LABS: Glucose Point of Care 128 mg/dL (70-110)
[2020-03-17 16:39] LABS: Glucose Point of Care 175 mg/dL (70-110)
[2020-03-17 21:28] LABS: Glucose Point of Care 141 mg/dL (70-110)
[2020-03-17] MEDS: atorvastatin 40 mg Tablet 20 MG PO (21:33)
[2020-03-18] VITALS (11 sets, daily range): BP systolic 121–156; BP diastolic 63–87; PULSE 61–70; RESP 22–27; TEMP 36.2–36.9; O2SAT 92–99
[2020-03-18 05:00] LABS: Basophils % 0.3 %; Eosinophils # 0.3 10^3/uL (0.0-0.8); Eosinophils % 3.9 %; Hematocrit 30.5 % (37.0-47.0); Hemoglobin 9.2 g/dL (11.5-15.3); Lymphocytes # 2.4 10^3/uL (0.8-4.8); Lymphocytes % 35.9 %; Mean Corpuscular HGB Conc 30.2 g/dL (30.0-36.0); Mean Corpuscular Volume 99.3 fL (81-99); Mean Platelet Volume 10.6 fL (7.4-10.4); Monocytes # 0.5 10^3/uL (0.2-0.9); Monocytes % 7.7 %; Neutrophils # 3.4 10^3/uL (1.8-7.7); Neutrophils % 51.9 %; Nucleated Red Blood Cells % 0 %; Platelet Count 199 10^3/cmm (130-400); Red Blood Count 3.07 10^6/uL (4.1-5.3); Red Cell Distribution Width 14.5 % (12.1-15.1); White Blood Count 6.6 10^3/uL (4.0-10.0)
[2020-03-18 05:21] LABS: Anion Gap 14.2 (5-19); Blood Urea Nitrogen 25 mg/dL (8-23); Carbon Dioxide 36 mmol/L (22-29); Chloride 100 mmol/L (98-107); Glucose 129 mg/dL (65-115); Osmolality Calculated 303 mOsm/kg (285-295); Potassium 3.2 mmol/L (3.5-5.1); Sodium 147 mmol/L (136-145)
[2020-03-18 06:36] LABS: Glucose Point of Care 141 mg/dL (70-110)
[2020-03-18] MEDS: cefTRIAXone 1,000 MG in sodium chloride 0.9% (plus) 50 ML 100 MG IV (06:46)
[2020-03-18] MEDS: FUROsemide 10 mg/mL SDV 10mL 80 MG IVP (08:53)
[2020-03-18] MEDS: carvedilol 12.5 mg Tablet PO ×2 (08:56→17:54)
[2020-03-18] MEDS: isosorbide mononitrate ER 60 mg Tablet PO (08:56)
[2020-03-18] MEDS: cloNIDine 0.1 mg Tablet PO ×2 (08:56→17:54)
[2020-03-18] MEDS: citalopram 20 mg Tablet PO (08:57)
[2020-03-18] MEDS: rivaroxaban 10 mg Tablet 15 MG PO (08:57)
[2020-03-18] MEDS: amlodipine 5 mg Tablet PO (08:57)
[2020-03-18] MEDS: aspirin 81 mg Chew Tablet PO (08:57)
[2020-03-18] MEDS: sennosides-docusate Tablet 1 TAB PO ×2 (08:57→17:54)
[2020-03-18] MEDS: polyethylene glycol 3350 Pkt 17 gm PO (08:59)
[2020-03-18 11:36] LABS: Glucose Point of Care 159 mg/dL (70-110)
--- NOTE | 2020-03-18 12:06 | P.PN_ITS ---
Subjective Subjective: Interval history: Mora reports she is doing okay. She is less swollen. Less short of breath. No chest pain. Medications: Reviewed: Yes Vitals/I&O/Wt Last Vital Signs Temp 97.1 F L 03/18/20 08:01 Pulse 68 03/18/20 08:01 Resp 25 H 03/18/20 08:01 BP 156/76 03/18/20 08:56 Pulse Ox 99 03/18/20 08:01 03/17/20 03/18/20 03/18/20 22:59 06:59 14:59 Intake Total 480 / 1250 100 / 1350 480 / 480 Output Total 650 / 2000 2000 / 4000 Balance -170 / -750 -1900 / -2650 480 / 480 Weight last 48 hrs Weight 135.851 kg Weight 135.715 kg Physical Exam Narrative: EXAM NARRATIVE: General exam no apparent distress Cardiovascular regular rate and rhythm without murmur, no S3 or S4 Lungs diminished breath sounds bilaterally. No wheezing Abdomen obese, positive bowel sounds. Less edema Extremities with 1+ edema Urinary Catheter Management^: Riggins: Cath Placed During This Visit: yes Reason for Continuing Indwelling Catheter: Acute Urinary Retention or Obstruction Urinary Catheter Date of Insertion: 03/16/20 Urinary Catheter Time of Insertion: 13:21 Data : 03/18/20 04:26 03/18/20 04:26 Micro: Microbiology 03/16/20 13:17 Urine Culture - Preliminary Urine,Clean Catch Gram Negative Rods A&P Assessment and plan (1) Congestive heart failure: Consistent with acute diastolic heart failure. Recent echocardiogram demonstrates preserved EF Hold evening Lasix dose, she is getting close to compensation. She has diuresed 2700 cc over the last 24 hours. Change to oral Bumex on discharge, 2 mg every morning. First dose tomorrow Renal function has stabilized Continue Riggins Venous duplex was done of the lower extremities secondary to edema and no DVT was noted. Of note she is on chronic anticoagulation. Status: Acute Qualifiers: Heart failure chronicity: chronic Heart failure type: unspecified Qualified Code(s): I50.9 - Heart failure, unspecified Additional A&P Information Hypokalemia, supplement potassium possible UTI. Rocephin initiated. Culture growing gram-negative rods Chronic kidney disease. Recent renal ultrasound demonstrated no obstruction. Renal function improved Type 2 diabetes, sliding scale insulin Morbid obesity. TSH previously checked and normal History of atrial fibrillation, on chronic anticoagulation. Rate is currently controlled. Continue current medications. Hypertension History of CVA with residual left hemiparesis History of coronary artery disease. Troponin elevated, likely type II. No significant delta Hyperlipidemia, continue statin Other medical problems as listed in past medical history Attestations Medical Necessity Statement*: Needs continued hospitalization, for close follow-up of renal function in this patient who is receiving IV Lasix for diuresis. Coding Level of Care Code Acute Day Care Supervisor for Betty Jerry Diagnoses Congestive heart failure I50.9 Heart failure chronicity: chronic Heart failure type: unspecified
[2020-03-18 16:54] LABS: Glucose Point of Care 141 mg/dL (70-110)
[2020-03-18 19:37] LABS: Glucose Point of Care 169 mg/dL (70-110)
[2020-03-18] MEDS: atorvastatin 40 mg Tablet 20 MG PO (20:35)
[2020-03-19] VITALS (7 sets, daily range): BP systolic 148–167; BP diastolic 74–88; PULSE 62–78; RESP 22–24; TEMP 36.6–36.7; O2SAT 91–95; BMI 50.8
[2020-03-19 01:59] LABS: Glucose Point of Care 133 mg/dL (70-110)
[2020-03-19 05:21] LABS: Anion Gap 13.9 (5-19); Blood Urea Nitrogen 22 mg/dL (8-23); Calcium 9.1 mg/dL (8.5-10.5); Carbon Dioxide 36 mmol/L (22-29); Chloride 97 mmol/L (98-107); Glucose 129 mg/dL (65-115); Osmolality Calculated 296 mOsm/kg (285-295); Sodium 144 mmol/L (136-145)
[2020-03-19 06:13] LABS: Potassium 2.9 mmol/L (3.5-5.1)
[2020-03-19 07:54] LABS: Glucose Point of Care 139 mg/dL (70-110)
[2020-03-19] MEDS: cefTRIAXone 1,000 MG in sodium chloride 0.9% (plus) 50 ML 100 MG IV (08:45)
[2020-03-19 08:46] LABS: Add On to Lab Order(s) Added
[2020-03-19 08:49] LABS: Glucose Point of Care 154 mg/dL (70-110)
[2020-03-19 09:02] LABS: Magnesium 2.1 mg/dL (1.7-2.3)
[2020-03-19] MEDS: potassium chloride premix 40 MEQ/100 ML PREMIX 25 MEQ IV (09:31)
[2020-03-19] MEDS: polyethylene glycol 3350 Pkt 17 gm PO (09:32)
[2020-03-19] MEDS: bumetanide 1 mg Tablet 2 MG PO (09:33)
[2020-03-19] MEDS: citalopram 20 mg Tablet PO (09:33)
[2020-03-19] MEDS: rivaroxaban 10 mg Tablet 15 MG PO (09:33)
[2020-03-19] MEDS: isosorbide mononitrate ER 60 mg Tablet PO (09:33)
[2020-03-19] MEDS: aspirin 81 mg Chew Tablet PO (09:33)
[2020-03-19] MEDS: carvedilol 12.5 mg Tablet PO (09:33)
[2020-03-19] MEDS: sennosides-docusate Tablet 1 TAB PO (09:35)
[2020-03-19] MEDS: cloNIDine 0.1 mg Tablet PO (09:35)
[2020-03-19] MEDS: amlodipine 5 mg Tablet PO (09:35)
--- NOTE | 2020-03-19 09:45 | PC.SOCIAL ---
IMM Page 2 of IMM given to patient. Initialed, dated, and timed and placed in chart.
[2020-03-19] MEDS: lidocaine 1% INJ 20 mL 5 ML IV (09:57)
[2020-03-19 12:05] LABS: Glucose Point of Care 91 mg/dL (70-110)
[2020-03-19 12:05] LABS: Glucose Point of Care 196 mg/dL (70-110)
--- NOTE | 2020-03-19 12:05 | PM.DCS ---
Discharge Providers Date of Admission: 03/16/20 12:23 Date of Discharge: March 19, 2020 Attending Provider at Admission: Alli Quintero MD Attending Provider at Discharge: Alli Quintero MD Diagnoses at Discharge Discharge Diagnosis (1) Congestive heart failure: Status: Acute Qualifiers: Heart failure chronicity: chronic Heart failure type: unspecified Qualified Code(s): I50.9 - Heart failure, unspecified Reason for Visit Reason for Visit: Reason For Visit: SHORT OF BREATH, INC EDEMA [id number] Hospital Course Hospital Course: Mora presented with complaints of increasing edema in her legs and abdominal area. She was becoming short of breath at the nursing facility, and requiring increased oxygen amount. She denied any chest pain. She was admitted to the hospital with a diagnosis of acute diastolic heart failure. IV diuresis was started with Lasix which she tolerated well. During her time in the hospital she diuresed approximately 8.5 L. Renal function during this time improved and on discharge this was 1.5. Her Lasix was discontinued at discharge, in favor of Bumex which should have more bioavailability. Her output, and creatinine should be monitored closely at the nursing facility and a repeat BMP will be drawn on March 21. Straight cath can occur PRN if needed. She was also treated for UTI, and will be discharged on cefdinir. She ultimately grew Klebsiella from her urine which was sensitive to this. At time of discharge she was much less short of breath, on 2 L or less of oxygen with a normal lung exam. Abdomen was much less swollen as well as extremities. Physical Exam Narrative: EXAM NARRATIVE: General exam no apparent distress Cardiovascular regular and rhythm without murmur Lungs clear Abdomen is soft, obese Extremities trace edema to 1+ edema bilaterally. Urinary Catheter Management^: Riggins: Cath Placed During This Visit: yes Reason for Continuing Indwelling Catheter: Accurate Measurement of Urinary Output in Critically Ill Patients Urinary Catheter Date of Insertion: 03/16/20 Urinary Catheter Time of Insertion: 13:21 Discharge Data Data Completed and Pending: Completed Studies During Hospitalization Category Date Time Status XR chest 1V jess ble [id number] Stat Exams 03/16/20 10:48 [place] [id number] Urgent Ultrasound 03/16/20 12:24 Completed Labs from last 24 hours 03/19/20 03/19/20 03/19/20 12:03 12:02 07:43 Sodium Potassium Chloride Carbon Dioxide Anion Gap BUN Creatinine Glucose POC Glucose 91 196 139 Calculated Osmolal ity Calcium Magnesium 03/19/20 03/19/20 03/19/20 07:26 04:28 01:56 Sodium 144 Potassium 2.9 L Chloride 97 L Carbon Dioxide 36 H Anion Gap 13.9 BUN 22 Creatinine 1.5 H Glucose 129 H POC Glucose 154 133 Calculated Osmolal ity 296 H Calcium 9.1 Magnesium 2.1 03/18/20 03/18/20 19:32 16:48 Sodium Potassium Chloride Carbon Dioxide Anion Gap BUN Creatinine Glucose POC Glucose 169 141 Calculated Osmolal ity Calcium Magnesium Vitals: Last Vital Signs Temp 97.9 F 03/19/20 09:52 Pulse 78 03/19/20 09:52 Resp 22 H 03/19/20 09:52 BP 167/80 03/19/20 09:52 Pulse Ox 91 03/19/20 09:52 Discharge Plan Discharge Patient Disposition: Xfer SNF Condition: Stable Prescriptions: New bumetanide 1 mg Tablet 2 mg PO DAILY Qty: 60 RF: 0 cefdinir 300 mg capsule 300 mg PO Q12H 5 Days Qty: 10 RF: 0 Continued clonidine HCl 0.1 mg Tablet 0.1 mg PO BID RF: 0 Hold Instructions: Resume on 02/01/20. Monitor blood pressures at as outpatient, reinstitute as needed atorvastatin 20 mg Tablet 20 mg PO BEDTIME RF: 0 carvedilol 12.5 mg Tablet 12.5 mg PO BID RF: 0 polyethylene glycol 3350 [Miralax] 17 gram Powder In Packet 17 g PO DAILY RF: 0 sennosides-docusate sodium [Senna-S] 8.6-50 mg Tablet 1 tab-cap PO BID RF: 0 amlodipine 5 mg Tablet 5 mg PO DAILY RF: 0 isosorbide mononitrate 60 mg Tablet Extended Release 24 Hr 60 mg PO DAILY RF: 0 Hold Instructions: Resume on 02/01/20. Reinstitute based on blood pressures citalopram 20 mg Tablet 20 mg PO DAILY RF: 0 aspirin 81 mg Tablet,Chewable 81 mg PO DAILY RF: 0 Artificial Tears (PF) 0.1-0.3 % Dropperette 1 drp OPHTHALMIC (EYE) QID RF: 0 Xarelto 15 mg Tablet 15 mg PO DAILY RF: 0 PreserVision AREDS-2 [id number] Capsule 1 tab PO DAILY RF: 0 Tresiba FlexTouch U-200 200 unit/mL (3 mL) Insulin Pen 62 unit SUBCUT BEDTIME RF: 0 Hold Instructions: Resume on 02/01/20. reinstitue based on blood sugars insulin aspart U-100 [Novolog U-100 Insulin aspart] 100 unit/mL Solution See Rx Instructions .ROUTE .COMPLEX 30 Days Qty: 10 RF: 1 Miralax 17 gram Powder In Packet 17 g PO DAILY RF: 0 potassium chloride 20 mEq tablet extended release 40 meq PO DAILY RF: 0 Tubigripp See Rx Instructions .ROUTE .COMPLEX RF: 0 Discontinued Lasix 40 mg Tablet 40 mg PO QPM RF: 0 Lasix 80 mg Tablet 80 mg PO DAILY RF: 0 Discharge Orders: Discharge Order (Routine); Ordered 03/19/20 Ordered By: Alli Quintero Discharge Diet: Usual diet Discharge Activity: Resume usual activity Activity Restrictions/Additional Instructions: Oxygen 2 L per nasal cannula titrate for sat greater than or equal to 92% Straight cath every 6 hours as needed BMP Friday, March 21 Call physician if any increase in edema Weigh daily x1 week Discharge Attestations Time Spent in Discharge Care*: greater than 30 min Quality Metrics Clinical Quality Measures During this hospital stay, did patient experience: None Coding Level of Care Code Acute Manager Mass for Betty Jerry Diagnoses Congestive heart failure I50.9 Heart failure chronicity: chronic Heart failure type: unspecified
== END 2020-03-19 16:00 | disposition skilled nursing facility (03) | DRG 291 ==
LOC: ER 11:12 → MEDSURG 13:07 → CSU 16:50
PROVIDERS: Emergency Medicine; Admitting Provider Internal Medicine; Family Provider Internal Medicine; Visit Provider Internal Medicine
DX: I13.0 Hypertensive heart and chronic kidney disease with heart failure and stage 1 through stage 4 chronic kidney disease, or unspecified chronic kidney disease (principal); I50.33 Acute on chronic diastolic (congestive) heart failure; I69.954 Hemiplegia and hemiparesis following unspecified cerebrovascular disease affecting left non-dominant side; Z68.43 Body mass index [BMI] 50.0-59.9, adult; N39.0 Urinary tract infection, site not specified; Z79.01 Long term (current) use of anticoagulants; I48.91 Unspecified atrial fibrillation; I87.8 Other specified disorders of veins; N18.9 Chronic kidney disease, unspecified; E11.22 Type 2 diabetes mellitus with diabetic chronic kidney disease; I25.10 Atherosclerotic heart disease of native coronary artery without angina pectoris; E78.5 Hyperlipidemia, unspecified; H35.30 Unspecified macular degeneration; E66.01 Morbid (severe) obesity due to excess calories; E11.42 Type 2 diabetes mellitus with diabetic polyneuropathy; I27.20 Pulmonary hypertension, unspecified; B96.1 Klebsiella pneumoniae [K. pneumoniae] as the cause of diseases classified elsewhere; Z79.82 Long term (current) use of aspirin; Z79.4 Long term (current) use of insulin
CPT/HCPCS: 12345; 36415; 36416; 51702; 71045; 80048; 80053; 81001; 82962; 83735; 83880; 84145; 84484; 85025; 85610; 87077; 87086; 87186; 93005; 93970; 96372; 96375; 99283; J0696; J1815; J1940; J2001; J3480; J3490

== ENCOUNTER 2020-04-04 21:49 | Emergency (ER) | payer MEDICARE, MEDICAID, SELFPAY ==
[2020-04-04 21:50] VITALS: BP 142/72; PULSE 67; RESP 32; TEMP 36.6; O2SAT 100; BMI 49.9
--- NOTE | 2020-04-04 21:50 | XR_ITS ---
WS: [id number] XR ankle LT 2V [id number] REASON FOR EXAM: Injury FINDINGS: 3 views of the left ankle show a spiral displaced fracture of the distal diaphysis of the t ibia with a fracture displacement of the distal one third of the fibula. The ankle mortise appears to be intact. XR/XR ankle LT 2V 33900 IMPRESSION: Displaced spiral fracture of the tibia Displaced fracture of the distal fibula. There is marked osteopenia seen.
--- NOTE | 2020-04-04 21:50 | XR_ITS ---
WS: [id number] XR foot LT 2V [id number] REASON FOR EXAM: Injury FINDINGS: This study shows fractures through the distal diaphysis of the tibia fibula with displaceme nt. The appears to be a fracture through the base of the fifth metatarsal. There is marked osteopenia changes throughout the foot. A calcaneal spur is seen. XR/XR foot LT 2V [id number] IMPRESSION: Displaced fractures through the distal tibia fibula Fractures through the base of the fifth metatarsal. Marked osteopenia changes throughout the foot.
--- NOTE | 2020-04-04 21:50 | XR_ITS ---
WS: [id number] XR tibia fibula LT 2V [id number] REASON FOR EXAM: Injury FINDINGS: 2 views of the tibia-fibula show displaced fracture of the distal one third of the tibia wi th displaced fracture of the distal aspects of the fibula. The alignment is not satisfactory for heal ing. XR/XR tibia fibula LT 2V [id number] IMPRESSION: Spiral displaced fracture of the tibia distal one third Displaced fracture through the distal fibula.
--- NOTE | 2020-04-04 21:51 | XR_ITS ---
WS: [id number] XR chest 1V portable [id number] REASON FOR EXAM: Fall/injury FINDINGS: 1 reevaluation of the chest portable shows bilateral pleural effusion there is increased fl uid seen in the right lung base as compared to previous exam of March 16, 2020. The heart is enlarged with arteriosclerotic changes seen. There is no pneumonia, pleural effusion, pulmonary edema, No osseous abnormalities. XR/XR chest 1V portable [id number] IMPRESSION: Bilateral pleural effusion increasing since 03/16/2020 Arteriosclerotic heart disease.
--- NOTE | 2020-04-04 22:23 | ED_ITS ---
HPI - Fall General: Chief Complaint: Fall Stated Complaint: Fall, Head Lac, Left Calf Lac Time Seen by Provider: 04/04/20 21:50 History of Present Illness: HPI Narrative: Mora is a 74-year-old female who was at the [facility] when she got her left foot caught underneath her motorized wheelchair. This caused her to panic and continue to use the throttle causing her to pull herself forward and throw her face first down to the ground. Patient hit her head and is unsure but does not think she had loss of consciousness. She denies any neck pain and denies any chest pain or shortness of breath. She is visibly short of breath but she says no different than her normal. She does have abdominal pain and left leg pain. Associated symptoms-after fall: Reports abdominal pain and headache(s); Denies chest pain or neck pain Review of Systems Const: Denies: fever(s) or chills Eyes: Denies: change in vision or blurry vision ENMT: Denies: throat pain Card: Denies: chest pain Resp: Reports: dyspnea GI: Reports: abdominal pain; Denies: nausea or vomiting : Denies: flank pain Musc: Denies: neck pain or back pain Neuro: Reports: headache(s) PFSH ED PFSH: Medical History Atrial fibrillation Chronic anticoagulation Chronic venous stasis CKD (chronic kidney disease) Congestive heart failure Coronary artery disease Diabetes mellitus type 2, insulin dependent History of CVA (cerebrovascular accident) Hyperlipidemia Hypertension Macular degeneration Morbid obesity Peripheral neuropathy Pulmonary hypertension Surgical History History of appendectomy History of arthroscopic knee surgery Bilateral History of cholecystectomy History of hysterectomy History of lumpectomy of left breast Family History Other Diabetes Social History Smoking and tobacco status: never smoked Alcohol intake: never Physical Exam Const: COMMON NORMALS: no acute distress, patient oriented x3, no limitations, healthy appearing and well nourished GENERAL APPEARANCE: cooperative, well kempt, well developed and other (Mildly labored breathing) HENMT: COMMON NORMALS: hearing grossly normal bilaterally, external ears normal, EAC's normal, Normal external nose present and moist oral mucous membranes HEAD & SCALP: other (Hematoma and swelling with small laceration to the forehead) NOSE: Normal external nose present and Normal nares present EXTERNAL EAR: Yes external ears normal EXTERNAL AUDITORY CANAL: EAC's normal MOUTH: Normal oral and palatal mucosa present, lip normal and tongue normal Eye: COMMON NORMALS: Equal, round and reactive pupils present, EOMs intact bilaterally, conjunctivae normal and no scleral icterus GENERAL EYE: appearance normal, both eyes and all related structures ALIGNMENT: Yes alignment normal PERIORBITAL: periorbital findings normal EYELID: eyelids normal CONJUNCTIVA: Yes conjunctivae normal SCLERA: sclerae normal PUPIL: Yes Equal, round and reactive pupils present Neck/C-Spine: COMMON NORMALS: full ROM, no lymphadenopathy, supple, no meningeal signs and no JVD GENERAL: Yes normal visual inspection and Yes trachea midline CERVICAL SPINE: Yes cervical ROM normal and No Cervical spine tenderness Chest: COMMONS NORMALS: normal inspection of the chest and normal palpation of entire chest wall Resp: COMMON NORMALS: No use of accessory muscles and clear to auscultation bilaterally EFFORT & INSPECTION: Yes able to speak in complete sentences, Yes symmetric chest movement and Yes paradoxical thoraco-abdominal movements AUSCULTATION: clear to auscultation bilaterally, no crackles, rales, no rhonchi and no wheezes Cardio: COMMON NORMALS: no JVD, regular rate, regular rhythm, S1 normal heart sound present, S2 normal heart sound present, No gallops present (Cardio), No clicks present (Cardio), No murmurs present (Cardio) and No rub (Cardio) RATE: regular rate RHYTHM: regular rhythm and abnormal rhythm irregularly irregular HEART SOUNDS: S1 normal heart sound present and S2 normal heart sound present GI: COMMON NORMALS: Soft to palpation and No hepatosplenomegaly present PALPATION: Yes Soft to palpation, Yes Tenderness to palpation present (GI) (Mild tenderness to palpation without rebound or guarding. No bruising noted.), No Guarding due to palpation present (GI), No Rigid due to palpation, Yes No hepatosplenomegaly present, No Hernia present, No Palpable mass present and No Pulsatile mass present : COMMON NORMALS: Yes no CVA tenderness BLADDER/KIDNEY EXAM: Yes no CVA tenderness EXTERNAL FEMALE EXAM: No Hernia present Back/Pelvis: COMMON NORMALS: no CVA tenderness, thoracic and lumbar spine normal to inspection, no thoracic nor lumbar tenderness and thoraco-lumbar ROM normal Extremity: NARRATIVE EXTREMITY EXAM: Left lower extremity with large laceration of the posterior aspect. Neurovascular intact distal. Neuro: COMMON NORMALS: patient oriented x3, CN's II-XII intact bilaterally, moves all extremities, no focal motor deficits and no sensory deficits noted MENINGEAL SIGNS: Yes no meningeal signs SPEECH: speech normal Psych: APPEARANCE: Yes well kempt Course Vital Signs: Vital signs: Vital Signs Temperature 97.9 F 04/04/20 21:50 Pulse Rate 65 04/05/20 00:39 Respiratory Rate 16 04/05/20 00:39 Blood Pressure 120/79 04/05/20 00:39 Pulse Oximetry 100 04/05/20 00:39 MDM - Fall MDM Narrative: Medical decision making narrative: CT scan is down for contrasted studies. The patient is neurologically intact and will need at least a CT of the head and secondary to her multiple complicated medical problems and abdominal pain I believe she will need a CT of the abdomen and pelvis. I reviewed this all with Dr. Bell he was in agreement. Because we do not have the ability to do this at this time she recommends transfer which I agree with. I reviewed the case in full with Dr. Grubbs at [facility] and he will accept the patient in transfer. Mora's chest x-ray looks like moderate pulmonary vascular congestion with pleural effusions similar to previous. She denies any chest pain and she states that she feels mildly short of breath but no worse than usual she states that she believes her breathing is this way because she is in pain from her leg. Mora's labs have come back showing an elevated troponin but it is lower than her normal. Her EKG is unchanged and she again is not having chest pain and her shortness of breath is at its baseline. I believe this elevation of troponin is secondary to congestive heart failure. Lab Data: Labs: Lab Results 04/04/20 04/04/20 04/04/20 Range/Units 22:36 22:36 22:36 WBC (4.0-10.0) 10^3/ uL RBC (4.1-5.3) 10^6/u L Hgb (11.5-15.3) g/dL Hct (37.0-47.0) % MCV (81-99) fL MCH (28.0-34.0) pg MCHC (30.0-36.0) g/dL RDW (12.1-15.1) % Plt Count (130-400) 10^3/c mm MPV (7.4-10.4) fL Neut % (Auto) % Lymph % (Auto) % [place] % (Auto) % Eos % (Auto) % Baso % (Auto) % Neut # (Auto) (1.8-7.7) 10^3/u L Lymph # (Auto) (0.8-4.8) 10^3/u L [place] # (Auto) (0.2-0.9) 10^3/u L Eos # (Auto) (0.0-0.8) 10^3/u L Baso # (Auto) (0.0-0.1) 10^3/u L Nucleated RBC % (a uto) % Nucleated RBCs # /100WBC PT 26.80 H (10.5-13.3) SECO NDS INR 2.38 H (0.8-1.2) APTT 45.1 H (23.9-36.7) SECO NDS Sodium (136-145) mmol/L Potassium (3.5-5.1) mmol/L Chloride (98-107) mmol/L Carbon Dioxide (22-29) mmol/L Anion Gap (5-19) BUN (8-23) mg/dL Creatinine (0.5-0.9) mg/dL Glucose (65-115) mg/dL Calculated Osmolal ity (285-295) mOsm/k g Calcium (8.5-10.5) mg/dL Total Bilirubin (0.15-1.2) mg/dL AST (0-32) U/L ALT (0-33) U/L Alkaline Phosphata se (35-105) IU/L Troponin T Baselin e 132 H* (0-10) ng/mL NT-Pro-B Natriuret Pep 4197 H (0-450) pg/mL Total Protein (6.6-8.7) g/dL Albumin (3.5-5.2) g/dL Globulin (1.3-4.6) g/dL 04/04/20 04/04/20 Range/Units 22:36 22:36 WBC 9.4 (4.0-10.0) 10^3/ uL RBC 3.10 L (4.1-5.3) 10^6/u L Hgb 9.2 L (11.5-15.3) g/dL Hct 31.8 L (37.0-47.0) % MCV 102.6 H (81-99) fL MCH 29.7 (28.0-34.0) pg MCHC 28.9 L (30.0-36.0) g/dL RDW 14.2 (12.1-15.1) % Plt Count 288 (130-400) 10^3/c mm MPV 10.9 H (7.4-10.4) fL Neut % (Auto) 72.5 % Lymph % (Auto) 16.9 % [place] % (Auto) 5.8 % Eos % (Auto) 4.0 % Baso % (Auto) 0.3 % Neut # (Auto) 6.8 (1.8-7.7) 10^3/u L Lymph # (Auto) 1.6 (0.8-4.8) 10^3/u L [place] # (Auto) 0.6 (0.2-0.9) 10^3/u L Eos # (Auto) 0.4 (0.0-0.8) 10^3/u L Baso # (Auto) 0.0 (0.0-0.1) 10^3/u L Nucleated RBC % (a uto) 0 % Nucleated RBCs # 0.0 /100WBC PT (10.5-13.3) SECO NDS INR (0.8-1.2) APTT (23.9-36.7) SECO NDS Sodium 141 (136-145) mmol/L Potassium 4.7 (3.5-5.1) mmol/L Chloride 99 (98-107) mmol/L Carbon Dioxide 32 H (22-29) mmol/L Anion Gap 14.7 (5-19) BUN 28 H (8-23) mg/dL Creatinine 2.3 H (0.5-0.9) mg/dL Glucose 235 H (65-115) mg/dL Calculated Osmolal ity 297 H (285-295) mOsm/k g Calcium 8.5 (8.5-10.5) mg/dL Total Bilirubin 0.3 (0.15-1.2) mg/dL AST 10 (0-32) U/L ALT < 5 (0-33) U/L Alkaline Phosphata se 112 H (35-105) IU/L Troponin T Baselin e (0-10) ng/mL NT-Pro-B Natriuret Pep (0-450) pg/mL Total Protein 6.2 L (6.6-8.7) g/dL Albumin 3.4 L (3.5-5.2) g/dL Globulin 2.8 (1.3-4.6) g/dL Imaging Data^: CXR: My impression: Cardiomegaly with moderate pulmonary vascular congestion. Unchanged from previous. Left Tib/Fib: My impression: Displaced and slightly angulated tib-fib fracture. Left Ankle: My impression: Distal tib-fib fracture Left Foot: My impression: Fracture at the base of the fifth metatarsal EKG Data^: EKG 1: Attestation: I personally reviewed and interpreted this EKG as follows: EKG interpretation date: 04/04/20 EKG interpretation time: 22:49 Interpretation: Atrial fibrillation with a ventricular rate of 64 beats a minute, right bundle branch block, similar to previous. Discharge Plan Discharge Patient Disposition: Xfer Short-Term Hosp Clinical Impression: Fracture of tibia and fibula, open Qualifiers: Encounter type: initial encounter Open fracture type: open type I or II Latera lity: left Qualified Code(s): S82.202B - Unspecified fracture of shaft of left tibia, initial encounter for open fracture type I or II Head injury Qualifiers: Encounter type: initial encounter Qualified Code(s): S09.90XA - Unspecified injury of head, initial encounter Abdominal injury Qualifiers: Encounter type: initial encounter Qualified Code(s): S39.91XA - Unspecified injury of abdomen, initial encounter Condition: Stable Referrals: Alli Quintero MD [Primary Care Provider] - Discharge Date/Time: 04/05/20 00:44 Coding Level of Care Code ED Surgery Nurse for Chg Fwd Exam Comprehensive
--- NOTE | 2020-04-04 22:27 | ECG_ITS ---
Measurements Intervals [place] Rate: 64 P: -1 NV: 100 QRS: 0 QRSD: 2 T: 0 QT: 102 QTc: 105 Atrial fibrillation with right bundle branch block Diffuse nonspecific T wave changes INDETERMINATE AXIS MODERATE ST DEPRESSION [0.05+ mV ST DEPRESSION] Compared to ECG 03/16/2020 13:26:16 Indeterminate axis now present ST (T wave) deviation now present Myocardial infarct finding no longer present Electronically Signed On 04-05-2020 20:56:18 CDT by Jaye Peralta M.D. [email or web address]
[2020-04-04 23:16] LABS: NT Pro B Type Natriuretic Pept 4197 pg/mL (0-450)
[2020-04-04 23:24] LABS: Troponin(5th) Baseline 132 ng/mL (0-10)
--- NOTE | 2020-04-04 23:25 | PC.NURSE ---
Addendum entered by Latisha Ardon RN 04/05/20 09:45: Jacob Colon RN and Bogdan Browning RN placed 16 fr montes catheter prior to transfer to [facility]. Original Note: baseline troponin 132. Dr quiroga
[2020-04-04] MEDS: morphine 4 mg/mL SDV 1 mL IVP (23:30)
[2020-04-04] MEDS: ondansetron 2 mg/ML SDV 2 mL 4 MG IVP (23:30)
[2020-04-04] MEDS: FUROsemide 10 mg/mL SDV 4mL 40 MG IVP (23:30)
[2020-04-04 23:34] LABS: INR 2.38 (0.8-1.2)
[2020-04-04 23:35] LABS: Partial Thromboplastin Time 45.1 SECONDS (23.9-36.7)
[2020-04-04 23:51] LABS: Basophils % 0.3 %; Eosinophils # 0.4 10^3/uL (0.0-0.8); Hematocrit 31.8 % (37.0-47.0); Hemoglobin 9.2 g/dL (11.5-15.3); Lymphocytes # 1.6 10^3/uL (0.8-4.8); Lymphocytes % 16.9 %; Mean Corpuscular HGB Conc 28.9 g/dL (30.0-36.0); Mean Corpuscular Hemoglobin 29.7 pg (28.0-34.0); Mean Corpuscular Volume 102.6 fL (81-99); Mean Platelet Volume 10.9 fL (7.4-10.4); Monocytes # 0.6 10^3/uL (0.2-0.9); Monocytes % 5.8 %; Neutrophils # 6.8 10^3/uL (1.8-7.7); Neutrophils % 72.5 %; Nucleated Red Blood Cells % 0 %; Platelet Count 288 10^3/cmm (130-400); Red Cell Distribution Width 14.2 % (12.1-15.1); White Blood Count 9.4 10^3/uL (4.0-10.0)
[2020-04-05 00:01] LABS: Alanine Aminotransferase < 5 U/L (0-33); Albumin Level 3.4 g/dL (3.5-5.2); Alkaline Phosphatase 112 IU/L (35-105); Anion Gap 14.7 (5-19); Aspartate Amino Transferase 10 U/L (0-32); Blood Urea Nitrogen 28 mg/dL (8-23); Calcium 8.5 mg/dL (8.5-10.5); Carbon Dioxide 32 mmol/L (22-29); Chloride 99 mmol/L (98-107); Globulin 2.8 g/dL (1.3-4.6); Glucose 235 mg/dL (65-115); Osmolality Calculated 297 mOsm/kg (285-295); Potassium 4.7 mmol/L (3.5-5.1); Sodium 141 mmol/L (136-145); Total Bilirubin 0.3 mg/dL (0.15-1.2); Total Protein 6.2 g/dL (6.6-8.7)
[2020-04-05 00:39] VITALS: BP 120/79; PULSE 65; RESP 16; O2SAT 100
== END 2020-04-05 00:44 | disposition short-term general hospital (02) ==
PROVIDERS: Emergency Provider Emergency Medicine; PCP Internal Medicine
DX: S09.8XXA Other specified injuries of head, initial encounter (principal); S39.91XA Unspecified injury of abdomen, initial encounter; S82.242A Displaced spiral fracture of shaft of left tibia, initial encounter for closed fracture; S82.832A Other fracture of upper and lower end of left fibula, initial encounter for closed fracture; V00.811A Fall from moving wheelchair (powered), initial encounter; Y92.129 Unspecified place in nursing home as the place of occurrence of the external cause; I48.91 Unspecified atrial fibrillation; I11.0 Hypertensive heart disease with heart failure; I50.9 Heart failure, unspecified; I25.10 Atherosclerotic heart disease of native coronary artery without angina pectoris; E11.9 Type 2 diabetes mellitus without complications; Z86.73 Personal history of transient ischemic attack (TIA), and cerebral infarction without residual deficits; E78.5 Hyperlipidemia, unspecified
CPT/HCPCS: 12345; 29515; 36415; 51702; 71045; 73590; 73600; 73620; 80053; 83880; 84484; 85025; 85610; 85730; 93005; 96374; 96375; 99283; 99285; J1940; J2270; J2405

== ENCOUNTER 2020-04-14 08:13 | Outpatient (CLI) | payer MEDICARE, MEDICAID, SELFPAY ==
[2020-04-14] VITALS (9 sets, daily range): BP systolic 134–162; BP diastolic 64–98; PULSE 62–78; RESP 16–18; TEMP 36.1–36.3; O2SAT 100
[2020-04-14 09:07] LABS: Glucose Point of Care 127 mg/dL (70-110)
[2020-04-14 10:28] LABS: Hemoglobin 7.8 g/dL (11.5-15.3)
--- NOTE | 2020-04-14 16:25 | PC.NURSE ---
PT'S IV INFILTRATED AT END OF THE FIRST UNITS OF PRBC, IV DEC'D, ARM ELEVATED AND WARM BLANKET APPLIED. DR MONTENEGRO CONSULTED AND SHE EXAMINED PT. SHE INSTRUCTED US TO USE ICE INSTEAD OF HEAT AND THIS WAS DONE. SHE STATED PT'S CIRCULATION AND SENSATION OF THE RIGHT ARM WAS GOOD, {RIGHT IS THE AFFECTED ARM} . I NOTIFIED DIPTI DYE SEARCH ENGINE OPTIMIZATION STRATEGIST OF ALL THIS INFORMATION. IN INFORMED HER OF OUR DIFFICULTY FINDING ANOTHER IV SITE. SHE STATED TO NOT TRY MORE THAN TWO TIMES AND THAT SHE WAS GOING TO TALK TO PT ABOUT OTHER OPTIONS. REPORT CALLED TO KJ ROSARIO RN AT [facility]. PT DISCHARGED TO [facility] WITH ICE BAG AND NOTIFICATION THAT ONLY ONE UNIT PRBC GIVEN.
== END 2020-04-14 08:14 | disposition home or self-care (01) ==
LOC: GILAB 08:20
PROVIDERS: PCP Internal Medicine; Visit Provider Nurse Practitioner Family
DX: D64.9 Anemia, unspecified (principal)
CPT/HCPCS: 36416; 36430; 82962; 85014; 85018; 86850; 86900; 86920; P9016

== ENCOUNTER 2020-04-19 07:36 | Outpatient (CLI) | payer OTHER, MEDICARE, MEDICAID, SELFPAY ==
[2020-04-19] VITALS (13 sets, daily range): BP systolic 125–149; BP diastolic 64–84; PULSE 54–65; RESP 18–24; TEMP 36.1–36.7; O2SAT 97–100; BMI 48.2
[2020-04-19] MEDS: sodium chloride 0.9% 100 mL Bag IVP ×2 (09:40→11:48)
--- NOTE | 2020-04-19 10:33 | SUR.PREOP ---
0750 Blood Transfusion note: Pt to OPS via wheelchair for transfusion of 2 units PRBCs. Report from [facility] verified that Benadryl 25 mg PO was given at 0620 prior to pts arrival to [facility]. Bradley lift used to transfer patient onto stretcher. Type and screen drawn and sent to lab. 20 gauge started to left forearm. VSS. Pt verbalized understanding of procedure. Consent obtained.
[2020-04-19] MEDS: FUROsemide 40 mg Tablet PO (11:41)
--- NOTE | 2020-04-19 15:03 | SUR.PREOP ---
1430 2nd unit PRBC's infused. No signs of reaction noted. Report called to Camille at [facility].
== END 2020-04-19 07:37 | disposition home or self-care (01) ==
LOC: GILAB 07:40
PROVIDERS: PCP Internal Medicine; Visit Provider Nurse Practitioner Family
DX: D64.9 Anemia, unspecified (principal)
CPT/HCPCS: 36415; 36430; 86850; 86900; 86920; P9016; P9058

== ENCOUNTER 2020-04-24 16:00 | Inpatient (IN) | payer MEDICARE, MEDICAID, SELFPAY ==
[2020-04-24] VITALS (10 sets, daily range): BP systolic 110–133; BP diastolic 56–75; PULSE 53–68; RESP 15–27; TEMP 36.4; O2SAT 93–97; BMI 45.1
--- NOTE | 2020-04-24 16:18 | XRR_ITS ---
PROCEDURE INFORMATION: Exam: XR Chest, 1 View Exam date and time: 04/24/2020 4:19 PM Age: 74 years old Clinical indication: Shortness of breath; Patient HX: SOB x 1 week; Additional info: Dyspnea/cough TECHNIQUE: Imaging protocol: XR of the chest Views: 1 view. COMPARISON: CR XR chest 1V portable [id number] 01/12/2020 5:07 AM FINDINGS: Lungs: There is extensive bilateral alveolar opacity mainly in the lower lobes more on the right than on the left but in somewhat perihilar distribution. This could represent either pulmonary edema, or pneumonia. Pleural space: There are moderate bilateral pleural effusions. Heart/Mediastinum: Heart is upper limits normal in size. Bones/joints: Unremarkable. Other findings: Follow up PA and lateral views are suggested. XR/XR chest 1V portable [id number] IMPRESSION: 1. Bilateral pulmonary edema versus pneumonia. 2. Moderate bilateral pleural effusions. 3. Findings may represent congestive heart failure.
--- NOTE | 2020-04-24 16:18 | ECG_ITS ---
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 Measurements Intervals [place] Rate: 56 P: NE: -1 QRS: 32 QRSD: 145 T: -16 QT: 447 QTc: 434 Interpretive Statements ATRIAL FIBRILLATION WITH SLOW VENTRICULAR RESPONSE INTRAVENTRICULAR CONDUCTION DELAY [130+ ms QRS DURATION] Compared to ECG 04/04/2020 22:49:30 Intraventricular conduction delay now present Right bundle-branch block no longer present T-wave abnormality no longer present Indeterminate axis no longer present ST (T wave) deviation no longer present Electronically Signed On 04-24-2020 18:25:27 CDT by Anabella Pinzon M.D. [id number]
--- NOTE | 2020-04-24 16:19 | ED_ITS ---
Documented by User: Milad Kaba DO 04/24/20 19:02 HPI - SOB/Dyspnea General: Chief Complaint: Shortness of Breath/Dyspnea Stated Complaint: SOB Time Seen by Provider: 04/24/20 16:17 History of Present Illness: HPI Narrative: 74-year-old female comes in complaining of shortness of breath. She is conversationally dyspneic when I take her history. She denies any chest pain. She is very orthopneic. She denies any productive cough. Owen and had surgery on Jess is mildly confused and with family of this patient and simply she has a small amount of dementia. She was seen last week in the hospital at leg ulcer where evidently there was some protruding bone in the left lower leg. She has open sores on the left leg she is currently being treated for normally she is on 2 L/min by nasal cannula but is up to 4 L/min to maintain sats in the upper 90s. She denies any abdominal pain no GI or symptoms. In fact she states she has no pain whatsoever. MD elicited complaint: shortness of breath Pertinent past history: congestive heart failure Onset (ago): day(s) Context: occurred during exertion and other (Recent surgery to her left leg) Severity: severe Exacerbating factors: lying flat, exertion and stress Relieving factors: oxygen and rest Known history of: congestive heart failure Associated symptoms: Reports orthopnea; Deny chest congestion, chest pain, cough, diaphoresis, fever(s), hemoptysis, lightheadedness, syncope or vomiting Treatment prior to arrival: oxygen Review of Systems Const: Denies: fever(s) or diaphoresis ENMT: Denies: throat pain, ear or mastoid pain, nasal discharge or nasal congestion Card: Reports: orthopnea; Denies: chest pain, lightheadedness or syncope Resp: Denies: hemoptysis or chest congestion GI: Denies: vomiting : Denies: flank pain, difficulty voiding, dysuria, urinary frequency or urinary urgency Skin/Breast: Denies: rash or pruritus PFSH ED PFSH: Medical History Atrial fibrillation Chronic anticoagulation Chronic venous stasis CKD (chronic kidney disease) Congestive heart failure Coronary artery disease Diabetes mellitus type 2, insulin dependent History of CVA (cerebrovascular accident) Hyperlipidemia Hypertension Macular degeneration Morbid obesity Peripheral neuropathy Pulmonary hypertension Surgical History History of appendectomy History of arthroscopic knee surgery Bilateral History of cholecystectomy History of hysterectomy History of lumpectomy of left breast Family History Other Diabetes Social History Smoking and tobacco status: never smoked Alcohol intake: never Physical Exam Const: COMMON NORMALS: no acute distress GENERAL APPEARANCE: cooperative and comfortable ORIENTATION/CONSCIOUSNESS: Yes awake, Yes oriented to person, Yes oriented to place and Yes oriented to time HENMT: COMMON NORMALS: normocephalic, atraumatic, hearing grossly normal bilaterally, external ears normal, Normal nasal mucous membranes and turbinates present, moist oral mucous membranes and oropharynx normal HEAD & SCALP: normocephalic and atraumatic NOSE: Normal nasal mucous membranes and turbinates present EXTERNAL EAR: Yes external ears normal Eye: COMMON NORMALS: Equal, round and reactive pupils present, EOMs intact bilaterally, conjunctivae normal and no scleral icterus CONJUNCTIVA: Yes conjunctivae normal PUPIL: Yes Equal, round and reactive pupils present Neck/C-Spine: COMMON NORMALS: full ROM, no lymphadenopathy, supple and no JVD Lymph: LYMPHATIC: no lymphadenopathy noted and no lymphedema noted Resp: EFFORT & INSPECTION: Yes abnormal respiratory pattern, Yes tachypneic and Yes other (Conversationally dyspneic) AUSCULTATION: diminished lung sounds Cardio: COMMON NORMALS: no JVD, regular rate, regular rhythm and No murmurs present (Cardio) RATE: regular rate RHYTHM: regular rhythm GI: COMMON NORMALS: Soft to palpation and No hepatosplenomegaly present AUSCULTATION: Yes normoactive bowel sounds PALPATION: Yes Soft to palpation, No Tenderness to palpation present (GI), No Guarding due to palpation present (GI) and Yes No hepatosplenomegaly present Extremity: COMMON NORMALS: normal to inspection, capillary refill normal, no clubbing, cyanosis or edema, no calf tenderness and no pedal edema Neuro: SENSORIUM/ORIENTATION: Yes oriented to person, Yes oriented to place and Yes oriented to time Skin: COMMON NORMALS: no rashes or lesions noted GENERAL SKIN EXAM: no rashes or lesions noted Course Vital Signs: Vital signs: Vital Signs Temperature 97.6 F 04/24/20 16:01 Pulse Rate 60 04/24/20 21:24 Respiratory Rate 15 04/24/20 21:24 Blood Pressure 116/57 04/24/20 21:24 Pulse Oximetry 95 04/24/20 21:00 MDM - SOB/Dyspnea MDM Narrative: Medical decision making narrative: Care transferred to Dr. Urena at change of shift Lab Data: Labs: Lab Results 04/24/20 04/24/20 04/24/20 Range/Units 16:50 16:50 16:50 WBC 8.8 (4.0-10.0) 10^3/ uL RBC 2.89 L (4.1-5.3) 10^6/u L Hgb 9.0 L (11.5-15.3) g/dL Hct 31.2 L (37.0-47.0) % MCV 108.0 H (81-99) fL MCH 31.1 (28.0-34.0) pg MCHC 28.8 L (30.0-36.0) g/dL RDW 17.8 H (12.1-15.1) % Plt Count 307 (130-400) 10^3/c mm MPV 10.1 (7.4-10.4) fL Neut % (Auto) 72.4 % Lymph % (Auto) 19.0 % [place] % (Auto) 5.0 % Eos % (Auto) 2.6 % Baso % (Auto) 0.5 % Neut # (Auto) 6.4 (1.8-7.7) 10^3/u L Lymph # (Auto) 1.7 (0.8-4.8) 10^3/u L [place] # (Auto) 0.4 (0.2-0.9) 10^3/u L Eos # (Auto) 0.2 (0.0-0.8) 10^3/u L Baso # (Auto) 0.0 (0.0-0.1) 10^3/u L Nucleated RBC % (a uto) 0 % Nucleated RBCs # 0.0 /100WBC Specimen Type Sample Site ABG pH (7.35-7.45) ABG pCO2 (35-45) mmHg ABG pO2 (80.0-100.0) mmH g ABG HCO3 (22-26) mmol/L ABG Base Excess (-2.0-2.0) mmol/ L Jose Test Hematocrit (37-47) % O2 Delivery Device O2 Liters/Min % Claims Correspondence Clerk ID Sodium 143 (136-145) mmol/L Potassium 6.1 H (3.5-5.1) mmol/L Chloride 101 (98-107) mmol/L Carbon Dioxide 34 H (22-29) mmol/L Anion Gap 14.1 (5-19) BUN 53 H (8-23) mg/dL Creatinine 1.6 H (0.5-0.9) mg/dL Glucose 188 H (65-115) mg/dL Calculated Osmolal ity 299 H (285-295) mOsm/k g Calcium 8.7 (8.5-10.5) mg/dL Total Bilirubin 0.7 (0.15-1.2) mg/dL AST 14 (0-32) U/L ALT < 5 (0-33) U/L Alkaline Phosphata se 111 H (35-105) IU/L Troponin T Baselin e 174 H* (0-10) ng/L Troponin T 120 Min [place] (0-10) ng/L Delta Troponin T (0-10) ABS# NT-Pro-B Natriuret Pep 4165 H (0-450) pg/mL Total Protein 6.7 (6.6-8.7) g/dL Albumin 2.9 L (3.5-5.2) g/dL Globulin 3.8 (1.3-4.6) g/dL 04/24/20 04/24/20 Range/Units 18:57 20:40 WBC (4.0-10.0) 10^3/ uL RBC (4.1-5.3) 10^6/u L Hgb (11.5-15.3) g/dL Hct (37.0-47.0) % MCV (81-99) fL MCH (28.0-34.0) pg MCHC (30.0-36.0) g/dL RDW (12.1-15.1) % Plt Count (130-400) 10^3/c mm MPV (7.4-10.4) fL Neut % (Auto) % Lymph % (Auto) % [place] % (Auto) % Eos % (Auto) % Baso % (Auto) % Neut # (Auto) (1.8-7.7) 10^3/u L Lymph # (Auto) (0.8-4.8) 10^3/u L [place] # (Auto) (0.2-0.9) 10^3/u L Eos # (Auto) (0.0-0.8) 10^3/u L Baso # (Auto) (0.0-0.1) 10^3/u L Nucleated RBC % (a uto) % Nucleated RBCs # /100WBC Specimen Type Arterial Sample Site Radial, left ABG pH 7.29 L (7.35-7.45) ABG pCO2 79.9 H* (35-45) mmHg ABG pO2 59.6 L (80.0-100.0) mmH g ABG HCO3 38.0 H (22-26) mmol/L ABG Base Excess 9.2 H (-2.0-2.0) mmol/ L Jose Test Pos Hematocrit 30.0 L (37-47) % O2 Delivery Device Nc O2 Liters/Min 5.0 % Claims Correspondence Clerk ID [email or web address] Sodium (136-145) mmol/L Potassium (3.5-5.1) mmol/L Chloride (98-107) mmol/L Carbon Dioxide (22-29) mmol/L Anion Gap (5-19) BUN (8-23) mg/dL Creatinine (0.5-0.9) mg/dL Glucose (65-115) mg/dL Calculated Osmolal ity (285-295) mOsm/k g Calcium (8.5-10.5) mg/dL Total Bilirubin (0.15-1.2) mg/dL AST (0-32) U/L ALT (0-33) U/L Alkaline Phosphata se (35-105) IU/L Troponin T Baselin e (0-10) ng/L Troponin T 120 Min [place] 158.6 H (0-10) ng/L Delta Troponin T -15.4 L (0-10) ABS# NT-Pro-B Natriuret Pep (0-450) pg/mL Total Protein (6.6-8.7) g/dL Albumin (3.5-5.2) g/dL Globulin (1.3-4.6) g/dL Discharge Plan Discharge Admit Provider: Renata Oscar Clinical Impression: Acute on chronic respiratory failure Qualifiers: Respiratory failure complication: hypoxia and hypercapnia Qualified Code(s): J96.21 - Acute and chronic respiratory failure with hypoxia Congestive heart failure Qualifiers: Heart failure type: other Qualified Code(s): I50.9 - Heart failure, unspecified Condition: Stable Coding Level of Care Code ED Life Coach for [facility] Fwd Exam Comprehensive Documented by User: Tatiana Urena MD 04/24/20 22:19 HPI - SOB/Dyspnea General: Chief Complaint: Shortness of Breath/Dyspnea Stated Complaint: SOB Time Seen by Provider: 04/24/20 16:17 PFSH ED PFSH: Medical History Atrial fibrillation Chronic anticoagulation Chronic venous stasis CKD (chronic kidney disease) Congestive heart failure Coronary artery disease Diabetes mellitus type 2, insulin dependent History of CVA (cerebrovascular accident) Hyperlipidemia Hypertension Macular degeneration Morbid obesity Peripheral neuropathy Pulmonary hypertension Surgical History History of appendectomy History of arthroscopic knee surgery Bilateral History of cholecystectomy History of hysterectomy History of lumpectomy of left breast Family History Other Diabetes Social History Smoking and tobacco status: never smoked Alcohol intake: never Course Vital Signs: Vital signs: Vital Signs Temperature 97.6 F 04/24/20 16:01 Pulse Rate 60 04/24/20 21:24 Respiratory Rate 15 04/24/20 21:24 Blood Pressure 116/57 04/24/20 21:24 Pulse Oximetry 95 04/24/20 21:00 MDM - SOB/Dyspnea MDM Narrative: Medical decision making narrative: Patient presents with pulmonary edema noted on x-ray likely CHF exacerbation. Patient was too large to fit in the CT scanner she has no signs of pulmonary embolism at this time I believe her dyspnea is likely from CHF with the edema on the x-ray. Patient given IV Lasix and placed on BiPAP and is improving here. She was hypercapnic as well on her ABG. Spoke to hospitalist will admit and likely get a VQ scan in the morning. Patient second troponin decreased. She has been stable while in the ER. Lab Data: Labs: Lab Results 04/24/20 04/24/20 04/24/20 Range/Units 16:50 16:50 16:50 WBC 8.8 (4.0-10.0) 10^3/ uL RBC 2.89 L (4.1-5.3) 10^6/u L Hgb 9.0 L (11.5-15.3) g/dL Hct 31.2 L (37.0-47.0) % MCV 108.0 H (81-99) fL MCH 31.1 (28.0-34.0) pg MCHC 28.8 L (30.0-36.0) g/dL RDW 17.8 H (12.1-15.1) % Plt Count 307 (130-400) 10^3/c mm MPV 10.1 (7.4-10.4) fL Neut % (Auto) 72.4 % Lymph % (Auto) 19.0 % [place] % (Auto) 5.0 % Eos % (Auto) 2.6 % Baso % (Auto) 0.5 % Neut # (Auto) 6.4 (1.8-7.7) 10^3/u L Lymph # (Auto) 1.7 (0.8-4.8) 10^3/u L [place] # (Auto) 0.4 (0.2-0.9) 10^3/u L Eos # (Auto) 0.2 (0.0-0.8) 10^3/u L Baso # (Auto) 0.0 (0.0-0.1) 10^3/u L Nucleated RBC % (a uto) 0 % Nucleated RBCs # 0.0 /100WBC Specimen Type Sample Site ABG pH (7.35-7.45) ABG pCO2 (35-45) mmHg ABG pO2 (80.0-100.0) mmH g ABG HCO3 (22-26) mmol/L ABG Base Excess (-2.0-2.0) mmol/ L Jose Test Hematocrit (37-47) % O2 Delivery Device O2 Liters/Min % Claims Correspondence Clerk ID Sodium 143 (136-145) mmol/L Potassium 6.1 H (3.5-5.1) mmol/L Chloride 101 (98-107) mmol/L Carbon Dioxide 34 H (22-29) mmol/L Anion Gap 14.1 (5-19) BUN 53 H (8-23) mg/dL Creatinine 1.6 H (0.5-0.9) mg/dL Glucose 188 H (65-115) mg/dL Calculated Osmolal ity 299 H (285-295) mOsm/k g Calcium 8.7 (8.5-10.5) mg/dL Total Bilirubin 0.7 (0.15-1.2) mg/dL AST 14 (0-32) U/L ALT < 5 (0-33) U/L Alkaline Phosphata se 111 H (35-105) IU/L Troponin T Baselin e 174 H* (0-10) ng/L Troponin T 120 Min [place] (0-10) ng/L Delta Troponin T (0-10) ABS# NT-Pro-B Natriuret Pep 4165 H (0-450) pg/mL Total Protein 6.7 (6.6-8.7) g/dL Albumin 2.9 L (3.5-5.2) g/dL Globulin 3.8 (1.3-4.6) g/dL 04/24/20 04/24/20 Range/Units 18:57 20:40 WBC (4.0-10.0) 10^3/ uL RBC (4.1-5.3) 10^6/u L Hgb (11.5-15.3) g/dL Hct (37.0-47.0) % MCV (81-99) fL MCH (28.0-34.0) pg MCHC (30.0-36.0) g/dL RDW (12.1-15.1) % Plt Count (130-400) 10^3/c mm MPV (7.4-10.4) fL Neut % (Auto) % Lymph % (Auto) % [place] % (Auto) % Eos % (Auto) % Baso % (Auto) % Neut # (Auto) (1.8-7.7) 10^3/u L Lymph # (Auto) (0.8-4.8) 10^3/u L [place] # (Auto) (0.2-0.9) 10^3/u L Eos # (Auto) (0.0-0.8) 10^3/u L Baso # (Auto) (0.0-0.1) 10^3/u L Nucleated RBC % (a uto) % Nucleated RBCs # /100WBC Specimen Type Arterial Sample Site Radial, left ABG pH 7.29 L (7.35-7.45) ABG pCO2 79.9 H* (35-45) mmHg ABG pO2 59.6 L (80.0-100.0) mmH g ABG HCO3 38.0 H (22-26) mmol/L ABG Base Excess 9.2 H (-2.0-2.0) mmol/ L Jose Test Pos Hematocrit 30.0 L (37-47) % O2 Delivery Device Nc O2 Liters/Min 5.0 % Claims Correspondence Clerk ID [email or web address] Sodium (136-145) mmol/L Potassium (3.5-5.1) mmol/L Chloride (98-107) mmol/L Carbon Dioxide (22-29) mmol/L Anion Gap (5-19) BUN (8-23) mg/dL Creatinine (0.5-0.9) mg/dL Glucose (65-115) mg/dL Calculated Osmolal ity (285-295) mOsm/k g Calcium (8.5-10.5) mg/dL Total Bilirubin (0.15-1.2) mg/dL AST (0-32) U/L ALT (0-33) U/L Alkaline Phosphata se (35-105) IU/L Troponin T Baselin e (0-10) ng/L Troponin T 120 Min [place] 158.6 H (0-10) ng/L Delta Troponin T -15.4 L (0-10) ABS# NT-Pro-B Natriuret Pep (0-450) pg/mL Total Protein (6.6-8.7) g/dL Albumin (3.5-5.2) g/dL Globulin (1.3-4.6) g/dL Critical Care Time Critical Care Time: Critical Care Time: Yes Total Critical Care Time: 36 Attestation: This case had a high probability of a clinically significant, sudden, or life threatening deterioration of this patient's condition which required my full and direct attention, intervention and personal management. Discharge Plan Discharge Admit Provider: Renata Oscar Clinical Impression: Acute on chronic respiratory failure Qualifiers: Respiratory failure complication: hypoxia and hypercapnia Qualified Code(s): J 96.21 - Acute and chronic respiratory failure with hypoxia Congestive heart failure Qualifiers: Heart failure type: other Qualified Code(s): I50.9 - Heart failure, unspecified Condition: Stable Coding Level of Care Code ED Life Coach for [facility] Fwd Exam Comprehensive
[2020-04-24 17:04] LABS: Basophils % 0.5 %; Eosinophils # 0.2 10^3/uL (0.0-0.8); Eosinophils % 2.6 %; Hematocrit 31.2 % (37.0-47.0); Lymphocytes # 1.7 10^3/uL (0.8-4.8); Mean Corpuscular HGB Conc 28.8 g/dL (30.0-36.0); Mean Corpuscular Hemoglobin 31.1 pg (28.0-34.0); Mean Platelet Volume 10.1 fL (7.4-10.4); Monocytes # 0.4 10^3/uL (0.2-0.9); Neutrophils # 6.4 10^3/uL (1.8-7.7); Neutrophils % 72.4 %; Nucleated Red Blood Cells % 0 %; Platelet Count 307 10^3/cmm (130-400); Red Blood Count 2.89 10^6/uL (4.1-5.3); Red Cell Distribution Width 17.8 % (12.1-15.1); White Blood Count 8.8 10^3/uL (4.0-10.0)
[2020-04-24 17:30] LABS: Alanine Aminotransferase < 5 U/L (0-33); Albumin Level 2.9 g/dL (3.5-5.2); Alkaline Phosphatase 111 IU/L (35-105); Anion Gap 14.1 (5-19); Aspartate Amino Transferase 14 U/L (0-32); Blood Urea Nitrogen 53 mg/dL (8-23); Calcium 8.7 mg/dL (8.5-10.5); Carbon Dioxide 34 mmol/L (22-29); Chloride 101 mmol/L (98-107); Globulin 3.8 g/dL (1.3-4.6); Glucose 188 mg/dL (65-115); NT Pro B Type Natriuretic Pept 4165 pg/mL (0-450); Osmolality Calculated 299 mOsm/kg (285-295); Potassium 6.1 mmol/L (3.5-5.1); Sodium 143 mmol/L (136-145); Total Bilirubin 0.7 mg/dL (0.15-1.2); Total Protein 6.7 g/dL (6.6-8.7)
--- NOTE | 2020-04-24 17:40 | USCV_ITS ---
Mora Messer Age: 74 Gender: F : 1945 Exam Date: 04/24/2020 18:04 Ordering Phys: Milad Kaba DO Technologist: Mario Alberto Thacker [place] [facility] [place] BILAT [place] HISTORY: Lower extremity swelling. Lower extremity pain. PROCEDURES: The venous duplex Doppler examination of both lower extremities was performed in the standard fashion. The following venous structures were evaluated: common femoral vein, profunda vein, proximal portion of the greater saphenous vein, superficial femoral vein, and the popliteal vein. In addition, the posterior tibial and peroneal trunk were evaluated. Bilaterally, the common femoral, superficial femoral, profunda femoral, popliteal, posterior tibial, greater saphenous veins, and the peroneal trunk were identified and interrogated in the standard fashion. These veins were found to be easily compressible with spontaneous blood flow. No evidence of insufficiency or thrombus noted. FINDINGS: Normal 2-D Doppler and augmentation and compressibility throughout the lower extremity venous structures. Additional imaging through the proximal calf veins also reveals no thrombus. Limited evaluation of the greater saphenous vein is patent with no thrombus.. CONCLUSIONS No evidence of DVT in the above-mentioned identifiable veins. Dr Jaye Peralta MD [facility] (Electronically Signed) Final Date: 26 April 2020 09:45 S
[2020-04-24 17:41] LABS: Troponin(5th) Baseline 174 ng/L (0-10)
[2020-04-24] MEDS: HYDROcodone-acetaminophen 5-325 mg Tablet 1 TAB PO (17:59)
[2020-04-24] MEDS: sodium chloride 0.9% 500 ML 999 ML IV (18:01)
--- NOTE | 2020-04-24 18:18 | ECG_ITS ---
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 Measurements Intervals [place] Rate: 68 P: UT: -1 QRS: 38 QRSD: 144 T: 7 QT: 440 QTc: 470 Interpretive Statements ATRIAL FIBRILLATION INTRAVENTRICULAR CONDUCTION DELAY [130+ ms QRS DURATION] Compared to ECG 04/24/2020 16:17:44 No significant changes Electronically Signed On 04-24-2020 18:53:43 CDT by Anabella Pinzon M.D. [id number]
--- NOTE | 2020-04-24 19:20 | PC.NURSE ---
Received report , went to assess the pt , she was taken to CT. Will assess when pt gets back in room
--- NOTE | 2020-04-24 19:48 | PC.NURSE ---
Report states , does not wear 02 in the NH, but today EMS placed 4 liters NC. Improved respiratory rate and distress.
--- NOTE | 2020-04-24 20:28 | PC.NURSE ---
Informed Dr Urena of Respiratory effort. Noted more wheezing in upper lobes. Orders put in for BiPap
--- NOTE | 2020-04-24 20:32 | PC.NURSE ---
Informed Dr Urena of Respiratory effort has increased. Noted more wheezing in upper lobes. Orders put in for Bipap
[2020-04-24 20:35] LABS: Troponin 5 2HR Delta -15.4 ABS# (0-10)
[2020-04-24 20:36] LABS: Troponin 5 2HR 158.6 ng/L (0-10)
[2020-04-24 20:48] LABS: ABG PH Result 7.29 (7.35-7.45); Base Excess ABG 9.2 mmol/L (-2.0-2.0); Blood Gas Allen Test Pos; Blood Gas Sample Site Radial, left; Blood Gas Sample Type Arterial; Oxygen Device NC; PO2 ABG 59.6 mmHg (80.0-100.0)
[2020-04-24] MEDS: dextrose 50% syringe 50 mL IVP (20:56)
[2020-04-24] MEDS: insulin regular-human 100 units/1 mL 10 UNIT IVP (20:57)
[2020-04-24 21:07] LABS: ABG PCO2 79.9 mmHg (35-45)
[2020-04-24] MEDS: FUROsemide 10 mg/mL SDV 10mL 60 MG IVP (21:10)
--- NOTE | 2020-04-24 21:23 | PM.HP ---
Providers/Chief Complaint Primary Care Provider: Alli Quintero MD Chief Complaint: SOB History of Present Illness Mora Messer is a 74 year old female who carries diagnosis of type 2 diabetes, diastolic congestive heart failure, morbid obesity, chronic atrial fibrillation (on Xarelto), was recently discharged from the hospital after management of CHF exacerbation with Bumex 2 mg daily coming in with chief complaint of worsening shortness of breath. She is a resident of a care home, because of her residual weakness from previous CVA, she uses wheelchair for ambulation, recently had a fall from her wheelchair, she has multiple bruises all over her body. She is stating that despite using Bumex 2 mg daily she has been gaining weight, her legs are more swollen, she has been experiencing orthopnea and PND without any chest pain nausea vomiting or fevers. She spends most of her day in the bed, she eats on her own and has not noticed any dark-colored stools. She is denying fever, chills, production of sputum, exposure to COVID. Diagnostics in the ER revealed hypoxic hypercarbic respiratory failure initially she was given 1 L normal saline and after reviewing chest x-ray and BNP she was given Lasix by the ER Her blood gas did not improve much because of facemask leakage, however at the time of my evaluation she was awake alert oriented x3 without any active respiratory distress, I increased her BiPAP settings to 20/10 increase her rate to 14 from 8, tighten the facemask seal, respiratory therapist changed her mask as well Chest x-ray reveals bilateral pleural effusion right greater than left Hyperkalemia of 6.1, no EKG changes, she was given 10 units of insulin along dextrose 50, Lasix 60 mg Son was at the bedside, on her previous visits to the hospital she has stayed DNR/DNI, however she is full code on this admission, she is expressing her wishes to do CPR intubation in case of cardiac pulmonary arrest Review of Systems Const: Reports: chills, body aches, change in appetite, fatigue and malaise; Denies: fever(s) Eyes: Denies: change in vision ENMT: Denies: throat pain Card: Reports: irregular heart rhythm, swelling of feet/ankles, syncope, dyspnea on exertion and orthopnea; Denies: chest pain Resp: Reports: dyspnea and chest congestion; Denies: productive cough or non-productive cough GI: Denies: abdominal pain, nausea or vomiting : Denies: flank pain Musc: Reports: extremity swelling and limited range of motion Skin/Breast: Reports: lesions and other (Multiple petechiae and bruises of upper arms, facial bruises) Neuro: Reports: weakness in extremities and difficulty walking Psych: Reports: depression Endo: Denies: polyuria Reynold/Lymph: Reports: easy bruising, easy bleeding, petechiae and purpura All/Imm: Denies: urticaria Medications/Allergies Home Medications Medication Instructions Recorded Confirmed Last Taken Type Artificial Tears (PF) 1 drp OPHTHALMIC (EYE) QID 01/11/20 04/24/20 04/24/20 History Xarelto 25 mg PO DAILY 01/11/20 04/24/20 04/23/20 History amlodipine 5 mg PO DAILY 01/11/20 04/24/20 04/24/20 History aspirin 81 mg PO DAILY 01/11/20 04/24/20 04/24/20 History atorvastatin 20 mg PO BEDTIME 01/11/20 04/24/20 04/23/20 History carvedilol 12.5 mg PO BID 01/11/20 04/24/20 04/24/20 History citalopram 20 mg PO DAILY 01/11/20 04/24/20 04/24/20 History isosorbide mononitrate 60 mg PO DAILY 01/11/20 04/24/20 04/24/20 History polyethylene glycol 3350 [Miralax] 17 g PO DAILY 01/11/20 04/24/20 04/24/20 History sennosides-docusate sodium 1 tab-cap PO BID 01/11/20 04/24/20 04/24/20 History [Senna-S] potassium chloride 40 meq PO DAILY 03/16/20 04/24/20 04/24/20 History bumetanide 2 mg PO DAILY #60 tab 03/19/20 04/24/20 04/24/20 Rx acetaminophen 325 mg PO QID 04/24/20 04/24/20 04/24/20 History albuterol sulfate 2.5 mg INHALATION Q4H PRN 04/24/20 04/24/20 04/23/20 History bisacodyl 5 mg PO DAILY 04/24/20 04/24/20 Unknown History diphenhydramine HCl [Benadryl] See Rx Instructions .ROUTE .COMPLEX 04/24/20 04/24/20 04/18/20 History avqzpotcdawp-Aa-ubni-minerals 1 tab PO DAILY 04/24/20 04/24/20 04/24/20 History [Multiple Vitamin, Womens] Allergies Allergy/AdvReac Type Severity Reaction Status Date / Time adhesive tape Allergy Unknown Verified 04/14/20 10:34 nifedipine [From Procardia] Allergy Unknown Verified 04/14/20 10:34 Penicillins Allergy Unknown Verified 04/14/20 10:34 PFSH Acute PFSH: Medical History Atrial fibrillation Chronic anticoagulation Chronic venous stasis CKD (chronic kidney disease) Congestive heart failure Coronary artery disease Diabetes mellitus type 2, insulin dependent History of CVA (cerebrovascular accident) Hyperlipidemia Hypertension Macular degeneration Morbid obesity Peripheral neuropathy Pulmonary hypertension Surgical History History of appendectomy History of arthroscopic knee surgery Bilateral History of cholecystectomy History of hysterectomy History of lumpectomy of left breast Family History Other Diabetes Social History Smoking and tobacco status: never smoked Alcohol intake: never Vitals/I&O/Wt Last Vital Signs Temp 97.6 F 04/24/20 16:01 Pulse 68 04/24/20 21:00 Resp 24 H 04/24/20 20:21 BP 116/57 04/24/20 20:21 Pulse Ox 95 04/24/20 21:00 Weight last 48 hrs Weight 119.295 kg Physical Exam Narrative: EXAM NARRATIVE: Head to toe examination Morbidly obese female currently tolerating BiPAP BiPAP settings 20/10 respiratory rate 14, tidal volume 600, FiO2 40% She is awake alert oriented x3 Tolerating BiPAP No active restaurant distress Assisted breath sounds diminished at the bases with crackles Variable S1-S2 with active signs of heart failure 3+ positive bilateral lower extremity edema Abdomen distended, visceral obesity, nontender She has residual weakness from previous stroke and is not able to lift her arms against resistance, Facial petechiae Multiple petechia purpura of extremities She is wearing compression stockings on lower extremities Data : 04/24/20 16:50 04/24/20 16:50 A&P Assessment and plan (1) Acute respiratory failure with hypoxia and hypercarbia: Status: Acute (2) Congestive heart failure: Status: Acute Qualifiers: Heart failure type: other Qualified Code(s): I50.9 - Heart failure, unspecified (3) Hyperkalemia: Status: Acute (4) Chronic venous stasis: Status: Acute (5) Coronary artery disease: Status: Acute (6) Peripheral neuropathy: Status: Acute (7) Chronic anticoagulation: Status: Acute (8) Atrial fibrillation: Status: Acute (9) Morbid obesity: Status: Acute (10) Diabetes mellitus type 2, insulin dependent: Status: Acute Additional A&P Information Acute hypoxic hypercarbic respiratory failure Secondary to CHF exacerbation Highly doubt PE because of Xarelto usage, not a candidate for CTA chest because of high creatinine, currently doing well on 40% FiO2 on BiPAP Will obtain another blood gas in 30 minutes, she is able to protect her airways and synchronize her breathing with the machine High risk for intubation Monitor in ICU Acute on chronic diastolic congestive heart failure exacerbation Previous echo revealed pulmonary hypertension 45 mmHg She has morbid obesity I believe this is the cause of her CHF exacerbation, I would increase her Bumex to 2 mg every 12 hours Riggins catheter to monitor urine output No active ischemic or infarctive changes however troponins are elevated which might be type II [place], negative delta troponin, patient is chest pain-free, EKG showing A. fib without rvr Most likely because of her body habitus she will need BiPAP at the care home to prevent recurrent admissions to the hospital I would not repeat echo as it was done in January Type 2 diabetes Cardiac consistent carb diet with moderate sliding scale and long-acting insulin Chronic atrial fibrillation with chronic anticoagulation Rate controlled, no active bleeding, hemoglobin stable, she is on aspirin and Xarelto Considering history of anemia she might benefit from Xarelto only and discontinue aspirin on discharge, kindly reevaluate at the time of discharge CVA with residual left hemiparesis No acute decompensation Established coronary disease No ischemic or infarctive change on EKG most likely type II [place] due to CHF exacerbation with abnormal creatinine Full code DVT prophylaxis not needed as patient is on Xarelto Attestations Medical Necessity Statement*: , Continued ICU for monitoring because of hypoxic hypercarbic respiratory failure, she is high risk for intubation because of her BMI, anticipating stay in the hospital cross more than 2 midnights currently need extensive diuresis for CHF exacerbation and evaluation if she required BiPAP on discharge Time Spent in Patient Care: (>than 50% of time spent in counselling and/or direct pt care on unit). 60mins Coding Level of Care Code Acute Varnishing Unit Operator for Betty Jerry Diagnoses Acute respiratory failure with hypoxia and hypercarbia J96.01; J96.02 Congestive heart failure I50.9 Heart failure type: other Hyperkalemia E87.5 Chronic venous stasis I87.8 Coronary artery disease I25.10 Peripheral neuropathy G62.9 Chronic anticoagulation Z79.01 Atrial fibrillation I48.91 Morbid obesity E66.01 Diabetes mellitus type 2, insulin dependent E11.9; Z79.4
[2020-04-24 21:45] LABS: Arterial Blood Gas Hematocrit 27.3 % (37-47); Base Excess ABG 9.4 mmol/L (-2.0-2.0); Blood Gas Allen Test Pos; Blood Gas Sample Site Brachial, left; Blood Gas Sample Type Arterial; HCO3 ABG 37.6 mmol/L (22-26); Oxygen Device BIPAP; PO2 ABG 72.3 mmHg (80.0-100.0)
[2020-04-24 21:46] LABS: ABG PCO2 76.6 mmHg (35-45)
--- NOTE | 2020-04-24 22:18 | ECG_ITS ---
[facility] Test Date: 2020-04-25 Pat Name: Mora Messer Department: Room: [id number] Gender: Female Library Associate: : 1945 Requested By: Milad Bernabe Order Number: [id number] Arsen MD: Jaye Peralta M.D. Measurements Intervals [place] Rate: 55 P: MS: -1 QRS: 31 QRSD: 148 T: -2 QT: 456 QTc: 438 Interpretive Statements ATRIAL FIBRILLATION WITH SLOW VENTRICULAR RESPONSE Right bundle branch block pattern Compared to ECG 04/24/2020 17:53:04 No significant changes Electronically Signed On 04-26-2020 0:06:23 CDT by Jaye Peralta M.D. [id number]
[2020-04-24 22:43] LABS: ABG PCO2 74.5 mmHg (35-45); ABG PH Result 7.31 (7.35-7.45); HCO3 ABG 37.7 mmol/L (22-26); PO2 ABG 69.9 mmHg (80.0-100.0)
[2020-04-24 22:44] LABS: BIPAP 20/8; Oxygen Device BIPAP
[2020-04-25] VITALS (25 sets, daily range): BP systolic 97–151; BP diastolic 49–80; PULSE 53–79; RESP 14–29; TEMP 34.5–36.8; O2SAT 91–100
[2020-04-25] MEDS: calcium gluconate 0.1 gm/mL 10% SDV 10mL 1 GM IVP (00:04)
[2020-04-25] MEDS: bumetanide 0.25 mg/mL SDV 10 mL 2 MG IV ×3 (00:04→21:29)
--- NOTE | 2020-04-25 02:27 | PC.NURSE ---
DR NOTIFICATION dr piedra notified of low temperature, bear hugger was placed on pt. Temp was axillary 92.0, and rectal 94.1.
[2020-04-25] MEDS: acetaminophen 325 mg Tablet 650 MG PO ×2 (03:57→23:02)
[2020-04-25 04:30] LABS: Glucose Point of Care 130 mg/dL (70-110)
[2020-04-25 05:06] LABS: Anion Gap 15.7 (5-19); Blood Urea Nitrogen 53 mg/dL (8-23); Calcium 9.1 mg/dL (8.5-10.5); Carbon Dioxide 34 mmol/L (22-29); Chloride 101 mmol/L (98-107); Glucose 118 mg/dL (65-115); Osmolality Calculated 299 mOsm/kg (285-295); Potassium 5.7 mmol/L (3.5-5.1); Sodium 145 mmol/L (136-145)
--- NOTE | 2020-04-25 05:13 | PC.NURSE ---
DR NOTIFICATION DR INIGUEZ NOTIFIED OF WOUND ON LEFT CALF.
--- NOTE | 2020-04-25 06:38 | PC.NURSE ---
SHIFT SUMMARY PT HAS BEEN TURNED PERIODICALLY. PT IV REMAINS PATENT. PT LEG WAS REDRESSED AND CLEANED WITH SALINE. PT REMAINS ON BIPAP. NO EPISODES OF RESPIRATORY DISTRESS. BED BATH WAS GIVEN.
[2020-04-25 07:43] LABS: Basophils % 0.3 %; Eosinophils # 0.2 10^3/uL (0.0-0.8); Eosinophils % 2.9 %; Hematocrit 28.8 % (37.0-47.0); Hemoglobin 8.2 g/dL (11.5-15.3); Lymphocytes # 1.7 10^3/uL (0.8-4.8); Lymphocytes % 23.3 %; Mean Corpuscular HGB Conc 28.5 g/dL (30.0-36.0); Mean Corpuscular Hemoglobin 29.7 pg (28.0-34.0); Mean Corpuscular Volume 104.3 fL (81-99); Mean Platelet Volume 10.5 fL (7.4-10.4); Monocytes # 0.5 10^3/uL (0.2-0.9); Monocytes % 6.7 %; Neutrophils % 66.3 %; Nucleated Red Blood Cells % 0 %; Platelet Count 277 10^3/cmm (130-400); Red Blood Count 2.76 10^6/uL (4.1-5.3); Red Cell Distribution Width 17.5 % (12.1-15.1); White Blood Count 7.5 10^3/uL (4.0-10.0)
[2020-04-25 09:06] LABS: Bilirubin Urine Neg (NEGATIVE); Blood Urine 3+ (Negative); Glucose Urine UA Norm (Normal); Ketones Urine Negative (Negative); Leukocyte Esterase Urine 2+ (Negative); Nitrate Urine Positive (Negative); Protein Urine Neg (Negative); Urine Appearance Cloudy (CLEAR); Urine Color Yellow (Yellow); Urobilinogen Urine Norm (Negative)
[2020-04-25 09:19] LABS: Add Urine Culture? Yes; Bacteria Urine 1+; Mucus Urine 1+; RBC Urine 15-25 /hpf (0-2); WBC Urine 55-80 /hpf (0-5)
[2020-04-25] MEDS: rivaroxaban 10 mg Tablet 15 MG PO (09:52)
[2020-04-25] MEDS: sennosides-docusate Tablet 1 TAB PO ×2 (09:52→18:21)
[2020-04-25] MEDS: polyethylene glycol 3350 Pkt 17 gm PO (09:52)
--- NOTE | 2020-04-25 13:02 | P.PN_ITS ---
Subjective Subjective: Interval history: Mora reports she is breathing better than she was last night. Now off BiPAP. History and physical reviewed. Patient reports 2 days of increasing swelling and at least 1 day of shortness of breath. Medications: Reviewed: Yes Vitals/I&O/Wt Last Vital Signs Temp 98.1 F 04/25/20 12:01 Pulse 68 04/25/20 12:01 Resp 19 H 04/25/20 12:01 BP 138/71 04/25/20 12:01 Pulse Ox 100 04/25/20 12:01 04/24/20 04/25/20 04/25/20 22:59 06:59 14:59 Output Total 1300 / 1300 Balance -1300 / -1300 Weight last 48 hrs Weight 119.295 kg Physical Exam Narrative: EXAM NARRATIVE: General exam mild respiratory distress Cardiovascular irregular, irregular hythm without murmur Lungs diminished breath sounds at the bases Abdomen is soft obese. Some edema noted Extremities 2-3+ edema. Left calf with some skin breakdown at previous surgical site. Urinary Catheter Management^: Riggins: Cath Placed During This Visit: yes Urinary Catheter Date of Insertion: 04/24/20 Urinary Catheter Time of Insertion: 21:24 Data : 04/25/20 07:19 04/25/20 04:20 A&P Assessment and plan (1) Acute respiratory failure with hypoxia and hypercarbia: Secondary to CHF. Diuresis initiated and patient improved. Status: Acute (2) Congestive heart failure: Acute diastolic heart failure. Continue diuresis with Bumex 2 mg IV every 12 hours Status: Acute Qualifiers: Heart failure type: other Qualified Code(s): I50.9 - Heart failure, unspecified (3) Hyperkalemia: Repeat potassium this afternoon. Consider Kayexalate if not decreasing. Status: Acute (4) Chronic venous stasis: Status: Acute (5) Coronary artery disease: No chest pain. Troponin chronically elevated. Type II. Status: Acute (6) Peripheral neuropathy: Status: Acute (7) Chronic anticoagulation: Status: Acute (8) Atrial fibrillation: Rate controlled. On chronic anticoagulation. Status: Acute (9) Morbid obesity: Status: Acute (10) Diabetes mellitus type 2, insulin dependent: Sliding scale insulin Status: Acute Additional A&P Information Skin breakdown left calf, status post surgery for lower extremity fracture. Wound care will need to be involved at discharge. UTI. Initiate Rocephin chronic kidney disease stage II/III History of CVA Full code DVT prophylaxis not needed as patient is on Xarelto Attestations Medical Necessity Statement*: Needs continued hospital stay for further diuresis secondary to acute diastolic heart failure. Coding Level of Care Code Acute Silvering Applicator for g Fwd Diagnoses Acute respiratory failure with hypoxia and hypercarbia J96.01; J96.02 Congestive heart failure I50.9 Heart failure type: other Hyperkalemia E87.5 Chronic venous stasis I87.8 Coronary artery disease I25.10 Peripheral neuropathy G62.9 Chronic anticoagulation Z79.01 Atrial fibrillation I48.91 Morbid obesity E66.01 Diabetes mellitus type 2, insulin dependent E11.9; Z79.4
[2020-04-25 13:18] LABS: Glucose Point of Care 128 mg/dL (70-110)
[2020-04-25] MEDS: cefTRIAXone 1,000 MG in sodium chloride 0.9% (plus) 50 ML 100 MG IV (13:38)
[2020-04-25 13:42] LABS: Arterial Blood Gas Hematocrit 36.2 % (37-47); Blood Gas Allen Test Pos; Blood Gas Sample Site Brachial, left; Blood Gas Sample Type Arterial
[2020-04-25 15:08] LABS: Anion Gap 14.4 (5-19); Blood Urea Nitrogen 50 mg/dL (8-23); Carbon Dioxide 35 mmol/L (22-29); Chloride 99 mmol/L (98-107); Glucose 125 mg/dL (65-115); Osmolality Calculated 296 mOsm/kg (285-295); Potassium 5.4 mmol/L (3.5-5.1); Sodium 143 mmol/L (136-145)
[2020-04-25 17:08] LABS: Glucose Point of Care 125 mg/dL (70-110)
--- NOTE | 2020-04-25 19:25 | PC.NURSE ---
Patient arrived to the floor from the ICU after report was received via phone. Patient is alert and oriented. Patient was complaining of shortness of breath and oxygen saturation was 88 percent. Patient was placed on Bipap by RT and oxygen saturation is now 99 percent and patient is not in distress. Patient has been oriented to her room and has call light within reach.
--- NOTE | 2020-04-25 19:58 | PC.NURSE ---
Patient had very small BM in bed. Patient was cleaned and repositioned.
[2020-04-25 20:29] LABS: Glucose Point of Care 188 mg/dL (70-110)
[2020-04-25] MEDS: atorvastatin 40 mg Tablet 20 MG PO (21:29)
--- NOTE | 2020-04-25 22:00 | PC.NURSE ---
Patient was offered to be turned on her side and educated that it is good to be off her back sometimes to prevent skin breakdown, however stated I prefer to lay on my back. Will offer again later.
[2020-04-26] VITALS (13 sets, daily range): BP systolic 115–156; BP diastolic 63–89; PULSE 60–84; RESP 12–22; TEMP 36.1–37.6; O2SAT 92–100
--- NOTE | 2020-04-26 03:08 | PC.NURSE ---
Patient was offered to be turned on her side and stated it hurts my legs too much to be turned on my side.
[2020-04-26 04:01] LABS: Basophils % 0.3 %; Eosinophils # 0.2 10^3/uL (0.0-0.8); Eosinophils % 3.1 %; Hematocrit 29.9 % (37.0-47.0); Hemoglobin 8.5 g/dL (11.5-15.3); Lymphocytes # 1.8 10^3/uL (0.8-4.8); Lymphocytes % 25.8 %; Mean Corpuscular HGB Conc 28.4 g/dL (30.0-36.0); Mean Corpuscular Hemoglobin 29.7 pg (28.0-34.0); Mean Corpuscular Volume 104.5 fL (81-99); Mean Platelet Volume 10.3 fL (7.4-10.4); Monocytes # 0.5 10^3/uL (0.2-0.9); Monocytes % 6.9 %; Neutrophils # 4.5 10^3/uL (1.8-7.7); Neutrophils % 63.6 %; Nucleated Red Blood Cells % 0 %; Platelet Count 275 10^3/cmm (130-400); Red Blood Count 2.86 10^6/uL (4.1-5.3); Red Cell Distribution Width 17.7 % (12.1-15.1); White Blood Count 7.1 10^3/uL (4.0-10.0)
[2020-04-26 04:13] LABS: Blood Urea Nitrogen 49 mg/dL (8-23); Calcium 8.7 mg/dL (8.5-10.5); Carbon Dioxide 35 mmol/L (22-29); Chloride 99 mmol/L (98-107); Glucose 126 mg/dL (65-115); Osmolality Calculated 296 mOsm/kg (285-295); Sodium 143 mmol/L (136-145)
[2020-04-26 06:19] LABS: Glucose Point of Care 122 mg/dL (70-110)
[2020-04-26] MEDS: rivaroxaban 10 mg Tablet 15 MG PO (08:06)
[2020-04-26] MEDS: polyethylene glycol 3350 Pkt 17 gm PO (08:06)
[2020-04-26] MEDS: sennosides-docusate Tablet 1 TAB PO ×2 (08:06→18:28)
--- NOTE | 2020-04-26 08:55 | PM.PN ---
Subjective Subjective: Interval history: Mora reports that she is feeling better. Less short of breath. No chest discomfort. Medications: Reviewed: Yes Vitals/I&O/Wt Last Vital Signs Temp 98.0 F 04/26/20 07:37 Pulse 74 04/26/20 07:20 Resp 16 04/26/20 07:20 BP 142/89 04/26/20 07:20 Pulse Ox 100 04/26/20 07:20 04/25/20 04/26/20 04/26/20 22:59 06:59 14:59 Intake Total 240 / 300 100 / 400 540 / 540 Output Total 1500 / 1500 900 / 2400 Balance -1260 / -1200 -800 / -2000 540 / 540 Weight last 48 hrs Weight 119.295 kg Physical Exam Narrative: EXAM NARRATIVE: General exam mild respiratory distress Cardiovascular irregular, irregular rhythm without murmur Lungs diminished breath sounds at the bases Abdomen is soft obese. Some edema noted Extremities 2+ edema. Left calf with some skin breakdown at previous surgical site. Urinary Catheter Management^: Riggins: Cath Placed During This Visit: yes Reason for Continuing Indwelling Catheter: Acute Urinary Retention or Obstruction Urinary Catheter Date of Insertion: 04/24/20 Urinary Catheter Time of Insertion: 21:24 Data : 04/26/20 03:43 04/26/20 03:43 A&P Assessment and plan (1) Acute respiratory failure with hypoxia and hypercarbia: Secondary to CHF. Diuresis initiated and patient improved. Weaning oxygen. Status: Acute (2) Congestive heart failure: Acute diastolic heart failure. Continue diuresis with Bumex 2 mg IV every 12 hours. Approximately 1500 cc were taken off yesterday without worsening renal function. Status: Acute Qualifiers: Heart failure type: other Qualified Code(s): I50.9 - Heart failure, unspecified (3) Hyperkalemia: Resolved with diuresis Status: Acute (4) Chronic venous stasis: Status: Acute (5) Coronary artery disease: No chest pain. Troponin chronically elevated. Type II. Status: Acute (6) Peripheral neuropathy: Status: Acute (7) Chronic anticoagulation: On Xarelto Status: Acute (8) Atrial fibrillation: Rate controlled. On chronic anticoagulation. Status: Acute (9) Morbid obesity: Status: Acute (10) Diabetes mellitus type 2, insulin dependent: Sliding scale insulin Status: Acute Additional A&P Information Skin breakdown left calf, status post surgery for lower extremity fracture. Wound care will need to be involved at discharge. UTI. Continue Rocephin. Await culture chronic kidney disease stage II/III History of CVA Full code DVT prophylaxis not needed as patient is on Xarelto Attestations Medical Necessity Statement*: Needs continued hospitalization for further diuresis secondary to acute diastolic heart failure. Coding Level of Care Code Acute Mandate Retail Service Merchandiser for [facility] Fwd Diagnoses Acute respiratory failure with hypoxia and hypercarbia J96.01; J96.02 Congestive heart failure I50.9 Heart failure type: other Hyperkalemia E87.5 Chronic venous stasis I87.8 Coronary artery disease I25.10 Peripheral neuropathy G62.9 Chronic anticoagulation Z79.01 Atrial fibrillation I48.91 Morbid obesity E66.01 Diabetes mellitus type 2, insulin dependent E11.9; Z79.4
[2020-04-26] MEDS: isosorbide mononitrate ER 60 mg Tablet PO (09:13)
[2020-04-26] MEDS: carvedilol 12.5 mg Tablet PO ×2 (09:13→18:28)
[2020-04-26] MEDS: citalopram 20 mg Tablet PO (09:13)
[2020-04-26 11:16] LABS: Glucose Point of Care 188 mg/dL (70-110)
[2020-04-26] MEDS: bumetanide 0.25 mg/mL SDV 10 mL 2 MG IV ×2 (11:22→23:30)
[2020-04-26] MEDS: cefTRIAXone 1,000 MG in sodium chloride 0.9% (plus) 50 ML 100 MG IV (14:02)
[2020-04-26 17:07] LABS: Glucose Point of Care 141 mg/dL (70-110)
[2020-04-26] MEDS: atorvastatin 40 mg Tablet 20 MG PO (19:37)
[2020-04-26] MEDS: acetaminophen 325 mg Tablet 650 MG PO (19:37)
[2020-04-26 20:10] LABS: Glucose Point of Care 238 mg/dL (70-110)
--- NOTE | 2020-04-26 23:37 | PC.NURSE ---
Patient refuses to be turned at this time. Patient's pillows were readjusted per patient request. Will continue to monitor.
[2020-04-27] VITALS (7 sets, daily range): BP systolic 143–147; BP diastolic 67–71; PULSE 69–76; RESP 14–20; TEMP 36.4–36.5; O2SAT 94–99
[2020-04-27 05:13] LABS: Anion Gap 13.9 (5-19); Blood Urea Nitrogen 47 mg/dL (8-23); Calcium 8.7 mg/dL (8.5-10.5); Carbon Dioxide 37 mmol/L (22-29); Chloride 97 mmol/L (98-107); Glucose 130 mg/dL (65-115); Osmolality Calculated 298 mOsm/kg (285-295); Potassium 3.9 mmol/L (3.5-5.1); Sodium 144 mmol/L (136-145)
--- NOTE | 2020-04-27 05:18 | PC.NURSE ---
Patient had incontinent episode of bowel movement. Patient was given complete bed bath and linen change with 2 assist.
[2020-04-27] MEDS: acetaminophen 325 mg Tablet 650 MG PO (06:08)
[2020-04-27 06:25] LABS: Glucose Point of Care 145 mg/dL (70-110)
--- NOTE | 2020-04-27 08:57 | PC.SOCIAL ---
IMM Page 2 of IMM explained to patient. Initialed, dated, and timed and placed in chart. Copy provided to patient.
--- NOTE | 2020-04-27 09:00 | PC.SOCIAL ---
IMM Page 2 of IMM explained to patient. Initialed, dated, and timed and placed in chart. Copy provided to patient.
[2020-04-27] MEDS: isosorbide mononitrate ER 60 mg Tablet PO (09:12)
[2020-04-27] MEDS: carvedilol 12.5 mg Tablet PO (09:12)
[2020-04-27] MEDS: sennosides-docusate Tablet 1 TAB PO (09:12)
[2020-04-27] MEDS: citalopram 20 mg Tablet PO (09:12)
[2020-04-27] MEDS: polyethylene glycol 3350 Pkt 17 gm PO (09:15)
[2020-04-27] MEDS: rivaroxaban 10 mg Tablet 15 MG PO (09:15)
--- NOTE | 2020-04-27 11:21 | P.DS_ITS ---
Discharge Providers Date of Admission: 04/24/20 21:01 Date of Discharge: April 27, 2020 Attending Provider at Admission: Renata Oscar MD Attending Provider at Discharge: Alli Quintero MD Primary Care Provider: Alli Quintero MD Diagnoses at Discharge Discharge Diagnosis (1) Acute respiratory failure with hypoxia and hypercarbia: Status: Acute Problem details: Resolved (2) Congestive heart failure: Status: Acute Problem details: Improved Qualifiers: Heart failure type: other Qualified Code(s): I50.9 - Heart failure, unspecified (3) Hyperkalemia: Status: Acute Problem details: Resolved (4) Chronic venous stasis: Status: Acute (5) Coronary artery disease: Status: Acute (6) Peripheral neuropathy: Status: Acute (7) Chronic anticoagulation: Status: Acute (8) Atrial fibrillation: Status: Acute (9) Morbid obesity: Status: Acute (10) Diabetes mellitus type 2, insulin dependent: Status: Acute Reason for Visit Reason for Visit: SOB Hospital Course Hospital Course: Mora presented from the nursing facility with increasing shortness of breath. She was found to have acute fluid overload consistent with her acute diastolic congestive heart failure. There was also question of a UTI. She was placed in the unit on BiPAP. She was diuresed with IV Bumex. IV antibiotics consisting of Rocephin was started for UTI. With this treatment she was able to be weaned from BiPAP quickly. Overall during her hospital stay she diuresed 4 L. Urine culture ultimately grew Pseudomonas, therefore Levaquin was started and Bumex discontinued. By end of hospital stay she was back on her baseline of 2 L of oxygen. She believed her chronic edema was at baseline. She reported her chronic shortness of breath was at baseline. It was thought she could be discharged. Discharge creatinine 1.5. She will need a BMP and a CBC in 3 days. She had some noted skin breakdown left calf from pressure, which will need to be evaluated by skin care services at the nursing facility. She also received a lower extremity venous duplex that was negative for DVT during this hospital stay. Physical Exam Narrative: EXAM NARRATIVE: General exam no apparent distress Cardiovascular regular rate and rhythm Lungs clear but diminished breath sounds bilaterally Abdomen is soft obese nontender Extremities trace edema bilaterally, left greater than right Urinary Catheter Management^: Riggins: Cath Placed During This Visit: yes Reason for Continuing Indwelling Catheter: Accurate Measurement of Urinary Output in Critically Ill Patients Urinary Catheter Date of Insertion: 04/24/20 Urinary Catheter Time of Insertion: 21:24 Discharge Data Data Completed and Pending: Completed Studies During Hospitalization Category Date Time Status XR chest 1V jess ble [id number] Stat Exams 04/24/20 16:18 [place] [id number] Urgent Ultrasound 04/24/20 17:40 Completed Labs from last 24 hours 04/27/20 04/27/20 04/26/20 06:12 04:15 20:06 Sodium 144 Potassium 3.9 Chloride 97 L Carbon Dioxide 37 H Anion Gap 13.9 BUN 47 H Creatinine 1.5 H Glucose 130 H POC Glucose 145 238 Calculated Osmolal ity 298 H Calcium 8.7 04/26/20 17:03 Sodium Potassium Chloride Carbon Dioxide Anion Gap BUN Creatinine Glucose POC Glucose 141 Calculated Osmolal ity Calcium Vitals: Last Vital Signs Temp 97.7 F 04/27/20 07:37 Pulse 75 04/27/20 07:37 Resp 20 H 04/27/20 07:37 BP 147/67 04/27/20 07:37 Pulse Ox 99 04/27/20 07:37 Discharge Plan Discharge Patient Disposition: Xfer SNF Condition: Stable Prescriptions: New levofloxacin 500 mg Tablet 500 mg PO DAILY@0600 Qty: 6 RF: 0 bumetanide 2 mg tablet 2 mg PO BID Qty: 60 RF: 0 Continued acetaminophen 325 mg Tablet 325 mg PO QID RF: 0 albuterol sulfate 2.5 mg /3 mL (0.083 %) Solution For Nebulization 2.5 mg INHALATION Q4H PRN (Reason: Shortness Of Breath) RF: 0 Benadryl 25 mg Capsule See Rx Instructions .ROUTE .COMPLEX RF: 0 bisacodyl 5 mg Tablet,Delayed Release (Dr/Ec) 5 mg PO DAILY RF: 0 Multiple Vitamin, Womens Tablet 1 tab PO DAILY RF: 0 atorvastatin 20 mg Tablet 20 mg PO BEDTIME RF: 0 carvedilol 12.5 mg Tablet 12.5 mg PO BID RF: 0 polyethylene glycol 3350 [Miralax] 17 gram Powder In Packet 17 g PO DAILY RF: 0 sennosides-docusate sodium [Senna-S] 8.6-50 mg Tablet 1 tab-cap PO BID RF: 0 isosorbide mononitrate 60 mg Tablet Extended Release 24 Hr 60 mg PO DAILY RF: 0 Hold Instructions: Resume on 02/01/20. Reinstitute based on blood pressures citalopram 20 mg Tablet 20 mg PO DAILY RF: 0 aspirin 81 mg Tablet,Chewable 81 mg PO DAILY RF: 0 Artificial Tears (PF) 0.1-0.3 % Dropperette 1 drp OPHTHALMIC (EYE) QID RF: 0 Xarelto 15 mg Tablet 25 mg PO DAILY RF: 0 Discontinued amlodipine 5 mg Tablet 5 mg PO DAILY RF: 0 potassium chloride 20 mEq tablet extended release 40 meq PO DAILY RF: 0 bumetanide 1 mg Tablet 2 mg PO DAILY Qty: 60 RF: 0 Discharge Orders: Discharge Order (Routine); Ordered 04/27/20 Ordered By: Alli Quintero Referrals: Alli Quintero MD [Primary Care Provider] - Discharge Diet: Cardiac Discharge Activity: Increase activity as tolerated Activity Restrictions/Additional Instructions: Continue oxygen 2 L per nasal cannula, titrate for sat greater than or equal to 92%. Reschedule orthopedic department Skin care to evaluate at [facility] regarding skin breakdown left calf Remove Riggins prior to discharge BMP, CBC 3 days, 10 days. Discharge Attestations Time Spent in Discharge Care*: greater than 30 min Quality Metrics Clinical Quality Measures During this hospital stay, did patient experience: None Coding Level of Care Code Acute Airline Pilot/First Officer for Betty Fwd Diagnoses Acute respiratory failure with hypoxia and hypercarbia J96.01; J96.02 Congestive heart failure I50.9 Heart failure type: other Hyperkalemia E87.5 Chronic venous stasis I87.8 Coronary artery disease I25.10 Peripheral neuropathy G62.9 Chronic anticoagulation Z79.01 Atrial fibrillation I48.91 Morbid obesity E66.01 Diabetes mellitus type 2, insulin dependent E11.9; Z79.4
[2020-04-27 11:37] LABS: Glucose Point of Care 303 mg/dL (70-110)
[2020-04-27] MEDS: bumetanide 0.25 mg/mL SDV 10 mL 2 MG IV (12:05)
[2020-04-27] MEDS: levoFLOXacin 500 mg Tablet PO (12:05)
--- NOTE | 2020-04-27 15:37 | PC.NURSE ---
discharge orders and report phoned to aria at [facility].discharged at this time via [facility] via stretcher.
== END 2020-04-27 15:35 | disposition skilled nursing facility (03) | DRG 291 ==
LOC: ER 21:02 → ICU 22:07 → CSU 04-25 17:58
PROVIDERS: Emergency Medicine; Family Medicine; Admitting Provider Internal Medicine; PCP Internal Medicine; Visit Provider Internal Medicine
DX: I13.0 Hypertensive heart and chronic kidney disease with heart failure and stage 1 through stage 4 chronic kidney disease, or unspecified chronic kidney disease (principal); I50.33 Acute on chronic diastolic (congestive) heart failure; J96.02 Acute respiratory failure with hypercapnia; J96.01 Acute respiratory failure with hypoxia; Z68.42 Body mass index [BMI] 45.0-49.9, adult; I48.20 Chronic atrial fibrillation, unspecified; I69.954 Hemiplegia and hemiparesis following unspecified cerebrovascular disease affecting left non-dominant side; N39.0 Urinary tract infection, site not specified; L97.221 Non-pressure chronic ulcer of left calf limited to breakdown of skin; N18.3 Chronic kidney disease, stage 3 (moderate); E11.22 Type 2 diabetes mellitus with diabetic chronic kidney disease; E87.5 Hyperkalemia; E66.01 Morbid (severe) obesity due to excess calories; Z66 Do not resuscitate; Z79.01 Long term (current) use of anticoagulants; I87.8 Other specified disorders of veins; I25.10 Atherosclerotic heart disease of native coronary artery without angina pectoris; H35.30 Unspecified macular degeneration; E11.42 Type 2 diabetes mellitus with diabetic polyneuropathy; Z79.82 Long term (current) use of aspirin
CPT/HCPCS: 12345; 36415; 36416; 36600; 51702; 71045; 80048; 80053; 81001; 82803; 82962; 83880; 84484; 85025; 87077; 87086; 87186; 93005; 93970; 94660; 96372; 96375; 97161; 97530; 97760; 99284; J0610; J0696; J1815; J1940; J3490; J7040

== ENCOUNTER 2020-06-05 20:26 | Inpatient (IN) | payer MEDICARE, MEDICAID, SELFPAY ==
[2020-06-05 20:26] VITALS: BP 136/76; PULSE 106; RESP 28; TEMP 36.7; O2SAT 91; BMI 42.9
[2020-06-05 20:38] VITALS: BP 124/74; PULSE 16; RESP 74; O2SAT 97
--- NOTE | 2020-06-05 20:38 | XRR_ITS ---
PROCEDURE INFORMATION: Exam: XR Chest, 1 View Exam date and time: 06/05/2020 9:05 PM Age: 74 years old Clinical indication: Prior surgery; Surgery date: 6+ months; Surgery type: Lumpectomy left breast; Patient HX: Dyspnea starting afternoon of 06/05/20. Some chest pain. HX of chf and frequent admissions for respiratory failure TECHNIQUE: Imaging protocol: XR of the chest Views: 1 view. COMPARISON: CR XR chest 1V portable [id number] 04/24/2020 4:37 PM FINDINGS: Lungs: Prominent and indistinct pulmonary vasculature as well as prominence of the interstitium representing edema.. Alveolar airspace disease/consolidation in the perihilar region and within the lung bases left greater than right. Pleural space: Moderate effusions left greater than right Heart/Mediastinum: cardiac silhouette is enlarged. Bones/joints: No acute osseous abnormality Other findings: Moderate effusions left greater than right. XR/XR chest 1V portable [id number] IMPRESSION: Edema with perihilar and basilar consolidation and pleural effusions left greater than right.
[2020-06-05 20:52] LABS: ABG PH Result 7.33 (7.35-7.45); Arterial Blood Gas Hematocrit 26.1 % (37-47); Base Excess ABG 17.9 mmol/L (-2.0-2.0); Blood Gas Allen Test Pos; Blood Gas Sample Site Brachial, right; Blood Gas Sample Type Arterial; Carboxyhemoglobin 2.7 %THgb (0.4-20.1); HCO3 ABG 46.5 mmol/L (22-26); HGB O2 Sat 84.4 % (95-100); Methemoglobin 0.5 % (0.4-1.5); Oxygen Device NC; PO2 ABG 52.7 mmHg (80.0-100.0); Total Hemoglobin 8.5 g/dL (12-16)
--- NOTE | 2020-06-05 20:59 | ED_ITS ---
HPI - SOB/Dyspnea General: Chief Complaint: Shortness of Breath/Dyspnea Stated Complaint: SHORT OF BREATH Time Seen by Provider: 06/05/20 20:32 History of Present Illness: HPI Narrative: This patient is a 74-year-old female presenting from the assisted. She has a history of CHF and frequent admissions for respiratory failure. She said her breathing became worse this afternoon and she may or may not of had some chest pain off and on. When asked about that she says maybe I did, maybe I did not . She denies fever, cough, vomiting, diarrhea. She has chronic swelling in her legs with chronic wounds. She said this feels just like when she normally comes to the hospital with shortness of breath. MD elicited complaint: shortness of breath Pertinent past history: congestive heart failure and diabetes Timing: constant Severity: moderate Exacerbating factors: lying flat, exertion and movement Relieving factors: oxygen Known history of: congestive heart failure Associated symptoms: Reports chest pain; Deny abdominal pain, fever(s), nausea or vomiting Review of Systems General: Reports: 10 or more systems reviewed and unremarkable except in HPI and below Const: Denies: fever(s), chills, fatigue or malaise Eyes: Denies: change in vision ENMT: Denies: odynophagia Card: Reports: chest pain Resp: Reports: dyspnea; Denies: productive cough or non-productive cough GI: Denies: abdominal pain, nausea or vomiting : Denies: flank pain or difficulty voiding Musc: Denies: neck pain or back pain Skin/Breast: Denies: rash Neuro: Denies: headache(s), numbness in extremities or weakness in extremities Reynold/Lymph: Denies: easy bruising or easy bleeding PFSH ED PFSH: Medical History (Updated 06/06/20 @ 08:26 by Ewa Mohamud MD) Atrial fibrillation Chronic anticoagulation Chronic venous stasis CKD (chronic kidney disease) Congestive heart failure Coronary artery disease Diabetes mellitus type 2, insulin dependent History of CVA (cerebrovascular accident) Hyperlipidemia Hypertension Macular degeneration Morbid obesity Peripheral neuropathy Pulmonary hypertension Surgical History History of appendectomy History of arthroscopic knee surgery Bilateral History of cholecystectomy History of hysterectomy History of lumpectomy of left breast Family History Other Diabetes Social History Smoking and tobacco status: never smoked Alcohol intake: never Physical Exam Const: COMMON NORMALS: patient oriented x3, no limitations and alert GENERAL APPEARANCE: cooperative and in distress NUTRITIONAL APPEARANCE: obese morbidly obese ORIENTATION/CONSCIOUSNESS: Yes awake, Yes oriented to person, Yes oriented to place and Yes oriented to time HENMT: HEAD & SCALP: normal to inspection FACE & SINUS: normal facial exam Eye: GENERAL EYE: appearance normal, both eyes and all related structures Neck/C-Spine: COMMON NORMALS: supple, no meningeal signs and no JVD Chest: COMMONS NORMALS: normal inspection of the chest Resp: EFFORT & INSPECTION: Yes tachypneic, Yes respiratory distress, Yes labored, Yes grunting, Yes uses accessory muscles and Yes paradoxical thoraco- abdominal movements AUSCULTATION: diminished lung sounds on the left and diffuse Cardio: COMMON NORMALS: no JVD, regular rate, regular rhythm and No murmurs present (Cardio) RATE: regular rate RHYTHM: regular rhythm GI: COMMON NORMALS: Normal to inspection, nondistended, normoactive bowel sounds present, Soft to palpation and non-tender INSPECTION: Yes normal to inspection AUSCULTATION: Yes normoactive bowel sounds PALPATION: Yes Soft to palpation Back/Pelvis: COMMON NORMALS: thoracic and lumbar spine normal to inspection Extremity: NARRATIVE EXTREMITY EXAM: Chronic venous stasis of both lower extremities. Left lower extremity has a wrap over wounds which are weeping through the wrap. Neuro: COMMON NORMALS: patient oriented x3, moves all extremities, no focal motor deficits and no sensory deficits noted SENSORIUM/ORIENTATION: Yes alert, Yes oriented to person, Yes oriented to place and Yes oriented to time MENINGEAL SIGNS: Yes no meningeal signs Psych: COMMON NORMALS: mental status grossly normal, cooperative and normal affect Skin: COMMON NORMALS: no rashes or lesions noted and turgor normal GENERAL SKIN EXAM: no rashes or lesions noted and turgor normal Course ED course: History of CHF. Patient was in quite a bit of respiratory distress on arrival but says she does well with BiPAP. This was started and she did in fact feel much more comfortable. Work-up is consistent with CHF. She was doing fairly well on BiPAP and will be admitted to the hospital for further management of her symptoms. Vital Signs: Vital signs: Vital Signs Temperature 98.1 F 06/08/20 07:30 Pulse Rate 96 06/08/20 09:13 Respiratory Rate 18 06/08/20 09:13 Blood Pressure 147/80 06/08/20 07:30 Pulse Oximetry 98 06/08/20 09:13 MDM - SOB/Dyspnea Lab Data: Labs: Lab Results 06/05/20 06/05/20 06/05/20 Range/Units 20:45 21:20 21:20 WBC 7.5 (4.0-10.0) 10^3/ uL RBC 2.66 L (4.1-5.3) 10^6/u L Hgb 8.0 L (11.5-15.3) g/dL Hct 28.9 L (37.0-47.0) % MCV 108.6 H (81-99) fL MCH 30.1 (28.0-34.0) pg MCHC 27.7 L (30.0-36.0) g/dL RDW 16.0 H (12.1-15.1) % Plt Count 199 (130-400) 10^3/c mm MPV 10.7 H (7.4-10.4) fL Neut % (Auto) 66.2 % Lymph % (Auto) 25.2 % [place] % (Auto) 5.8 % Eos % (Auto) 2.0 % Baso % (Auto) 0.3 % Neut # (Auto) 4.95 (1.8-7.7) 10^3/u L Lymph # (Auto) 1.9 (0.8-4.8) 10^3/u L [place] # (Auto) 0.4 (0.2-0.9) 10^3/u L Eos # (Auto) 0.2 (0.0-0.8) 10^3/u L Baso # (Auto) 0.0 (0.0-0.1) 10^3/u L Nucleated RBC % (a uto) 0 % Nucleated RBCs # 0.0 /100WBC PT 25.00 H (12.1-14.9) SECO NDS INR 2.18 H (0.8-1.2) Specimen Type Arterial Sample Site Brachial, right ABG pH 7.33 L (7.35-7.45) ABG pCO2 89.0 H* (35-45) mmHg ABG pO2 52.7 L (80.0-100.0) mmH g ABG HCO3 46.5 H (22-26) mmol/L ABG Base Excess 17.9 H (-2.0-2.0) mmol/ L Jose Test Pos Hematocrit 26.1 L (37-47) % Hgb O2 Saturation 84.4 L (95-100) % Carboxyhemoglobin 2.7 (0.4-20.1) %THgb Methemoglobin 0.5 (0.4-1.5) % Total Hemoglobin 8.5 L (12-16) g/dL O2 Delivery Device Nc O2 Liters/Min 4.0 % Ornamental Ironworker Helper ID [id number] Sodium (136-145) mmol/L Potassium (3.5-5.1) mmol/L Chloride (98-107) mmol/L Carbon Dioxide (22-29) mmol/L Anion Gap (5-19) BUN (8-23) mg/dL Creatinine (0.5-0.9) mg/dL GFR Calculation Glucose (65-115) mg/dL Calculated Osmolal ity (285-295) mOsm/k g Lactic Acid (0.5-2.2) mmol/L Calcium (8.5-10.5) mg/dL Total Bilirubin (0.15-1.2) mg/dL AST (0-32) U/L ALT (0-33) U/L Alkaline Phosphata se (35-105) IU/L Troponin T Gen 5 n g/L (0-10) ng/L NT-Pro-B Natriuret Pep (0-450) pg/mL Total Protein (6.6-8.7) g/dL Albumin (3.5-5.2) g/dL Globulin (1.3-4.6) g/dL Vitamin B12 (232-1245) pg/mL Procalcitonin (0-0.5) ng/mL TSH (0.27-4.20) uIU/ mL SARS-CoV-2 Ag (Rap id) (Negative) 06/05/20 06/05/20 06/05/20 Range/Units 21:20 21:20 21:20 WBC (4.0-10.0) 10^3/ uL RBC (4.1-5.3) 10^6/u L Hgb (11.5-15.3) g/dL Hct (37.0-47.0) % MCV (81-99) fL MCH (28.0-34.0) pg MCHC (30.0-36.0) g/dL RDW (12.1-15.1) % Plt Count (130-400) 10^3/c mm MPV (7.4-10.4) fL Neut % (Auto) % Lymph % (Auto) % [place] % (Auto) % Eos % (Auto) % Baso % (Auto) % Neut # (Auto) (1.8-7.7) 10^3/u L Lymph # (Auto) (0.8-4.8) 10^3/u L [place] # (Auto) (0.2-0.9) 10^3/u L Eos # (Auto) (0.0-0.8) 10^3/u L Baso # (Auto) (0.0-0.1) 10^3/u L Nucleated RBC % (a uto) % Nucleated RBCs # /100WBC PT (12.1-14.9) SECO NDS INR (0.8-1.2) Specimen Type Sample Site ABG pH (7.35-7.45) ABG pCO2 (35-45) mmHg ABG pO2 (80.0-100.0) mmH g ABG HCO3 (22-26) mmol/L ABG Base Excess (-2.0-2.0) mmol/ L Jose Test Hematocrit (37-47) % Hgb O2 Saturation (95-100) % Carboxyhemoglobin (0.4-20.1) %THgb Methemoglobin (0.4-1.5) % Total Hemoglobin (12-16) g/dL O2 Delivery Device O2 Liters/Min % Ornamental [employer]worker Helper ID Sodium 139 (136-145) mmol/L Potassium 5.1 (3.5-5.1) mmol/L Chloride 91 L (98-107) mmol/L Carbon Dioxide 43 H* (22-29) mmol/L Anion Gap 10.1 (5-19) BUN 51 H (8-23) mg/dL Creatinine 1.9 H (0.5-0.9) mg/dL GFR Calculation Not Reportable Glucose 156 H (65-115) mg/dL Calculated Osmolal ity 289 (285-295) mOsm/k g Lactic Acid 1.2 (0.5-2.2) mmol/L Calcium 8.3 L (8.5-10.5) mg/dL Total Bilirubin 0.4 (0.15-1.2) mg/dL AST 12 (0-32) U/L ALT 6 (0-33) U/L Alkaline Phosphata se 81 (35-105) IU/L Troponin T Gen 5 n g/L (0-10) ng/L NT-Pro-B Natriuret Pep 6074 H (0-450) pg/mL Total Protein 7.0 (6.6-8.7) g/dL Albumin 3.1 L (3.5-5.2) g/dL Globulin 3.3 (1.3-4.6) g/dL Vitamin B12 651 (232-1245) pg/mL Procalcitonin 0.09 (0-0.5) ng/mL TSH 8.93 H (0.27-4.20) uIU/ mL SARS-CoV-2 Ag (Rap id) (Negative) 06/05/20 06/05/20 Range/Units 21:20 22:03 WBC (4.0-10.0) 10^3/ uL RBC (4.1-5.3) 10^6/u L Hgb (11.5-15.3) g/dL Hct (37.0-47.0) % MCV (81-99) fL MCH (28.0-34.0) pg MCHC (30.0-36.0) g/dL RDW (12.1-15.1) % Plt Count (130-400) 10^3/c mm MPV (7.4-10.4) fL Neut % (Auto) % Lymph % (Auto) % [place] % (Auto) % Eos % (Auto) % Baso % (Auto) % Neut # (Auto) (1.8-7.7) 10^3/u L Lymph # (Auto) (0.8-4.8) 10^3/u L [place] # (Auto) (0.2-0.9) 10^3/u L Eos # (Auto) (0.0-0.8) 10^3/u L Baso # (Auto) (0.0-0.1) 10^3/u L Nucleated RBC % (a uto) % Nucleated RBCs # /100WBC PT (12.1-14.9) SECO NDS INR (0.8-1.2) Specimen Type Sample Site ABG pH (7.35-7.45) ABG pCO2 (35-45) mmHg ABG pO2 (80.0-100.0) mmH g ABG HCO3 (22-26) mmol/L ABG Base Excess (-2.0-2.0) mmol/ L Jose Test Hematocrit (37-47) % Hgb O2 Saturation (95-100) % Carboxyhemoglobin (0.4-20.1) %THgb Methemoglobin (0.4-1.5) % Total Hemoglobin (12-16) g/dL O2 Delivery Device O2 Liters/Min % Ornamental Ironworker Helper ID Sodium (136-145) mmol/L Potassium (3.5-5.1) mmol/L Chloride (98-107) mmol/L Carbon Dioxide (22-29) mmol/L Anion Gap (5-19) BUN (8-23) mg/dL Creatinine (0.5-0.9) mg/dL GFR Calculation Glucose (65-115) mg/dL Calculated Osmolal ity (285-295) mOsm/k g Lactic Acid (0.5-2.2) mmol/L Calcium (8.5-10.5) mg/dL Total Bilirubin (0.15-1.2) mg/dL AST (0-32) U/L ALT (0-33) U/L Alkaline Phosphata se (35-105) IU/L Troponin T Gen 5 n g/L 272 H* (0-10) ng/L NT-Pro-B Natriuret Pep (0-450) pg/mL Total Protein (6.6-8.7) g/dL Albumin (3.5-5.2) g/dL Globulin (1.3-4.6) g/dL Vitamin B12 (232-1245) pg/mL Procalcitonin (0-0.5) ng/mL TSH (0.27-4.20) uIU/ mL SARS-CoV-2 Ag (Rap id) Negative (Negative) Discharge Plan Discharge Patient Disposition: Admitted As Inpatient Admit Provider: Alli Quintero Clinical Impression: Acute pain of left lower extremity Congestive heart failure Qualifiers: Heart failure type: diastolic Heart failure chronicity: acute on chronic Qualified Code(s): I50.33 - Acute on chronic diastolic (congestive) heart failure Condition: Stable Referrals: [facility] [Outside] Alli Quintero MD [Primary Care Provider] - Discharge Date/Time: 06/06/20 00:07 Coding Level of Care Code ED Lusterer for Chg Fwd Exam Comprehensive
[2020-06-05 21:07] VITALS: PULSE 84; RESP 26; O2SAT 94
[2020-06-05 21:28] LABS: Basophils % 0.3 %; Eosinophils # 0.2 10^3/uL (0.0-0.8); Hematocrit 28.9 % (37.0-47.0); Lymphocytes # 1.9 10^3/uL (0.8-4.8); Lymphocytes % 25.2 %; Mean Corpuscular HGB Conc 27.7 g/dL (30.0-36.0); Mean Corpuscular Hemoglobin 30.1 pg (28.0-34.0); Mean Corpuscular Volume 108.6 fL (81-99); Mean Platelet Volume 10.7 fL (7.4-10.4); Monocytes # 0.4 10^3/uL (0.2-0.9); Monocytes % 5.8 %; Neutrophils # 4.95 10^3/uL (1.8-7.7); Neutrophils % 66.2 %; Nucleated Red Blood Cells % 0 %; Platelet Count 199 10^3/cmm (130-400); Red Blood Count 2.66 10^6/uL (4.1-5.3); White Blood Count 7.5 10^3/uL (4.0-10.0)
[2020-06-05 21:36] VITALS: BP 131/78; PULSE 71; RESP 18; O2SAT 96
[2020-06-05 21:41] LABS: INR 2.18 (0.8-1.2)
[2020-06-05 21:48] LABS: Lactic Sepsis W/Reflex 1.2 mmol/L (0.5-2.2)
[2020-06-05 22:00] LABS: Alkaline Phosphatase 81 IU/L (35-105)
[2020-06-05 22:47] LABS: Chloride 91 mmol/L (98-107); Potassium 5.1 mmol/L (3.5-5.1)
[2020-06-05 22:58] LABS: SARS Covid-2 Antigen Negative (Negative)
[2020-06-05 23:17] LABS: Albumin Level 3.1 g/dL (3.5-5.2); Anion Gap 10.1 (5-19); Blood Urea Nitrogen 51 mg/dL (8-23); Calcium 8.3 mg/dL (8.5-10.5); Glucose 156 mg/dL (65-115); NT Pro B Type Natriuretic Pept 6074 pg/mL (0-450); Osmolality Calculated 289 mOsm/kg (285-295)
[2020-06-05 23:22] LABS: Carbon Dioxide 43 mmol/L (22-29)
[2020-06-05 23:23] LABS: Alanine Aminotransferase 6 U/L (0-33); Aspartate Amino Transferase 12 U/L (0-32); Sodium 139 mmol/L (136-145); Total Bilirubin 0.4 mg/dL (0.15-1.2)
[2020-06-05 23:25] LABS: Globulin 3.3 g/dL (1.3-4.6)
[2020-06-05] MEDS: ondansetron 2 mg/ML SDV 2 mL 4 MG IVP (23:39)
[2020-06-05 23:46] VITALS: BP 127/78; PULSE 77; RESP 14; O2SAT 100
--- NOTE | 2020-06-05 23:56 | PM.HP ---
Providers/Chief Complaint Primary Care Provider: Alli Quintero MD Chief Complaint: SHORT OF BREATH History of Present Illness Mora Messer is a 74 year old female nursing facility resident who presents with shortness of breath. History is difficult as she is currently on BiPAP. From what I gather, she became short of breath earlier today. She denies any chest pain. She reports occasional cough. No vomiting. She states she occasionally has difficulty swallowing. No fever. No exposure to COVID that she is aware of. Last discharge for CHF was April 24. Review of Systems General: Reports: 10 or more systems reviewed and unremarkable except in HPI and below Const: Denies: fever(s) Eyes: Denies: change in vision ENMT: Denies: odynophagia Card: Denies: chest pain Resp: Reports: dyspnea and non-productive cough GI: Denies: abdominal pain, nausea or vomiting : Denies: flank pain Musc: Denies: neck pain Skin/Breast: Denies: rash Neuro: Denies: headache(s) Psych: Denies: anxiety or depression Endo: Denies: polyuria Reynold/Lymph: Denies: easy bruising All/Imm: Denies: urticaria Medications/Allergies Home Medications Medication Instructions Recorded Confirmed Last Taken Type Artificial Tears (PF) 1 drp OPHTHALMIC (EYE) QID 01/11/20 06/06/20 04/24/20 History Xarelto 15 mg PO DAILY 01/11/20 06/06/20 04/23/20 History atorvastatin 20 mg PO BEDTIME 01/11/20 06/06/20 04/23/20 History carvedilol 12.5 mg PO BID 01/11/20 06/06/20 04/24/20 History citalopram 20 mg PO DAILY 01/11/20 06/06/20 04/24/20 History isosorbide mononitrate 60 mg PO DAILY 01/11/20 06/06/20 04/24/20 History polyethylene glycol 3350 [Miralax] 17 g PO DAILY 01/11/20 06/06/20 04/24/20 History sennosides-docusate sodium 1 tab-cap PO BID 01/11/20 06/06/20 04/24/20 History [Senna-S] Multiple Vitamin, Womens 1 tab PO DAILY 04/24/20 06/06/2020 History acetaminophen 325 mg PO QID 04/24/20 06/06/20 04/24/20 History albuterol sulfate 2.5 mg INHALATION Q4H PRN 04/24/20 06/06/20 04/23/20 History bumetanide 2 mg PO BID #60 tab 04/27/20 06/06/20 Unknown Rx aspirin [Aspirin Low Dose] 81 mg PO DAILY 06/06/20 06/06/20 Unknown History insulin aspart U-100 [Novolog See Rx Instructions .ROUTE .COMPLEX 06/06/20 06/06/20 Unknown History Flexpen U-100 Insulin] insulin degludec [Tresiba U-100 25 unit SUBCUT BEDTIME 06/06/20 06/06/20 Unknown History Insulin] potassium chloride 20 meq PO DAILY 06/06/20 06/06/20 Unknown History Allergies Allergy/AdvReac Type Severity Reaction Status Date / Time adhesive tape Allergy Unknown Verified 04/14/20 10:34 nifedipine [From Procardia] Allergy Unknown Verified 04/14/20 10:34 Penicillins Allergy Unknown Verified 04/14/20 10:34 PFSH Acute PFSH: Medical History Atrial fibrillation Chronic anticoagulation Chronic venous stasis CKD (chronic kidney disease) Congestive heart failure Improved Coronary artery disease Diabetes mellitus type 2, insulin dependent History of CVA (cerebrovascular accident) Hyperlipidemia Hypertension Macular degeneration Morbid obesity Peripheral neuropathy Pulmonary hypertension Surgical History History of appendectomy History of arthroscopic knee surgery Bilateral History of cholecystectomy History of hysterectomy History of lumpectomy of left breast Family History Other Diabetes Social History Smoking and tobacco status: never smoked Alcohol intake: never Vitals/I&O/Wt Last Vital Signs Temp 98.0 F 06/05/20 20:26 Pulse 77 06/05/20 23:46 Resp 14 06/05/20 23:46 BP 127/78 06/05/20 23:46 Pulse Ox 100 06/05/20 23:46 Weight last 48 hrs Weight 113.398 kg Physical Exam Narrative: EXAM NARRATIVE: General exam is a female, communicating as best she can while on BiPAP. HEENT: BiPAP noted Neck is supple no lymphadenopathy Cardiovascular regular rate and rhythm, heart sounds distant Lungs diminished breath sounds bilaterally left greater than right Abdomen is soft, obese. Some edema is noted. No obvious organomegaly. was deferred Extremities showed venous stasis changes bilaterally, with some edema bilaterally but appears to be close to her baseline. Some skin breakdown is noted left lower extremity, around the calf and corona. Neuro no new focal deficits Skin see extremity exam above Data : 06/05/20 21:20 06/05/20 21:20 Micro: Microbiology 06/05/20 21:20 Blood Culture - Preliminary Blood SPECIMEN COLLECTED 06/05/20 21:22 Blood Culture - Preliminary Blood SPECIMEN COLLECTED Other data: INR is 2.18 pH 7.33, PCO2 89, PO2 52 on 4 L nasal cannula BNP 6074 Troponin not done Covid negative Chest x-ray by my read demonstrates bilateral effusions, with possible infiltrate as well on the left. Certainly the left side of the chest appears worse from previous. EKG was not done. A&P Assessment and plan (1) Congestive heart failure: Acute diastolic heart failure She is on Bumex as an outpatient 2 mg twice daily Initiate Lasix 80 mg twice daily Riggins Monitor for clinical improvement, ability to discontinue BiPAP Status: Acute Qualifiers: Heart failure chronicity: acute on chronic Heart failure type: unspecified Qualified Code(s): I50.9 - Heart failure, unspecified (2) Macrocytic anemia: Check TSH, B12, folate Status: Acute (3) Respiratory failure with hypercapnia: With significant hypercarbia BiPAP as needed Diuresis, to see if she improved significantly to discontinue BiPAP If she does not improve significantly, consider CT or ultrasound of chest to check for significant effusion where thoracentesis may be useful therapeutically and diagnostically. Currently she is not able to lay flat for CT. Hold Xarelto in case thoracentesis is considered She has mentioned some difficulty with swallowing since a hospitalization where she was intubated. Will involve speech therapy. Status: Acute Additional A&P Information History of atrial fibrillation. Check EKG Chronic anticoagulation secondary to atrial fibrillation Chronic kidney disease, stage III History of CVA Diabetes mellitus. Sliding scale insulin Hypertension Hyperlipidemia Coronary disease. Check troponin, EKG History of pulmonary hypertension Multiple other medical problems as in past medical history Full code Xarelto being used for DVT prophylaxis. Will hold in case thoracentesis is needed if patient has significant pleural effusion. SCDs for DVT prophylaxis. Attestations Medical Necessity Statement*: Will need greater than 2 midnight stay for evaluation and treatment of acute diastolic heart failure Time Spent in Patient Care: Greater than 35 minutes Coding Level of Care Code Acute Contact Center Engineer for g Fwd Diagnoses Congestive heart failure I50.9 Heart failure chronicity: acute on chronic Heart failure type: unspecified Macrocytic anemia D53.9 Respiratory failure with hypercapnia J96.92
[2020-06-05 23:59] VITALS: RESP 16; O2SAT 98
[2020-06-05] MEDS: morphine 4 mg/mL SDV 1 mL IVP (23:59)
[2020-06-06] VITALS (15 sets, daily range): BP systolic 100–141; BP diastolic 55–77; PULSE 65–84; RESP 12–26; TEMP 36.4–36.8; O2SAT 89–100
--- NOTE | 2020-06-06 01:42 | ECG_ITS ---
[facility] Test Date: 2020-06-06 Pat Name: Mora Messer Department: Room: 107 Gender: Female General Adjuster: kenisha KEARNEY: 1945 Requested By: Alli Daugherty Order Number: [id number] Arsen MD: Anabella Pinzon M.D. Measurements Intervals [place] Rate: 69 P: [place]: -1 QRS: 40 QRSD: 159 T: 8 QT: 422 QTc: 452 Interpretive Statements ATRIAL FIBRILLATION RIGHT BUNDLE BRANCH BLOCK POSSIBLE SEPTAL MYOCARDIAL INFARCTION, OF INDETERMINATE AGE Compared to ECG 04/25/2020 00:06:44 Myocardial infarct finding now present Electronically Signed On 06-06-2020 12:50:07 CDT by Anabella Pinzon M.D. [email or web address]
[2020-06-06] MEDS: FUROsemide 10 mg/mL SDV 10mL 80 MG IVP (02:27)
[2020-06-06 02:39] LABS: Troponin T (5th) Once 272 ng/L (0-10)
[2020-06-06 03:04] LABS: Add Urine Culture? Yes; Bacteria Urine 1+; Bilirubin Urine Neg (NEGATIVE); Blood Urine 3+ (Negative); Glucose Urine UA Norm (Normal); Ketones Urine Negative (Negative); Leukocyte Esterase Urine Negative (Negative); Nitrate Urine Negative (Negative); Protein Urine Neg (Negative); RBC Urine 25-40 /hpf (0-2); Squamous Epithelial Cell Urine 0-4 (0-5); Urine Appearance SL Hazy (CLEAR); Urine Color Yellow (Yellow); Urobilinogen Urine Norm (Negative); WBC Urine 0-4 /hpf (0-5); pH Urine 5 (5-7)
[2020-06-06 03:07] LABS: Procalcitonin 0.09 ng/mL (0-0.5); Thyroid Stimulating Hormone 8.93 uIU/mL (0.27-4.20); Vitamin B12 651 pg/mL (232-1245)
[2020-06-06 03:39] LABS: Troponin T (5th) Once 272 ng/L (0-10)
[2020-06-06 05:08] LABS: Magnesium 2.7 mg/dL (1.7-2.3)
[2020-06-06 05:09] LABS: Alanine Aminotransferase 6 U/L (0-33); Alkaline Phosphatase 89 IU/L (35-105); Blood Urea Nitrogen 52 mg/dL (8-23); Calcium 8.4 mg/dL (8.5-10.5); Carbon Dioxide 37 mmol/L (22-29); Chloride 94 mmol/L (98-107); Globulin 3.4 g/dL (1.3-4.6); Glucose 109 mg/dL (65-115); Osmolality Calculated 289 mOsm/kg (285-295); Sodium 140 mmol/L (136-145); Total Bilirubin 0.4 mg/dL (0.15-1.2); Total Protein 6.4 g/dL (6.6-8.7)
[2020-06-06 05:25] LABS: Aspartate Amino Transferase 18 U/L (0-32)
[2020-06-06] MEDS: sodium polystyrene sulfonate 15 gm/60 mL Btl 30 GM PO (06:08)
[2020-06-06] MEDS: dextrose 50% syringe 50 mL IVP (06:09)
[2020-06-06 06:10] LABS: Glucose Point of Care 122 mg/dL (70-110)
[2020-06-06] MEDS: insulin regular-human 10 UNIT in SYRINGE 1 EACH IVP (06:10)
[2020-06-06 07:28] LABS: Glucose Point of Care 129 mg/dL (70-110)
--- NOTE | 2020-06-06 08:10 | P.PN_ITS ---
Subjective Subjective: Interval history: Chart reviewed, on 3 L NC, CXR report pending but appears to have at least moderate pleural effusion on L. Has had 200 mL urine output so far, labs noted including hemoglobin, renal function. Remains on BiPAP support, has not diuresed much following dose of Lasix, will try Bumex. Repeat labs showing normalized potassium. Will repeat INR in p.m. in case of need for thoracentesis. Medications: Reviewed: Yes Medication Review Details: Active Medications Generic Name Dose Route Start Last Admin Trade Name Freq PRN Reason Stop Dose Admin Acetaminophen 650 mg 06/06/20 01:51 Tylenol PO Q6H PRN Mild/Mod Pain Or Temp >/= 101 Albuterol Sulfate 2.5 mg 06/06/20 01:57 Albuterol INHALATION Q4H PRN Shortness Of Stephen th Aspirin 81 mg 06/06/20 09:00 Aspirin Ec PO DAILY [facility] Atorvastatin Calci um 20 mg 06/06/20 21:00 Lipitor PO BEDTIME NAGA Carvedilol 12.5 mg 06/06/20 09:00 Coreg PO BID NAGA Citalopram Hydrobr omide 20 mg 06/06/20 09:00 Celexa PO DAILY NAGA Dextrose 25 ml 06/06/20 01:58 D50w IVP ONCE PRN hypoglycemia prot ocol Protocol Dextrose 50 ml 06/06/20 01:58 D50w IVP PRN PRN hypoglycemia prot ocol Protocol Furosemide 80 mg 06/06/20 01:45 06/06/20 02:27 Lasix IVP 80 mg Q12H NAGA Administration Glucagon 1 mg 06/06/20 01:58 Glucagen IM ONCE PRN Adult Acute Hypog lycemia Prot. Protocol Dextrose 500 mls @ 100 mls /hr 06/06/20 01:58 D5w IV ONCE PRN Adult Acute Hypog lycemia Prot Protocol Insulin Aspart 0 unit 06/06/20 08:00 06/06/20 07:08 Novolog SUBCUT Not Given WM&BEDTIME NAGA Protocol Isosorbide Mononit rate 60 mg 06/06/20 09:00 Imdur PO DAILY NAGA Ondansetron HCl 4 mg 06/06/20 01:51 Zofran IVP Q6H PRN vomiting, or N/V if npo Polyethylene Glyco l 17 gm 06/06/20 09:00 Miralax PO DAILY NAGA Senna/Docusate Sod ium 1 tab 06/06/20 09:00 Senna-S PO BID NAGA adhesive tape Allergy (Verified 04/14/20 10:34) Unknown nifedipine [From Procardia] Allergy (Verified 04/14/20 10:34) Unknown Penicillins Allergy (Verified 04/14/20 10:34) Unknown Vitals/I&O/Wt Last Vital Signs Temp 98.1 F 06/06/20 07:43 Pulse 70 06/06/20 07:43 Resp 18 06/06/20 07:43 BP 107/61 06/06/20 07:43 Pulse Ox 99 06/06/20 07:43 06/05/20 06/06/20 06/06/20 22:59 06:59 14:59 Output Total 200 / 200 Balance -200 / -200 Weight last 48 hrs Weight 113.398 kg Physical Exam Const: COMMON NORMALS: no acute distress and alert GENERAL APPEARANCE: cooperative, comfortable, frail appearing and Edematous NUTRITIONAL APPEARANCE: obese morbidly obese ORIENTATION/CONSCIOUSNESS: Yes awake HENMT: COMMON NORMALS: normocephalic and atraumatic HEAD & SCALP: normocephalic and atraumatic Eye: COMMON NORMALS: Equal, round and reactive pupils present, EOMs intact bilaterally and conjunctivae normal CONJUNCTIVA: Yes conjunctivae normal PUPIL: Yes Equal, round and reactive pupils present Neck/C-Spine: COMMON NORMALS: full ROM GENERAL: Yes normal visual inspection and Yes trachea midline Resp: EFFORT & INSPECTION: Yes tachypneic AUSCULTATION: crackles OTHER: -Diminished breath sounds bilaterally, worse on the left, currently on BiPAP with FiO2 40% Cardio: COMMON NORMALS: regular rate, regular rhythm, S1 normal heart sound present, S2 normal heart sound present and No murmurs present (Cardio) RATE: regular rate RHYTHM: regular rhythm HEART SOUNDS: S1 normal heart sound present and S2 normal heart sound present GI: COMMON NORMALS: Normal to inspection, nondistended, normoactive bowel sounds present, Soft to palpation and non-tender INSPECTION: Yes central obesity PALPATION: Yes Soft to palpation : BLADDER/KIDNEY EXAM: Yes catheter in place Catheter type (Female): urethral Extremity: COMMON NORMALS: normal to inspection GENERAL: Yes edema Neuro: COMMON NORMALS: moves all extremities, no focal motor deficits and no sensory deficits noted SENSORIUM/ORIENTATION: Yes alert Psych: COMMON NORMALS: mental status grossly normal, Normal thought process present, cooperative, normal affect and speech normal SPEECH: Yes normal speech THOUGHT PROCESS: Normal thought process present Skin: COMMON NORMALS: no jaundice, no petechiae and no mottling GENERAL SKIN EXAM: Excoriation (in inguinal skin folds) Urinary Catheter Management^: Riggins: Cath Placed During This Visit: yes Reason for Continuing Indwelling Catheter: Acute Urinary Retention or Obstr uction Urinary Catheter Date of Insertion: 06/06/20 Urinary Catheter Time of Insertion: 02: Data : 06/05/20 21:20 06/06/20 09:07 Micro: Microbiology 06/05/20 21:20 Blood Culture - Preliminary Blood SPECIMEN COLLECTED 06/05/20 21: Blood Culture - Preliminary Blood SPECIMEN COLLECTED A&P Assessment and plan (1) Congestive heart failure: -acutely decompensated diastolic CHF, as evidenced by fluid overload on imaging, BNP elevation (though this is chronic), hypoxia, SOB -on IV diuresis with Lasix -daily weights, monitor Is & Os -Echo (01/2020): EF=55%, no RWMA, trace MR -has Riggins catheter in place -initially required BiPAP, now on NC -continue to monitor respiratory status -continue to monitor vital signs, currently stable -telemetry monitoring -may need thoracentesis if significant effusion, Xarelto on hold Status: Acute Qualifiers: Heart failure chronicity: acute on chronic Heart failure type: diastolic Qualified Code(s): I50.33 - Acute on chronic diastolic (congestive) heart failure (2) Respiratory failure with hypercapnia: -noted hypoxia and hypercapnia on ABG -is oxygen dependent at baseline, 2 L NC requirement -likely secondary to fluid overload as noted above -f/u CXR report -no leukocytosis, afebrile, pro-calcitonin and lactic acid wnl -f/u blood cx -COVID-19 negative Status: Acute Qualifiers: Chronicity: acute on chronic Qualified Code(s): J96.22 - Acute and chronic respiratory failure with hypercapnia (3) Macrocytic anemia: -Acute on chronic macrocytic anemia -baseline Hg is 9-10 -continue to monitor H/H -noted vitamin B12, folate levels Status: Chronic (4) Macular degeneration: -resume eye drops Status: Chronic Qualifiers: Eye laterality: unspecified Macular degeneration type: unspecified type Qualified Code(s): H35.30 - Unspecified macular degeneration (5) Hyperlipidemia: -on statin Status: Chronic Qualifiers: Hyperlipidemia type: unspecified Qualified Code(s): E78.5 - Hyperlipidemia, unspecified (6) Hypertension: -VSS; continue to monitor vitals -continue BB Status: Chronic Qualifiers: Hypertension type: essential hypertension Qualified Code(s): I10 - Essential (primary) hypertension (7) Diabetes mellitus type 2, insulin dependent: -A1c-8.2 -Accuchecks, hypoglycemia precautions, ISS -complicated by peripheral neuropathy and nephropathy Status: Chronic (8) History of CVA (cerebrovascular accident): Status: Chronic (9) Morbid obesity: -BMI-43 kg/m2 Status: Chronic Additional A&P Information -CKD stage 2; baseline Cr 1.5-2.2; continue to monitor renal function, avoid nep hrotoxins, renally dose meds -UA with noted hematuria, bacteria -Hyperkalemia; KCl supplementation on hold; continue to monitor particularly with diuresis. Got kayexelate, insulin, D50 and calcium gluconate. Repeat ordered -Troponin elevation noted; chronic, likely type II given acutely decompensated CHF -hx of atrial fibrillation, currently rate controlled, telemetry monitoring, AC on hold in case of need for procedure, INR-2.18 -cardiac consistent carb diet -fall precautions, Bradley lift at [place] -DVT ppx with SCDs for now, can resume xarelto once appropriate -Dispo: return to [facility] -Code status: FULL code Attestations Medical Necessity Statement*: Patient requires hospitalization for continued IV diuresis, monitoring of respiratory and hemodynamic status, may require thoracentesis due to noted bilateral pleural effusions. Time Spent in Patient Care: Greater than 35 minutes (>than 50% of time spent in counselling and/or direct pt care on unit) . Coding Level of Care Code Acute Health Plan Advisor for [facility] Fwd Exam Comprehensive Diagnoses Congestive heart failure I50.33 Heart failure chronicity: acute on chronic Heart failure type: diastolic Respiratory failure with hypercapnia J96.22 Chronicity: acute on chronic Macrocytic anemia D53.9 Macular degeneration H35.30 Eye laterality: unspecified Macular degeneration type: unspecified type Hyperlipidemia E78.5 Hyperlipidemia type: unspecified Hypertension I10 Hypertension type: essential hypertension Diabetes mellitus type 2, insulin dependent E11.9; Z79.4 History of CVA (cerebrovascular accident) Z86.73 Morbid obesity E66.01
[2020-06-06] MEDS: citalopram 20 mg Tablet PO (08:25)
[2020-06-06] MEDS: aspirin 81 mg EC Tablet PO (08:25)
[2020-06-06] MEDS: sennosides-docusate Tablet 1 TAB PO ×2 (08:25→17:06)
[2020-06-06] MEDS: isosorbide mononitrate ER 60 mg Tablet PO (08:25)
[2020-06-06] MEDS: polyethylene glycol 3350 Pkt 17 gm PO (08:25)
[2020-06-06] MEDS: carvedilol 12.5 mg Tablet PO ×2 (08:25→17:06)
[2020-06-06] MEDS: artificial tears Op Soln 15 mL Btl 1 DROP EYE-BOTH ×3 (09:27→20:37)
[2020-06-06 09:33] LABS: Anion Gap 7.6 (5-19); Blood Urea Nitrogen 53 mg/dL (8-23); Calcium 8.7 mg/dL (8.5-10.5); Chloride 95 mmol/L (98-107); Glucose 117 mg/dL (65-115); Osmolality Calculated 293 mOsm/kg (285-295); Potassium 4.6 mmol/L (3.5-5.1); Sodium 142 mmol/L (136-145)
[2020-06-06 09:40] LABS: Carbon Dioxide 44 mmol/L (22-29)
[2020-06-06 11:30] LABS: Glucose Point of Care 98 mg/dL (70-110)
--- NOTE | 2020-06-06 11:30 | PC.NURSE ---
Dr. Mohamud at bedside for assessment, dressings changed per Dr. Mohamud's orders patient tolerated well. patient repositioned bi pap in place.
[2020-06-06] MEDS: bumetanide 0.25 mg/mL SDV 10 mL 2 MG IV ×2 (11:41→23:03)
[2020-06-06 12:31] LABS: INR 1.76 (0.8-1.2)
[2020-06-06 16:39] LABS: Glucose Point of Care 109 mg/dL (70-110)
[2020-06-06] MEDS: atorvastatin 40 mg Tablet 20 MG PO (20:36)
[2020-06-06] MEDS: metOLazone 5 MG Tablet 2.5 MG PO (20:36)
[2020-06-06 20:40] LABS: Glucose Point of Care 114 mg/dL (70-110)
[2020-06-07] VITALS (18 sets, daily range): BP systolic 113–158; BP diastolic 63–94; PULSE 68–111; RESP 14–87; TEMP 35.9–36.9; O2SAT 90–99
[2020-06-07 04:54] LABS: Basophils % 0.3 %; Eosinophils # 0.2 10^3/uL (0.0-0.8); Eosinophils % 2.3 %; Hematocrit 24.9 % (37.0-47.0); Hemoglobin 6.9 g/dL (11.5-15.3); Lymphocytes # 2.5 10^3/uL (0.8-4.8); Lymphocytes % 36.3 %; Mean Corpuscular HGB Conc 27.7 g/dL (30.0-36.0); Mean Corpuscular Hemoglobin 28.9 pg (28.0-34.0); Mean Corpuscular Volume 104.2 fL (81-99); Mean Platelet Volume 10.8 fL (7.4-10.4); Monocytes # 0.5 10^3/uL (0.2-0.9); Monocytes % 7.6 %; Neutrophils # 3.62 10^3/uL (1.8-7.7); Neutrophils % 53.2 %; Nucleated Red Blood Cells % 0 %; Platelet Count 187 10^3/cmm (130-400); Red Blood Count 2.39 10^6/uL (4.1-5.3); Red Cell Distribution Width 16.1 % (12.1-15.1); White Blood Count 6.8 10^3/uL (4.0-10.0)
[2020-06-07 05:21] LABS: INR 1.72 (0.8-1.2)
[2020-06-07 05:50] LABS: Alanine Aminotransferase < 5 U/L (0-33); Albumin Level 2.6 g/dL (3.5-5.2); Alkaline Phosphatase 76 IU/L (35-105); Aspartate Amino Transferase 12 U/L (0-32); Blood Urea Nitrogen 55 mg/dL (8-23); Calcium 8.5 mg/dL (8.5-10.5); Chloride 93 mmol/L (98-107); Globulin 3.3 g/dL (1.3-4.6); Glucose 82 mg/dL (65-115); Osmolality Calculated 294 mOsm/kg (285-295); Sodium 143 mmol/L (136-145); Total Bilirubin 0.4 mg/dL (0.15-1.2); Total Protein 5.9 g/dL (6.6-8.7)
[2020-06-07 05:53] LABS: Carbon Dioxide 45 mmol/L (22-29)
[2020-06-07 06:20] LABS: Glucose Point of Care 98 mg/dL (70-110)
[2020-06-07] MEDS: citalopram 20 mg Tablet PO (08:18)
[2020-06-07] MEDS: nystatin powder 15 gm Btl 1 APPLIC TOPICAL ×2 (08:18→17:49)
[2020-06-07] MEDS: carvedilol 12.5 mg Tablet PO ×2 (08:18→17:48)
[2020-06-07] MEDS: isosorbide mononitrate ER 60 mg Tablet PO (08:18)
[2020-06-07] MEDS: aspirin 81 mg EC Tablet PO (08:18)
[2020-06-07] MEDS: sennosides-docusate Tablet 1 TAB PO ×2 (08:18→17:48)
[2020-06-07] MEDS: polyethylene glycol 3350 Pkt 17 gm PO (08:19)
[2020-06-07] MEDS: artificial tears Op Soln 15 mL Btl 1 DROP EYE-BOTH ×3 (08:19→21:04)
--- NOTE | 2020-06-07 09:32 | P.PN_ITS ---
Subjective Subjective: Interval history: Had 650 mL urine output overnight, on 3 L NC, noted drop in hemoglobin and needs transfusion of blood products, stable renal function. INR-1.72 today. Resting quietly in bed, no apparent distress, much more alert today. Plan for thoracentesis tomorrow if INR down to less than 1.5. Medications: Reviewed: Yes Medication Review Details: Active Medications Generic Name Dose Route Start Last Admin Trade Name Freq PRN Reason Stop Dose Admin Acetaminophen 650 mg 06/06/20 01:51 Tylenol PO Q6H PRN Mild/Mod Pain Or Temp >/= 101 Albuterol Sulfate 2.5 mg 06/06/20 01:57 06/07/20 07:27 Albuterol INHALATION 2.5 mg Q4H PRN Administration Shortness Of Polly th Artificial Tears 1 drop 06/06/20 08:30 06/07/20 08:19 Isopto Tears EYE-BOTH 1 drop Q6H NAGA Administration Aspirin 81 mg 06/06/20 09:00 06/07/20 08:18 Aspirin Ec PO 81 mg DAILY NAGA Administration Atorvastatin Calci um 20 mg 06/06/20 21:00 06/06/20 20:36 Lipitor PO 20 mg BEDTIME NAGA Administration Bumetanide 2 mg 06/06/20 11:30 06/06/20 23:03 Bumex IV 2 mg Q12H NAGA Administration Carvedilol 12.5 mg 06/06/20 09:00 06/07/20 08:18 Coreg PO 12.5 mg BID NAGA Administration Citalopram Hydrobr omide 20 mg 06/06/20 09:00 06/07/20 08:18 Celexa PO 20 mg DAILY NAGA Administration Dextrose 25 ml 06/06/20 01:58 D50w IVP ONCE PRN hypoglycemia prot ocol Protocol Dextrose 50 ml 06/06/20 01:58 D50w IVP PRN PRN hypoglycemia prot ocol Protocol Glucagon 1 mg 06/06/20 01:58 Glucagen IM ONCE PRN Adult Acute Hypog lycemia Prot. Protocol Dextrose 500 mls @ 100 mls /hr 06/06/20 01:58 D5w IV ONCE PRN Adult Acute Hypog lycemia Prot Protocol Insulin Aspart 0 unit 06/06/20 08:00 06/07/20 06:51 Novolog SUBCUT Not Given WM&BEDTIME NAGA Protocol Isosorbide Mononit rate 60 mg 06/06/20 09:00 06/07/20 08:18 Imdur PO 60 mg DAILY NAGA Administration Nystatin 1 applic 06/07/20 09:00 06/07/20 08:18 Nystatin Powder TOPICAL 1 applic BID NAGA Administration Ondansetron HCl 4 mg 06/06/20 01:51 Zofran IVP Q6H PRN vomiting, or N/V if npo Polyethylene Glyco l 17 gm 06/06/20 09:00 06/07/20 08:19 Miralax PO 17 gm DAILY NAGA Administration Senna/Docusate Sod ium 1 tab 06/06/20 09:00 06/07/20 08:18 Senna-S PO 1 tab BID NAGA Administration adhesive tape Allergy (Verified 04/14/20 10:34) Unknown nifedipine [From Procardia] Allergy (Verified 04/14/20 10:34) Unknown Penicillins Allergy (Verified 04/14/20 10:34) Unknown Vitals/I&O/Wt Last Vital Signs Temp 96.6 F L 06/07/20 07:24 Pulse 88 06/07/20 07:33 Resp 17 06/07/20 07:33 BP 158/84 06/07/20 07:24 Pulse Ox 99 06/07/20 07:33 06/06/20 06/07/20 06/07/20 22:59 06:59 14:59 Intake Total 240 / 360 120 / 120 Output Total 400 / 400 650 / 1050 Balance -160 / -40 -650 / -690 120 / 120 Weight last 48 hrs Weight 113.398 kg Physical Exam Const: COMMON NORMALS: no acute distress and alert GENERAL APPEARANCE: cooperative, comfortable, frail appearing and Edematous NUTRITIONAL APPEARANCE: obese morbidly obese ORIENTATION/CONSCIOUSNESS: Yes awake HENMT: COMMON NORMALS: normocephalic and atraumatic HEAD & SCALP: normocephalic and atraumatic Eye: COMMON NORMALS: Equal, round and reactive pupils present, EOMs intact bilaterally and conjunctivae normal CONJUNCTIVA: Yes conjunctivae normal PUPIL: Yes Equal, round and reactive pupils present Neck/C-Spine: COMMON NORMALS: full ROM GENERAL: Yes normal visual inspection and Yes trachea midline Resp: COMMON NORMALS: normal respiratory effort, No retractions and No use of accessory muscles EFFORT & INSPECTION: Yes tachypneic AUSCULTATION: crackles OTHER: -Diminished breath sounds bilaterally, worse on the left, on 3 L nasal cannula Cardio: COMMON NORMALS: regular rate, regular rhythm, S1 normal heart sound present, S2 normal heart sound present and No murmurs present (Cardio) RATE: regular rate RHYTHM: regular rhythm HEART SOUNDS: S1 normal heart sound present and S2 normal heart sound present GI: COMMON NORMALS: Normal to inspection, nondistended, normoactive bowel sounds present, Soft to palpation and non-tender INSPECTION: Yes central obesity PALPATION: Yes Soft to palpation : BLADDER/KIDNEY EXAM: Yes catheter in place Catheter type (Female): urethral Extremity: COMMON NORMALS: normal to inspection GENERAL: Yes edema Neuro: COMMON NORMALS: moves all extremities, no focal motor deficits and no sensory deficits noted SENSORIUM/ORIENTATION: Yes alert Psych: COMMON NORMALS: mental status grossly normal, Normal thought process present, cooperative, normal affect and speech normal SPEECH: Yes normal speech THOUGHT PROCESS: Normal thought process present Skin: COMMON NORMALS: no jaundice, no petechiae and no mottling GENERAL SKIN EXAM: Excoriation (in inguinal skin folds) Urinary Catheter Management^: Riggins: Cath Placed During This Visit: yes Reason for Continuing Indwelling Catheter: Other Urinary Catheter Date of Insertion: 06/06/20 Urinary Catheter Time of Insertion: 02:22 Data : 06/07/20 17:50 06/07/20 04:40 Micro: Microbiology 06/05/20 21:22 Blood Culture - Preliminary Blood NEGATIVE TO DATE 06/05/20 21:20 Blood Culture - Preliminary Blood NEGATIVE TO DATE A&P Assessment and plan (1) Congestive heart failure: -acutely decompensated diastolic CHF, as evidenced by fluid overload on imaging, BNP elevation (though this is chronic), hypoxia, SOB -on IV diuresis with Bumex -daily weights, monitor Is & Os -Echo (01/2020): EF=55%, no RWMA, trace MR -has Riggins catheter in place -initially required BiPAP, now on NC -continue to monitor respiratory status -continue to monitor vital signs, currently stable -telemetry monitoring -may need thoracentesis if significant effusion, Xarelto on hold Status: Acute Qualifiers: Heart failure chronicity: acute on chronic Heart failure type: diastolic Qualified Code(s): I50.33 - Acute on chronic diastolic (congestive) heart failure (2) Respiratory failure with hypercapnia: -noted hypoxia and hypercapnia on ABG -is oxygen dependent at baseline, 2 L NC requirement -likely secondary to fluid overload as noted above -CXR noted indicating bilateral pleural effusions and basilar consolidation -no leukocytosis, afebrile, pro-calcitonin and lactic acid wnl -blood cx: prelim negative -COVID-19 negative -will add empiric Levaquin to cover for possible infection Status: Acute Qualifiers: Chronicity: acute on chronic Qualified Code(s): J96.22 - Acute and ch ronic respiratory failure with hypercapnia (3) Macrocytic anemia: -Acute on chronic macrocytic anemia -baseline Hg is 9-10 -continue to monitor H/H; drop noted this AM, will need transfusion of blood products, start with 1 unit given fluid overload -noted vitamin B12, folate levels Status: Chronic (4) Macular degeneration: -on eye drops Status: Chronic Qualifiers: Eye laterality: unspecified Macular degeneration type: unspecified type Qualified Code(s): H35.30 - Unspecified macular degeneration (5) Hyperlipidemia: -on statin Status: Chronic Qualifiers: Hyperlipidemia type: unspecified Qualified Code(s): E78.5 - Hyperlipidemia, unspecified (6) Hypertension: -VSS; continue to monitor vitals -continue BB Status: Chronic Qualifiers: Hypertension type: essential hypertension Qualified Code(s): I10 - Essential (primary) hypertension (7) Diabetes mellitus type 2, insulin dependent: -A1c-8.2 -Accuchecks, hypoglycemia precautions, ISS -complicated by peripheral neuropathy and nephropathy Status: Chronic (8) History of CVA (cerebrovascular accident): Status: Chronic (9) Morbid obesity: -BMI-43 kg/m2 Status: Chronic Additional A&P Information -CKD stage 2; baseline Cr 1.5-2.2; continue to monitor renal function, avoid nephrotoxins, renally dose meds -UA with noted hematuria, bacteria -Hyperkalemia; KCl supplementation on hold; continue to monitor particularly with diuresis. Got kayexelate, insulin, D50 and calcium gluconate. Normalized -Troponin elevation noted; chronic, likely type II given acutely decompensated CHF -hx of atrial fibrillation, currently rate controlled, telemetry monitoring, AC on hold in case of need for procedure, INR-2.18 -hold citalopram for now with initiation of levaquin to prevent QTc prolongation -cardiac consistent carb diet -fall precautions, Bradley lift at [place] -DVT ppx with SCDs for now, can resume xarelto once appropriate -Dispo: return to [facility] -Code status: FULL code Attestations Medical Necessity Statement*: Patient requires hospitalization for continued IV diuresis, needs transfusion of blood products due to acutely worsening anemia. Time Spent in Patient Care: 16 - 35 minutes (>than 50% of time spent in counselling and/or direct pt care on unit) . Coding Level of Care Code Acute Cement Tester Assistant for g Fwd Exam Comprehensive Diagnoses Congestive heart failure I50.33 Heart failure chronicity: acute on chronic Heart failure type: diastolic Respiratory failure with hypercapnia J96.22 Chronicity: acute on chronic Macrocytic anemia D53.9 Macular degeneration H35.30 Eye laterality: unspecified Macular degeneration type: unspecified type Hyperlipidemia E78.5 Hyperlipidemia type: unspecified Hypertension I10 Hypertension type: essential hypertension Diabetes mellitus type 2, insulin dependent E11.9; Z79.4 History of CVA (cerebrovascular accident) Z86.73 Morbid obesity E66.01
[2020-06-07] MEDS: levofloxacin-dextrose 5 % 750 MG/150 ML PREMIX 100 MG IV (10:10)
--- NOTE | 2020-06-07 10:34 | PC.RESP ---
Pulmonary Rehab information sent to patient.
[2020-06-07 11:40] LABS: Glucose Point of Care 172 mg/dL (70-110)
--- NOTE | 2020-06-07 13:16 | PC.NURSE ---
Dr robledo on unit for assessments instructions to hold bumex until blood transfusion
[2020-06-07] MEDS: sodium chloride 0.9% (100 ml) 100 ML (13:22)
--- NOTE | 2020-06-07 15:53 | PC.NURSE ---
spoke with Dr robledo to confirm that it was ok to give bumex dose now and if she wanted the next dose given 12 hours from this dose instructions to give bumex now and retime for next dose to be 12 hours from now.
[2020-06-07 16:17] LABS: Glucose Point of Care 172 mg/dL (70-110)
[2020-06-07] MEDS: bumetanide 0.25 mg/mL SDV 10 mL 2 MG IV (16:18)
[2020-06-07 17:57] LABS: Hematocrit 30.8 % (37.0-47.0); Hemoglobin 8.7 g/dL (11.5-15.3)
--- NOTE | 2020-06-07 19:45 | PC.NURSE ---
Patient resting in bed on nasal cannula. Patient is alert and oriented and denies any pain. Patient denies needing the bi pap at this time. will continue to monitor.
[2020-06-07] MEDS: atorvastatin 40 mg Tablet 20 MG PO (21:05)
[2020-06-07 21:14] LABS: Glucose Point of Care 196 mg/dL (70-110)
[2020-06-08] VITALS (9 sets, daily range): BP systolic 111–151; BP diastolic 57–87; PULSE 67–97; RESP 18–35; TEMP 36.5–36.8; O2SAT 95–99
[2020-06-08] MEDS: bumetanide 0.25 mg/mL SDV 10 mL 2 MG IV ×2 (04:13→16:53)
[2020-06-08 04:59] LABS: Basophils % 0.3 %; Eosinophils # 0.2 10^3/uL (0.0-0.8); Eosinophils % 2.7 %; Hematocrit 28.5 % (37.0-47.0); Lymphocytes # 2.4 10^3/uL (0.8-4.8); Lymphocytes % 35.6 %; Mean Corpuscular HGB Conc 28.1 g/dL (30.0-36.0); Mean Corpuscular Hemoglobin 28.7 pg (28.0-34.0); Mean Corpuscular Volume 102.2 fL (81-99); Mean Platelet Volume 10.9 fL (7.4-10.4); Monocytes # 0.6 10^3/uL (0.2-0.9); Monocytes % 8.7 %; Neutrophils # 3.46 10^3/uL (1.8-7.7); Neutrophils % 52.2 %; Nucleated Red Blood Cells % 0 %; Platelet Count 188 10^3/cmm (130-400); Red Blood Count 2.79 10^6/uL (4.1-5.3); Red Cell Distribution Width 17.9 % (12.1-15.1); White Blood Count 6.6 10^3/uL (4.0-10.0)
[2020-06-08 05:23] LABS: Alanine Aminotransferase < 5 U/L (0-33); Albumin Level 2.5 g/dL (3.5-5.2); Alkaline Phosphatase 77 IU/L (35-105); Aspartate Amino Transferase 12 U/L (0-32); Blood Urea Nitrogen 52 mg/dL (8-23); Calcium 8.3 mg/dL (8.5-10.5); Chloride 93 mmol/L (98-107); Globulin 3.3 g/dL (1.3-4.6); Glucose 81 mg/dL (65-115); Osmolality Calculated 291 mOsm/kg (285-295); Sodium 142 mmol/L (136-145); Total Bilirubin 0.5 mg/dL (0.15-1.2); Total Protein 5.8 g/dL (6.6-8.7)
[2020-06-08 05:31] LABS: Carbon Dioxide 44 mmol/L (22-29)
--- NOTE | 2020-06-08 05:59 | PC.NURSE ---
End of shift: Patient has rested well this shift. Patient has had no complaints of pain or discomfort. Patient vitals are stable. Patient remains alert and oriented. Will continue to monitor.
[2020-06-08 06:18] LABS: INR 1.79 (0.8-1.2)
[2020-06-08 06:36] LABS: Glucose Point of Care 104 mg/dL (70-110)
[2020-06-08] MEDS: polyethylene glycol 3350 Pkt 17 gm PO (09:09)
[2020-06-08] MEDS: aspirin 81 mg EC Tablet PO (09:09)
[2020-06-08] MEDS: isosorbide mononitrate ER 60 mg Tablet PO (09:09)
[2020-06-08] MEDS: sennosides-docusate Tablet 1 TAB PO ×2 (09:09→18:39)
[2020-06-08] MEDS: nystatin powder 15 gm Btl 1 APPLIC TOPICAL (09:09)
[2020-06-08] MEDS: carvedilol 12.5 mg Tablet PO ×2 (09:09→18:39)
[2020-06-08] MEDS: artificial tears Op Soln 15 mL Btl 1 DROP EYE-BOTH ×3 (09:10→20:37)
--- NOTE | 2020-06-08 09:25 | PC.SOCIAL ---
IMM Update Pg 2 of IMM updated and copy provided to patient.
[2020-06-08 10:45] LABS: Glucose Point of Care 241 mg/dL (70-110)
--- NOTE | 2020-06-08 11:59 | P.PN_ITS ---
Subjective Subjective: Interval history: Had 1350 mL urine output overnight, hemodynamically stable, on 3 L nasal cannula, hemoglobin is 8 today, stable renal function. INR is 1.79 so thoracentesis on hold. Order repeat chest x-ray to monitor progression of bilateral pleural effusions. Appears fatigued, spent much of the day resting in bed. Medications: Reviewed: Yes Medication Review Details: Active Medications Generic Name Dose Route Start Last Admin Trade Name Freq PRN Reason Stop Dose Admin Acetaminophen 650 mg 06/06/20 01:51 Tylenol PO Q6H PRN Mild/Mod Pain Or Temp >/= 101 Albuterol Sulfate 2.5 mg 06/06/20 01:57 06/07/20 07:27 Albuterol INHALATION 2.5 mg Q4H PRN Administration Shortness Of Margaret th Artificial Tears 1 drop 06/06/20 08:30 06/08/20 09:10 Isopto Tears EYE-BOTH 1 drop Q6H NAGA Administration Aspirin 81 mg 06/06/20 09:00 06/08/20 09:09 Aspirin Ec PO 81 mg DAILY NAGA Administration Atorvastatin Calci um 20 mg 06/06/20 21:00 06/07/20 21:05 Lipitor PO 20 mg BEDTIME NAGA Administration Bumetanide 2 mg 06/07/20 16:00 06/08/20 04:13 Bumex IV 2 mg Q12H NAGA Administration Carvedilol 12.5 mg 06/06/20 09:00 06/08/20 09:09 Coreg PO 12.5 mg BID NAGA Administration Citalopram Hydrobr omide 20 mg 06/06/20 09:00 06/07/20 08:18 Celexa PO 20 mg DAILY NAGA Administration Dextrose 25 ml 06/06/20 01:58 D50w IVP ONCE PRN hypoglycemia prot ocol Protocol Dextrose 50 ml 06/06/20 01:58 D50w IVP PRN PRN hypoglycemia prot ocol Protocol Glucagon 1 mg 06/06/20 01:58 Glucagen IM ONCE PRN Adult Acute Hypog lycemia Prot. Protocol Dextrose 500 mls @ 100 mls /hr 06/06/20 01:58 D5w IV ONCE PRN Adult Acute Hypog lycemia Prot Protocol Levofloxacin/Dextr ose 750 mg in 150 mls @ 100 mls/hr 06/07/20 09:45 06/07/20 10:10 Levaquin-D5w IV 100 mls/hr Q48H NAGA Administration Protocol Insulin Aspart 0 unit 06/06/20 08:00 06/08/20 11:40 Novolog SUBCUT 8 unit WM&BEDTIME NAGA Administration Protocol Isosorbide Mononit rate 60 mg 06/06/20 09:00 06/08/20 09:09 Imdur PO 60 mg DAILY NAGA Administration Nystatin 1 applic 06/07/20 09:00 06/08/20 09:09 Nystatin Powder TOPICAL 1 applic BID NAGA Administration Ondansetron HCl 4 mg 06/06/20 01:51 Zofran IVP Q6H PRN vomiting, or N/V if npo Polyethylene Glyco l 17 gm 06/06/20 09:00 06/08/20 09:09 Miralax PO 17 gm DAILY NAGA Administration Senna/Docusate Sod ium 1 tab 06/06/20 09:00 06/08/20 09:09 Senna-S PO 1 tab BID NAGA Administration adhesive tape Allergy (Verified 04/14/20 10:34) Unknown nifedipine [From Procardia] Allergy (Verified 04/14/20 10:34) Unknown Penicillins Allergy (Verified 04/14/20 10:34) Unknown Vitals/I&O/Wt Last Vital Signs Temp 97.9 F 06/08/20 11:36 Pulse 70 06/08/20 11:36 Resp 25 H 06/08/20 11:36 BP 118/57 06/08/20 11:36 Pulse Ox 98 06/08/20 09:13 06/07/20 06/08/20 06/08/20 22:59 06:59 14:59 Intake Total 830 / 1070 120 / 1190 360 / 360 Output Total 1100 / 1100 800 / 1900 Balance -270 / -30 -680 / -710 360 / 360 Physical Exam Const: COMMON NORMALS: no acute distress and alert GENERAL APPEARANCE: cooperative, comfortable, frail appearing and Edematous NUTRITIONAL APPEARANCE: obese morbidly obese ORIENTATION/CONSCIOUSNESS: Yes awake OTHER: -appears fatigued HENMT: COMMON NORMALS: normocephalic and atraumatic HEAD & SCALP: normocephalic and atraumatic Eye: COMMON NORMALS: Equal, round and reactive pupils present, EOMs intact bilaterally and conjunctivae normal CONJUNCTIVA: Yes conjunctivae normal PUPIL: Yes Equal, round and reactive pupils present Neck/C-Spine: COMMON NORMALS: full ROM GENERAL: Yes normal visual inspection and Yes trachea midline Resp: COMMON NORMALS: normal respiratory effort, No retractions and No use of accessory muscles EFFORT & INSPECTION: Yes tachypneic AUSCULTATION: crackles OTHER: -Diminished breath sounds bilaterally, worse on the left, on 3 L nasal cannula Cardio: COMMON NORMALS: regular rate, regular rhythm, S1 normal heart sound present, S2 normal heart sound present and No murmurs present (Cardio) RATE: regular rate RHYTHM: regular rhythm HEART SOUNDS: S1 normal heart sound present and S2 normal heart sound present GI: COMMON NORMALS: Normal to inspection, nondistended, normoactive bowel sounds present, Soft to palpation and non-tender INSPECTION: Yes central o besity PALPATION: Yes Soft to palpation : BLADDER/KIDNEY EXAM: Yes catheter in place Catheter type (Female): urethral Extremity: COMMON NORMALS: normal to inspection GENERAL: Yes edema Neuro: COMMON NORMALS: moves all extremities, no focal motor deficits and no sensory deficits noted SENSORIUM/ORIENTATION: Yes alert Psych: COMMON NORMALS: mental status grossly normal, Normal thought process present, cooperative, normal affect and speech normal SPEECH: Yes normal speech THOUGHT PROCESS: Normal thought process present Skin: COMMON NORMALS: no jaundice, no petechiae and no mottling GENERAL SKIN EXAM: Excoriation (in inguinal skin folds) Urinary Catheter Management^: Riggins: Cath Placed During This Visit: yes Reason for Continuing Indwelling Catheter: Other Urinary Catheter Date of Insertion: 06/06/20 Urinary Catheter Time of Insertion: 02:22 Data : 06/08/20 04:15 06/08/20 04:15 Micro: Microbiology 06/06/20 02:25 Urine Culture - Final Urine,Clean Catch A&P Assessment and plan (1) Congestive heart failure: -acutely decompensated diastolic CHF, as evidenced by fluid overload on imaging, BNP elevation (though this is chronic), hypoxia, SOB -on IV diuresis with Bumex -daily weights, monitor Is & Os -Echo (01/2020): EF=55%, no RWMA, trace MR -has Riggins catheter in place -initially required BiPAP, now on NC -continue to monitor respiratory status -continue to monitor vital signs, currently stable -telemetry monitoring -needs thoracentesis, need INR < 1.5, Xarelto on hold Status: Acute Qualifiers: Heart failure chronicity: acute on chronic Heart failure type: diastolic Qualified Code(s): I50.33 - Acute on chronic diastolic (congestive) heart failure (2) Respiratory failure with hypercapnia: -noted hypoxia and hypercapnia on ABG -is oxygen dependent at baseline, 2 L NC requirement -likely secondary to fluid overload as noted above -CXR noted indicating bilateral pleural effusions and basilar consolidation -no leukocytosis, afebrile, pro-calcitonin and lactic acid wnl -blood cx: prelim negative -COVID-19 negative -on empiric Levaquin to cover for possible infection Status: Acute Qualifiers: Chronicity: acute on chronic Qualified Code(s): J96.22 - Acute and chronic respiratory failure with hypercapnia (3) Macrocytic anemia: -Acute on chronic macrocytic anemia -baseline Hg is 9-10 -continue to monitor H/H; drop noted this AM, will need transfusion of blood products, start with 1 unit given fluid overload -noted vitamin B12, folate levels Status: Chronic (4) Macular degeneration: -on eye drops Status: Chronic Qualifiers: Eye laterality: unspecified Macular degeneration type: unspecified type Qualified Code(s): H35.30 - Unspecified macular degeneration (5) Hyperlipidemia: -on statin Status: Chronic Qualifiers: Hyperlipidemia type: unspecified Qualified Code(s): E78.5 - Hyperlipidemia, unspecified (6) Hypertension: -VSS; continue to monitor vitals -continue BB Status: Chronic Qualifiers: Hypertension type: essential hypertension Qualified Code(s): I10 - Essential (primary) hypertension (7) Diabetes mellitus type 2, insulin dependent: -A1c-8.2 -Accuchecks, hypoglycemia precautions, ISS -complicated by peripheral neuropathy and nephropathy Status: Chronic (8) History of CVA (cerebrovascular accident): Status: Chronic (9) Morbid obesity: -BMI-43 kg/m2 Status: Chronic Additional A&P Information -CKD stage 2; baseline Cr 1.5-2.2; continue to monitor renal function, avoid nephrotoxins, renally dose meds -UA with noted hematuria, bacteria; urine culture negative -Hyperkalemia; KCl supplementation on hold; continue to monitor particularly with diuresis. Got kayexelate, insulin, D50 and calcium gluconate. Normalized -Troponin elevation noted; chronic, likely type II given acutely decompensated CHF -hx of atrial fibrillation, currently rate controlled, telemetry monitoring, AC on hold in case of need for procedure, INR-1.79 -hold citalopram for now with initiation of levaquin to prevent QTc prolongation -cardiac consistent carb diet -fall precautions, Bradley lift at DC -DVT ppx with SCDs for now, can resume xarelto once appropriate -Dispo: return to [facility] -Code status: FULL code Attestations Medical Necessity Statement*: Patient requires hospitalization for continued IV diuresis due to acute CHF exacerbation. Time Spent in Patient Care: 16 - 35 minutes (>than 50% of time spent in counselling and/or direct pt care on unit) . Coding Level of Care Code Acute Electrotype Servicer for g Fwd Exam Comprehensive Diagnoses Congestive heart failure I50.33 Heart failure chronicity: acute on chronic Heart failure type: diastolic Respiratory failure with hypercapnia J96.22 Chronicity: acute on chronic Macrocytic anemia D53.9 Macular degeneration H35.30 Eye laterality: unspecified Macular degeneration type: unspecified type Hyperlipidemia E78.5 Hyperlipidemia type: unspecified Hypertension I10 Hypertension type: essential hypertension Diabetes mellitus type 2, insulin dependent E11.9; Z79.4 History of CVA (cerebrovascular accident) Z86.73 Morbid obesity E66.01
--- NOTE | 2020-06-08 12:00 | XRR_ITS ---
PROCEDURE INFORMATION: Exam: XR Chest, 1 View Exam date and time: 06/08/2020 12:48 PM Age: 74 years old Clinical indication: Condition or disease; Lung condition and disease; Pleural effusion; Other: Not specified; Shortness of breath; Additional info: Progression of bilateral pleural effusions TECHNIQUE: Imaging protocol: XR of the chest Views: 1 view. COMPARISON: CR XR chest 1V portable [id number] 06/05/2020 8:51 PM FINDINGS: Lungs: Bilateral hilar vascular congestion is seen. No consolidation. Pleural space: Bilateral lower lobe pleural effusion. No pneumothorax. Comparison to prior examination bilateral pleural effusions were present. At that time there was diffuse interstitial congestion throughout the left lung which are currently not visible Heart/Mediastinum: There is cardiomegaly for projection. Bones/joints: Unremarkable. XR/XR chest 1V portable [id number] IMPRESSION: 1. Stable bilateral lower lobe pleural effusions. 2. Bilateral hilar vascular congestion 3. Cardiomegaly for projection
[2020-06-08] MEDS: metOLazone 5 MG Tablet 2.5 MG PO (15:18)
[2020-06-08 16:46] LABS: Glucose Point of Care 150 mg/dL (70-110)
[2020-06-08 20:35] LABS: Glucose Point of Care 262 mg/dL (70-110)
[2020-06-08] MEDS: phytonadione (ADULT) 10 mg/mL Ampule 1 mL 5 MG PO (20:36)
[2020-06-08] MEDS: atorvastatin 40 mg Tablet 20 MG PO (20:36)
[2020-06-09] VITALS (12 sets, daily range): BP systolic 105–133; BP diastolic 50–73; PULSE 71–93; RESP 16–35; TEMP 36.6–37.2; O2SAT 92–100
[2020-06-09] MEDS: artificial tears Op Soln 15 mL Btl 1 DROP EYE-BOTH ×4 (01:39→21:09)
[2020-06-09] MEDS: bumetanide 0.25 mg/mL SDV 10 mL 2 MG IV ×2 (03:33→15:25)
[2020-06-09 04:16] LABS: Basophils % 0.2 %; Eosinophils # 0.2 10^3/uL (0.0-0.8); Eosinophils % 3.4 %; Hemoglobin 8.2 g/dL (11.5-15.3); Lymphocytes # 1.7 10^3/uL (0.8-4.8); Lymphocytes % 26.6 %; Mean Corpuscular HGB Conc 28.3 g/dL (30.0-36.0); Mean Corpuscular Hemoglobin 28.7 pg (28.0-34.0); Mean Corpuscular Volume 101.4 fL (81-99); Mean Platelet Volume 10.7 fL (7.4-10.4); Monocytes # 0.7 10^3/uL (0.2-0.9); Monocytes % 10.4 %; Neutrophils # 3.81 10^3/uL (1.8-7.7); Neutrophils % 58.9 %; Nucleated Red Blood Cells % 0 %; Platelet Count 176 10^3/cmm (130-400); Red Blood Count 2.86 10^6/uL (4.1-5.3); White Blood Count 6.5 10^3/uL (4.0-10.0)
[2020-06-09 04:44] LABS: Anion Gap 7.5 (5-19); Blood Urea Nitrogen 50 mg/dL (8-23); Calcium 8.3 mg/dL (8.5-10.5); Chloride 93 mmol/L (98-107); Glucose 105 mg/dL (65-115); Osmolality Calculated 299 mOsm/kg (285-295); Potassium 3.5 mmol/L (3.5-5.1); Sodium 145 mmol/L (136-145)
[2020-06-09 04:46] LABS: Carbon Dioxide 48 mmol/L (22-29)
[2020-06-09 05:04] LABS: INR 1.45 (0.8-1.2)
[2020-06-09 06:29] LABS: Glucose Point of Care 109 mg/dL (70-110)
--- NOTE | 2020-06-09 07:00 | US_ITS ---
WS: [id number] ULTRASOUND-GUIDED THORACENTESIS, LEFT. HISTORY: bilateral pleural effusions, L > R Procedure, risks, and complications were explained to the patient. With the patient in an upright pos ition, the skin over the LEFT posterior thorax was cleansed with ChloraPrep and anesthetized with 1% buffered lidocaine. A 5 [place] Yueh needle is inserted into the pleural fluid without complication. A pproximately 800 cc of slightly tea colored pleural fluid is removed without difficulty. No orders for fluid to be sent for analysis. / thoracentesis [id number] IMPRESSION: 1. LEFT thoracentesis yielding 800 cc of fluid. 2. Chest radiograph to follow to evaluate for pneumothorax.
--- NOTE | 2020-06-09 08:00 | PC.NURSE ---
Bedside ultrasound to verify need for paracentesis with José Miguel from radiology present.
--- NOTE | 2020-06-09 08:46 | PC.NURSE ---
Increased O2 to 4L/NC dueing procedure.
--- NOTE | 2020-06-09 08:47 | XR_ITS ---
WS: [id number] PORTABLE CHEST HISTORY: Status post LEFT thoracentesis. COMPARISON: 06/08/2020 No left-sided pneumothorax status post thoracentesis. Small residual effusion. There is a small RIGHT pleural effusion which has improved since 06/08/2020. Less pulmonary congestion. Cardiac size: Moderately enlarged cardiac silhouette. Mediastinum/Aorta: Mild atherosclerosis aorta. No osseous abnormality seen. XR/XR chest 1V portable [id number] IMPRESSION: 1. No pneumothorax status post LEFT thoracentesis. 2. Very small residual LEFT pleural effusion. 3. Small RIGHT pleural effusion.
[2020-06-09] MEDS: sennosides-docusate Tablet 1 TAB PO ×2 (10:16→18:22)
[2020-06-09] MEDS: carvedilol 12.5 mg Tablet PO ×2 (10:16→18:22)
[2020-06-09] MEDS: isosorbide mononitrate ER 60 mg Tablet PO (10:17)
[2020-06-09] MEDS: aspirin 81 mg EC Tablet PO (10:17)
[2020-06-09] MEDS: levofloxacin-dextrose 5 % 750 MG/150 ML PREMIX 100 MG IV (10:19)
[2020-06-09 11:02] LABS: Glucose Point of Care 243 mg/dL (70-110)
--- NOTE | 2020-06-09 12:10 | PM.PN ---
Subjective Subjective: Interval history: Had thoracentesis done earlier this morning, output of 800 mL from left, reviewed post-procedure x-ray. Had 1000 mL urine output overnight for total negative fluid balance of 1.5 L. Hemodynamically stable, afebrile, on 4 L nasal cannula. Remains on IV diuresis. Stable hemoglobin and renal function. INR down to 1.45. Resting quietly in bed, appears somewhat fatigued, reports breathing is better following thoracentesis, blood-tinged effusion noted. Medications: Reviewed: Yes Medication Review Details: Active Medications Generic Name Dose Route Start Last Admin Trade Name Freq PRN Reason Stop Dose Admin Acetaminophen 650 mg 06/06/20 01:51 Tylenol PO Q6H PRN Mild/Mod Pain Or Temp >/= 101 Albuterol Sulfate 2.5 mg 06/06/20 01:57 06/07/20 07:27 Albuterol INHALATION 2.5 mg Q4H PRN Administration Shortness Of Polly th Artificial Tears 1 drop 06/06/20 08:30 06/09/20 10:27 Isopto Tears EYE-BOTH 1 drop Q6H NAGA Administration Aspirin 81 mg 06/06/20 09:00 06/09/20 10:17 Aspirin Ec PO 81 mg DAILY NAGA Administration Atorvastatin Calci um 20 mg 06/06/20 21:00 06/08/20 20:36 Lipitor PO 20 mg BEDTIME NAGA Administration Bumetanide 2 mg 06/07/20 16:00 06/09/20 03:33 Bumex IV 2 mg Q12H NAGA Administration Carvedilol 12.5 mg 06/06/20 09:00 06/09/20 10:16 Coreg PO 12.5 mg BID NAGA Administration Citalopram Hydrobr omide 20 mg 06/06/20 09:00 06/07/20 08:18 Celexa PO 20 mg DAILY NAGA Administration Dextrose 25 ml 06/06/20 01:58 D50w IVP ONCE PRN hypoglycemia prot ocol Protocol Dextrose 50 ml 06/06/20 01:58 D50w IVP PRN PRN hypoglycemia prot ocol Protocol Glucagon 1 mg 06/06/20 01:58 Glucagen IM ONCE PRN Adult Acute Hypog lycemia Prot. Protocol Dextrose 500 mls @ 100 mls /hr 06/06/20 01:58 D5w IV ONCE PRN Adult Acute Hypog lycemia Prot Protocol Levofloxacin/Dextr ose 750 mg in 150 mls @ 100 mls/hr 06/07/20 09:45 06/09/20 10:19 Levaquin-D5w IV 100 mls/hr Q48H NAGA Administration Protocol Insulin Aspart 0 unit 06/06/20 08:00 06/09/20 07:50 Novolog SUBCUT Not Given WM&BEDTIME NAGA Protocol Isosorbide Mononit rate 60 mg 06/06/20 09:00 06/09/20 10:17 Imdur PO 60 mg DAILY NAGA Administration Nystatin 1 applic 06/07/20 09:00 06/09/20 10:17 Nystatin Powder TOPICAL Not Given BID NAGA Ondansetron HCl 4 mg 06/06/20 01:51 Zofran IVP Q6H PRN vomiting, or N/V if npo Polyethylene Glyco l 17 gm 06/06/20 09:00 06/09/20 10:17 Miralax PO Not Given DAILY NAGA Senna/Docusate Sod ium 1 tab 06/06/20 09:00 06/09/20 10:16 Senna-S PO 1 tab BID NAGA Administration adhesive tape Allergy (Verified 04/14/20 10:34) Unknown nifedipine [From Procardia] Allergy (Verified 04/14/20 10:34) Unknown Penicillins Allergy (Verified 04/14/20 10:34) Unknown Vitals/I&O/Wt Last Vital Signs Temp 98.4 F 06/09/20 11:26 Pulse 80 06/09/20 11:26 Resp 35 H 06/09/20 11:26 BP 105/50 06/09/20 11:26 Pulse Ox 97 06/09/20 11:26 06/08/20 06/09/20 06/09/20 22:59 06:59 14:59 Intake Total 480 / 960 240 / 1200 360 / 360 Output Total 650 / 650 1000 / 1650 Balance -170 / 310 -760 / -450 360 / 360 Physical Exam Const: COMMON NORMALS: no acute distress and alert GENERAL APPEARANCE: cooperative, comfortable, frail appearing and Edematous NUTRITIONAL APPEARANCE: obese morbidly obese ORIENTATION/CONSCIOUSNESS: Yes awake OTHER: -appears fatigued HENMT: COMMON NORMALS: normocephalic and atraumatic HEAD & SCALP: normocephalic and atraumatic Eye: COMMON NORMALS: Equal, round and reactive pupils present, EOMs intact bilaterally and conjunctivae normal CONJUNCTIVA: Yes conjunctivae normal PUPIL: Yes Equal, round and reactive pupils present Neck/C-Spine: COMMON NORMALS: full ROM GENERAL: Yes normal visual inspection and Yes trachea midline Resp: COMMON NORMALS: normal respiratory effort, No retractions and No use of accessory muscles EFFORT & INSPECTION: Yes tachypneic AUSCULTATION: crackles OTHER: -Diminished breath sounds bilaterally, worse on the left, on 4 L nasal cannula Cardio: COMMON NORMALS: regular rate, regular rhythm, S1 normal heart sound present, S2 normal heart sound present and No murmurs present (Cardio) RATE: regular rate RHYTHM: regular rhythm HEART SOUNDS: S1 normal heart sound present and S2 normal heart sound present GI: COMMON NORMALS: Normal to inspection, nondistended, normoactive bowel sounds present, Soft to palpation and non-tender INSPECTION: Yes central obesity PALPATION: Yes Soft to palpation : BLADDER/KIDNEY EXAM: Yes catheter in place Catheter type (Female): urethral Extremity: COMMON NORMALS: normal to inspection GENERAL: Yes edema Neuro: COMMON NORMALS: moves all extremities, no focal motor deficits and no sensory deficits noted SENSORIUM/ORIENTATION: Yes alert Psych: COMMON NORMALS: mental status grossly normal, Normal thought process present, cooperative, normal affect and speech normal SPEECH: Yes normal speech THOUGHT PROCESS: Normal thought process present Skin: COMMON NORMALS: no jaundice, no petechiae and no mottling NARRATIVE SKIN EXAM: -L leg ulcerations GENERAL SKIN EXAM: Excoriation (in inguinal skin folds) Urinary Catheter Management^: Riggins: Cath Placed During This Visit: yes Reason for Continuing Indwelling Catheter: Other Urinary Catheter Date of Insertion: 06/06/20 Urinary Catheter Time of Insertion: 02:22 Data : 06/09/20 03:54 06/09/20 03:54 Micro: Microbiology 06/06/20 02:25 Urine Culture - Final Urine,Clean Catch A&P Assessment and plan (1) Congestive heart failure: -acutely decompensated diastolic CHF, as evidenced by fluid overload on imaging, BNP elevation (though this is chronic), hypoxia, SOB -on IV diuresis with Bumex -daily weights, monitor Is & Os; so far has diuresed 1.5 L -Echo (01/2020): EF=55%, no RWMA, trace MR -has Riggins catheter in place; assess daily for removal -initially required BiPAP, now on NC -continue to monitor respiratory status -continue to monitor vital signs, currently stable -telemetry monitoring -s/p L therapeutic thoracentesis with output of 800 mL; f/u CXR shows minimal L pleural effusion, small R pleural effusion Status: Acute Qualifiers: Heart failure chronicity: acute on chronic Heart failure type: diastolic Qualified Code(s): I50.33 - Acute on chronic diastolic (congestive) heart failure (2) Respiratory failure with hypercapnia: -noted hypoxia and hypercapnia on ABG -is oxygen dependent at baseline, 2 L NC requirement -likely secondary to fluid overload as noted above -CXR noted indicating bilateral pleural effusions and basilar consolidation -no leukocytosis, afebrile, pro-calcitonin and lactic acid wnl -blood cx: prelim negative -COVID-19 negative -on empiric Levaquin to cover for possible infection Status: Acute Qualifiers: Chronicity: acute on chronic Qualified Code(s): J96.22 - Acute and chronic respiratory failure with hypercapnia (3) Macrocytic anemia: -Acute on chronic macrocytic anemia -baseline Hg is 9-10 -continue to monitor H/H; s/p 1 unit of PRBCs -transfuse additional blood products as needed -noted vitamin B12, folate levels -may consider resumption of AC if stable Hg and no further procedures Status: Chronic (4) Macular degeneration: -on eye drops Status: Chronic Qualifiers: Eye laterality: unspecified Macular degeneration type: unspecified type Qualified Code(s): H35.30 - Unspecified macular degeneration (5) Hyperlipidemia: -on statin Status: Chronic Qualifiers: Hyperlipidemia type: unspecified Qualified Code(s): E78.5 - Hyperlipidemia, unspecified (6) Hypertension: -VSS; continue to monitor vitals -continue BB Status: Chronic Qualifiers: Hypertension type: essential hypertension Qualified Code(s): I10 - Essential (primary) hypertension (7) Diabetes mellitus type 2, insulin dependent: -A1c-8.2 -Accuchecks, hypoglycemia precautions, ISS -complicated by peripheral neuropathy and nephropathy Status: Chronic (8) History of CVA (cerebrovascular accident): Status: Chronic (9) Morbid obesity: -BMI-43 kg/m2 Status: Chronic Additional A&P Information -CKD stage 2; baseline Cr 1.5-2.2; continue to monitor renal function, avoid nephrotoxins, renally dose meds -UA with noted hematuria, bacteria; urine culture negative -Hyperkalemia; KCl supplementation on hold; continue to monitor particularly with diuresis. Got kayexelate, insulin, D50 and calcium gluconate. Normalized -Troponin elevation noted; chronic, likely type II given acutely decompensated CHF -hx of atrial fibrillation, currently rate controlled, telemetry monitoring, AC on hold due to need for thoracentesis and anemia. May consider resumption of Xarelto if stable Hg -hold citalopram for now due to levaquin to minimize risk of QTc prolongation -cardiac consistent carb diet -fall precautions, Bradley lift at NC -DVT ppx with SCDs for now, can resume xarelto once appropriate -Dispo: return to [facility] -Code status: FULL code Attestations Medical Necessity Statement*: Patient requires hospitalization for continued IV diuresis secondary to acutely decompensated CHF. Time Spent in Patient Care: 16 - 35 minutes (>than 50% of time spent in counselling and/or direct pt care on unit). Coding Level of Care Code Acute Landing Signal Officer for g Fwd Exam Comprehensive Diagnoses Congestive heart failure I50.33 Heart failure chronicity: acute on chronic Heart failure type: diastolic Respiratory failure with hypercapnia J96.22 Chronicity: acute on chronic Macrocytic anemia D53.9 Macular degeneration H35.30 Eye laterality: unspecified Macular degeneration type: unspecified type Hyperlipidemia E78.5 Hyperlipidemia type: unspecified Hypertension I10 Hypertension type: essential hypertension Diabetes mellitus type 2, insulin dependent E11.9; Z79.4 History of CVA (cerebrovascular accident) Z86.73 Morbid obesity E66.01
[2020-06-09] MEDS: metOLazone 5 MG Tablet 2.5 MG PO (12:54)
[2020-06-09] MEDS: potassium chloride ER 10 mEq Tablet 40 MEQ PO (12:55)
[2020-06-09 16:51] LABS: Glucose Point of Care 142 mg/dL (70-110)
[2020-06-09 20:25] LABS: Glucose Point of Care 221 mg/dL (70-110)
[2020-06-09] MEDS: atorvastatin 40 mg Tablet 20 MG PO (21:10)
[2020-06-10] VITALS (12 sets, daily range): BP systolic 108–166; BP diastolic 61–97; PULSE 74–84; RESP 17–28; TEMP 36.6–37; O2SAT 92–100
[2020-06-10] MEDS: artificial tears Op Soln 15 mL Btl 1 DROP EYE-BOTH ×4 (02:22→20:37)
[2020-06-10] MEDS: bumetanide 0.25 mg/mL SDV 10 mL 2 MG IV ×2 (03:28→18:24)
--- NOTE | 2020-06-10 04:28 | PC.NURSE ---
PT RESTING IN BED. PT TURNED AND REPOSITIONED. PT STATES THAT THEY ARE COMFORTABLE. PT DENIES PAIN AT THIS TIME. WILL CONTINUE TO MONITOR.
[2020-06-10 04:47] LABS: Hematocrit 28.2 % (37.0-47.0); Hemoglobin 7.9 g/dL (11.5-15.3)
[2020-06-10 05:12] LABS: Anion Gap 8.4 (5-19); Blood Urea Nitrogen 49 mg/dL (8-23); Calcium 8.1 mg/dL (8.5-10.5); Chloride 90 mmol/L (98-107); Glucose 108 mg/dL (65-115); Osmolality Calculated 293 mOsm/kg (285-295); Potassium 3.4 mmol/L (3.5-5.1); Sodium 142 mmol/L (136-145)
[2020-06-10 05:26] LABS: Carbon Dioxide 47 mmol/L (22-29)
[2020-06-10 06:44] LABS: Glucose Point of Care 135 mg/dL (70-110)
[2020-06-10] MEDS: isosorbide mononitrate ER 60 mg Tablet PO (09:17)
[2020-06-10] MEDS: polyethylene glycol 3350 Pkt 17 gm PO (09:17)
[2020-06-10] MEDS: nystatin powder 15 gm Btl 1 APPLIC TOPICAL (09:17)
[2020-06-10] MEDS: aspirin 81 mg EC Tablet PO (09:18)
[2020-06-10] MEDS: sennosides-docusate Tablet 1 TAB PO ×2 (09:18→18:24)
[2020-06-10] MEDS: metOLazone 5 MG Tablet 2.5 MG PO (09:18)
[2020-06-10] MEDS: potassium chloride ER 10 mEq Tablet 40 MEQ PO (09:18)
[2020-06-10] MEDS: carvedilol 12.5 mg Tablet PO ×2 (09:18→18:24)
[2020-06-10 11:09] LABS: Glucose Point of Care 178 mg/dL (70-110)
--- NOTE | 2020-06-10 12:04 | PC.SOCIAL ---
IMM updated Updated pt on Pg 2 IMM. No questions voiced. Provided pt a copy. Signed, dated, & timed copy in chart.
--- NOTE | 2020-06-10 12:29 | PM.PN ---
Subjective Subjective: Interval history: Overnight had 650 mL urine output, hemodynamically stable, afebrile, on 2 L nasal cannula, slight drop in hemoglobin from 8.2-7.9, stable renal function with creatinine of 2.1, mild hypokalemia. Negative fluid balance so far is 2.5 L. Resting quietly in bed, no complaints, will transfuse 1 unit of PRBCs and give dose of albumin to optimize diuresis. Medications: Reviewed: Yes Medication Review Details: Active Medications Generic Name Dose Route Start Last Admin Trade Name Freq PRN Reason Stop Dose Admin Acetaminophen 650 mg 06/06/20 01:51 Tylenol PO Q6H PRN Mild/Mod Pain Or Temp >/= 101 Albuterol Sulfate 2.5 mg 06/06/20 01:57 06/07/20 07:27 Albuterol INHALATION 2.5 mg Q4H PRN Administration Shortness Of [place] th Artificial Tears 1 drop 06/06/20 08:30 06/10/20 09:13 Isopto Tears EYE-BOTH 1 drop Q6H NAGA Administration Aspirin 81 mg 06/06/20 09:00 06/10/20 09:18 Aspirin Ec PO 81 mg DAILY NAGA Administration Atorvastatin Calci um 20 mg 06/06/20 21:00 06/09/20 21:10 Lipitor PO 20 mg BEDTIME NAGA Administration Bumetanide 2 mg 06/07/20 16:00 06/10/20 03:28 Bumex IV 2 mg Q12H NAGA Administration Carvedilol 12.5 mg 06/06/20 09:00 06/10/20 09:18 Coreg PO 12.5 mg BID NAGA Administration Citalopram Hydrobr omide 20 mg 06/06/20 09:00 06/07/20 08:18 Celexa PO 20 mg DAILY NAGA Administration Dextrose 25 ml 06/06/20 01:58 D50w IVP ONCE PRN hypoglycemia prot ocol Protocol Dextrose 50 ml 06/06/20 01:58 D50w IVP PRN PRN hypoglycemia prot ocol Protocol Glucagon 1 mg 06/06/20 01:58 Glucagen IM ONCE PRN Adult Acute Hypog lycemia Prot. Protocol Dextrose 500 mls @ 100 mls /hr 06/06/20 01:58 D5w IV ONCE PRN Adult Acute Hypog lycemia Prot Protocol Levofloxacin/Dextr ose 750 mg in 150 mls @ 100 mls/hr 06/07/20 09:45 06/09/20 12:00 Levaquin-D5w IV Infused Q48H NAGA Infusion Protocol Insulin Aspart 0 unit 06/06/20 08:00 06/10/20 12:04 Novolog SUBCUT 4 unit WM&BEDTIME NAGA Administration Protocol Isosorbide Mononit rate 60 mg 06/06/20 09:00 06/10/20 09:17 Imdur PO 60 mg DAILY NAGA Administration Metolazone 2.5 mg 06/09/20 12:15 06/10/20 09:18 Zaroxolyn PO 2.5 mg DAILY NAGA Administration Nystatin 1 applic 06/07/20 09:00 06/10/20 09:17 Nystatin Powder TOPICAL 1 applic BID NAGA Administration Ondansetron HCl 4 mg 06/06/20 01:51 Zofran IVP Q6H PRN vomiting, or N/V if npo Polyethylene Glyco l 17 gm 06/06/20 09:00 06/10/20 09:17 Miralax PO 17 gm DAILY NAGA Administration Potassium Chloride 40 meq 06/09/20 12:20 06/10/20 09:18 Klor-Con 10 PO 40 meq DAILY NAGA Administration Senna/Docusate Sod ium 1 tab 06/06/20 09:00 06/10/20 09:18 Senna-S PO 1 tab BID NAGA Administration adhesive tape Allergy (Verified 04/14/20 10:34) Unknown nifedipine [From Procardia] Allergy (Verified 04/14/20 10:34) Unknown Penicillins Allergy (Verified 04/14/20 10:34) Unknown Vitals/I&O/Wt Last Vital Signs Temp 97.8 F 06/10/20 11:04 Pulse 76 06/10/20 11:04 Resp 27 H 06/10/20 11:04 BP 108/65 06/10/20 11:04 Pulse Ox 98 06/10/20 11:04 06/09/20 06/10/20 06/10/20 22:59 06:59 14:59 Intake Total 480 / 1430 480 / 480 Output Total 1890 / 1890 650 / 2540 Balance -1410 / -460 -650 / -1110 480 / 480 Physical Exam Const: COMMON NORMALS: no acute distress and alert GENERAL APPEARANCE: cooperative, comfortable, frail appearing and Edematous NUTRITIONAL APPEARANCE: obese morbidly obese ORIENTATION/CONSCIOUSNESS: Yes awake OTHER: -appears fatigued HENMT: COMMON NORMALS: normocephalic and atraumatic HEAD & SCALP: normocephalic and atraumatic Eye: COMMON NORMALS: Equal, round and reactive pupils present, EOMs intact bilaterally and conjunctivae normal CONJUNCTIVA: Yes conjunctivae normal PUPIL: Yes Equal, round and reactive pupils present Neck/C-Spine: COMMON NORMALS: full ROM GENERAL: Yes normal visual inspection and Yes trachea midline Resp: COMMON NORMALS: normal respiratory effort, No retractions and No use of accessory muscles EFFORT & INSPECTION: Yes tachypneic AUSCULTATION: crackles OTHER: -Diminished breath sounds bilaterally, worse on the left, on 4 L nasal cannula Cardio: COMMON NORMALS: regular rate, regular rhythm, S1 normal heart sound present, S2 normal heart sound present and No murmurs present (Cardio) RATE: regular rate RHYTHM: regular rhythm HEART SOUNDS: S1 normal heart sound present and S2 normal heart sound present GI: COMMON NORMALS: Normal to inspection, nondistended, normoactive bowel sounds present, Soft to palpation and non-tender INSPECTION: Yes central obesity PALPATION: Yes Soft to palpation : BLADDER/KIDNEY EXAM: Yes catheter in place Catheter type (Female): urethral Extremity: COMMON NORMALS: normal to inspection GENERAL: Yes edema Neuro: COMMON NORMALS: moves all extremities, no focal motor deficits and no sensory deficits noted SENSORIUM/ORIENTATION: Yes alert Psych: COMMON NORMALS: mental status grossly normal, Normal thought process present, cooperative, normal affect and speech normal SPEECH: Yes normal speech THOUGHT PROCESS: Normal thought process present Skin: COMMON NORMALS: no jaundice, no petechiae and no mottling NARRATIVE SKIN EXAM: -L leg ulcerations -Chronic venous stasis dermatitis in bilateral LEs GENERAL SKIN EXAM: Excoriation (in inguinal skin folds) Urinary Catheter Management^: Riggins: Cath Placed During This Visit: yes Reason for Continuing Indwelling Catheter: Other Urinary Catheter Date of Insertion: 06/06/20 Urinary Catheter Time of Insertion: 02:22 Data : 06/10/20 04:09 06/10/20 04:09 A&P Assessment and plan (1) Congestive heart failure: -acutely decompensated diastolic CHF, as evidenced by fluid overload on imaging, BNP elevation (though this is chronic), hypoxia, SOB -on IV diuresis with Bumex and metolazone -daily weights, monitor Is & Os; so far has diuresed 2.5 L -Echo (01/2020): EF=55%, no RWMA, trace MR -has Riggins catheter in place; assess daily for removal -initially required BiPAP, now on NC -continue to monitor respiratory status -continue to monitor vital signs, currently stable -telemetry monitoring -s/p L therapeutic thoracentesis with output of 800 mL; f/u CXR shows minimal L pleural effusion, small R pleural effusion -noted hypoalbuminemia, may benefit from albumin to facilitate diuresis Status: Acute Qualifiers: Heart failure chronicity: acute on chronic Heart failure type: diastolic Qualified Code(s): I50.33 - Acute on chronic diastolic (congestive) heart failure (2) Respiratory failure with hypercapnia: -noted hypoxia and hypercapnia on ABG -is oxygen dependent at baseline, 2 L NC requirement -likely secondary to fluid overload as noted above -CXR noted indicating bilateral pleural effusions and basilar consolidation -no leukocytosis, afebrile, pro-calcitonin and lactic acid wnl -blood cx: prelim negative -COVID-19 negative -on empiric Levaquin to cover for possible infection Status: Acute Qualifiers: Chronicity: acute on chronic Qualified Code(s): J96.22 - Acute and chronic respiratory failure with hypercapnia (3) Macrocytic anemia: -Acute on chronic macrocytic anemia -baseline Hg is 9-10 -continue to monitor H/H; s/p 1 unit of PRBCs -transfuse additional blood products as needed; will transfuse an additional 1 unit of PRBCs due to drop in Hg today -noted vitamin B12, folate levels -may consider resumption of AC if stable Hg and no further procedures Status: Chronic (4) Macular degeneration: -on eye drops Status: Chronic Qualifiers: Eye laterality: unspecified Macular degeneration type: unspecified type Qualified Code(s): H35.30 - Unspecified macular degeneration (5) Hyperlipidemia: -on statin Status: Chronic Qualifiers: Hyperlipidemia type: unspecified Qualified Code(s): E78.5 - Hyperlipidemia, unspecified (6) Hypertension: -VSS; continue to monitor vitals -continue BB Status: Chronic Qualifiers: Hypertension type: essential hypertension Qualified Code(s): I10 - Essential (primary) hypertension (7) Diabetes mellitus type 2, insulin dependent: -A1c-8.2 -Accuchecks, hypoglycemia precautions, ISS -complicated by peripheral neuropathy and nephropathy Status: Chronic (8) History of CVA (cerebrovascular accident): Status: Chronic (9) Morbid obesity: -BMI-43 kg/m2 Status: Chronic Additional A&P Information -CKD stage 2; baseline Cr 1.5-2.2; continue to monitor renal function, avoid nephrotoxins, renally dose meds. At risk for cardiorenal syndrome with decompensated dCHF -UA with noted hematuria, bacteria; urine culture negative -Hyperkalemia; KCl supplementation on hold; continue to monitor particularly with diuresis. Got kayexelate, insulin, D50 and calcium gluconate. Normalized -Troponin elevation noted; chronic, likely type II given acutely decompensated CHF -hx of atrial fibrillation, currently rate controlled, telemetry monitoring, AC on hold due to need for thoracentesis and anemia. May consider resumption of Xarelto if stable Hg -hold citalopram for now due to levaquin to minimize risk of QTc prolongation -noted hypoalbuminemia; will give albumin today -cardiac consistent carb diet -fall precautions, Bradley lift at [place] -DVT ppx with SCDs for now, can resume xarelto once appropriate -Dispo: return to [facility] -Code status: FULL code Attestations Medical Necessity Statement*: Patient requires hospitalization for continued IV diuresis, needs transfusion of additional blood products. Time Spent in Patient Care: 16 - 35 minutes (>than 50% of time spent in counselling and/or direct pt care on unit). 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 [facility] Fwd Exam Comprehensive Diagnoses Congestive heart failure I50.33 Heart failure chronicity: acute on chronic Heart failure type: diastolic Respiratory failure with hypercapnia J96.22 Chronicity: acute on chronic Macrocytic anemia D53.9 Macular degeneration H35.30 Eye laterality: unspecified Macular degeneration type: unspecified type Hyperlipidemia E78.5 Hyperlipidemia type: unspecified Hypertension I10 Hypertension type: essential hypertension Diabetes mellitus type 2, insulin dependent E11.9; Z79.4 History of CVA (cerebrovascular accident) Z86.73 Morbid obesity E66.01
[2020-06-10] MEDS: albumin 12.5 GM/50 ML VIAL IV (13:59)
[2020-06-10] MEDS: sodium chloride 0.9% (100 ml) 100 ML (15:34)
--- NOTE | 2020-06-10 15:48 | PC.NURSE ---
BLOOD TRANSFUSION BLOOD TRANSFUSION STARTED. VITAL SIGNS STABLE AND NO COMPLAINTS OTHERWISE.
[2020-06-10 15:57] LABS: Glucose Point of Care 146 mg/dL (70-110)
--- NOTE | 2020-06-10 18:28 | PC.NURSE ---
BUMEX ADMINISTERED LATE DUE TO BLOOD TRANSFUSION. DR. ORTEGA REQUESTED.
[2020-06-10 20:37] LABS: Glucose Point of Care 244 mg/dL (70-110)
[2020-06-10] MEDS: atorvastatin 40 mg Tablet 20 MG PO (20:37)
--- NOTE | 2020-06-10 21:43 | PC.NURSE ---
PT IS RESTING IN BED. PT TURNED AND REPOSITIONED AND MOVED UP IN THE BED. PT DENIES PAIN AT THIS TIME. WILL CONTINUE TO MONITOR.
[2020-06-11] VITALS (12 sets, daily range): BP systolic 105–185; BP diastolic 65–94; PULSE 66–79; RESP 14–30; TEMP 36.6–36.8; O2SAT 95–100
[2020-06-11] MEDS: artificial tears Op Soln 15 mL Btl 1 DROP EYE-BOTH ×4 (01:55→20:45)
[2020-06-11] MEDS: bumetanide 0.25 mg/mL SDV 10 mL 2 MG IV ×2 (04:46→17:07)
[2020-06-11 04:50] LABS: Basophils % 0.3 %; Eosinophils # 0.4 10^3/uL (0.0-0.8); Eosinophils % 4.5 %; Hematocrit 32.4 % (37.0-47.0); Hemoglobin 9.2 g/dL (11.5-15.3); Lymphocytes # 2.3 10^3/uL (0.8-4.8); Lymphocytes % 29.3 %; Mean Corpuscular HGB Conc 28.4 g/dL (30.0-36.0); Mean Corpuscular Hemoglobin 28.5 pg (28.0-34.0); Mean Corpuscular Volume 100.3 fL (81-99); Monocytes # 0.7 10^3/uL (0.2-0.9); Monocytes % 8.9 %; Neutrophils # 4.46 10^3/uL (1.8-7.7); Neutrophils % 56.6 %; Nucleated Red Blood Cells % 0 %; Platelet Count 180 10^3/cmm (130-400); Red Blood Count 3.23 10^6/uL (4.1-5.3); Red Cell Distribution Width 16.7 % (12.1-15.1); White Blood Count 7.9 10^3/uL (4.0-10.0)
[2020-06-11 05:19] LABS: Anion Gap 7.4 (5-19); Blood Urea Nitrogen 49 mg/dL (8-23); Calcium 8.4 mg/dL (8.5-10.5); Chloride 89 mmol/L (98-107); Glucose 100 mg/dL (65-115); Osmolality Calculated 294 mOsm/kg (285-295); Potassium 3.4 mmol/L (3.5-5.1); Sodium 143 mmol/L (136-145)
[2020-06-11 05:26] LABS: Carbon Dioxide 50 mmol/L (22-29)
[2020-06-11 05:41] LABS: Albumin Level 2.6 g/dL (3.5-5.2)
[2020-06-11 06:39] LABS: Glucose Point of Care 129 mg/dL (70-110)
[2020-06-11] MEDS: sennosides-docusate Tablet 1 TAB PO ×2 (08:23→17:14)
[2020-06-11] MEDS: polyethylene glycol 3350 Pkt 17 gm PO (08:23)
[2020-06-11] MEDS: potassium chloride ER 10 mEq Tablet 40 MEQ PO ×2 (08:23→17:14)
[2020-06-11] MEDS: metOLazone 5 MG Tablet 2.5 MG PO (08:23)
[2020-06-11] MEDS: isosorbide mononitrate ER 60 mg Tablet PO (08:24)
[2020-06-11] MEDS: aspirin 81 mg EC Tablet PO (08:24)
[2020-06-11] MEDS: carvedilol 12.5 mg Tablet PO ×2 (08:24→17:13)
[2020-06-11] MEDS: nystatin powder 15 gm Btl 1 APPLIC TOPICAL ×2 (08:25→17:18)
--- NOTE | 2020-06-11 09:04 | PM.PN ---
Subjective Subjective: Interval history: Had 450 mL urine output overnight, on 2 L NC, hypertensive this AM though has been normotensive previously, mild hypokalemia, improved Hg after transfusion of 1 unit of PRBCs yesterday. Net negative fluid balance of 3.2 L. Resting quietly in bed, no complaints. Medications: Reviewed: Yes Medication Review Details: Active Medications Generic Name Dose Route Start Last Admin Trade Name Freq PRN Reason Stop Dose Admin Acetaminophen 650 mg 06/06/20 01:51 Tylenol PO Q6H PRN Mild/Mod Pain Or Temp >/= 101 Albuterol Sulfate 2.5 mg 06/06/20 01:57 06/07/20 07:27 Albuterol INHALATION 2.5 mg Q4H PRN Administration Shortness Of [place] th Artificial Tears 1 drop 06/06/20 08:30 06/11/20 08:22 Isopto Tears EYE-BOTH 1 drop Q6H NAGA Administration Aspirin 81 mg 06/06/20 09:00 06/11/20 08:24 Aspirin Ec PO 81 mg DAILY NAGA Administration Atorvastatin Calci um 20 mg 06/06/20 21:00 06/10/20 20:37 Lipitor PO 20 mg BEDTIME NAGA Administration Bumetanide 2 mg 06/07/20 16:00 06/11/20 04:46 Bumex IV 2 mg Q12H NAGA Administration Carvedilol 12.5 mg 06/06/20 09:00 06/11/20 08:24 Coreg PO 12.5 mg BID NAGA Administration Citalopram Hydrobr omide 20 mg 06/06/20 09:00 06/07/20 08:18 Celexa PO 20 mg DAILY NAGA Administration Dextrose 25 ml 06/06/20 01:58 D50w IVP ONCE PRN hypoglycemia prot ocol Protocol Dextrose 50 ml 06/06/20 01:58 D50w IVP PRN PRN hypoglycemia prot ocol Protocol Glucagon 1 mg 06/06/20 01:58 Glucagen IM ONCE PRN Adult Acute Hypog lycemia Prot. Protocol Dextrose 500 mls @ 100 mls /hr 06/06/20 01:58 D5w IV ONCE PRN Adult Acute Hypog lycemia Prot Protocol Levofloxacin/Dextr ose 750 mg in 150 mls @ 100 mls/hr 06/07/20 09:45 06/09/20 12:00 Levaquin-D5w IV Infused Q48H NAGA Infusion Protocol Insulin Aspart 0 unit 06/06/20 08:00 06/11/20 08:04 Novolog SUBCUT Not Given WM&BEDTIME NAGA Protocol Isosorbide Mononit rate 60 mg 06/06/20 09:00 06/11/20 08:24 Imdur PO 60 mg DAILY NAGA Administration Metolazone 2.5 mg 06/09/20 12:15 06/11/20 08:23 Zaroxolyn PO 2.5 mg DAILY NAGA Administration Nystatin 1 applic 06/07/20 09:00 06/11/20 08:25 Nystatin Powder TOPICAL 1 applic BID NAGA Administration Ondansetron HCl 4 mg 06/06/20 01:51 Zofran IVP Q6H PRN vomiting, or N/V if npo Polyethylene Glyco l 17 gm 06/06/20 09:00 06/11/20 08:23 Miralax PO 17 gm DAILY NAGA Administration Potassium Chloride 40 meq 06/09/20 12:20 06/11/20 08:23 Klor-Con 10 PO 40 meq DAILY NAGA Administration Senna/Docusate Sod ium 1 tab 06/06/20 09:00 06/11/20 08:23 Senna-S PO 1 tab BID NAGA Administration adhesive tape Allergy (Verified 04/14/20 10:34) Unknown nifedipine [From Procardia] Allergy (Verified 04/14/20 10:34) Unknown Penicillins Allergy (Verified 04/14/20 10:34) Unknown Vitals/I&O/Wt Last Vital Signs Temp 98.0 F 06/11/20 07:24 Pulse 79 06/11/20 07:55 Resp 20 H 06/11/20 07:55 BP 185/94 06/11/20 07:24 Pulse Ox 97 06/11/20 07:55 06/10/20 06/11/20 06/11/20 22:59 06:59 14:59 Intake Total 680.017 / 1160.017 118 / 118 Output Total 1450 / 1450 Balance -769.983 / -289.983 118 / 118 Physical Exam Const: COMMON NORMALS: no acute distress and alert GENERAL APPEARANCE: cooperative, comfortable, frail appearing and Edematous NUTRITIONAL APPEARANCE: obese morbidly obese ORIENTATION/CONSCIOUSNESS: Yes awake OTHER: -appears fatigued HENMT: COMMON NORMALS: normocephalic and atraumatic HEAD & SCALP: normocephalic and atraumatic Eye: COMMON NORMALS: Equal, round and reactive pupils present, EOMs intact bilaterally and conjunctivae normal CONJUNCTIVA: Yes conjunctivae normal PUPIL: Yes Equal, round and reactive pupils present Neck/C-Spine: COMMON NORMALS: full ROM GENERAL: Yes normal visual inspection and Yes trachea midline Resp: COMMON NORMALS: normal respiratory effort, No retractions and No use of accessory muscles EFFORT & INSPECTION: Yes tachypneic AUSCULTATION: crackles OTHER: -Diminished breath sounds bilaterally, worse on the left, on 2 L nasal cannula Cardio: COMMON NORMALS: regular rate, regular rhythm, S1 normal heart sound present, S2 normal heart sound present and No murmurs present (Cardio) RATE: regular rate RHYTHM: regular rhythm HEART SOUNDS: S1 normal heart sound present and S2 normal heart sound present GI: COMMON NORMALS: Normal to inspection, nondistended, normoactive bowel sounds present, Soft to palpation and non-tender INSPECTION: Yes central obesity PALPATION: Yes Soft to palpation : BLADDER/KIDNEY EXAM: Yes catheter in place Catheter type (Female): urethral Extremity: COMMON NORMALS: normal to inspection GENERAL: Yes edema Neuro: COMMON NORMALS: moves all extremities, no focal motor deficits and no sensory deficits noted SENSORIUM/ORIENTATION: Yes alert Psych: COMMON NORMALS: mental status grossly normal, Normal thought process present, cooperative, normal affect and speech normal SPEECH: Yes normal speech THOUGHT PROCESS: Normal thought process present Skin: COMMON NORMALS: no jaundice, no petechiae and no mottling NARRATIVE SKIN EXAM: -L leg ulcerations -Chronic venous stasis dermatitis in bilateral LEs GENERAL SKIN EXAM: Excoriation (in inguinal skin folds) Urinary Catheter Management^: Riggins: Cath Placed During This Visit: yes Reason for Continuing Indwelling Catheter: Other Urinary Catheter Date of Insertion: 06/06/20 Urinary Catheter Time of Insertion: 02:22 Data : 06/11/20 04:22 06/11/20 04:22 Micro: Microbiology 06/05/20 21:22 Blood Culture - Final Blood NO GROWTH AFTER 5 DAYS 06/05/20 21:20 Blood Culture - Final Blood NO GROWTH AFTER 5 DAYS A&P Assessment and plan (1) Congestive heart failure: -acutely decompensated diastolic CHF, as evidenced by fluid overload on imaging, BNP elevation (though this is chronic), hypoxia, SOB -on IV diuresis with Bumex and metolazone -daily weights, monitor Is & Os; so far has diuresed 3.2 L -Echo (01/2020): EF=55%, no RWMA, trace MR -has Riggins catheter in place; assess daily for removal -initially required BiPAP, now on NC -continue to monitor respiratory status -continue to monitor vital signs, currently stable -telemetry monitoring -s/p L therapeutic thoracentesis with output of 800 mL; f/u CXR shows minimal L pleural effusion, small R pleural effusion -noted hypoalbuminemia, may benefit from albumin to facilitate diuresis Status: Acute Qualifiers: Heart failure chronicity: acute on chronic Heart failure type: diastolic Qualified Code(s): I50.33 - Acute on chronic diastolic (congestive) heart failure (2) Respiratory failure with hypercapnia: -noted hypoxia and hypercapnia on ABG -is oxygen dependent at baseline, 2 L NC requirement -likely secondary to fluid overload as noted above -CXR noted indicating bilateral pleural effusions and basilar consolidation -no leukocytosis, afebrile, pro-calcitonin and lactic acid wnl -blood cx: prelim negative -COVID-19 negative -on empiric Levaquin to cover for possible infection Status: Acute Qualifiers: Chronicity: acute on chronic Qualified Code(s): J96.22 - Acute and chronic respiratory failure with hypercapnia (3) Macrocytic anemia: -Acute on chronic macrocytic anemia -baseline Hg is 9-10 -continue to monitor H/H; s/p 2 unit of PRBCs -transfuse additional blood products as needed -noted vitamin B12, folate levels -may consider resumption of AC if stable Hg and no further procedures Status: Chronic (4) Macular degeneration: -on eye drops Status: Chronic Qualifiers: Eye laterality: unspecified Macular degeneration type: unspecified type Qualified Code(s): H35.30 - Unspecified macular degeneration (5) Hyperlipidemia: -on statin Status: Chronic Qualifiers: Hyperlipidemia type: unspecified Qualified Code(s): E78.5 - Hyperlipidemia, unspecified (6) Hypertension: -VSS; continue to monitor vitals -continue BB Status: Chronic Qualifiers: Hypertension type: essential hypertension Qualified Code(s): I10 - Essential (primary) hypertension (7) Diabetes mellitus type 2, insulin dependent: -A1c-8.2 -Accuchecks, hypoglycemia precautions, ISS -complicated by peripheral neuropathy and nephropathy Status: Chronic (8) History of CVA (cerebrovascular accident): Status: Chronic (9) Morbid obesity: -BMI-43 kg/m2 Status: Chronic Additional A&P Information -CKD stage 2; baseline Cr 1.5-2.2; continue to monitor renal function, avoid nephrotoxins, renally dose meds. At risk for cardiorenal syndrome with decompensated dCHF -UA with noted hematuria, bacteria; urine culture negative -Hyperkalemia initially, now hypokalemic likely secondary to diuresis; ongoing supplementation -Troponin elevation noted; chronic, likely type II given acutely decompensated CHF -hx of atrial fibrillation, rate controlled, telemetry monitoring, AC on hold due to anemia. May consider resumption of Xarelto if stable Hg -hold citalopram for now due to levaquin to minimize risk of QTc prolongation -noted hypoalbuminemia; will give additional albumin today -cardiac consistent carb diet -fall precautions, Bradley lift at [place] -DVT ppx with SCDs for now, can resume xarelto once appropriate -Dispo: return to [facility] -Code status: FULL code Attestations Medical Necessity Statement*: Patient requires hospitalization for continued IV diuresis secondary to decompensated diastolic CHF. Time Spent in Patient Care: 16 - 35 minutes (>than 50% of time spent in counselling and/or direct pt care on unit). Coding Level of Care Code Acute Results Engineer for [facility] Fwd Exam Comprehensive Diagnoses Congestive heart failure I50.33 Heart failure chronicity: acute on chronic Heart failure type: diastolic Respiratory failure with hypercapnia J96.22 Chronicity: acute on chronic Macrocytic anemia D53.9 Macular degeneration H35.30 Eye laterality: unspecified Macular degeneration type: unspecified type Hyperlipidemia E78.5 Hyperlipidemia type: unspecified Hypertension I10 Hypertension type: essential hypertension Diabetes mellitus type 2, insulin dependent E11.9; Z79.4 History of CVA (cerebrovascular accident) Z86.73 Morbid obesity E66.01
[2020-06-11] MEDS: albumin 12.5 GM/50 ML VIAL IV (10:44)
[2020-06-11] MEDS: levofloxacin-dextrose 5 % 750 MG/150 ML PREMIX 100 MG IV (10:47)
[2020-06-11 11:43] LABS: Glucose Point of Care 171 mg/dL (70-110)
--- NOTE | 2020-06-11 15:26 | PC.NURSE ---
Bipap applied back on Pt stated she has SOB. spo2 is at 94-96% on 2 L/min. Applied Bipap on. Pt is resting and calm after application. Will monitor.
[2020-06-11 17:13] LABS: Glucose Point of Care 149 mg/dL (70-110)
--- NOTE | 2020-06-11 18:05 | PC.NURSE ---
Pt reuested BIPAP back on
[2020-06-11 20:23] LABS: Glucose Point of Care 177 mg/dL (70-110)
[2020-06-11] MEDS: atorvastatin 40 mg Tablet 20 MG PO (20:45)
--- NOTE | 2020-06-11 21:57 | PC.NURSE ---
PT IS RESTING IN BED AT THIS TIME. BIPAP IS ON. PT DENIES PAIN AT THIS TIME. PT TURNED AND REPOSITIONED. WILL CONTINUE TO MONITOR.
[2020-06-11] MEDS: acetaminophen 325 mg Tablet 650 MG PO (22:14)
[2020-06-12] VITALS (12 sets, daily range): BP systolic 112–180; BP diastolic 54–105; PULSE 68–80; RESP 15–24; TEMP 36.6–36.9; O2SAT 92–100
[2020-06-12] MEDS: artificial tears Op Soln 15 mL Btl 1 DROP EYE-BOTH ×4 (01:43→20:19)
[2020-06-12] MEDS: bumetanide 0.25 mg/mL SDV 10 mL 2 MG IV ×2 (04:23→15:29)
[2020-06-12 04:59] LABS: Hematocrit 28.5 % (37.0-47.0); Hemoglobin 8.2 g/dL (11.5-15.3)
--- NOTE | 2020-06-12 05:11 | PC.NURSE ---
PT WAS TURNED AND REPOSITIONED. PT DENIES PAIN AT THIS TIME. CHOIR TEACHER NURSE GAVE BUMEX. WILL CONTINUE TO MONITOR.
[2020-06-12 05:25] LABS: Anion Gap 7.2 (5-19); Blood Urea Nitrogen 52 mg/dL (8-23); Calcium 8.9 mg/dL (8.5-10.5); Chloride 92 mmol/L (98-107); Glucose 110 mg/dL (65-115); Osmolality Calculated 297 mOsm/kg (285-295); Potassium 3.2 mmol/L (3.5-5.1); Sodium 144 mmol/L (136-145)
[2020-06-12 05:33] LABS: Carbon Dioxide 48 mmol/L (22-29)
[2020-06-12 07:08] LABS: Glucose Point of Care 136 mg/dL (70-110)
[2020-06-12] MEDS: polyethylene glycol 3350 Pkt 17 gm PO (08:07)
[2020-06-12] MEDS: potassium chloride ER 10 mEq Tablet 40 MEQ PO ×2 (08:07→17:03)
[2020-06-12] MEDS: metOLazone 5 MG Tablet 2.5 MG PO (08:08)
[2020-06-12] MEDS: sennosides-docusate Tablet 1 TAB PO ×2 (08:08→17:03)
--- NOTE | 2020-06-12 08:08 | DCPLANNER ---
Pg 2 of IM updated with pt., no questions and copy provided.
[2020-06-12] MEDS: aspirin 81 mg EC Tablet PO (08:09)
[2020-06-12] MEDS: isosorbide mononitrate ER 60 mg Tablet PO (08:09)
[2020-06-12] MEDS: carvedilol 12.5 mg Tablet PO ×2 (08:09→17:03)
[2020-06-12] MEDS: pantoprazole DR 40 mg Tablet PO ×2 (08:09→17:03)
[2020-06-12] MEDS: nystatin powder 15 gm Btl 1 APPLIC TOPICAL ×2 (08:09→17:03)
--- NOTE | 2020-06-12 10:25 | PM.PN ---
Subjective Subjective: Interval history: On 3 L nasal cannula, had 2000 mL urine output for total negative fluid balance of 5 L, noted drop in hemoglobin from 9.2->8.2 today, stable renal function, noted hypokalemia. Resting quietly in bed, no apparent distress, no acute overnight events reported. Medications: Reviewed: Yes Medication Review Details: Active Medications Generic Name Dose Route Start Last Admin Trade Name Freq PRN Reason Stop Dose Admin Acetaminophen 650 mg 06/06/20 01:51 06/11/20 22:14 Tylenol PO 650 mg Q6H PRN Administration Mild/Mod Pain Or Temp >/= 101 Albuterol Sulfate 2.5 mg 06/06/20 01:57 06/11/20 18:08 Albuterol INHALATION 2.5 mg Q4H PRN Administration Shortness Of Polly th Artificial Tears 1 drop 06/06/20 08:30 06/12/20 08:02 Isopto Tears EYE-BOTH 1 drop Q6H NAGA Administration Aspirin 81 mg 06/06/20 09:00 06/12/20 08:09 Aspirin Ec PO 81 mg DAILY NAGA Administration Atorvastatin Calci um 20 mg 06/06/20 21:00 06/11/20 20:45 Lipitor PO 20 mg BEDTIME NAGA Administration Bumetanide 2 mg 06/07/20 16:00 06/12/20 04:23 Bumex IV 2 mg Q12H NAGA Administration Calcium Carbonate 500 mg 06/11/20 18:21 Tums PO Q4H PRN INDIGESTION Carvedilol 12.5 mg 06/06/20 09:00 06/12/20 08:09 Coreg PO 12.5 mg BID NAGA Administration Citalopram Hydrobr omide 20 mg 06/06/20 09:00 06/07/20 08:18 Celexa PO 20 mg DAILY NAGA Administration Dextrose 25 ml 06/06/20 01:58 D50w IVP ONCE PRN hypoglycemia prot ocol Protocol Dextrose 50 ml 06/06/20 01:58 D50w IVP PRN PRN hypoglycemia prot ocol Protocol Glucagon 1 mg 06/06/20 01:58 Glucagen IM ONCE PRN Adult Acute Hypog lycemia Prot. Protocol Hydralazine HCl 10 mg 06/12/20 10:25 Apresoline PO TID NAGA Dextrose 500 mls @ 100 mls /hr 06/06/20 01:58 D5w IV ONCE PRN Adult Acute Hypog lycemia Prot Protocol Levofloxacin/Dextr ose 750 mg in 150 mls @ 100 mls/hr 06/07/20 09:45 06/11/20 10:47 Levaquin-D5w IV 100 mls/hr Q48H NAGA Administration Protocol Insulin Aspart 0 unit 06/06/20 08:00 06/12/20 07:07 Novolog SUBCUT Not Given WM&BEDTIME NAGA Protocol Isosorbide Mononit rate 60 mg 06/06/20 09:00 06/12/20 08:09 Imdur PO 60 mg DAILY NAGA Administration Metolazone 2.5 mg 06/09/20 12:15 06/12/20 08:08 Zaroxolyn PO 2.5 mg DAILY NAGA Administration Nystatin 1 applic 06/07/20 09:00 06/12/20 08:09 Nystatin Powder TOPICAL 1 applic BID NAGA Administration Ondansetron HCl 4 mg 06/06/20 01:51 Zofran IVP Q6H PRN vomiting, or N/V if npo Pantoprazole Sodiu m 40 mg 06/12/20 09:00 06/12/20 08:09 Protonix PO 40 mg BID NAGA Administration Polyethylene Glyco l 17 gm 06/06/20 09:00 06/12/20 08:07 Miralax PO 17 gm DAILY NAGA Administration Potassium Chloride 40 meq 06/11/20 18:00 06/12/20 08:07 Klor-Con 10 PO 40 meq BID NAGA Administration Senna/Docusate Sod ium 1 tab 06/06/20 09:00 06/12/20 08:08 Senna-S PO 1 tab BID NAGA Administration adhesive tape Allergy (Verified 04/14/20 10:34) Unknown nifedipine [From Procardia] Allergy (Verified 04/14/20 10:34) Unknown Penicillins Allergy (Verified 04/14/20 10:34) Unknown Vitals/I&O/Wt Last Vital Signs Temp 98.4 F 06/12/20 07:18 Pulse 76 06/12/20 09:41 Resp 20 H 06/12/20 07:35 BP 180/105 06/12/20 07:18 Pulse Ox 99 06/12/20 09:41 06/11/20 06/12/20 06/12/20 22:59 06:59 14:59 Intake Total 120 / 835 360 / 360 Output Total 900 / 900 1000 / 1900 1000 / 1000 Balance -780 / -65 -1000 / -1065 -640 / -640 Weight last 48 hrs Weight 128.395 kg Weight 127.006 kg Physical Exam Const: COMMON NORMALS: no acute distress and alert GENERAL APPEARANCE: cooperative, comfortable, frail appearing, appears older than stated age and Edematous NUTRITIONAL APPEARANCE: obese morbidly obese ORIENTATION/CONSCIOUSNESS: Yes awake HENMT: COMMON NORMALS: normocephalic and atraumatic HEAD & SCALP: normocephalic and atraumatic Eye: COMMON NORMALS: Equal, round and reactive pupils present, EOMs intact bilaterally and conjunctivae normal CONJUNCTIVA: Yes conjunctivae normal PUPIL: Yes Equal, round and reactive pupils present Neck/C-Spine: COMMON NORMALS: full ROM GENERAL: Yes normal visual inspection and Yes trachea midline Resp: COMMON NORMALS: normal respiratory effort, No retractions and No use of accessory muscles EFFORT & INSPECTION: Yes tachypneic AUSCULTATION: crackles OTHER: -Air entry overall is improving somewhat though still diminished; on 2 L NC Cardio: COMMON NORMALS: regular rate, regular rhythm, S1 normal heart sound present, S2 normal heart sound present and No murmurs present (Cardio) RATE: regular rate RHYTHM: regular rhythm HEART SOUNDS: S1 normal heart sound present and S2 normal heart sound present GI: COMMON NORMALS: Normal to inspection, nondistended, normoactive bowel sounds present, Soft to palpation and non-tender INSPECTION: Yes central obesity PALPATION: Yes Soft to palpation : BLADDER/KIDNEY EXAM: Yes catheter in place Catheter type (Female): urethral Extremity: COMMON NORMALS: normal to inspection GENERAL: Yes edema Neuro: COMMON NORMALS: moves all extremities, no focal motor deficits and no sensory deficits noted SENSORIUM/ORIENTATION: Yes alert Psych: COMMON NORMALS: mental status grossly normal, Normal thought process present, cooperative, normal affect and speech normal SPEECH: Yes normal speech THOUGHT PROCESS: Normal thought process present Skin: COMMON NORMALS: no jaundice, no petechiae and no mottling NARRATIVE SKIN EXAM: -L leg ulcerations -Chronic venous stasis dermatitis in bilateral LEs -Excoriation in skin folds Urinary Catheter Management^: Riggins: Cath Placed During This Visit: yes Reason for Continuing Indwelling Catheter: Acute Urinary Retention or Obstruction Urinary Catheter Date of Insertion: 06/06/20 Urinary Catheter Time of Insertion: 02:22 Data : 06/12/20 04:38 06/12/20 04:38 A&P Assessment and plan (1) Congestive heart failure: -acutely decompensated diastolic CHF, as evidenced by fluid overload on imaging, BNP elevation (though this is chronic), hypoxia, SOB -on IV diuresis with Bumex and metolazone -daily weights, monitor Is & Os; so far has diuresed 5 L -Echo (01/2020): EF=55%, no RWMA, trace MR -has Riggins catheter in place; assess daily for removal -initially required BiPAP, now on NC -continue to monitor respiratory status -continue to monitor vital signs, currently stable -telemetry monitoring -s/p L therapeutic thoracentesis with output of 800 mL; f/u CXR shows minimal L pleural effusion, small R pleural effusion -noted hypoalbuminemia, may benefit from albumin to facilitate diuresis -f/u CXR today Status: Acute Qualifiers: Heart failure chronicity: acute on chronic Heart failure type: diastolic Qualified Code(s): I50.33 - Acute on chronic diastolic (congestive) heart failure (2) Respiratory failure with hypercapnia: -noted hypoxia and hypercapnia on ABG -is oxygen dependent at baseline, 2 L NC requirement -likely secondary to fluid overload as noted above -CXR noted indicating bilateral pleural effusions and basilar consolidation -no leukocytosis, afebrile, pro-calcitonin and lactic acid wnl -blood cx: prelim negative -COVID-19 negative -on empiric Levaquin to cover for possible infection Status: Acute Qualifiers: Chronicity: acute on chronic Qualified Code(s): J96.22 - Acute and chronic respiratory failure with hypercapnia (3) Macrocytic anemia: -Acute on chronic macrocytic anemia -baseline Hg is 9-10 -continue to monitor H/H; s/p 2 unit of PRBCs -transfuse additional blood products as needed -noted vitamin B12, folate levels -may consider resumption of AC if stable Hg and no further procedures Status: Chronic (4) Macular degeneration: -on eye drops Status: Chronic Qualifiers: Eye laterality: unspecified Macular degeneration type: unspecified type Qualified Code(s): H35.30 - Unspecified macular degeneration (5) Hyperlipidemia: -on statin Status: Chronic Qualifiers: Hyperlipidemia type: unspecified Qualified Code(s): E78.5 - Hyperlipidemia, unspecified (6) Hypertension: -VSS; continue to monitor vitals -continue BB Status: Chronic Qualifiers: Hypertension type: essential hypertension Qualified Code(s): I10 - Essential (primary) hypertension (7) Diabetes mellitus type 2, insulin dependent: -A1c-8.2 -Accuchecks, hypoglycemia precautions, ISS -complicated by peripheral neuropathy and nephropathy Status: Chronic (8) History of CVA (cerebrovascular accident): Status: Chronic (9) Morbid obesity: -BMI-43 kg/m2 Status: Chronic Additional A&P Information -CKD stage 2; baseline Cr 1.5-2.2; continue to monitor renal function, avoid nephrotoxins, renally dose meds. At risk for cardiorenal syndrome with decompensated dCHF -UA with noted hematuria, bacteria; urine culture negative -Hyperkalemia initially, now hypokalemic likely secondary to diuresis; ongoing supplementation -Troponin elevation noted; chronic, likely type II given acutely decompensated CHF -hx of atrial fibrillation, rate controlled, telemetry monitoring, AC on hold due to anemia. May consider resumption of Xarelto if stable Hg -hold citalopram for now due to levaquin to minimize risk of QTc prolongation -noted hypoalbuminemia; s/p albumin x 2; give additional dose today -cardiac consistent carb diet -fall precautions, Bradley lift at IA -DVT ppx with SCDs for now, can resume xarelto once appropriate -Dispo: return to [facility] -Code status: FULL code Attestations Medical Necessity Statement*: Patient requires hospitalization for continued aggressive IV diuresis secondary to acutely decompensated diastolic CHF and monitoring of hemoglobin given anemia and need for transfusion of blood products. Time Spent in Patient Care: 16 - 35 minutes (>than 50% of time spent in counselling and/or direct pt care on unit). Coding Level of Care Code Acute Autopsy Assistant for Betty Fwd Exam Comprehensive Diagnoses Congestive heart failure I50.33 Heart failure chronicity: acute on chronic Heart failure type: diastolic Respiratory failure with hypercapnia J96.22 Chronicity: acute on chronic Macrocytic anemia D53.9 Macular degeneration H35.30 Eye laterality: unspecified Macular degeneration type: unspecified type Hyperlipidemia E78.5 Hyperlipidemia type: unspecified Hypertension I10 Hypertension type: essential hypertension Diabetes mellitus type 2, insulin dependent E11.9; Z79.4 History of CVA (cerebrovascular accident) Z86.73 Morbid obesity E66.01
[2020-06-12] MEDS: potassium chloride ER 10 mEq Tablet 20 MEQ PO (10:57)
[2020-06-12] MEDS: hyDRALAzine 10 mg Tablet PO ×3 (10:57→20:20)
[2020-06-12 10:58] LABS: Glucose Point of Care 212 mg/dL (70-110)
--- NOTE | 2020-06-12 14:21 | PC.NURSE ---
Hydralazine 10mg order, first dose given at 1057, second dose scheduled to be given at 1500. Called Dr. Mohamud to clarify second dose to be given at 1500, doctor instructed to give medication as ordered at 1500.
[2020-06-12 16:07] LABS: Glucose Point of Care 178 mg/dL (70-110)
--- NOTE | 2020-06-12 16:15 | XRR_ITS ---
PROCEDURE INFORMATION: Exam: XR Chest, 1 View Exam date and time: 06/12/2020 5:16 PM Age: 74 years old Clinical indication: Condition or disease; Lung condition and disease; Pleural effusion; Other: Not specified; Additional info: Progression of pleural effusions TECHNIQUE: Imaging protocol: XR of the chest Views: 1 view. COMPARISON: CR XR chest 1V portable [id number] 06/09/2020 8:47 AM FINDINGS: Lungs: Suspect at least bibasilar compressive atelectasis. Basilar pneumonia or a mass cannot be excluded on this exam. Pleural space: There are bilateral moderate size pleural effusions. The left pleural effusion is felt to have increased in volume and is reaccumulating. No pneumothorax. Heart/Mediastinum: The heart is partially silhouetted out but is felt to be unchanged. There is evidence of coronary artery disease. Vasculature: The thoracic aorta is atherosclerotic. Bones/joints: No acute osseous abnormality. XR/XR chest 1V portable [id number] IMPRESSION: Bilateral moderate size pleural effusions. The left pleural effusion appears to be reaccumulating.
[2020-06-12 20:08] LABS: Glucose Point of Care 199 mg/dL (70-110)
[2020-06-12] MEDS: atorvastatin 40 mg Tablet 20 MG PO (20:19)
[2020-06-13] VITALS (14 sets, daily range): BP systolic 128–188; BP diastolic 71–95; PULSE 71–88; RESP 14–26; TEMP 36.6–36.8; O2SAT 95–100; BMI 48.0
[2020-06-13] MEDS: bumetanide 0.25 mg/mL SDV 10 mL 2 MG IV (04:59)
[2020-06-13 05:01] LABS: Hematocrit 30.8 % (37.0-47.0); Hemoglobin 8.9 g/dL (11.5-15.3)
--- NOTE | 2020-06-13 05:04 | PC.NURSE ---
PT RESTING IN BED. PT REPOSITIONED AND TURNED. DIRECTOR OF INFECTION CONTROL NURSE GAVE BUMEX IVP. PT DENIES PAIN AT THIS TIME. WILL CONTINUE TO MONITOR.
[2020-06-13 05:27] LABS: Albumin Level 2.9 g/dL (3.5-5.2)
[2020-06-13 05:29] LABS: Blood Urea Nitrogen 49 mg/dL (8-23); Calcium 8.5 mg/dL (8.5-10.5); Chloride 89 mmol/L (98-107); Creatinine Clr Calc Pharmacy 33.7729; Glucose 126 mg/dL (65-115); Osmolality Calculated 300 mOsm/kg (285-295); Potassium 3.1 mmol/L (3.5-5.1); Sodium 145 mmol/L (136-145)
--- NOTE | 2020-06-13 06:19 | PC.NURSE ---
PT IS RESTING IN BED. PT DENIES PAIN AT THIS TIME. WILL CONTINUE TO MONITOR.
[2020-06-13 06:36] LABS: Anion Gap 9.1 (5-19); Carbon Dioxide > 50 mmol/L (22-29)
[2020-06-13 06:46] LABS: Glucose Point of Care 145 mg/dL (70-110)
[2020-06-13] MEDS: artificial tears Op Soln 15 mL Btl 1 DROP EYE-BOTH ×3 (08:50→21:03)
[2020-06-13] MEDS: potassium chloride ER 10 mEq Tablet 40 MEQ PO ×2 (08:50→17:53)
[2020-06-13] MEDS: pantoprazole DR 40 mg Tablet PO ×2 (08:51→17:53)
[2020-06-13] MEDS: metOLazone 5 MG Tablet 2.5 MG PO (08:51)
[2020-06-13] MEDS: carvedilol 12.5 mg Tablet PO ×2 (08:51→17:53)
[2020-06-13] MEDS: isosorbide mononitrate ER 60 mg Tablet PO (08:51)
[2020-06-13] MEDS: sennosides-docusate Tablet 1 TAB PO (08:51)
[2020-06-13] MEDS: aspirin 81 mg EC Tablet PO (08:51)
[2020-06-13] MEDS: hyDRALAzine 10 mg Tablet PO ×3 (08:51→21:02)
--- NOTE | 2020-06-13 09:00 | US_ITS ---
WS: [id number] ULTRASOUND-GUIDED THORACENTESIS CLINICAL INFORMATION: moderate bilateral pleural effusions COMPARISON: None. PROCEDURE: Informed consent: The risks, benefits, and alternatives of the procedure were discussed with the linette ent. Verbal and written consent was obtained. Timeout: A timeout was performed to confirm the correct patient, procedure, and site. Site: Left chest Preparation: A suitable skin site was identified. The patient was prepped and draped in usual sterile fashion. Lidocaine 1% was used for local anesthesia. Catheter: 4 Frisian One-Step catheter. Fluid Volume: 660 ml Color: Dark red Sent to the laboratory for analysis. Complications: None. Post thoracentesis portable chest demonstrates no pneumothorax. US/ thoracentesis [id number] IMPRESSION: 1. Uncomplicated ultrasound-guided Left thoracentesis. 2. 660ml removed
--- NOTE | 2020-06-13 09:03 | PM.PN ---
Subjective Subjective: Interval history: Had 1650 mL urine output overnight for total negative fluid balance of 6 L. Some improvement in Hg (8.2->8.9) and renal function. Worsening metabolic alkalosis and continued hypokalemia. Noted chest x-ray showing bilateral moderate pleural effusions with noted reaccumulation of fluid on the left. Request thoracentesis, repeat coags as well. Thoracentesis done earlier this afternoon with removal of 660 mL from the left. Fluid analysis ordered. Dark red in appearance. Follow-up chest x-ray shows improvement of the left pleural effusion and a small right pleural effusion. On BiPAP due to noted hypercapnia and hypoxia. Medications: Reviewed: Yes Medication Review Details: Active Medications Generic Name Dose Route Start Last Admin Trade Name Freq PRN Reason Stop Dose Admin Acetaminophen 650 mg 06/06/20 01:51 06/11/20 22:14 Tylenol PO 650 mg Q6H PRN Administration Mild/Mod Pain Or Temp >/= 101 Albuterol Sulfate 2.5 mg 06/06/20 01:57 06/11/20 18:08 Albuterol INHALATION 2.5 mg Q4H PRN Administration Shortness Of [place] th Artificial Tears 1 drop 06/06/20 08:30 06/13/20 08:50 Isopto Tears EYE-BOTH 1 drop Q6H NAGA Administration Aspirin 81 mg 06/06/20 09:00 06/13/20 08:51 Aspirin Ec PO 81 mg DAILY NAGA Administration Atorvastatin Calci um 20 mg 06/06/20 21:00 06/12/20 20:19 Lipitor PO 20 mg BEDTIME NAGA Administration Bumetanide 2 mg 06/07/20 16:00 06/13/20 04:59 Bumex IV 2 mg Q12H NAGA Administration Calcium Carbonate 500 mg 06/11/20 18:21 Tums PO Q4H PRN INDIGESTION Carvedilol 12.5 mg 06/06/20 09:00 06/13/20 08:51 Coreg PO 12.5 mg BID NAGA Administration Citalopram Hydrobr omide 20 mg 06/06/20 09:00 06/07/20 08:18 Celexa PO 20 mg DAILY NAGA Administration Dextrose 25 ml 06/06/20 01:58 D50w IVP ONCE PRN hypoglycemia prot ocol Protocol Dextrose 50 ml 08/04/20 01:58 D50w IVP PRN PRN hypoglycemia prot ocol Protocol Glucagon 1 mg 06/06/20 01:58 Glucagen IM ONCE PRN Adult Acute Hypog lycemia Prot. Protocol Hydralazine HCl 10 mg 06/12/20 10:25 06/13/20 08:51 Apresoline PO 10 mg TID NAGA Administration Dextrose 500 mls @ 100 mls /hr 06/06/20 01:58 D5w IV ONCE PRN Adult Acute Hypog lycemia Prot Protocol Insulin Aspart 0 unit 06/06/20 08:00 06/13/20 08:49 Novolog SUBCUT 4 unit WM&BEDTIME NAGA Administration Protocol Isosorbide Mononit rate 60 mg 06/06/20 09:00 06/13/20 08:51 Imdur PO 60 mg DAILY NAGA Administration Metolazone 2.5 mg 06/09/20 12:15 06/13/20 08:51 Zaroxolyn PO 2.5 mg DAILY NAGA Administration Nystatin 1 applic 06/07/20 09:00 06/13/20 08:21 Nystatin Powder TOPICAL Not Given BID NAGA Ondansetron HCl 4 mg 06/06/20 01:51 Zofran IVP Q6H PRN vomiting, or N/V if npo Pantoprazole Sodiu m 40 mg 06/12/20 09:00 06/13/20 08:51 Protonix PO 40 mg BID NAGA Administration Polyethylene Glyco l 17 gm 06/06/20 09:00 06/13/20 08:51 Miralax PO Not Given DAILY NAGA Potassium Chloride 40 meq 06/11/20 18:00 06/13/20 08:50 Klor-Con 10 PO 40 meq BID NAGA Administration Senna/Docusate Sod ium 1 tab 06/06/20 09:00 06/13/20 08:51 Senna-S PO 1 tab BID NAGA Administration adhesive tape Allergy (Verified 04/14/20 10:34) Unknown nifedipine [From Procardia] Allergy (Verified 04/14/20 10:34) Unknown Penicillins Allergy (Verified 04/14/20 10:34) Unknown Vitals/I&O/Wt Last Vital Signs Temp 98.2 F 06/13/20 06:59 Pulse 88 06/13/20 08:10 Resp 17 06/13/20 08:10 BP 188/76 06/13/20 06:59 Pulse Ox 99 06/13/20 08:10 06/12/20 06/13/20 06/13/20 22:59 06:59 14:59 Intake Total 360 / 1080 240 / 1320 360 / 360 Output Total 1650 / 3350 Balance 360 / -620 -1410 / -2030 360 / 360 Weight last 48 hrs Weight 127.006 kg Weight 128.395 kg Weight 127.006 kg Physical Exam Const: COMMON NORMALS: no acute distress and alert GENERAL APPEARANCE: cooperative, comfortable, frail appearing, appears older than stated age and Edematous NUTRITIONAL APPEARANCE: obese morbidly obese ORIENTATION/CONSCIOUSNESS: Yes awake OTHER: -Fatigues very easily even with minimal exertion such as during repositioning HENMT: COMMON NORMALS: normocephalic and atraumatic HEAD & SCALP: normocephalic and atraumatic Eye: COMMON NORMALS: Equal, round and reactive pupils present, EOMs intact bilaterally and conjunctivae normal CONJUNCTIVA: Yes conjunctivae normal PUPIL: Yes Equal, round and reactive pupils present Neck/C-Spine: COMMON NORMALS: full ROM GENERAL: Yes normal visual inspection and Yes trachea midline Resp: COMMON NORMALS: normal respiratory effort, No retractions and No use of accessory muscles EFFORT & INSPECTION: Yes tachypneic AUSCULTATION: crackles OTHER: -Air entry overall is improving somewhat though still diminished; on 2 L NC, transitioned to BiPAP in the afternoon Cardio: COMMON NORMALS: regular rate, regular rhythm, S1 normal heart sound present, S2 normal heart sound present and No murmurs present (Cardio) RATE: regular rate RHYTHM: regular rhythm HEART SOUNDS: S1 normal heart sound present and S2 normal heart sound present OTHER: -Hypertensive GI: COMMON NORMALS: Normal to inspection, nondistended, normoactive bowel sounds present, Soft to palpation and non-tender INSPECTION: Yes central obesity PALPATION: Yes Soft to palpation : BLADDER/KIDNEY EXAM: Yes catheter in place Catheter type (Female): urethral Extremity: COMMON NORMALS: normal to inspection GENERAL: Yes edema Neuro: COMMON NORMALS: moves all extremities, no focal motor deficits and no sensory deficits noted SENSORIUM/ORIENTATION: Yes alert Psych: COMMON NORMALS: mental status grossly normal, Normal thought process present, cooperative, normal affect and speech normal SPEECH: Yes normal speech THOUGHT PROCESS: Normal thought process present Skin: COMMON NORMALS: no jaundice, no petechiae and no mottling NARRATIVE SKIN EXAM: -L leg ulcerations -Chronic venous stasis dermatitis in bilateral LEs -Excoriation in skin folds GENERAL SKIN EXAM: Excoriation (in inguinal skin folds) Urinary Catheter Management^: Riggins: Cath Placed During This Visit: yes Reason for Continuing Indwelling Catheter: Acute Urinary Retention or Obstruction Urinary Catheter Date of Insertion: 06/06/20 Urinary Catheter Time of Insertion: 02:22 Data : 06/13/20 04:05 06/13/20 04:05 A&P Assessment and plan (1) Congestive heart failure: -acutely decompensated diastolic CHF, as evidenced by fluid overload on imaging, BNP elevation (though this is chronic), hypoxia, SOB -on IV diuresis with Bumex and metolazone; due to worsening metabolic alkalosis and hypochloremia, will hold diuresis for today, may be intravascularly depleted -daily weights, monitor Is & Os; so far has diuresed 6 L -Echo (01/2020): EF=55%, no RWMA, trace MR -has Riggins catheter in place; assess daily for removal -initially required BiPAP, now on NC -continue to monitor respiratory status -continue to monitor vital signs, currently stable -telemetry monitoring -s/p L therapeutic thoracentesis with output of 800 mL; f/u CXR shows minimal L pleural effusion, small R pleural effusion -noted hypoalbuminemia, may benefit from albumin to facilitate diuresis -f/u CXR shows moderate bilateral pleural effusions, s/p L thoracentesis with removal of 660 mL. Fluid analysis requested. Follow-up x-ray shows small right pleural effusion and improved left pleural effusion. Pleural fluid Gram stain negative, culture pending. Cytology ordered Status: Acute Qualifiers: Heart failure chronicity: acute on chronic Heart failure type: diastolic Qualified Code(s): I50.33 - Acute on chronic diastolic (congestive) heart failure (2) Respiratory failure with hypercapnia: -noted hypoxia and hypercapnia on ABG -is oxygen dependent at baseline, 2 L NC requirement -likely secondary to fluid overload as noted above -CXR noted indicating bilateral pleural effusions and basilar consolidation -no leukocytosis, afebrile, pro-calcitonin and lactic acid wnl -blood cx: prelim negative -COVID-19 negative -off empiric antibiotics Status: Acute Qualifiers: Chronicity: acute on chronic Qualified Code(s): J96.22 - Acute and chronic respiratory failure with hypercapnia (3) Macrocytic anemia: -Acute on chronic macrocytic anemia -baseline Hg is 9-10 -continue to monitor H/H; s/p 2 unit of PRBCs -transfuse additional blood products as needed -noted vitamin B12, folate levels -may consider resumption of AC if stable Hg and no further procedures Status: Chronic (4) Macular degeneration: -on eye drops Status: Chronic Qualifiers: Eye laterality: unspecified Macular degeneration type: unspecified type Qualified Code(s): H35.30 - Unspecified macular degeneration (5) Hyperlipidemia: -on statin Status: Chronic Qualifiers: Hyperlipidemia type: unspecified Qualified Code(s): E78.5 - Hyperlipidemia, unspecified (6) Hypertension: -VSS; continue to monitor vitals -continue BB Status: Chronic Qualifiers: Hypertension type: essential hypertension Qualified Code(s): I10 - Essential (primary) hypertension (7) Diabetes mellitus type 2, insulin dependent: -A1c-8.2 -Accuchecks, hypoglycemia precautions, ISS -complicated by peripheral neuropathy and nephropathy Status: Chronic (8) History of CVA (cerebrovascular accident): Status: Chronic (9) Morbid obesity: -BMI-48 kg/m2 Status: Chronic Additional A&P Information -CKD stage 2; baseline Cr 1.5-2.2; continue to monitor renal function, avoid nephrotoxins, renally dose meds. At risk for cardiorenal syndrome with decompensated dCHF -UA with noted hematuria, bacteria; urine culture negative -Hyperkalemia initially, now hypokalemic likely secondary to diuresis; ongoing supplementation -Troponin elevation noted; chronic, likely type II given acutely decompensated CHF -hx of atrial fibrillation, rate controlled, telemetry monitoring, AC on hold due to anemia. May consider resumption of Xarelto if stable Hg -resumed citalopram, off levaquin -noted hypoalbuminemia; s/p albumin x 3; additional doses as needed -metabolic alkalosis, hypochloremia -cardiac consistent carb diet -fall precautions, Bradley lift at [place] -DVT ppx with SCDs for now, can resume xarelto once appropriate -Dispo: return to [facility] -Code status: FULL code -Overall prognosis is quite guarded given patient's underlying comorbidities, limited quality of life, limited mobility and recurrent exacerbations of underlying diastolic CHF often resulting in hospitalization and further deconditioning. Need to have a goals of care discussion with patient and family Attestations Medical Necessity Statement*: Patient requires hospitalization for continued management of acutely decompensated diastolic CHF. Time Spent in Patient Care: 16 - 35 minutes (>than 50% of time spent in counselling and/or direct pt care on unit). Coding Level of Care Code Acute Needle Punch Operator for [facility] Fwd Exam Comprehensive Diagnoses Congestive heart failure I50.33 Heart failure chronicity: acute on chronic Heart failure type: diastolic Respiratory failure with hypercapnia J96.22 Chronicity: acute on chronic Macrocytic anemia D53.9 Macular degeneration H35.30 Eye laterality: unspecified Macular degeneration type: unspecified type Hyperlipidemia E78.5 Hyperlipidemia type: unspecified Hypertension I10 Hypertension type: essential hypertension Diabetes mellitus type 2, insulin dependent E11.9; Z79.4 History of CVA (cerebrovascular accident) Z86.73 Morbid obesity E66.01
[2020-06-13 09:47] LABS: Arterial Blood Gas Hematocrit 31.6 % (37-47); Blood Gas Allen Test Pos; Blood Gas Sample Site Radial, right; Blood Gas Sample Type Arterial
[2020-06-13 10:26] LABS: ABG PH Result 7.49 (7.35-7.45)
[2020-06-13 10:27] LABS: ABG PCO2 70.1 mmHg (35-45)
[2020-06-13 10:28] LABS: HCO3 ABG 53.8 mmol/L (22-26); PO2 ABG 74.8 mmHg (80.0-100.0)
[2020-06-13 10:29] LABS: Base Excess ABG 26.6 mmol/L (-2.0-2.0); Oxygen Device bipap
[2020-06-13 10:31] LABS: Blood Gas CCRB Time 1031
[2020-06-13 11:03] LABS: Glucose Point of Care 218 mg/dL (70-110)
[2020-06-13] MEDS: citalopram 20 mg Tablet PO (11:55)
--- NOTE | 2020-06-13 14:59 | XR_ITS ---
WS: [id number] CHEST XRAY TECHNIQUE: Portable chest. CLINICAL INFORMATION: POST THORACENTESIS COMPARISON: None. FINDINGS: Heart: Cardiomegaly. Aortic calcification. Lungs: Small right pleural effusion. Improved left pleural effusion. Bibasilar atelectasis. Bones: Normal visualized bony structures. XR/XR chest 1V portable [id number] IMPRESSION: 1. Status post left thoracentesis. No pneumothorax. Improved left pleural effu halle. 2. Persistent small right pleural effusion.
[2020-06-13 15:23] LABS: Mononuclear %, Pleural Fluid 76 %; Polynuclear Cells, Pleural % 24 %
[2020-06-13 15:24] LABS: Appearance, Pleural Fluid CLOUDY (CLEAR); Color, Pleural Fluid Red (Pale Yellow)
[2020-06-13 15:59] LABS: LDH Pleural Fluid 100 U/L; Pleural Fluid Albumin 1.2 g/dL
[2020-06-13 16:12] LABS: Glucose Point of Care 124 mg/dL (70-110)
--- NOTE | 2020-06-13 16:29 | PC.NURSE ---
THORACENTESIS PERFORMED AT BEDSIDE WITH DR. LEGER AND SENIOR ASSOCIATE. VITAL SIGNS STABLE THROUGHOUT PROCEDURE. NO COMPLAINTS NOTED FROM PATIENT. BANDAID PLACED ON PROCEDURE SITE. WILL CONTINUE TO MONITOR.
[2020-06-13 16:57] LABS: PATH Referal YES
[2020-06-13 20:28] LABS: Glucose Point of Care 238 mg/dL (70-110)
[2020-06-13] MEDS: atorvastatin 40 mg Tablet 20 MG PO (21:02)
[2020-06-14] VITALS (15 sets, daily range): BP systolic 108–146; BP diastolic 64–87; PULSE 66–82; RESP 16–31; TEMP 36.4–37.1; O2SAT 88–100
[2020-06-14 05:24] LABS: Basophils % 0.2 %; Eosinophils # 0.3 10^3/uL (0.0-0.8); Eosinophils % 4.5 %; Hemoglobin 8.7 g/dL (11.5-15.3); Lymphocytes % 30.7 %; Mean Corpuscular Hemoglobin 29.3 pg (28.0-34.0); Mean Platelet Volume 11.1 fL (7.4-10.4); Monocytes # 0.6 10^3/uL (0.2-0.9); Monocytes % 8.6 %; Neutrophils # 3.67 10^3/uL (1.8-7.7); Neutrophils % 55.5 %; Nucleated Red Blood Cells % 0 %; Platelet Count 178 10^3/cmm (130-400); Red Blood Count 2.97 10^6/uL (4.1-5.3); Red Cell Distribution Width 16.1 % (12.1-15.1); White Blood Count 6.6 10^3/uL (4.0-10.0)
[2020-06-14 06:01] LABS: Anion Gap 9.4 (5-19); Blood Urea Nitrogen 43 mg/dL (8-23); Calcium 8.4 mg/dL (8.5-10.5); Chloride 91 mmol/L (98-107); Glucose 127 mg/dL (65-115); Osmolality Calculated 303 mOsm/kg (285-295); Potassium 3.4 mmol/L (3.5-5.1); Sodium 147 mmol/L (136-145)
[2020-06-14 06:10] LABS: Carbon Dioxide 50 mmol/L (22-29)
[2020-06-14 06:31] LABS: Glucose Point of Care 152 mg/dL (70-110)
--- NOTE | 2020-06-14 08:06 | DCPLANNER ---
Pg 2 of IM updated and reviewed with pt. No questions, copy provided.
[2020-06-14] MEDS: potassium chloride ER 10 mEq Tablet 40 MEQ PO ×2 (08:38→17:53)
[2020-06-14] MEDS: citalopram 20 mg Tablet PO (08:39)
[2020-06-14] MEDS: pantoprazole DR 40 mg Tablet PO ×2 (08:39→17:53)
[2020-06-14] MEDS: aspirin 81 mg EC Tablet PO (08:39)
[2020-06-14] MEDS: hyDRALAzine 10 mg Tablet PO ×3 (08:39→20:42)
[2020-06-14] MEDS: carvedilol 12.5 mg Tablet PO ×2 (08:39→17:53)
[2020-06-14] MEDS: isosorbide mononitrate ER 60 mg Tablet PO (08:39)
[2020-06-14] MEDS: artificial tears Op Soln 15 mL Btl 1 DROP EYE-BOTH ×3 (08:46→20:42)
--- NOTE | 2020-06-14 09:51 | P.PN_ITS ---
Subjective Subjective: Interval history: Had 500 mL urine output overnight for total negative fluid balance of 7.5 L. Hemodynamically stable, on 1.5 L nasal cannula. Afebrile, some improvement in hypokalemia, renal function. Slight drop in hemoglobin to 8.7. Diuretics remain on hold. Reports feeling better today, sitting up to have her lunch during my visit. Medications: Reviewed: Yes Medication Review Details: Active Medications Generic Name Dose Route Start Last Admin Trade Name Freq PRN Reason Stop Dose Admin Acetaminophen 650 mg 06/06/20 01:51 06/11/20 22:14 Tylenol PO 650 mg Q6H PRN Administration Mild/Mod Pain Or Temp >/= 101 Albuterol Sulfate 2.5 mg 06/06/20 01:57 06/14/20 07:32 Albuterol INHALATION 2.5 mg Q4H PRN Administration Shortness Of [place] th Artificial Tears 1 drop 06/06/20 08:30 06/14/20 08:46 Isopto Tears EYE-BOTH 1 drop Q6H NAGA Administration Aspirin 81 mg 06/06/20 09:00 06/14/20 08:39 Aspirin Ec PO 81 mg DAILY NAGA Administration Atorvastatin Calci um 20 mg 06/06/20 21:00 06/13/20 21:02 Lipitor PO 20 mg BEDTIME NAGA Administration Bumetanide 2 mg 06/07/20 16:00 06/13/20 04:59 Bumex IV 2 mg Q12H NAGA Administration Calcium Carbonate 500 mg 06/11/20 18:21 Tums PO Q4H PRN INDIGESTION Carvedilol 12.5 mg 06/06/20 09:00 06/14/20 08:39 Coreg PO 12.5 mg BID NAGA Administration Citalopram Hydrobr omide 20 mg 06/06/20 09:00 06/14/20 08:39 Celexa PO 20 mg DAILY NAGA Administration Dextrose 25 ml 06/06/20 01:58 D50w IVP ONCE PRN hypoglycemia prot ocol Protocol Dextrose 50 ml 06/06/20 01:58 D50w IVP PRN PRN hypoglycemia prot ocol Protocol Glucagon 1 mg 06/06/20 01:58 Glucagen IM ONCE PRN Adult Acute Hypog lycemia Prot. Protocol Hydralazine HCl 10 mg 06/12/20 10:25 06/14/20 08:39 Apresoline PO 10 mg TID NAGA Administration Dextrose 500 mls @ 100 mls /hr 06/06/20 01:58 D5w IV ONCE PRN Adult Acute Hypog lycemia Prot Protocol Insulin Aspart 0 unit 06/06/20 08:00 06/14/20 08:38 Novolog SUBCUT 4 unit WM&BEDTIME NAGA Administration Protocol Isosorbide Mononit rate 60 mg 06/06/20 09:00 06/14/20 08:39 Imdur PO 60 mg DAILY NAGA Administration Metolazone 2.5 mg 06/09/20 12:15 06/13/20 08:51 Zaroxolyn PO 2.5 mg DAILY NAGA Administration Nystatin 1 applic 06/07/20 09:00 06/14/20 09:25 Nystatin Powder TOPICAL Not Given BID COUNTS INCLUDE 234 BEDS AT THE [facility] Ondansetron HCl 4 mg 06/06/20 01:51 Zofran IVP Q6H PRN vomiting, or N/V if npo Pantoprazole Sodiu m 40 mg 06/12/20 09:00 06/14/20 08:39 Protonix PO 40 mg BID NAGA Administration Polyethylene Glyco l 17 gm 06/06/20 09:00 06/14/20 09:25 Miralax PO Not Given DAILY NAGA Potassium Chloride 40 meq 06/11/20 18:00 06/14/20 08:38 Klor-Con 10 PO 40 meq BID NAGA Administration Senna/Docusate Sod ium 1 tab 06/06/20 09:00 06/14/20 09:25 Senna-S PO Not Given BID NAGA adhesive tape Allergy (Verified 04/14/20 10:34) Unknown nifedipine [From Procardia] Allergy (Verified 04/14/20 10:34) Unknown Penicillins Allergy (Verified 04/14/20 10:34) Unknown Vitals/I&O/Wt Last Vital Signs Temp 97.6 F 06/14/20 08:00 Pulse 78 06/14/20 08:00 Resp 26 H 06/14/20 08:00 BP 108/64 06/14/20 08:00 Pulse Ox 94 06/14/20 08:00 06/13/20 06/14/20 06/14/20 22:59 06:59 14:59 Intake Total 120 / 480 240 / 240 Output Total 700 / 1350 500 / 1850 Balance -700 / -990 -380 / -1370 240 / 240 Weight last 48 hrs Weight 124.001 kg Weight 127.006 kg Weight 127.006 kg Weight 128.395 kg Physical Exam Const: COMMON NORMALS: no acute distress and alert GENERAL APPEARANCE: cooperative, comfortable, frail appearing, appears older than stated age and Edematous NUTRITIONAL APPEARANCE: obese morbidly obese ORIENTATION/CONSCIOUSNESS: Yes awake OTHER: -Fatigues very easily even with m inimal exertion such as during repositioning HENMT: COMMON NORMALS: normocephalic and atraumatic HEAD & SCALP: normocephalic and atraumatic Eye: COMMON NORMALS: Equal, round and reactive pupils present, EOMs intact bilaterally and conjunctivae normal CONJUNCTIVA: Yes conjunctivae normal P UPIL: Yes Equal, round and reactive pupils present Neck/C-Spine: COMMON NORMALS: full ROM GENERAL: Yes normal visual inspection and Yes trachea midline Resp: COMMON NORMALS: normal respiratory effort, No retractions and No use of accessory muscles EFFORT & INSPECTION: Yes tachypneic AUSCULTATION: crack les OTHER: -off BiPAP, on 1-2 L NC Cardio: COMMON NORMALS: regular rate, regular rhythm, S1 normal heart sound present, S2 normal heart sound present and No murmurs present (Cardio) RATE: regular rate RHYTHM: regular rhythm HEART SOUNDS: S1 normal heart sound present and S2 normal heart sound present OTHER: -Normotensive GI: COMMON NORMALS: Normal to inspection, nondistended, normoactive bowel sounds present, Soft to palpation and non-tender INSPECTION: Yes central obesity PALPATION: Yes Soft to palpation : BLADDER/KIDNEY EXAM: Yes catheter in place Catheter type (Female): urethral Extremity: COMMON NORMALS: normal to inspection GENERAL: Yes edema Neuro: COMMON NORMALS: moves all extremities, no focal motor deficits and no sensory deficits noted SENSORIUM/ORIENTATION: Yes alert Psych: COMMON NORMALS: mental status grossly normal, Normal thought process present, cooperative, normal affect and speech normal SPEECH: Yes normal speech THOUGHT PROCESS: Normal thought process present Skin: COMMON NORMALS: no jaundice, no petechiae and no mottling NARRATIVE SKIN EXAM: -L leg ulcerations -Chronic venous stasis dermatitis in bilateral LEs -Excoriation in skin folds GENERAL SKIN EXAM: Excoriation (in inguinal skin folds) Urinary Catheter Management^: Riggins: Cath Placed During This Visit: yes Reason for Continuing Indwelling Catheter: Acute Urinary Retention or Obstruction Urinary Catheter Date of Insertion: 06/06/20 Urinary Catheter Time of Insertion: 02:22 Data : 06/14/20 04:12 06/14/20 04:12 Micro: Microbiology 06/13/20 14:00 Gram Stain - Final Pleural Fluid A&P Assessment and plan (1) Congestive heart failure: -acutely decompensated diastolic CHF, as evidenced by fluid overload on imaging, BNP elevation (though this is chronic), hypoxia, SOB -IV diuresis on hold with Bumex and metolazone due to worsening metabolic alkalosis and hypochloremia and concern for intravascular depletion -daily weights, monitor Is & Os; so far has diuresed 7.5 L -Echo (01/2020): EF=55%, no RWMA, trace MR -has Riggins catheter in place; assess daily for removal -intermittently requiring BiPAP, now on NC -continue to monitor respiratory status -continue to monitor vital signs, currently stable -telemetry monitoring -s/p L therapeutic thoracentesis with output of 800 mL; f/u CXR shows minimal L pleural effusion, small R pleural effusion -noted hypoalbuminemia, may benefit from albumin to facilitate diuresis -f/u CXR shows moderate bilateral pleural effusions, s/p L thoracentesis with removal of 660 mL. Fluid analysis requested. Follow-up x-ray shows small right pleural effusion and improved left pleural effusion. Pleural fluid Gram stain negative, culture pending. Cytology ordered Status: Acute Qualifiers: Heart failure chronicity: acute on chronic Heart failure type: diastolic Qualified Code(s): I50.33 - Acute on chronic diastolic (congestive) heart failure (2) Respiratory failure with hypercapnia: -noted hypoxia and hypercapnia on ABG -is oxygen dependent at baseline, 2 L NC requirement -likely secondary to fluid overload as noted above -CXR noted indicating bilateral pleural effusions and basilar consolidation -no leukocytosis, afebrile, pro-calcitonin and lactic acid wnl -blood cx: prelim negative -COVID-19 negative -off empiric antibiotics Status: Acute Qualifiers: Chronicity: acute on chronic Qualified Code(s): J96.22 - Acute and chronic respiratory failure with hypercapnia (3) Macrocytic anemia: -Acute on chronic macrocytic anemia -baseline Hg is 9-10 -continue to monitor H/H; s/p 2 unit of PRBCs -transfuse additional blood products as needed -noted vitamin B12, folate levels -may consider resumption of AC if stable Hg and no further procedures Status: Chronic (4) Macular degeneration: -on eye drops Status: Chronic Qualifiers: Eye laterality: unspecified Macular degeneration type: unspecified type Qualified Code(s): H35.30 - Unspecified macular degeneration (5) Hyperlipidemia: -on statin Status: Chronic Qualifiers: Hyperlipidemia type: unspecified Qualified Code(s): E78.5 - Hyperlipid emia, unspecified (6) Hypertension: -VSS; continue to monitor vitals -continue BB Status: Chronic Qualifiers: Hypertension type: essential hypertension Qualified Code(s): I10 - Essential (primary) hypertension (7) Diabetes mellitus type 2, insulin dependent: -A1c-8.2 -Accuchecks, hypoglycemia precautions, ISS -complicated by peripheral neuropathy and nephropathy Status: Chronic (8) History of CVA (cerebrovascular accident): Status: Chronic (9) Morbid obesity: -BMI-47 kg/m2 Status: Chronic Additional A&P Information -CKD stage 2; baseline Cr 1.5-2.2; continue to monitor renal function, avoid nephrotoxins, renally dose meds. At risk for cardiorenal syndrome with decompensated dCHF -UA with noted hematuria, bacteria; urine culture negative -Hyperkalemia initially, now hypokalemic likely secondary to diuresis; ongoing supplementation -Troponin elevation noted; chronic, likely type II given acutely decompensated CHF -hx of atrial fibrillation, rate controlled, telemetry monitoring, AC on hold due to anemia. May consider resumption of Xarelto if stable Hg -on citalopram, off levaquin -noted hypoalbuminemia; s/p albumin x 3; additional doses as needed -metabolic alkalosis, hypochloremia; some improvement today, continue to hold IV diuresis -cardiac consistent carb diet; fluid restriction 1500 mL day -fall precautions, Bradley lift at [place] -DVT ppx with SCDs for now, can resume xarelto once appropriate -Dispo: return to [facility] -Code status: FULL code -Overall prognosis is quite guarded given patient's underlying comorbidities, limited quality of life, limited mobility and recurrent exacerbations of underlying diastolic CHF often resulting in hospitalization and further deconditioning. Need to have a goals of care discussion with patient and family Attestations Medical Necessity Statement*: Patient requires hospitalization for continued management of acutely decompensated diastolic CHF with noted electrolyte abnormalities and concern for possible intravascular depletion. Time Spent in Patient Care: 16 - 35 minutes (>than 50% of time spent in counselling and/or direct pt care on unit) . 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 Teacher for [facility] Fwd Exam Comprehensive Diagnoses Congestive heart failure I50.33 Heart failure chronicity: acute on chronic Heart failure type: diastolic Respiratory failure with hypercapnia J96.22 Chronicity: acute on chronic Macrocytic anemia D53.9 Macular degeneration H35.30 Eye laterality: unspecified Macular degeneration type: unspecified type Hyperlipidemia E78.5 Hyperlipidemia type: unspecified Hypertension I10 Hypertension type: essential hypertension Diabetes mellitus type 2, insulin dependent E11.9; Z79.4 History of CVA (cerebrovascular accident) Z86.73 Morbid obesity E66.01
[2020-06-14 10:53] LABS: Glucose Point of Care 249 mg/dL (70-110)
--- NOTE | 2020-06-14 13:07 | PC.NURSE ---
INSULIN ADMINISTERED LATE DUE TO NOVOLOG BEING STOCKED LATE IN THE PYXIS.
[2020-06-14 17:20] LABS: Glucose Point of Care 273 mg/dL (70-110)
--- NOTE | 2020-06-14 19:19 | PC.NURSE ---
REPORT RECEIVED FROM OFF GOING NURSE. PT IS RESTING IN BED. PT DENIES PAIN AT THIS TIME. REPOSITIONED AND TURNED AT THIS TIME. WILL CONTINUE TO MONITOR.
[2020-06-14 20:07] LABS: Glucose Point of Care 152 mg/dL (70-110)
[2020-06-14] MEDS: atorvastatin 40 mg Tablet 20 MG PO (20:42)
[2020-06-15] VITALS (12 sets, daily range): BP systolic 110–159; BP diastolic 52–83; PULSE 66–85; RESP 16–30; TEMP 36.4–37; O2SAT 90–100
[2020-06-15 04:15] LABS: Basophils % 0.2 %; Eosinophils # 0.3 10^3/uL (0.0-0.8); Hematocrit 29.7 % (37.0-47.0); Hemoglobin 8.4 g/dL (11.5-15.3); Lymphocytes # 2.3 10^3/uL (0.8-4.8); Lymphocytes % 35.4 %; Mean Corpuscular HGB Conc 28.3 g/dL (30.0-36.0); Mean Corpuscular Hemoglobin 28.3 pg (28.0-34.0); Mean Platelet Volume 10.8 fL (7.4-10.4); Monocytes # 0.4 10^3/uL (0.2-0.9); Monocytes % 6.8 %; Neutrophils # 3.45 10^3/uL (1.8-7.7); Neutrophils % 53.4 %; Nucleated Red Blood Cells % 0 %; Platelet Count 179 10^3/cmm (130-400); Red Blood Count 2.97 10^6/uL (4.1-5.3); Red Cell Distribution Width 15.7 % (12.1-15.1); White Blood Count 6.5 10^3/uL (4.0-10.0)
[2020-06-15 04:39] LABS: Blood Urea Nitrogen 46 mg/dL (8-23); Calcium 8.4 mg/dL (8.5-10.5); Chloride 92 mmol/L (98-107); Glucose 137 mg/dL (65-115); Osmolality Calculated 300 mOsm/kg (285-295); Potassium 3.7 mmol/L (3.5-5.1); Sodium 145 mmol/L (136-145)
[2020-06-15 04:55] LABS: Anion Gap 8.7 (5-19)
[2020-06-15 04:56] LABS: Carbon Dioxide 48 mmol/L (22-29)
--- NOTE | 2020-06-15 05:47 | PC.NURSE ---
PT RESTING IN BED AT THIS TIME. PT DENIES PAIN. WORE BIPAP THROUGHOUT NIGHT. WILL CONTINUE TO MONITOR.
[2020-06-15 06:18] LABS: Glucose Point of Care 147 mg/dL (70-110)
[2020-06-15] MEDS: artificial tears Op Soln 15 mL Btl 1 DROP EYE-BOTH ×3 (07:53→20:11)
[2020-06-15] MEDS: hyDRALAzine 10 mg Tablet PO ×3 (08:40→20:11)
[2020-06-15] MEDS: potassium chloride ER 10 mEq Tablet 40 MEQ PO ×2 (08:40→17:53)
[2020-06-15] MEDS: carvedilol 12.5 mg Tablet PO ×2 (08:40→17:53)
[2020-06-15] MEDS: citalopram 20 mg Tablet PO (08:40)
[2020-06-15] MEDS: aspirin 81 mg EC Tablet PO (08:40)
[2020-06-15] MEDS: isosorbide mononitrate ER 60 mg Tablet PO (08:40)
[2020-06-15] MEDS: pantoprazole DR 40 mg Tablet PO ×2 (08:40→17:53)
[2020-06-15 11:17] LABS: Glucose Point of Care 209 mg/dL (70-110)
--- NOTE | 2020-06-15 15:23 | PC.NURSE ---
Patient given a good bath hair brushed, oral care performed, friction managed, sheet changed and smoothed. Patient tolerated well had mild SOB while laying flat although recovered well. Dressing changed to left lower leg see wound flow sheet for details.
[2020-06-15 17:10] LABS: Glucose Point of Care 178 mg/dL (70-110)
--- NOTE | 2020-06-15 18:16 | P.PN_ITS ---
Subjective Subjective: Interval history: At 550 mL urine output for total negative fluid balance of 7.3 L. Hemodynamically stable, on 2 L nasal cannula, afebrile. Used BiPAP support throughout the night. Stable hemoglobin at 8.4, stable renal function. Diuretics remain on hold. Seems to be doing better today. Has had one bowel movement so far today. Reports feeling much better today and inquiring on when she gets to leave the hospital. Has had a good day per nursing staff. Medications: Reviewed: Yes Medication Review Details: Active Medications Generic Name Dose Route Start Last Admin Trade Name Freq PRN Reason Stop Dose Admin Acetaminophen 650 mg 06/06/20 01:51 06/11/20 22:14 Tylenol PO 650 mg Q6H PRN Administration Mild/Mod Pain Or Temp >/= 101 Albuterol Sulfate 2.5 mg 06/06/20 01:57 06/14/20 21:24 Albuterol INHALATION 2.5 mg Q4H PRN Administration Shortness Of Polly th Artificial Tears 1 drop 06/06/20 08:30 06/15/20 15:05 Isopto Tears EYE-BOTH 1 drop Q6H NAGA Administration Aspirin 81 mg 06/06/20 09:00 06/15/20 08:40 Aspirin Ec PO 81 mg DAILY NAGA Administration Atorvastatin Calci um 20 mg 06/06/20 21:00 06/14/20 20:42 Lipitor PO 20 mg BEDTIME NAGA Administration Bumetanide 2 mg 06/07/20 16:00 06/13/20 04:59 Bumex IV 2 mg Q12H NAGA Administration Calcium Carbonate 500 mg 06/11/20 18:21 Tums PO Q4H PRN INDIGESTION Carvedilol 12.5 mg 06/06/20 09:00 06/15/20 17:53 Coreg PO 12.5 mg BID NAGA Administration Citalopram Hydrobr omide 20 mg 06/06/20 09:00 06/15/20 08:40 Celexa PO 20 mg DAILY NAGA Administration Dextrose 25 ml 06/06/20 01:58 D50w IVP ONCE PRN hypoglycemia prot ocol Protocol Dextrose 50 ml 06/06/20 01:58 D50w IVP PRN PRN hypoglycemia prot ocol Protocol Glucagon 1 mg 06/06/20 01:58 Glucagen IM ONCE PRN Adult Acute Hypog lycemia Prot. Protocol Hydralazine HCl 10 mg 06/12/20 10:25 06/15/20 15:07 Apresoline PO 10 mg TID NAGA Administration Dextrose 500 mls @ 100 mls /hr 06/06/20 01:58 D5w IV ONCE PRN Adult Acute Hypog lycemia Prot Protocol Insulin Aspart 0 unit 06/06/20 08:00 06/15/20 17:53 Novolog SUBCUT 4 unit WM&BEDTIME NAGA Administration Protocol Isosorbide Mononit rate 60 mg 06/06/20 09:00 06/15/20 08:40 Imdur PO 60 mg DAILY NAGA Administration Metolazone 2.5 mg 06/09/20 12:15 06/13/20 08:51 Zaroxolyn PO 2.5 mg DAILY NAGA Administration Nystatin 1 applic 06/07/20 09:00 06/15/20 17:53 Nystatin Powder TOPICAL Not Given BID NAGA Ondansetron HCl 4 mg 06/06/20 01:51 Zofran IVP Q6H PRN vomiting, or N/V if npo Pantoprazole Sodiu m 40 mg 06/12/20 09:00 06/15/20 17:53 Protonix PO 40 mg BID NAGA Administration Polyethylene Glyco l 17 gm 06/06/20 09:00 06/15/20 08:40 Miralax PO Not Given DAILY NAGA Potassium Chloride 40 meq 06/11/20 18:00 06/15/20 17:53 Klor-Con 10 PO 40 meq BID NAGA Administration Senna/Docusate Sod ium 1 tab 06/06/20 09:00 06/15/20 17:53 Senna-S PO Not Given BID NAGA adhesive tape Allergy (Verified 04/14/20 10:34) Unknown nifedipine [From Procardia] Allergy (Verified 04/14/20 10:34) Unknown Penicillins Allergy (Verified 04/14/20 10:34) Unknown Vitals/I&O/Wt Last Vital Signs Temp 98.6 F 06/15/20 15:33 Pulse 72 06/15/20 15:33 Resp 26 H 06/15/20 15:33 BP 137/75 06/15/20 15:33 Pulse Ox 96 06/15/20 12:00 06/15/20 06/15/20 06/15/20 06:59 14:59 22:59 Intake Total 560 / 560 Output Total 550 / 1050 Balance -550 / -90 560 / 560 Weight last 48 hrs Weight 123.094 kg Weight 124.001 kg Physical Exam Const: COMMON NORMALS: no acute distress and alert GENERAL APPEARANCE: cooperative, comfortable, frail appearing, appears older than stated age and Edematous (improving) NUTRITIONAL APPEARANCE: obese morbidly obese ORIENTATION/CONSCIOUSNESS: Yes awake OTHER: -Fatigues easily even with minimal exertion such as during repositioning HENMT: COMMON NORMALS: normocephalic and atraumatic HEAD & SCALP: normocephalic and atraumatic Eye: COMMON NORMALS: Equal, round and reactive pupils present, EOMs intact bilaterally and conjunctivae normal CONJUNCTIVA: Yes conjunctivae normal PUPIL: Yes Equal, round and reactive pupils present Neck/C-Spine: COMMON NORMALS: full ROM GENERAL: Yes normal visual inspection and Yes trachea midline Resp: COMMON NORMALS: normal respiratory effort, No retractions and No use of accessory muscles EFFORT & INSPECTION: Yes tachypneic AUSCULTATION: crackles OTHER: -off BiPAP, on 1-2 L NC Cardio: COMMON NORMALS: regular rate, regular rhythm, S1 normal heart sound present, S2 normal heart sound present and No murmurs present (Cardio) RATE: regular rate RHYTHM: regular rhythm HEART SOUNDS: S1 normal heart sound present and S2 normal heart sound present OTHER: -Normotensive GI: COMMON NORMALS: Normal to inspection, nondistended, normoactive bowel sounds present, Soft to palpation and non-tender INSPECTION: Yes central obesity PALPATION: Yes Soft to palpation : BLADDER/KIDNEY EXAM: Yes catheter in place Catheter type (Female): urethral Extremity: COMMON NORMALS: normal to inspection GENERAL: Yes edema Neuro: COMMON NORMALS: moves all extremities, no focal motor deficits and no sensory deficits noted SENSORIUM/ORIENTATION: Yes alert Psych: COMMON NORMALS: mental status grossly normal, Normal thought process pr esent, cooperative, normal affect and speech normal SPEECH: Yes normal speech THOUGHT PROCESS: Normal thought process present Skin: COMMON NORMALS: no jaundice, no petechiae and no mottling NARRATIVE SKIN EXAM: -L leg ulcerations -Chronic venous stasis dermatitis in bilateral LEs -Excoriation in skin folds GENERAL SKIN EXAM: Excoriation (in inguinal skin folds) Urinary Catheter Management^: Riggins: Cath Placed During This Visit: yes Reason for Continuing Indwelling Catheter: Acute Urinary Retention or Obs truction Urinary Catheter Date of Insertion: 06/06/20 Urinary Catheter Time of Insertion: 02:22 Data : 06/15/20 03:55 06/15/20 03:55 Micro: Microbiology 06/13/20 14:00 Gram Stain - Final Pleural Fluid Body Fluid Culture - Preliminary A&P Assessment and plan (1) Congestive heart failure: -acutely decompensated diastolic CHF, as evidenced by fluid overload on imaging, BNP elevation (though this is chronic), hypoxia, SOB -IV diuresis on hold with Bumex and metolazone due to worsening metabolic alkalosis and hypochloremia and concern for intravascular depletion. Will resume diuresis -daily weights, monitor Is & Os; so far has diuresed 7.3 L -Echo (01/2020): EF=55%, no RWMA, trace MR -has Riggins catheter in place; assess daily for removal -intermittently requiring BiPAP, now on NC -continue to monitor respiratory status -continue to monitor vital signs, currently stable -telemetry monitoring -s/p L therapeutic thoracentesis with output of 800 mL; f/u CXR shows minimal L pleural effusion, small R pleural effusion -noted hypoalbuminemia, may benefit from albumin to facilitate diuresis -f/u CXR shows moderate bilateral pleural effusions, s/p L thoracentesis with removal of 660 mL. Fluid analysis requested. Follow-up x-ray shows small right pleural effusion and improved left pleural effusion. Pleural fluid Gram stain negative, culture pending. Cytology ordered Status: Acute Qualifiers: Heart failure chronicity: acute on chronic Heart failure type: diastolic Qualified Code(s): I50.33 - Acute on chronic diastolic (congestive) heart failure (2) Respiratory failure with hypercapnia: -noted hypoxia and hypercapnia on ABG -is oxygen dependent at baseline, 2 L NC requirement -likely secondary to fluid overload as noted above -CXR noted indicating bilateral pleural effusions and basilar consolidation -no leukocytosis, afebrile, pro-calcitonin and lactic acid wnl -blood cx: prelim negative -COVID-19 negative -off empiric antibiotics Status: Acute Qualifiers: Chronicity: acute on chronic Qualified Code(s): J96.22 - Acute and chronic respiratory failure with hypercapnia (3) Macrocytic anemia: -Acute on chronic macrocytic anemia -baseline Hg is 9-10 -continue to monitor H/H; s/p 2 unit of PRBCs -transfuse additional blood products as needed -noted vitamin B12, folate levels -may consider resumption of AC if stable Hg and no further procedures Status: Chronic (4) Macular degeneration: -on eye drops Status: Chronic Qualifiers: Eye laterality: unspecified Macular degeneration type: unspecified type Qualified Code(s): H35.30 - Unspecified macular degeneration (5) Hyperlipidemia: -on statin Status: Chronic Qualifiers: Hyperlipidemia type: unspecified Qualified Code(s): E78.5 - Hyperlipidemia, unspecified (6) Hypertension: -VSS; continue to monitor vitals -continue BB Status: Chronic Qualifiers: Hypertension type: essential hypertension Qualified Code(s): I10 - Essential (primary) hypertension (7) Diabetes mellitus type 2, insulin dependent: -A1c-8.2 -Accuchecks, hypoglycemia precautions, ISS -complicated by peripheral neuropathy and nephropathy Status: Chronic (8) History of CVA (cerebrovascular accident): Status: Chronic (9) Morbid obesity: -BMI-47 kg/m2 Status: Chronic Additional A&P Information -CKD stage 2; baseline Cr 1.5-2.2; continue to monitor renal function, avoid nephrotoxins, renally dose meds. At risk for cardiorenal syndrome with decompensated dCHF -UA with noted hematuria, bacteria; urine culture negative -Hyperkalemia initially, now hypokalemic likely secondary to diuresis; ongoing supplementation -Troponin elevation noted; chronic, likely type II given acutely decompensated CHF -hx of atrial fibrillation, rate controlled, telemetry monitoring, AC on hold due to anemia. May consider resumption of Xarelto if stable Hg -on citalopram, off levaquin -noted hypoalbuminemia; s/p albumin x 3; additional doses as needed -metabolic alkalosis, hypochloremia; some improvement today, continue to hold IV diuresis -cardiac consistent carb diet; fluid restriction 1500 mL day -fall precautions, Bradley lift at [place] -DVT ppx with SCDs for now, can resume xarelto once appropriate -Dispo: return to [facility] -Code status: FULL code -Overall prognosis is quite guarded given patient's underlying comorbidities, limited quality of life, limited mobility and recurrent exacerbations of underlying diastolic CHF often resulting in hospitalization and further deconditioning. Need to have a goals of care discussion with patient and family Attestations Medical Necessity Statement*: Patient requires hospitalization for continued management of acutely decompensated CHF requiring continued diuresis. Time Spent in Patient Care: 16 - 35 minutes (>than 50% of time spent in counselling and/or direct pt care on unit) . Coding Level of Care Code Acute Human Resource Analyst for g Fwd Exam Comprehensive Diagnoses Congestive heart failure I50.33 Heart failure chronicity: acute on chronic Heart failure type: diastolic Respiratory failure with hypercapnia J96.22 Chronicity: acute on chronic Macrocytic anemia D53.9 Macular degeneration H35.30 Eye laterality: unspecified Macular degeneration type: unspecified type Hyperlipidemia E78.5 Hyperlipidemia type: unspecified Hypertension I10 Hypertension type: essential hypertension Diabetes mellitus type 2, insulin dependent E11.9; Z79.4 History of CVA (cerebrovascular accident) Z86.73 Morbid obesity E66.01
[2020-06-15] MEDS: atorvastatin 40 mg Tablet 20 MG PO (20:11)
--- NOTE | 2020-06-15 22:35 | PC.NURSE ---
PT RESTING IN BED. PT TURNED AND REPOSITIONED AND PUT ON BIPAP. PT DENIES PAIN AT THIS TIME. WILL CONTINUE TO MONITOR.
[2020-06-16] VITALS (9 sets, daily range): BP systolic 129–144; BP diastolic 62–79; PULSE 69–85; RESP 16–25; TEMP 36.5–36.9; O2SAT 95–100
[2020-06-16] MEDS: bumetanide 0.25 mg/mL SDV 10 mL 2 MG IV (03:16)
[2020-06-16 04:49] LABS: Basophils % 0.3 %; Eosinophils # 0.3 10^3/uL (0.0-0.8); Eosinophils % 3.5 %; Hemoglobin 8.7 g/dL (11.5-15.3); Lymphocytes # 2.2 10^3/uL (0.8-4.8); Lymphocytes % 30.9 %; Mean Corpuscular HGB Conc 28.1 g/dL (30.0-36.0); Mean Corpuscular Hemoglobin 28.2 pg (28.0-34.0); Mean Corpuscular Volume 100.6 fL (81-99); Monocytes # 0.5 10^3/uL (0.2-0.9); Monocytes % 7.2 %; Neutrophils # 4.18 10^3/uL (1.8-7.7); Nucleated Red Blood Cells % 0 %; Platelet Count 203 10^3/cmm (130-400); Red Blood Count 3.08 10^6/uL (4.1-5.3); Red Cell Distribution Width 15.7 % (12.1-15.1); White Blood Count 7.2 10^3/uL (4.0-10.0)
[2020-06-16 05:07] LABS: Blood Urea Nitrogen 43 mg/dL (8-23); Calcium 8.3 mg/dL (8.5-10.5); Chloride 93 mmol/L (98-107); Glucose 141 mg/dL (65-115); Osmolality Calculated 296 mOsm/kg (285-295); Sodium 143 mmol/L (136-145)
[2020-06-16 05:10] LABS: Carbon Dioxide 45 mmol/L (22-29)
[2020-06-16 06:14] LABS: Glucose Point of Care 298 mg/dL (70-110)
[2020-06-16 06:20] LABS: Glucose Point of Care 156 mg/dL (70-110)
--- NOTE | 2020-06-16 06:32 | PC.NURSE ---
PT RESTING IN BED AT THIS TIME. PT DENIES PAIN. WILL GIVE REPORT TO ON COMING NURSE.
[2020-06-16] MEDS: citalopram 20 mg Tablet PO (08:35)
[2020-06-16] MEDS: sennosides-docusate Tablet 1 TAB PO (08:35)
[2020-06-16] MEDS: isosorbide mononitrate ER 60 mg Tablet PO (08:35)
[2020-06-16] MEDS: carvedilol 12.5 mg Tablet PO (08:35)
[2020-06-16] MEDS: artificial tears Op Soln 15 mL Btl 1 DROP EYE-BOTH (08:35)
[2020-06-16] MEDS: hyDRALAzine 10 mg Tablet PO (08:35)
[2020-06-16] MEDS: pantoprazole DR 40 mg Tablet PO (08:35)
[2020-06-16] MEDS: potassium chloride ER 10 mEq Tablet 40 MEQ PO (08:36)
[2020-06-16] MEDS: aspirin 81 mg EC Tablet PO (08:36)
--- NOTE | 2020-06-16 08:58 | PM.DCS ---
Discharge Providers Date of Admission: 06/05/20 23:39 Date of Discharge: June 16, 2020 Attending Provider at Admission: Alli Quintero MD Attending Provider at Discharge: Ewa Mohamud MD Consults: None Primary Care Provider: Alli Quintero MD Diagnoses at Discharge Discharge Diagnosis (1) Congestive heart failure: Status: Acute Problem details: -acutely decompensated diastolic CHF, as evidenced by fluid overload on imaging, BNP elevation (though this is chronic), hypoxia, SOB -resume oral diuresis -daily weights, monitor Is & Os; so far has diuresed 8.8 L/6 kg -Echo (01/2020): EF=55%, no RWMA, trace MR -Riggins catheter removed prior to d/c -intermittently requiring BiPAP, now on NC -continue to monitor respiratory status -continue to monitor vital signs, currently stable -telemetry monitoring -s/p L therapeutic thoracentesis with output of 800 mL; f/u CXR shows minimal L pleural effusion, small R pleural effusion -noted hypoalbuminemia, may benefit from albumin to facilitate diuresis -f/u CXR shows moderate bilateral pleural effusions, s/p L thoracentesis with removal of 660 mL. Fluid analysis consistent with exudative effusion. Follow-up x-ray shows small right pleural effusion and improved left pleural effusion. Pleural fluid Gram stain negative, culture prelim negative. Cytology pending Qualifiers: Heart failure chronicity: acute on chronic Heart failure type: diastolic Qualified Code(s): I50.33 - Acute on chronic diastolic (congestive) heart failure (2) Respiratory failure with hypercapnia: Status: Acute Problem details: -noted hypoxia and hypercapnia on ABG -is oxygen dependent at baseline, 2 L NC requirement -likely secondary to fluid overload as noted above -CXR noted indicating bilateral pleural effusions and basilar consolidation -no leukocytosis, afebrile, pro-calcitonin and lactic acid wnl -blood cx: prelim negative -COVID-19 negative -off empiric antibiotics Qualifiers: Chronicity: acute on chronic Qualified Code(s): J96.22 - Acute and chronic respiratory failure with hypercapnia (3) Macrocytic anemia: Status: Chronic Problem details: -Acute on chronic macrocytic anemia -baseline Hg is 9-10 -continue to monitor H/H; s/p 2 unit of PRBCs -noted vitamin B12, folate levels -continue to hold AC (4) Macular degeneration: Status: Chronic Problem details: -on eye drops Qualifiers: Eye laterality: unspecified Macular degeneration type: unspecified type Qualified Code(s): H35.30 - Unspecified macular degeneration (5) Hyperlipidemia: Status: Chronic Problem details: -on statin Qualifiers: Hyperlipidemia type: unspecified Qualified Code(s): E78.5 - Hyperlipidemia, unspecified (6) Hypertension: Status: Chronic Problem details: -VSS; continue to monitor vitals -continue BB Qualifiers: Hypertension type: essential hypertension Qualified Code(s): I10 - Essential (primary) hypertension (7) Diabetes mellitus type 2, insulin dependent: Status: Chronic Problem details: -A1c-8.2 -Accuchecks, hypoglycemia precautions, ISS -complicated by peripheral neuropathy and nephropathy (8) History of CVA (cerebrovascular accident): Status: Chronic (9) Morbid obesity: Status: Chronic Problem details: -BMI-47 kg/m2 Other Information Additional DC diagnoses/information: -CKD stage 2; baseline Cr 1.5-2.2; continue to monitor renal function, avoid nephrotoxins, renally dose meds. At risk for cardiorenal syndrome with decompensated dCHF -UA with noted hematuria, bacteria; urine culture negative -Hyperkalemia initially, now hypokalemic likely secondary to diuresis; ongoing supplementation -Troponin elevation noted; chronic, likely type II given acutely decompensated CHF -hx of atrial fibrillation, rate controlled, telemetry monitoring, AC on hold due to anemia. May consider resumption of Xarelto if stable Hg on d/c -on citalopram, off levaquin -noted hypoalbuminemia; s/p albumin x 3; additional doses as needed -metabolic alkalosis, hypochloremia; due to diuresis Reason for Visit Reason for Visit: SHORT OF BREATH Hospital Course Hospital Course: Patient was admitted to the cardiac stepdown unit and started on aggressive IV diuresis secondary to acutely decompensated CHF with anasarca and noted bilateral pleural effusions. Diuresis has been gradual but overall she has lost about 8.8 L /6 kg of fluid. She had thoracentesis done on the left twice initially with removal of 800 mL and secondly with removal of 660 mL. Cytology is pending, fluid analysis is consistent with exudative effusion, Gram stain is negative and culture is prelim negative. Blood culture is negative. She was initially covered with empiric Levaquin and was screened for COVID-19 which was negative. With lack of fever, no leukocytosis and normal pro-calcitonin and lactic acid, antibiotics were discontinued. She has been anemic and has required transfusion of 2 units of PRBCs during her hospital stay. As such anticoagulation has been held and will be discontinued save for low-dose aspirin. If noted stability in hemoglobin and no bleeding source identified may consider resumption of Xarelto. Riggins catheter was placed in the ER to allow for accurate ins and outs particularly in light of need for aggressive IV diuresis. She did develop some electrolyte abnormalities indicative of intravascular depletion at which point diuresis was held. Electrolytes have improved and renal function has been stable so diuretics have been resumed. She has required BiPAP support off and on and has been weaned to 2 L nasal cannula. Will require continued supplemental oxygen which can be titrated as needed to keep her oxygen saturation at/or above 92% or for patient comfort. Patient has noted hypoalbuminemia and received doses of albumin to facilitate diuresis. Overall her nutritional status is poor which would predispose her to reaccumulation of fluid. She is non-ambulatory at baseline and fatigues easily even with repositioning. Overall prognosis is guarded and she is at high risk for continuing to have exacerbations of diastolic CHF likely requiring hospital re-admission. Potassium was replaced as needed and potassium supplementation has been increased on discharge due to escalated diuresis. She will require follow-up labs, specifically CBC and BMP to be done on Tuesday 06/19 to continue to monitor her hemoglobin, electrolytes and renal function respectively. She will be discharged back to [facility] this afternoon and will need to follow-up with her primary care physician within 1 week or per SNF. Discharge Summary: -Patient to follow up with primary care physician within 1 week or per SNF Physical Exam Const: COMMON NORMALS: no acute distress and alert GENERAL APPEARANCE: cooperative, comfortable, frail appearing, appears older than stated age and Edematous (improving) NUTRITIONAL APPEARANCE: obese morbidly obese ORIENTATION/CONSCIOUSNESS: Yes awake OTHER: -Fatigues easily even with minimal exertion such as during repositioning HENMT: COMMON NORMALS: normocephalic and atraumatic HEAD & SCALP: normocephalic and atraumatic Eye: COMMON NORMALS: Equal, round and reactive pupils present, EOMs intact bilaterally and conjunctivae normal CONJUNCTIVA: Yes conjunctivae normal PUPIL: Yes Equal, round and reactive pupils present Neck/C-Spine: COMMON NORMALS: full ROM GENERAL: Yes normal visual inspection and Yes trachea midline Resp: COMMON NORMALS: normal respiratory effort, No retractions and No use of accessory muscles EFFORT & INSPECTION: Yes tachypneic AUSCULTATION: crackles OTHER: -off BiPAP, on 1-2 L NC Cardio: COMMON NORMALS: regular rate, regular rhythm, S1 normal heart sound present, S2 normal heart sound present and No murmurs present (Cardio) RATE: regular rate RHYTHM: regular rhythm HEART SOUNDS: S1 normal heart sound present and S2 normal heart sound present OTHER: -Normotensive GI: COMMON NORMALS: Normal to inspection, nondistended, normoactive bowel sounds present, Soft to palpation and non-tender INSPECTION: Yes central obesity PALPATION: Yes Soft to palpation Extremity: COMMON NORMALS: normal to inspection GENERAL: Yes edema Neuro: COMMON NORMALS: moves all extremities, no focal motor deficits and no sensory deficits noted SENSORIUM/ORIENTATION: Yes alert Psych: COMMON NORMALS: mental status grossly normal, Normal thought process present, cooperative, normal affect and speech normal SPEECH: Yes normal speech THOUGHT PROCESS: Normal thought process present Skin: COMMON NORMALS: no jaundice, no petechiae and no mottling NARRATIVE SKIN EXAM: -L leg ulcerations -Chronic venous stasis dermatitis in bilateral LEs -Excoriation in skin folds GENERAL SKIN EXAM: Excoriation (in inguinal skin folds) Urinary Catheter Management^: Riggins: Cath Placed During This Visit: yes Reason for Continuing Indwelling Catheter: Acute Urinary Retention or Obstruction Urinary Catheter Date of Insertion: 06/06/20 Urinary Catheter Time of Insertion: 02:22 Discharge Data Data Completed and Pending: Completed Studies During Hospitalization Category Date Time Status CXRP [XR chest 1V portable 64160] R outine Exams 06/09/20 08:47 Completed CXRP [XR chest 1V portable 05718] R outine Exams 06/13/20 14:59 Completed XR chest 1V jess ble 99802 Routine Exams 06/08/20 12:00 Completed XR chest 1V jess ble 52707 Routine Exams 06/12/20 16:15 Completed XR chest 1V jess ble 29597 Urgent Exams 06/05/20 20:38 Completed US thoracentesis 44045 Routine Ultrasound 06/09/20 07:00 Completed US thoracentesis 51722 Routine Ultrasound 06/13/20 09:00 Completed Pending at discharge Category Date Time Status Body Fluid Cultur e & GS Routine Lab 06/13/20 14:00 Results Sputum Culture an d Gram Stain Stat Lab 06/05/20 20:39 Uncollected Cytology [PTH] Ro utine Pth 06/13/20 14:59 Received Labs from last 24 hours 06/16/20 06/16/20 06/16/20 06:14 04:15 04:15 WBC 7.2 RBC 3.08 L Hgb 8.7 L Hct 31.0 L MCV 100.6 H MCH 28.2 MCHC 28.1 L RDW 15.7 H Plt Count 203 MPV 11.0 H Neut % (Auto) 58.0 Lymph % (Auto) 30.9 [place] % (Auto) 7.2 Eos % (Auto) 3.5 Baso % (Auto) 0.3 Neut # (Auto) 4.18 Lymph # (Auto) 2.2 [place] # (Auto) 0.5 Eos # (Auto) 0.3 Baso # (Auto) 0.0 Nucleated RBC % (a uto) 0 Nucleated RBCs # 0.0 Sodium 143 Potassium 4.0 Chloride 93 L Carbon Dioxide 45 H* Anion Gap 9.0 BUN 43 H Creatinine 1.7 H GFR Calculation Not Reportable Glucose 141 H POC Glucose 156 Calculated Osmolal ity 296 H Calcium 8.3 L 06/15/20 06/15/20 06/15/20 20:29 17:05 11:00 WBC RBC Hgb Hct MCV MCH MCHC RDW Plt Count MPV Neut % (Auto) Lymph % (Auto) [place] % (Auto) Eos % (Auto) Baso % (Auto) Neut # (Auto) Lymph # (Auto) [place] # (Auto) Eos # (Auto) Baso # (Auto) Nucleated RBC % (a uto) Nucleated RBCs # Sodium Potassium Chloride Carbon Dioxide Anion Gap BUN Creatinine GFR Calculation Glucose POC Glucose 298 178 209 Calculated Osmolal ity Calcium Vitals: Last Vital Signs Temp 97.7 F 06/16/20 07:44 Pulse 78 06/16/20 08:28 Resp 18 06/16/20 08:23 BP 139/79 06/16/20 07:44 Pulse Ox 98 06/16/20 08:23 Discharge Plan Discharge Patient Disposition: Xfer SNF Condition: Stable Prescriptions: New hydralazine 10 mg Tablet 10 mg PO TID 30 Days Qty: 90 RF: 0 metolazone 5 mg Tablet 2.5 mg PO DAILY Qty: 30 RF: 0 potassium chloride 10 mEq Tablet Extended Release 40 meq PO BID 30 Days Qty: 240 RF: 0 Continued acetaminophen 325 mg Tablet 325 mg PO QID RF: 0 albuterol sulfate 2.5 mg /3 mL (0.083 %) Solution For Nebulization 2.5 mg INHALATION Q4H PRN (Reason: Shortness Of Breath) RF: 0 Multiple Vitamin, Womens Tablet 1 tab PO DAILY RF: 0 atorvastatin 20 mg Tablet 20 mg PO BEDTIME RF: 0 carvedilol 12.5 mg Tablet 12.5 mg PO BID RF: 0 polyethylene glycol 3350 [Miralax] 17 gram Powder In Packet 17 g PO DAILY RF: 0 sennosides-docusate sodium [Senna-S] 8.6-50 mg Tablet 1 tab-cap PO BID RF: 0 isosorbide mononitrate 60 mg Tablet Extended Release 24 Hr 60 mg PO DAILY RF: 0 Hold Instructions: Resume on 02/01/20. Reinstitute based on blood pressures citalopram 20 mg Tablet 20 mg PO DAILY RF: 0 Artificial Tears (PF) 0.1-0.3 % Dropperette 1 drp OPHTHALMIC (EYE) QID RF: 0 Aspirin Low Dose 81 mg Tablet,Delayed Release (Dr/Ec) 81 mg PO DAILY RF: 0 Novolog Flexpen U-100 Insulin 100 unit/mL (3 mL) Insulin Pen See Rx Instructions .ROUTE .COMPLEX RF: 0 Tresiba U-100 Insulin 100 unit/mL Solution 25 unit SUBCUT BEDTIME RF: 0 bumetanide 2 mg tablet 2 mg PO BID Qty: 60 RF: 0 Discontinued Xarelto 15 mg Tablet 15 mg PO DAILY RF: 0 potassium chloride 20 mEq Tablet Extended Release 20 meq PO DAILY RF: 0 Discharge Orders: Discharge Order (Routine); Ordered 06/16/20 Ordered By: Ewa Mohamud Referrals: [facility] [Outside] Alli Quintero MD [Primary Care Provider] - 4-7 days (Post hospital discharge follow up. ) Discharge Diet: Cardiac and Diabetic Discharge Activity: Resume usual activity and Oxygen as instructed Activity Restrictions/Additional Instructions: -Patient will need follow up labs done (CBC, BMP) on Tuesday 06/19 to continue to monitor her hemoglobin, electrolytes, and renal function -Patient will need supplemental oxygen support, currently on 2 L NC, can be titrated to maintain her saturation at/or above 92% or for patient comfort Discharge Attestations Time Spent in Discharge Care*: greater than 30 min Specific Discharge Activities: Specific discharge activities: educating patient, discussing with case planner/social workers/dc planners, documenting/other paperwork and evaluating patient/reviewing data Status at Discharge: Cognitive status at discharge: cognitively intact, Behavioral status at discharge: cooperative and dependent in ADL's, Functional status at discharge: bed bound Overall status at discharge: patient is progressing back to baseline Quality Metrics Clinical Quality Measures During this hospital stay, did patient experience: None Coding Level of Care Code Acute [facility] for [facility] Exam Comprehensive Diagnoses Congestive heart failure I50.33 Heart failure chronicity: acute on chronic Heart failure type: diastolic Respiratory failure with hypercapnia J96.22 Chronicity: acute on chronic Macrocytic anemia D53.9 Macular degeneration H35.30 Eye laterality: unspecified Macular degeneration type: unspecified type Hyperlipidemia E78.5 Hyperlipidemia type: unspecified Hypertension I10 Hypertension type: essential hypertension Diabetes mellitus type 2, insulin dependent E11.9; Z79.4 History of CVA (cerebrovascular accident) Z86.73 Morbid obesity E66.01
--- NOTE | 2020-06-16 10:21 | PC.SOCIAL ---
IMM Updated Page 2 of IMM updated and given to patient. Initialed, dated, and timed and placed back in chart.
--- NOTE | 2020-06-16 13:57 | PC.NURSE ---
patient discharged to [facility] at 1317 all belongings and discharge paper work sent with patient. patient transported to [facility] by medical transport. Report called to Lyla SHERWOOD at [facility].
[2020-06-16 16:41] LABS: Glucose Point of Care 331 mg/dL (70-110)
== END 2020-06-16 13:17 | disposition skilled nursing facility (03) | DRG 291 ==
LOC: ER 23:26 → CSU 23:57
PROVIDERS: Emergency Medicine; Admitting Provider Internal Medicine; PCP Internal Medicine; Visit Provider Family Medicine
DX: I13.0 Hypertensive heart and chronic kidney disease with heart failure and stage 1 through stage 4 chronic kidney disease, or unspecified chronic kidney disease (principal); I50.33 Acute on chronic diastolic (congestive) heart failure; J96.22 Acute and chronic respiratory failure with hypercapnia; J96.21 Acute and chronic respiratory failure with hypoxia; Z68.42 Body mass index [BMI] 45.0-49.9, adult; J91.8 Pleural effusion in other conditions classified elsewhere; E87.2 Acidosis; I48.91 Unspecified atrial fibrillation; Z79.01 Long term (current) use of anticoagulants; I87.8 Other specified disorders of veins; E11.22 Type 2 diabetes mellitus with diabetic chronic kidney disease; N18.2 Chronic kidney disease, stage 2 (mild); I25.10 Atherosclerotic heart disease of native coronary artery without angina pectoris; Z86.73 Personal history of transient ischemic attack (TIA), and cerebral infarction without residual deficits; E78.5 Hyperlipidemia, unspecified; H35.30 Unspecified macular degeneration; E66.01 Morbid (severe) obesity due to excess calories; E11.42 Type 2 diabetes mellitus with diabetic polyneuropathy; E11.21 Type 2 diabetes mellitus with diabetic nephropathy; I27.20 Pulmonary hypertension, unspecified; D53.9 Nutritional anemia, unspecified; E87.5 Hyperkalemia
CPT/HCPCS: 12345; 32555; 36415; 36416; 36430; 36600; 51702; 71045; 80048; 80053; 80500; 81001; 82040; 82042; 82607; 82746; 82803; 82805; 82962; 83605; 83615; 83735; 83880; 83986; 84145; 84443; 84484; 85014; 85018; 85025; 85610; 86850; 86900; 86920; 87040; 87070; 87075; 87086; 87205; 87426; 88112; 88305; 89050; 92523; 92526; 92610; 93005; 94640; 94660; 96372; 96375; 99283; J0610; J1815; J1940; J1956; J2270; J2405; J3430; J3490; J7611; P9016; P9047

== ENCOUNTER 2020-09-11 09:21 | Inpatient (IN) | payer MEDICARE, MEDICAID, SELFPAY ==
[2020-09-11] VITALS (97 sets, daily range): BP systolic 81–207; BP diastolic 59–149; PULSE 74–97; RESP 15–41; TEMP 36.5–37.3; O2SAT 86–100; BMI 44.6
--- NOTE | 2020-09-11 09:32 | ED_ITS ---
HPI - SOB/Dyspnea General: Chief Complaint: Shortness of Breath/Dyspnea Stated Complaint: DIFFICULTY BREATHING Time Seen by Provider: 09/11/20 09:24 History of Present Illness: HPI Narrative: 75-year-old female who presents to the emergency room with complaints of shortness of breath via EMS from [facility]. She has a history of congestive heart failure has had increasing shortness of breath and orthopnea over the last couple of days she r ecently tested negative for Covid yesterday at the care home she also has a history of pneumonia. There is some dementia as well. Which is why she is in the care home. She is reporting some dysuria. She is not had any fevers. MD elicited complaint: shortness of breath (Orthopnea) and cough (Mild) Pertinent past history: congestive heart failure Onset (ago): day(s) Timing: constant Severity: severe Exacerbating factors: lying flat and exertion Relieving factors: oxygen, rest and upright position Known history of: congestive heart failure Associated symptoms: Deny abdominal pain, chest congestion, chest pain, cough, diaphoresis, dizziness, extremity pain, fever(s), hemoptysis, lightheadedness, myalgias, nausea, orthopnea, palpitations, paresthesias, polydipsia, polyuria, rash, sense of impending doom, syncope or vomiting Treatment prior to arrival: oxygen, bronchodilator and diuretics Review of Systems Const: Denies: fever(s) or diaphoresis Card: Denies: chest pain, palpitations, lightheadedness, syncope or orthopnea Resp: Denies: hemoptysis or chest congestion GI: Denies: abdominal pain, nausea or vomiting : Reports: dysuria; Denies: flank pain, difficulty voiding, urinary frequency or urinary urgency Musc: Denies: extremity pain Skin/Breast: Denies: rash or pruritus Neuro: Denies: dizziness Endo: Denies: polyuria or polydipsia PFSH ED PFSH: Medical History Acute on chronic diastolic (congestive) heart failure Atrial fibrillation Chronic anticoagulation Chronic atrial fibrillation Chronic venous stasis CKD (chronic kidney disease) Congestive heart failure -acutely decompensated diastolic CHF, as evidenced by fluid overload on imaging, BNP elevation (though this is chronic), hypoxia, SOB -resume oral diuresis -daily weights, monitor Is & Os; so far has diuresed 8.8 L/6 kg -Echo (01/2020): EF=55%, no RWMA, trace MR -Riggins catheter removed prior to d/c -intermittently requiring BiPAP, now on NC -continue to monitor respiratory status -continue to monitor vital signs, currently stable -telemetry monitoring -s/p L therapeutic thoracentesis with output of 800 mL; f/u CXR shows minimal L pleural effusion, small R pleural effusion -noted hypoalbuminemia, may benefit from albumin to facilitate diuresis -f/u CXR shows moderate bilateral pleural effusions, s/p L thoracentesis with removal of 660 mL. Fluid analysis consistent with exudative effusion. Follow-up x-ray shows small right pleural effusion and improved left pleural effusion. Pleural fluid Gram stain negative, culture prelim negative. Cytology pending Coronary artery disease Diabetes mellitus type 2, insulin dependent -A1c-8.2 -Accuchecks, hypoglycemia precautions, ISS -complicated by peripheral neuropathy and nephropathy History of CVA (cerebrovascular accident) Hyperlipidemia -on statin Hypertension -VSS; continue to monitor vitals -continue BB Macrocytic anemia -Acute on chronic macrocytic anemia -baseline Hg is 9-10 -continue to monitor H/H; s/p 2 unit of PRBCs -noted vitamin B12, folate levels -continue to hold AC Macular degeneration -on eye drops Morbid obesity -BMI-47 kg/m2 Peripheral neuropathy Pulmonary hypertension Surgical History History of appendectomy History of arthroscopic knee surgery Bilateral History of cholecystectomy History of hysterectomy History of lumpectomy of left breast Family History Other Diabetes Social History Smoking and tobacco status: never smoked Alcohol intake: never Physical Exam Const: COMMON NORMALS: no acute distress GENERAL APPEARANCE: cooperative and comfortable HENMT: COMMON NORMALS: normocephalic, atraumatic and hearing grossly normal bilaterally HEAD & SCALP: normocephalic and atraumatic Eye: COMMON NORMALS: Equal, round and reactive pupils present, EOMs intact bilaterally, conjunctivae normal and no scleral icterus CONJUNCTIVA: Yes conjunctivae normal PUPIL: Yes Equal, round and reactive pupils present Neck/C-Spine: COMMON NORMALS: full ROM, no lymphadenopathy and supple Lymph: LYMPHATIC: no lymphadenopathy noted and no lymphedema noted Resp: EFFORT & INSPECTION: Yes able to speak in complete sentences and Yes tachypneic AUSCULTATION: crackles and diminished lung sounds Cardio: COMMON NORMALS: No murmurs present (Cardio) RHYTHM: abnormal rhythm regularly irregular GI: COMMON NORMALS: Soft to palpation and No hepatosplenomegaly present AUSCULTATION: Yes normoactive bowel sounds PALPATION: Yes Soft to palpation, No Tenderness to palpation present (GI), No Guarding due to palpation present (GI) and Yes No hepatosplenomegaly present Extremity: COMMON NORMALS: normal to inspection, capillary refill normal, no clubbing, cyanosis or edema, no calf tenderness and no pedal edema Skin: COMMON NORMALS: no rashes or lesions noted GENERAL SKIN EXAM: no rashes or lesions noted Course Vital Signs: Vital signs: Vital Signs Temperature 98.8 F 09/12/20 00:45 Pulse Rate 74 09/12/20 04:40 Respiratory Rate 19 H 09/12/20 04:40 Blood Pressure 174/98 09/12/20 04:40 Pulse Oximetry 100 09/12/20 04:40 MDM - SOB/Dyspnea MDM Narrative: Medical decision making narrative: Patient given IV diuretics in the emergency room. She did have some hematuria but reviewing previous UAs it looks to be chronic some of it I believe may have been due to trauma from catheterization. Made hospitalist aware admit for congestive heart failure and NSTEMI with significantly increased initial troponin. Her baseline usually appears to be below 200 she is at well over 400 now. Patient started on BiPAP in the emergency room for her acute on chronic hypercapnic respiratory failure. Lab Data: Labs: Lab Results 09/11/20 09/11/20 09/11/20 Range/Units 09:53 10:03 10:03 WBC (4.0-10.0) 10^3/ uL RBC (4.1-5.3) 10^6/u L Hgb (11.5-15.3) g/dL Hct (37.0-47.0) % MCV (81-99) fL MCH (28.0-34.0) pg MCHC (30.0-36.0) g/dL RDW (12.1-15.1) % Plt Count (130-400) 10^3/c mm MPV (7.4-10.4) fL Neut % (Auto) % Lymph % (Auto) % [place] % (Auto) % Eos % (Auto) % Baso % (Auto) % Neut # (Auto) (1.8-7.7) 10^3/u L Lymph # (Auto) (0.8-4.8) 10^3/u L [place] # (Auto) (0.2-0.9) 10^3/u L Eos # (Auto) (0.0-0.8) 10^3/u L Baso # (Auto) (0.0-0.1) 10^3/u L Nucleated RBC % (a uto) % Nucleated RBCs # /100WBC Specimen Type Arterial Sample Site Radial, right ABG pH 7.33 L (7.35-7.45) ABG pCO2 99.6 H* (35-45) mmHg ABG pO2 66.1 L (80.0-100.0) mmH g ABG HCO3 52.7 H (22-26) mmol/L ABG O2 Saturation 93.3 ABG Base Excess 23.1 H (-2.0-2.0) mmol/ L Jose Test Pos A-a O2 Gradient 2.1 L (5-10) mmHg Hematocrit 27.7 L (37-47) % Hgb O2 Saturation 90.6 L (95-100) % Carboxyhemoglobin 2.3 (0.4-20.1) %THgb Methemoglobin 0.6 (0.4-1.5) % Total Hemoglobin 9.0 L (12-16) g/dL Sodium 147.0 H 146 H (131-143) mmol/L Potassium 5.3 H 5.5 H (3.5-5.0) mmol/L Glucose 147.0 H 151 H (70-115) mg/dL Ionized Calcium 1.2 (1.1-1.4) mmol/L O2 Delivery Device Nc O2 Liters/Min 2.0 % FiO2 28.0 % PEEP cmH20 Dye House Supervisor ID Ed Chloride 94 L (98-107) mmol/L Carbon Dioxide 49 H* (22-29) mmol/L Anion Gap 8.5 (5-19) BUN 49 H (8-23) mg/dL Creatinine 2.1 H (0.5-0.9) mg/dL GFR Calculation Not Reportable Calculated Osmolal ity 318 H (285-295) mOsm/k g Lactic Acid 0.8 (0.5-2.2) mmol/L Calcium 9.1 (8.5-10.5) mg/dL Total Bilirubin 0.3 (0.15-1.2) mg/dL AST 11 (0-32) U/L ALT < 5 (0-33) U/L Alkaline Phosphata se 80 (35-105) IU/L Troponin T Baselin e (0-10) ng/L NT-Pro-B Natriuret Pep 6006 H (0-450) pg/mL Total Protein 7.4 (6.6-8.7) g/dL Albumin 3.0 L (3.5-5.2) g/dL Globulin 4.4 (1.3-4.6) g/dL Procalcitonin (0-0.5) ng/mL Serum Ketones Negative (Negative) 09/11/20 09/11/20 09/11/20 Range/Units 10:03 10:03 10:03 WBC 7.8 (4.0-10.0) 10^3/ uL RBC 3.02 L (4.1-5.3) 10^6/u L Hgb 8.8 L (11.5-15.3) g/dL Hct 32.2 L (37.0-47.0) % MCV 106.6 H (81-99) fL MCH 29.1 (28.0-34.0) pg MCHC 27.3 L (30.0-36.0) g/dL RDW 15.8 H (12.1-15.1) % Plt Count 188 (130-400) 10^3/c mm MPV 10.9 H (7.4-10.4) fL Neut % (Auto) 65.3 % Lymph % (Auto) 25.3 % [place] % (Auto) 6.0 % Eos % (Auto) 2.6 % Baso % (Auto) 0.3 % Neut # (Auto) 5.12 (1.8-7.7) 10^3/u L Lymph # (Auto) 2.0 (0.8-4.8) 10^3/u L [place] # (Auto) 0.5 (0.2-0.9) 10^3/u L Eos # (Auto) 0.2 (0.0-0.8) 10^3/u L Baso # (Auto) 0.0 (0.0-0.1) 10^3/u L Nucleated RBC % (a uto) 0 % Nucleated RBCs # 0.0 /100WBC Specimen Type Sample Site ABG pH (7.35-7.45) ABG pCO2 (35-45) mmHg ABG pO2 (80.0-100.0) mmH g ABG HCO3 (22-26) mmol/L ABG O2 Saturation ABG Base Excess (-2.0-2.0) mmol/ L Jose Test A-a O2 Gradient (5-10) mmHg Hematocrit (37-47) % Hgb O2 Saturation (95-100) % Carboxyhemoglobin (0.4-20.1) %THgb Methemoglobin (0.4-1.5) % Total Hemoglobin (12-16) g/dL Sodium (131-143) mmol/L Potassium (3.5-5.0) mmol/L Glucose (70-115) mg/dL Ionized Calcium (1.1-1.4) mmol/L O2 Delivery Device O2 Liters/Min % FiO2 % PEEP cmH20 Dye House Supervisor ID Chloride (98-107) mmol/L Carbon Dioxide (22-29) mmol/L Anion Gap (5-19) BUN (8-23) mg/dL Creatinine (0.5-0.9) mg/dL GFR Calculation Calculated Osmolal ity (285-295) mOsm/k g Lactic Acid (0.5-2.2) mmol/L Calcium (8.5-10.5) mg/dL Total Bilirubin (0.15-1.2) mg/dL AST (0-32) U/L ALT (0-33) U/L Alkaline Phosphata se (35-105) IU/L Troponin T Baselin e 457 H* (0-10) ng/L NT-Pro-B Natriuret Pep (0-450) pg/mL Total Protein (6.6-8.7) g/dL Albumin (3.5-5.2) g/dL Globulin (1.3-4.6) g/dL Procalcitonin 0.11 (0-0.5) ng/mL Serum Ketones (Negative) 09/11/20 Range/Units 11:50 WBC (4.0-10.0) 10^3/ uL RBC (4.1-5.3) 10^6/u L Hgb (11.5-15.3) g/dL Hct (37.0-47.0) % MCV (81-99) fL MCH (28.0-34.0) pg MCHC (30.0-36.0) g/dL RDW (12.1-15.1) % Plt Count (130-400) 10^3/c mm MPV (7.4-10.4) fL Neut % (Auto) % Lymph % (Auto) % [place] % (Auto) % Eos % (Auto) % Baso % (Auto) % Neut # (Auto) (1.8-7.7) 10^3/u L Lymph # (Auto) (0.8-4.8) 10^3/u L [place] # (Auto) (0.2-0.9) 10^3/u L Eos # (Auto) (0.0-0.8) 10^3/u L Baso # (Auto) (0.0-0.1) 10^3/u L Nucleated RBC % (a uto) % Nucleated RBCs # /100WBC Specimen Type Arterial Sample Site Brachial, right ABG pH 7.39 (7.35-7.45) ABG pCO2 86.8 H* (35-45) mmHg ABG pO2 48.2 L (80.0-100.0) mmH g ABG HCO3 52.9 H (22-26) mmol/L ABG O2 Saturation 87.1 ABG Base Excess 24.4 H (-2.0-2.0) mmol/ L Jose Test N/a A-a O2 Gradient Not Reportable (5-10) mmHg Hematocrit 27.8 L (37-47) % Hgb O2 Saturation 84.6 L (95-100) % Carboxyhemoglobin 2.1 (0.4-20.1) %THgb Methemoglobin 0.7 (0.4-1.5) % Total Hemoglobin 9.1 L (12-16) g/dL Sodium 148.0 H (131-143) mmol/L Potassium 4.8 (3.5-5.0) mmol/L Glucose 136.0 H (70-115) mg/dL Ionized Calcium 1.2 (1.1-1.4) mmol/L O2 Delivery Device Bipap O2 Liters/Min 2.0 % FiO2 % PEEP 8.0 cmH20 D[facility] House Supervisor ID yorna Chloride (98-107) mmol/L Carbon Dioxide (22-29) mmol/L Anion Gap (5-19) BUN (8-23) mg/dL Creatinine (0.5-0.9) mg/dL GFR Calculation Calculated Osmolal ity (285-295) mOsm/k g Lactic Acid (0.5-2.2) mmol/L Calcium (8.5-10.5) mg/dL Total Bilirubin (0.15-1.2) mg/dL AST (0-32) U/L ALT (0-33) U/L Alkaline Phosphata se (35-105) IU/L Troponin T Baselin e (0-10) ng/L NT-Pro-B Natriuret Pep (0-450) pg/mL Total Protein (6.6-8.7) g/dL Albumin (3.5-5.2) g/dL Globulin (1.3-4.6) g/dL Procalcitonin (0-0.5) ng/mL Serum Ketones (Negative) Critical Care Time Critical Care Time: Critical Care Time: Yes Total Critical Care Time: 30 Attestation: This case initially on presentation had a high probability of a clinically significant, sudden, or life threatening deterioration of this patient's condition which required my full and direct attention, intervention and personal management. Discharge Plan Discharge Patient Disposition: Admitted As Inpatient Admit Provider: Nevaeh Cortez Clinical Impression: Acute exacerbation of CHF (congestive heart failure), Atrial fibrillation, Chronic anticoagulation, Chronic venous stasis, Pulmonary hypertension, Chronic kidney disease, NSTEMI (non-ST elevated myocardial infarction), COPD (chronic obstructive pulmonary disease), Acute and chronic respiratory failure with hypercapnia Condition: Stable Coding Level of Care Code ED Head Gauge Unit Operator for Betty Jerry
--- NOTE | 2020-09-11 09:35 | XR_ITS ---
WS: [id number] XR chest 1V portable [id number] REASON FOR EXAM: dyspnea/cough FINDINGS: Cardiomegaly with dilated upper lobe veins. Moderately large bilateral pleural effusions. Likely asso ciated lung consolidation/atelectasis. Effusions are larger than on the previous examination of 2019. XR/XR chest 1V portable [id number] IMPRESSION: Enlarging bilateral pleural effusions. Likely decompensated congestive heart fa ilure.
--- NOTE | 2020-09-11 09:38 | ECG_ITS ---
[facility] Test Date: 2020-09-11 Pat Name: Mora Messer Department: Room: Gender: Female Blood Bank Custodian: : 1945 Requested By: Milad Bernabe Order Number: [id number] Arsen MD: Anabella Pinzon M.D. Measurements Intervals [place] Rate: 86 P: 9 WV: 96 QRS: -34 QRSD: 47 T: -19 QT: 281 QTc: 337 Interpretive Statements Atrial fibrillation Right bundle branch block LOW QRS VOLTAGE PROBABLE ANTERIOR MYOCARDIAL INFARCTION , OF INDETERMINATE AGE POSSIBLE INFERIOR MYOCARDIAL INFARCTION , PROBABLY OLD Compared to ECG 06/06/2020 02:13:34 Low QRS voltage now present ST (T wave) deviation now present Myocardial infarct finding still present Electronically Signed On 09-11-2020 18:47:26 PILOT CAN ROUTER by Anabella Pinzon M.D. [id number]
[2020-09-11 10:02] LABS: ABG PH Result 7.33 (7.35-7.45); Arterial Blood Gas Hematocrit 27.7 % (37-47); Base Excess ABG 23.1 mmol/L (-2.0-2.0); Blood Gas Allen Test Pos; Blood Gas Sample Type Arterial; Carboxyhemoglobin 2.3 %THgb (0.4-20.1); HCO3 ABG 52.7 mmol/L (22-26); HGB O2 Sat 90.6 % (95-100); Ionized Calcium Level - ABG 1.2 mmol/L (1.1-1.4); Methemoglobin 0.6 % (0.4-1.5); Oxygen Saturation ABG 93.3; PO2 ABG 66.1 mmHg (80.0-100.0); Potassium Level - ABG 5.3 mmol/L (3.5-5.0)
[2020-09-11 10:05] LABS: ABG PCO2 99.6 mmHg (35-45); Alveolar-Arterial Oxygen Gradi 2.1 mmHg (5-10); Blood Gas Operator Identificat ED; Blood Gas Sample Site Radial, right; Oxygen Device NC
[2020-09-11 10:16] LABS: Basophils % 0.3 %; Eosinophils # 0.2 10^3/uL (0.0-0.8); Eosinophils % 2.6 %; Hematocrit 32.2 % (37.0-47.0); Hemoglobin 8.8 g/dL (11.5-15.3); Lymphocytes % 25.3 %; Mean Corpuscular HGB Conc 27.3 g/dL (30.0-36.0); Mean Corpuscular Hemoglobin 29.1 pg (28.0-34.0); Mean Corpuscular Volume 106.6 fL (81-99); Mean Platelet Volume 10.9 fL (7.4-10.4); Monocytes # 0.5 10^3/uL (0.2-0.9); Neutrophils # 5.12 10^3/uL (1.8-7.7); Neutrophils % 65.3 %; Nucleated Red Blood Cells % 0 %; Platelet Count 188 10^3/cmm (130-400); Red Blood Count 3.02 10^6/uL (4.1-5.3); Red Cell Distribution Width 15.8 % (12.1-15.1); White Blood Count 7.8 10^3/uL (4.0-10.0)
[2020-09-11 10:32] LABS: Ketone (Acetest) Serum Negative (Negative)
[2020-09-11 10:41] LABS: Lactic Sepsis W/Reflex 0.8 mmol/L (0.5-2.2)
[2020-09-11 10:47] LABS: Alanine Aminotransferase < 5 U/L (0-33); Alkaline Phosphatase 80 IU/L (35-105); Anion Gap 8.5 (5-19); Aspartate Amino Transferase 11 U/L (0-32); Blood Urea Nitrogen 49 mg/dL (8-23); Calcium 9.1 mg/dL (8.5-10.5); Chloride 94 mmol/L (98-107); Globulin 4.4 g/dL (1.3-4.6); Glucose 151 mg/dL (65-115); NT Pro B Type Natriuretic Pept 6006 pg/mL (0-450); Osmolality Calculated 318 mOsm/kg (285-295); Potassium 5.5 mmol/L (3.5-5.1); Sodium 146 mmol/L (136-145); Total Bilirubin 0.3 mg/dL (0.15-1.2); Total Protein 7.4 g/dL (6.6-8.7)
[2020-09-11 10:50] LABS: Carbon Dioxide 49 mmol/L (22-29)
[2020-09-11 11:27] LABS: Troponin(5th) Baseline 457 ng/L (0-10)
--- NOTE | 2020-09-11 11:38 | ECG_ITS ---
[facility] Test Date: 2020-09-11 Pat Name: Mora Messer Department: Room: Gender: Female Wheel And Pinion Inspector: : 1945 Requested By: Milad Bernabe Order Number: [id number] Arsen MD: Anabella Pinzon M.D. Measurements Intervals [place] Rate: 80 P: NE: -1 QRS: 32 QRSD: 139 T: -7 QT: 383 QTc: 443 Interpretive Statements ATRIAL FIBRILLATION RIGHT BUNDLE BRANCH BLOCK [120+ ms QRS DURATION, UPRIGHT V1, 40+ ms S IN I/aVL/V4/V5/V6] Compared to ECG 09/11/2020 09:50:35 Right bundle-branch block now present Sinus rhythm no longer present Sinus arrhythmia no longer present Short NE interval no longer present Atrial abnormality no longer present Left-axis deviation no longer present Myocardial infarct finding no longer present ST (T wave) deviation no longer present Electronically Signed On 09-11-2020 18:53:38 STUNT DRIVER by Anabella Pinzon M.D. [id number]
[2020-09-11 12:03] LABS: ABG PH Result 7.39 (7.35-7.45); Arterial Blood Gas Hematocrit 27.8 % (37-47); Base Excess ABG 24.4 mmol/L (-2.0-2.0); Blood Gas Sample Site Brachial, right; Blood Gas Sample Type Arterial; Carboxyhemoglobin 2.1 %THgb (0.4-20.1); HCO3 ABG 52.9 mmol/L (22-26); HGB O2 Sat 84.6 % (95-100); Ionized Calcium Level - ABG 1.2 mmol/L (1.1-1.4); Methemoglobin 0.7 % (0.4-1.5); Oxygen Device BIPAP; Oxygen Saturation ABG 87.1; PO2 ABG 48.2 mmHg (80.0-100.0); Potassium Level - ABG 4.8 mmol/L (3.5-5.0); Total Hemoglobin 9.1 g/dL (12-16)
[2020-09-11 12:06] LABS: ABG PCO2 86.8 mmHg (35-45)
[2020-09-11] MEDS: hyDRALAzine 20 mg/mL INJ 1 mL 10 MG IVP (12:18)
[2020-09-11] MEDS: FUROsemide 10 mg/mL SDV 10mL 60 MG IVP (12:20)
[2020-09-11] MEDS: heparin 5,000 unit/mL INJ 1 mL 4000 UNIT IVP (12:25)
[2020-09-11 13:58] LABS: Urine Appearance SL Hazy (CLEAR); Urine Color Yellow (Yellow)
[2020-09-11 13:59] LABS: Add Urine Microscopic? YES; Bilirubin Urine Neg (Negative); Blood Urine 3+ (Negative); Glucose Urine UA Norm (Normal); Ketones Urine Negative (Negative); Leukocyte Esterase Urine Negative (Negative); Nitrate Urine Negative (Negative); Protein Urine Trace (Negative); Specific Gravity, Urine 1.005 (1.005-1.030); Urobilinogen Urine Norm (Negative); pH Urine 7 (5-7)
[2020-09-11 14:03] LABS: Bacteria Urine TRACE /hpf; RBC Urine 40-50 /hpf (0-2); Squamous Epithelial Cell Urine 0-4 /hpf (0-5); WBC Urine 0-4 /hpf (0-5)
[2020-09-11 14:04] LABS: Add Urine Culture? Yes
--- NOTE | 2020-09-11 15:02 | P.HP_ITS ---
Providers/Chief Complaint Admitting Physician: Nevaeh Cortez MD Primary Care Provider: Alli Quintero MD Chief Complaint: DIFFICULTY BREATHING History of Present Illness Mora Messer is a 75 year old female with a past medical history of atrial fibrillation chronic venous stasis, COPD, CHF, CAD, type 2 diabetes, CVA, hyperlipidemia, hypertension, morbid obesity and pulmonary hypertension who [facility] from the [facility] with chief complaint of shortness of breath. P er patient, she says her shortness of breath has been ongoing for about 2 to 3 days, acutely worsened since this morning. She also endorses some chest pain, however unable to give me any details. I am uncertain if patient is a reliable historian as reviewed in the ER she denies any complaints of chest pain. On presentation to the ER she was noted to be acutely short of breath, with hypercapnic respiratory failure. She is chronically on home oxygen between 2 to 4 L, requiring BiPAP today. At baseline troponin was noted to be elevated at 450 along with elevated BNP. 2-hour troponin remains pending at this time. Creatinine is close to her baseline of 2.0. Covid antigen was checked at the [facility] this morning and was reportedly negative. Chest x-ray today shows enlarging bilateral pleural effusions. May be underlying lung consolidation. Effusions are noted to be larger than previous study of June. Per review of past notes she had undergone uncomplicated left- sided thoracentesis in June 2020. Analysis at that time was consistent with exudative effusion. Pleural fluid culture was negative at this time. Pathology showed acute inflammation with mesothelial cells in the background of blood. No malignancy was identified. ABG today showed 7.33/99.6/66.1/52.7/90.6, improved after approximately 2 hours on BiPAP to 7.9/86.8/48.2/52.9. Review of Systems General: Reports: 10 or more systems reviewed and unremarkable except in HPI and below Const: Denies: fever(s), chills or body aches Eyes: Denies: change in vision, blurry vision or photophobia ENMT: Reports: hoarseness; Denies: throat pain, enlarged tonsils, odynophagia or nasal congestion Card: Denies: chest pain, palpitations, irregular heart rhythm, edema, swe lling of feet/ankles, lightheadedness, pre-syncope, dyspnea on exertion or orthopnea Resp: Denies: dyspnea, productive cough, non-productive cough, wheezing, stridor, pain on inspiration, change in phlegm color, hemoptysis or chest congestion GI: Denies: abdominal pain, nausea, vomiting, hematemesis, coffee ground emesis, dysphagia, heartburn, diarrhea, constipation, GI cramping, change in stool character, hematochezia or melena : Denies: flank pain, difficulty voiding, dysuria, urinary frequency, urinary urgency, urinary hesitancy or hematuria Musc: Denies: neck pain, back pain, extremity pain, joint swelling, joint warmth or deformity Neuro: Denies: headache(s), numbness in extremities, weakness in extremities, sensory changes, difficulty walking, frequent falls, dizziness, vertigo, behavioral changes, Slurred speech present or seizure-like activity Psych: Denies: anxiety, depression, suicidal ideation or homicidal ideation Endo: Denies: polyuria, polydipsia, tired all the time, cold intolerance or hot flashes Reynold/Lymph: Denies: easy bruising or easy bleeding Medications/Allergies Home Medications Medication Instructions Recorded Confirmed Last Taken Type Artificial Tears (PF) 1 drp OPHTHALMIC (EYE) QID 01/11/20 09/11/20 09/11/20 History atorvastatin 20 mg PO BEDTIME 01/11/20 09/11/20 09/10/20 History carvedilol 12.5 mg PO BID 01/11/20 09/11/20 09/11/20 History citalopram 20 mg PO DAILY 01/11/20 09/11/20 09/11/20 History isosorbide mononitrate 60 mg PO DAILY 01/11/20 09/11/20 09/11/20 History polyethylene glycol 3350 [Miralax] 17 g PO DAILY 01/11/20 09/11/20 09/11/20 History sennosides-docusate sodium 1 tab-cap PO BID 01/11/20 09/11/20 09/11/20 History [Senna-S] Multiple Vitamin, Womens 1 tab PO DAILY 04/24/20 09/11/20 09/11/20 History acetaminophen 650 mg PO QID PRN 04/24/20 09/11/20 04/24/20 History albuterol sulfate 2.5 mg INHALATION Q4H PRN 04/24/20 09/11/20 04/23/20 History Tresiba U-100 Insulin 25 unit SUBCUT BEDTIME 06/06/20 09/11/20 09/10/20 History aspirin [Aspirin Low Dose] 81 mg PO DAILY 06/06/20 09/11/20 09/11/20 History insulin aspart U-100 [Novolog See Rx Instructions .ROUTE .COMPLEX 06/06/20 09/11/20 09/10/20 History Flexpen U-100 Insulin] bumetanide 2 mg PO BID #60 tab 06/16/20 09/11/20 09/11/20 Rx metolazone 2.5 mg PO DAILY #30 tab 06/16/20 09/11/20 09/11/20 Rx bisacodyl 5 mg PO DAILY PRN 09/11/20 09/11/20 Unknown History bisacodyl 10 mg NV DAILY PRN 09/11/20 09/11/20 Unknown History furosemide See Rx Instructions .ROUTE .COMPLEX 09/11/20 09/11/20 09/10/20 History menthol [Biofreeze (menthol)] 1 applic TOPICAL TID PRN 09/11/20 09/11/20 Unknown History metolazone See Rx Instructions .ROUTE .COMPLEX 09/11/20 09/11/20 09/11/20 History potassium chloride 10 meq PO BID 09/11/20 09/11/20 09/11/20 History tramadol 50 mg PO BID PRN 09/11/20 09/11/20 Unknown History Allergies Allergy/AdvReac Type Severity Reaction Status Date / Time adhesive tape Allergy Unknown Verified 04/14/20 10:34 nifedipine [From Procardia] Allergy Unknown Verified 04/14/20 10:34 Penicillins Allergy Unknown Verified 04/14/20 10:34 PFSH Acute PFSH: Medical History Atrial fibrillation Chronic anticoagulation Chronic venous stasis CKD (chronic kidney disease) Congestive heart failure -acutely decompensated diastolic CHF, as evidenced by fluid overload on imaging, BNP elevation (though this is chronic), hypoxia, SOB -resume oral diuresis -daily weights, monitor Is & Os; so far has diuresed 8.8 L/6 kg -Echo (01/2020): EF=55%, no RWMA, trace MR -Riggins catheter removed prior to d/c -intermittently requiring BiPAP, now on NC -continue to monitor respiratory status -continue to monitor vital signs, currently stable -telemetry monitoring -s/p L therapeutic thoracentesis with output of 800 mL; f/u CXR shows minimal L pleural effusion, small R pleural effusion -noted hypoalbuminemia, may benefit from albumin to facilitate diuresis -f/u CXR shows moderate bilateral pleural effusions, s/p L thoracentesis with removal of 660 mL. Fluid analysis consistent with exudative effusion. Follow-up x-ray shows small right pleural effusion and improved left pleural effusion. Pleural fluid Gram stain negative, culture prelim negative. Cytology pending Coronary artery disease Diabetes mellitus type 2, insulin dependent -A1c-8.2 -Accuchecks, hypoglycemia precautions, ISS -complicated by peripheral neuropathy and nephropathy History of CVA (cerebrovascular accident) Hyperlipidemia -on statin Hypertension -VSS; continue to monitor vitals -continue BB Macrocytic anemia -Acute on chronic macrocytic anemia -baseline Hg is 9-10 -continue to monitor H/H; s/p 2 unit of PRBCs -noted vitamin B12, folate levels -continue to hold AC Macular degeneration -on eye drops Morbid obesity -BMI-47 kg/m2 Peripheral neuropathy Pulmonary hypertension Surgical History History of appendectomy History of arthroscopic knee surgery Bilateral History of cholecystectomy History of hysterectomy History of lumpectomy of left breast Family History Other Diabetes Social History Smoking and tobacco status: never smoked Alcohol intake: never Vitals/I&O/Wt Last Vital Signs Temp 97.7 F 09/11/20 14:15 Pulse 84 09/11/20 14:30 Resp 26 H 09/11/20 14:30 BP 148/90 09/11/20 14:30 Pulse Ox 99 09/11/20 14:30 Weight last 48 hrs Weight 112.037 kg Weight 117.934 kg Physical Exam Narrative: EXAM NARRATIVE: GENERAL: Awake, alert, currently on BiPAP, able to complete sentences and responds appropriately to questions. [] HEENT: Normocephalic, atraumatic, PERRLA. [] CHEST: Bilateral coarse conducted sounds anteriorly. [] CVS: S1, S2 normal. No murmur, rubs, gallops. Peripheral pulses palpable. [] ABDOMEN: Soft, nontender. Nondistended. Bowel sounds heard. [] NEUROVASCULAR: Awake, alert. Moves all extremities in bed [] EXTREMITIES: No edema. Multiple lower extremity stasis dermatitis changes and chronic appearing wounds. [] Urinary Catheter Management^: Riggins: Cath Placed During This Visit: yes Reason for Continuing Indwelling Catheter: Acute Urinary Retention or Obstruction Urinary Catheter Date of Insertion: 09/11/20 Urinary Catheter Time of Insertion: 11:30 Data : 09/11/20 10:03 09/11/20 10:03 A&P Assessment and plan (1) Acute exacerbation of CHF (congestive heart failure): Status: Acute Qualifiers: Heart failure type: diastolic Qualified Code(s): I50.33 - Acute on chronic diastolic (congestive) heart failure (2) NSTEMI (non-ST elevated myocardial infarction): Status: Acute (3) COPD (chronic obstructive pulmonary disease): Status: Acute Qualifiers: COPD type: unspecified COPD Qualified Code(s): J44.9 - Chronic obstructive pulmonary disease, unspecified (4) Pulmonary hypertension: Status: Acute (5) Chronic venous stasis: Status: Acute (6) Atrial fibrillation: Status: Acute Qualifiers: Atrial fibrillation type: unspecified Qualified Code(s): I48.91 - Unspecified atrial fibrillation (7) Hypertension: Status: Inactive Qualifiers: Hypertension type: essential hypertension Qualified Code(s): I10 - Essential (primary) hypertension (8) CKD (chronic kidney disease): Status: Acute Qualifiers: Chronic kidney disease stage: unspecified stage Qualified Code(s): N18.9 - Chronic kidney disease, unspecified Additional A&P Information Admit to ICU in view of acute hypercapnic respiratory failure #Acute hypoxic hypercapnic respiratory failure, likely secondary to CHF exacerbation Start patient on Lasix 100 mg IV every 12 hours Monitor closely urine output and intake Check daily weight Continue BiPAP, check ABG serially Covid negative on antigen test this morning at [facility]. Last echocardiogram from January 2020 with LVEF 55%, no regional wall motion abnormalities #NSTEMI Baseline troponin greater than 450, awaiting 2-hour trend Patient has been started on heparin drip in the ER, continue same for now monitor serial EKGs and troponin Continue aspirin, statin, beta-vesta Add nitro bid topically, will additionally help with blood pressure control #Hypertension: Continue home medications #CKD: Creatinine currently at baseline Attestations Medical Necessity Statement*: Greater than 2 midnight admission for management of acute hypoxic hypercapnic respiratory failure, CHF exacerbation Coding Level of Care Code 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 Fwd Diagnoses Acute exacerbation of CHF (congestive heart failure) I50.33 Heart failure type: diastolic NSTEMI (non-ST elevated myocardial infarction) I21.4 COPD (chronic obstructive pulmonary disease) J44.9 COPD type: unspecified COPD Pulmonary hypertension I27.20 Chronic venous stasis I87.8 Atrial fibrillation I48.91 Atrial fibrillation type: unspecified Hypertension I10 Hypertension type: essential hypertension CKD (chronic kidney disease) N18.9 Chronic kidney disease stage: unspecified stage
[2020-09-11] MEDS: heparin drip 25,000 UNIT/500 ML PREMIX 32 UNIT IV (15:23)
[2020-09-11 15:57] LABS: Procalcitonin 0.11 ng/mL (0-0.5)
[2020-09-11 16:24] LABS: ABG PH Result 7.49 (7.35-7.45); Arterial Blood Gas Hematocrit 29.9 % (37-47); Base Excess ABG 26.2 mmol/L (-2.0-2.0); Blood Gas Allen Test Pos; Blood Gas Operator Identificat BD; Blood Gas Sample Site Brachial, right; Blood Gas Sample Type Arterial; HCO3 ABG 53.2 mmol/L (22-26); Oxygen Device BIPAP; PO2 ABG 60.3 mmHg (80.0-100.0)
[2020-09-11 16:27] LABS: ABG PCO2 69.8 mmHg (35-45)
--- NOTE | 2020-09-11 16:35 | P.CONIM_ITS ---
Providers/Reason For Consult Consulting Physican/Specialty*: CHAIM Peralta MD/cardiology Reason for Consult*: Patient with elevated troponin T, CHF and atrial fibrillation Attending Physician: Nevaeh Cortez MD Primary Care Provider: Alli Quintero MD History of Present Illness History of Present Illness Mora Messer is a 75 year old female with multiple medical problems, poor historian, [facility] resident for 12 years, presenting with progressive shortness of breath for the last 3 days or so. She might have had some palpitations. No fever or chills. No significant cough. She has some amount of orthopnea. No abdominal pain or dysuria. She was found to have features of congestive heart failure in the emergency room. She also was found to be in atrial fibrillation. Her troponin T was in the 400 range. During her previous hospital admission, the troponin was in the 200 range. Cardiology consult is requested for further cardiac evaluation recommendations. Patient has a history of atherosclerotic heart disease and had a PCI many years ago at the [facility] in [place] by Dr. Marcelino. Details of this is not known. According the patient, she had 2 stent placement at that time. She has a history of recurrent diastolic heart failure. She also is known to have exudative pleural effusion for which he underwent a thoracentesis during the last hospital admission, in April of 2020. She is known to have COPD and pulmonary hypertension. Chronic intermittent atrial fibrillation, high blood pressure, dyslipidemia, chronic venous stasis of the lower extremities, chronic kidney disease and type 2 diabetes. She is morbidly obese. 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 She is nonambulatory. Moves around on a wheelchair. She denies any chest pain or chest tightness. Has not had any recent fever or chills. No other specific complaints. Review of Systems Narrative: CONSTITUTIONAL: No fever or chills. EYES: No blurring of vision or other visual disturbances lately. ENT: No hoarseness of voice, auditory disturbances or sore throat. CARDIOVASCULAR: As mentioned above. RESPIRATORY: History of COPD, pulmonary hypertension, chronic shortness of breath with recent exacerbation as mentioned above GASTROINTESTINAL: No hematemesis or melena. GENITOURINARY: No dysuria or hematuria. INTEGUMENTARY: No skin rashes or history of skin cancer. NEURO: History of CVA with residual left-sided weakness PSYCHIATRIC: No history of psychosis or major depression. HEMATOLOGIC: Chronic anemia ENDOCRINE: History of type 2 diabetes MUSCULOSKELETAL: Degenerative joint disease ALLERGY/IMMUNOLOGY: As mentioned above. Meds/Allergies Home Medications and Allergies Home Medications Medication Instructions Recorded Confirmed Last Taken Type Artificial Tears (PF) 1 drp OPHTHALMIC (EYE) QID 01/11/20 09/11/20 09/11/20 History atorvastatin 20 mg PO BEDTIME 01/11/20 09/11/20 09/10/20 History carvedilol 12.5 mg PO BID 01/11/20 09/11/20 09/11/20 History citalopram 20 mg PO DAILY 01/11/20 09/11/20 09/11/20 History isosorbide mononitrate 60 mg PO DAILY 01/11/20 09/11/20 09/11/20 History polyethylene glycol 3350 [Miralax] 17 g PO DAILY 01/11/20 09/11/20 09/11/20 History sennosides-docusate sodium 1 tab-cap PO BID 01/11/20 09/11/20 09/11/20 History [Senna-S] Multiple Vitamin, Womens 1 tab PO DAILY 04/24/20 09/11/20 09/11/20 History acetaminophen 650 mg PO QID PRN 04/24/20 09/11/20 04/24/20 History albuterol sulfate 2.5 mg INHALATION Q4H PRN 04/24/20 09/11/20 04/23/20 History Tresiba U-100 Insulin 25 unit SUBCUT BEDTIME 06/06/20 09/11/20 09/10/20 History aspirin [Aspirin Low Dose] 81 mg PO DAILY 06/06/20 09/11/20 09/11/20 History insulin aspart U-100 [Novolog See Rx Instructions .ROUTE .COMPLEX 06/06/20 09/11/20 09/10/20 History Flexpen U-100 Insulin] bumetanide 2 mg PO BID #60 tab 06/16/20 09/11/20 09/11/20 Rx metolazone 2.5 mg PO DAILY #30 tab 06/16/20 09/11/20 09/11/20 Rx bisacodyl 5 mg PO DAILY PRN 09/11/20 09/11/20 Unknown History bisacodyl 10 mg [place] DAILY PRN 09/11/20 09/11/20 Unknown History furosemide See Rx Instructions .ROUTE .COMPLEX 09/11/20 09/11/20 09/10/20 History menthol [Biofreeze (menthol)] 1 applic TOPICAL TID PRN 09/11/20 09/11/20 Unknown History metolazone See Rx Instructions .ROUTE .COMPLEX 09/11/20 09/11/20 09/11/20 History potassium chloride 10 meq PO BID 09/11/20 09/11/20 09/11/20 History tramadol 50 mg PO BID PRN 09/11/20 09/11/20 Unknown History Allergies Allergy/AdvReac Type Severity Reaction Status Date / Time adhesive tape Allergy Unknown Verified 04/14/20 10:34 nifedipine [From Procardia] Allergy Unknown Verified 04/14/20 10:34 Penicillins Allergy Unknown Verified 04/14/20 10:34 Current Medications Current Medications Generic Name Dose Route Start Last Admin Trade Name Freq PRN Reason Stop Dose Admin Heparin Sodium/Sodium Chloride 25,000 unit in 500 mls @ 0 mls/hr 09/11/20 12:00 09/11/20 15:23 Heparin Drip IV 13.57 unit/kg/hr .Q0M NAGA 32 mls/hr Administration Protocol Per Protocol PFSH Acute PFSH: Medical History Acute on chronic diastolic (congestive) heart failure Atrial fibrillation Chronic anticoagulation Chronic atrial fibrillation Chronic venous stasis CKD (chronic kidney disease) Congestive heart failure -acutely decompensated diastolic CHF, as evidenced by fluid overload on imaging, BNP elevation (though this is chronic), hypoxia, SOB -resume oral diuresis -daily weights, monitor Is & Os; so far has diuresed 8.8 L/6 kg -Echo (01/2020): EF=55%, no RWMA, trace MR -Riggins catheter removed prior to d/c -intermittently requiring BiPAP, now on NC -continue to monitor respiratory status -continue to monitor vital signs, currently stable -telemetry monitoring -s/p L therapeutic thoracentesis with output of 800 mL; f/u CXR shows minimal L pleural effusion, small R pleural effusion -noted hypoalbuminemia, may benefit from albumin to facilitate diuresis -f/u CXR shows moderate bilateral pleural effusions, s/p L thoracentesis with removal of 660 mL. Fluid analysis consistent with exudative effusion. Follow-up x-ray shows small right pleural effusion and improved left pleural effusion. Pleural fluid Gram stain negative, culture prelim negative. Cytology pending Coronary artery disease Diabetes mellitus type 2, insulin dependent -A1c-8.2 -Accuchecks, hypoglycemia precautions, ISS -complicated by peripheral neuropathy and nephropathy History of CVA (cerebrovascular accident) Hyperlipidemia -on statin Hypertension -VSS; continue to monitor vitals -continue BB Macrocytic anemia -Acute on chronic macrocytic anemia -baseline Hg is 9-10 -continue to monitor H/H; s/p 2 unit of PRBCs -noted vitamin B12, folate levels -continue to hold AC Macular degeneration -on eye drops Morbid obesity -BMI-47 kg/m2 Peripheral neuropathy Pulmonary hypertension Surgical History History of appendectomy History of arthroscopic knee surgery Bilateral History of cholecystectomy History of hysterectomy History of lumpectomy of left breast Family History Other Diabetes Social History Smoking and tobacco status: never smoked Alcohol intake: never Vitals/I&O/Wt Last Vital Signs Temp 97.7 F 09/11/20 14:15 Pulse 84 09/11/20 14:30 Resp 26 H 09/11/20 14:30 BP 148/90 09/11/20 14:30 Pulse Ox 99 09/11/20 14:30 Weight last 48 hrs Weight 247 lb Weight 260 lb Physical Exam Narrative: EXAM NARRATIVE: GENERAL: The patient is alert and oriented times three. Not in any acute distress. Slightly tachypneic HEENT: Minimal pallorno icterus or lymphadenopathy. The pupils are reactant to light. Oral cavity: There are no mucous membrane lesions. Funduscopic examination: The fundus is not visualized NECK: Trachea appears to be central. No masses noted. No JVD or thyromegaly appreciated. No carotid bruit. RESPIRATORY: Chest is symmetrical. No intercostals muscle retraction or any acc essory muscle activation. There is no chest wall tenderness. Breath sounds are heard bilaterally. Few fine rales at the bases.No evidence of any consolidation. Breath sounds are diminished at the bases BREASTS: Deferred. HEART: The PMI could not be palpated. No other palpable precordial events. First heart sound is variable. Second heart sound is normal. No S3. Short systolic murmur the left sternal border. No diastolic murmurs. ABDOMEN: Morbidly obese, pendulous. Nontender. Bowel sounds are normally heard. : Deferred. RECTAL: Deferred. LYMPHATIC: No lymphadenopathy noted in the neck or groin. EXTREMITIES: Features of chronic venous stasis, hyperpigmented skin with some ulcerations. 1-2+ edema of both lower extremities. The dorsalis pedis and posterior pulses are palpable but weak MUSCULOSKELETAL: No acute joint deformities or swelling. SKIN: Hyperpigmented excoriated skin bilaterally NEUROPSYCHIATRIC: The patient is alert and oriented x3. Appears to be in a good mood. The higher functions are grossly within normal limits. Left upper and lower extremity has motor weakness Urinary Catheter Management^: Riggins: Cath Placed During This Visit: yes Reason for Continuing Indwelling Catheter: Acute Urinary Retention or Obstruction Urinary Catheter Date of Insertion: 09/11/20 Urinary Catheter Time of Insertion: 11:30 Data Labs: Other Labs: Laboratory Last Values WBC 7.8 10^3/uL (4.0- 10.0) 09/11/20 10:03 RBC 3.02 10^6/uL (4.1 -5.3) L 09/11/20 10:03 Hgb 8.8 g/dL (11.5-15 .3) L 09/11/20 10:03 Hct 32.2 % (37.0-47.0 ) L 09/11/20 10:03 MCV 106.6 fL (81-99) H 09/11/20 10:03 MCH 29.1 pg (28.0-34. 0) 09/11/20 10:03 MCHC 27.3 g/dL (30.0-3 6.0) L 09/11/20 10:03 RDW 15.8 % (12.1-15.1 ) H 09/11/20 10:03 Plt Count 188 10^3/cmm (130 -400) 09/11/20 10:03 MPV 10.9 fL (7.4-10.4 ) H 09/11/20 10:03 Neut % (Auto) 65.3 % 09/11/20 10:03 Lymph % (Auto) 25.3 % 09/11/20 10:03 [place] % (Auto) 6.0 % 09/11/20 10:03 Eos % (Auto) 2.6 % 09/11/20 10:03 Baso % (Auto) 0.3 % 09/11/20 10:03 Neut # (Auto) 5.12 10^3/uL (1.8 -7.7) 09/11/20 10:03 Lymph # (Auto) 2.0 10^3/uL (0.8- 4.8) 09/11/20 10:03 [place] # (Auto) 0.5 10^3/uL (0.2- 0.9) 09/11/20 10:03 Eos # (Auto) 0.2 10^3/uL (0.0- 0.8) 09/11/20 10:03 Baso # (Auto) 0.0 10^3/uL (0.0- 0.1) 09/11/20 10:03 Nucleated RBC % (a uto) 0 % 09/11/20 10:03 Nucleated RBCs # 0.0 /100WBC 09/11/20 10:03 Specimen Type Arterial 09/11/20 16:10 Sample Site Brachial, right 09/11/20 16:10 ABG pH 7.49 (7.35-7.45) H 09/11/20 16:10 ABG pCO2 69.8 mmHg (35-45) H* 09/11/20 16:10 ABG pO2 60.3 mmHg (80.0-1 00.0) L 09/11/20 16:10 ABG HCO3 53.2 mmol/L (22-2 6) H 09/11/20 16:10 ABG O2 Saturation 87.1 09/11/20 11:50 ABG Base Excess 26.2 mmol/L (-2.0 -2.0) H 09/11/20 16:10 Jose Test Pos 09/11/20 16:10 A-a O2 Gradient Not Reportable 09/11/20 11:50 Hematocrit 29.9 % (37-47) L 09/11/20 16:10 Hgb O2 Saturation 84.6 % (95-100) L 09/11/20 11:50 Carboxyhemoglobin 2.1 %THgb (0.4-20 .1) 09/11/20 11:50 Methemoglobin 0.7 % (0.4-1.5) 09/11/20 11:50 Total Hemoglobin 9.1 g/dL (12-16) L 09/11/20 11:50 Sodium 148.0 mmol/L (131 -143) H 09/11/20 11:50 Potassium 4.8 mmol/L (3.5-5 .0) 09/11/20 11:50 Glucose 136.0 mg/dL (70-1 15) H 09/11/20 11:50 Ionized Calcium 1.2 mmol/L (1.1-1 .4) 09/11/20 11:50 O2 Delivery Device Bipap 09/11/20 16:10 O2 Liters/Min 5.0 % 09/11/20 16:10 FiO2 28.0 % 09/11/20 09:53 PEEP 8.0 cmH20 09/11/20 11:50 World History Teacher ID Bd 09/11/20 16:10 Sodium 146 mmol/L (136-1 45) H 09/11/20 10:03 Potassium 5.5 mmol/L (3.5-5 .1) H 09/11/20 10:03 Chloride 94 mmol/L (98-107 ) L 09/11/20 10:03 Carbon Dioxide 49 mmol/L (22-29) H* 09/11/20 10:03 Anion Gap 8.5 (5-19) 09/11/20 10:03 BUN 49 mg/dL (8-23) H 09/11/20 10:03 Creatinine 2.1 mg/dL (0.5-0. 9) H 09/11/20 10:03 GFR Calculation Not Reportable 09/11/20 10:03 Glucose 151 mg/dL (65-115 ) H 09/11/20 10:03 POC Glucose 135 mg/dL (70-110 ) 09/11/20 17:51 Calculated Osmolal ity 318 mOsm/kg (285- 295) H 09/11/20 10:03 Lactic Acid 0.8 mmol/L (0.5-2 .2) 09/11/20 10:03 Calcium 9.1 mg/dL (8.5-10 .5) 09/11/20 10:03 Total Bilirubin 0.3 mg/dL (0.15-1 .2) 09/11/20 10:03 AST 11 U/L (0-32) 09/11/20 10:03 ALT < 5 U/L (0-33) 09/11/20 10:03 Alkaline Phosphata se 80 IU/L (35-105) 09/11/20 10:03 Troponin T Baselin e 457 ng/L (0-10) H* 09/11/20 10:03 Troponin T 120 Min [place] 453.0 ng/L (0-10) H 09/11/20 14:40 Delta Troponin T Not Reportable 09/11/20 14:40 Troponin T Hi Sens 6Hr 448.8 ng/L (0-10) H 09/11/20 16:25 Troponin T Hi Sens 6Hr Delta -8.2 ng/L (0-12) L 09/11/20 16:25 NT-Pro-B Natriuret Pep 6006 pg/mL (0-450 ) H 09/11/20 10:03 Total Protein 7.4 g/dL (6.6-8.7 ) 09/11/20 10:03 Albumin 3.0 g/dL (3.5-5.2 ) L 09/11/20 10:03 Globulin 4.4 g/dL (1.3-4.6 ) 09/11/20 10:03 Procalcitonin 0.11 ng/mL (0-0.5 ) 09/11/20 10:03 Urine Color Yellow (Yellow) 09/11/20 12:18 Urine Appearance Sl hazy (CLEAR) 09/11/20 12:18 Urine pH 7 (5-7) 09/11/20 12:18 Ur Specific Gravit y 1.005 (1.005-1.0 30) 09/11/20 12:18 Urine Protein Trace (Negative) 09/11/20 12:18 Urine Glucose (UA) Norm (Normal) 09/11/20 12:18 Urine Ketones Negative (Negati ve) 09/11/20 12:18 Urine Blood 3+ (Negative) H 09/11/20 12:18 Urine Nitrate Negative (Negati ve) 09/11/20 12:18 Urine Bilirubin Neg (Negative) 09/11/20 12:18 Urine Urobilinogen Norm mg/dL (Negat jewels) 09/11/20 12:18 Ur Leukocyte Alfreda ase Negative (Negati ve) 09/11/20 12:18 Urine RBC 40-50 /hpf (0-2) H 09/11/20 12:18 Urine WBC 0-4 /hpf (0-5) H 09/11/20 12:18 Ur Squamous Epith Cells 0-4 /hpf (0-5) H 09/11/20 12:18 Amorphous Sediment Not Reportable 09/11/20 12:18 Urine Bacteria Trace /hpf (NONE) 09/11/20 12:18 Serum Ketones Negative (Negati ve) 09/11/20 10:03 Imaging^: CXR: Radiologist's impression: Chest x-ray revealed Cardiomegaly with dilated upper lobe veins. Moderately large bilateral pleural effusions. Likely associated lung consolidation/atelectasis. Effusions are larger than on the previous examination of 06/13/2020. EKG^: EKG 1: My Interpretation: Atrial fibrillation with a controlled reticular response rate. Right bundle branch block pattern. Some nonspecific T wave changes. Otherwise unremarkable. A&P Assessment and plan (1) NSTEMI (non-ST elevated myocardial infarction): Elevated troponin T, may suggest a non-ST elevation myocardial infarction. Her EKG changes are very nonspecific. Hemodynamically she seems to be stable. She was started on IV heparin in the emergency room. I may go ahead and do a limited 2D echocardiogram, to evaluate the LV function. Patient may be kept on the aspirin. I may start her on a low-dose of beta-vesta. Because of the anemia,, chronic kidney disease and IV anticoagulant, she carries a high risk for bleeding. So I may hold off on the Plavix for the time being. Status: Acute (2) Acute on chronic diastolic (congestive) heart failure: Patient may be carefully treated with IV diuretics. Status: Acute (3) CKD (chronic kidney disease): Continue to monitor the kidney function. Status: Acute Qualifiers: Chronic kidney disease stage: unspecified stage Qualified Code(s): N18.9 - Chronic kidney disease, unspecified (4) Pulmonary hypertension: Continue on the current medications for the time being Status: Acute (5) Chronic atrial fibrillation: Since the ventricular response rate is under control, I may hold off on any medication changes at this time. Status: Acute Additional A&P Information Other problems are Anemia Type 2 diabetes Morbid obesity Chronic venous stasis COPD Pulmonary hypertension Bilateral pleural effusion In view of the patient's multiple medical problems, optimizing the medical treatment would be the plan of action at this point. I may go ahead and do a limited 2D echocardiogram, to evaluate the LV function and rule out any other pathology. We may need to consider thoracentesis, if there is no significant improvement in the pleural effusion. Based on the clinical progress and the results of the above, further recommendations will be made. Thank you for the opportunity to evaluate this patient and make these recommendations Coding Level of Care Code Acute Rubbing Bed Operator for suhail Jerry Diagnoses NSTEMI (non-ST elevated myocardial infarction) I21.4 Acute on chronic diastolic (congestive) heart failure I50.33 CKD (chronic kidney disease) N18.9 Chronic kidney disease stage: unspecified stage Pulmonary hypertension I27.20 Chronic atrial fibrillation I48.20
[2020-09-11] MEDS: lanolin oint 7 gm 1 APPLIC TOPICAL (16:40)
[2020-09-11] MEDS: famotidine 20 mg/2 mL INJ IVP (16:41)
[2020-09-11] MEDS: FUROsemide 10 mg/mL SDV 10mL 100 MG IVP (16:41)
[2020-09-11] MEDS: nitroglycerin 1 gm/inch oint Pkt 1.5 INCH TOPICAL ×2 (16:41→22:16)
[2020-09-11] MEDS: carvedilol 12.5 mg Tablet PO (17:05)
[2020-09-11 17:10] LABS: Troponin 5 6HR 448.8 ng/L (0-10); Troponin 5 6HR Delta -8.2 ng/L (0-12)
[2020-09-11 18:13] LABS: Glucose Point of Care 135 mg/dL (70-110)
--- NOTE | 2020-09-11 19:09 | PC.NURSE ---
Pt admitted to ICU at around 14:15 today. Three leg wounds found (left anterior corona, left inner ankle, right anterior corona); new dressings applied. Heparin not infusing as ordered upon arrival; ED nursing staff gave a heparin bolus but did not start the infusion, stating it never arrived from pharmacy. No baseline PTT result found. Notified Dr. Cortez, who instructed to not draw a baseline PTT and just start the infusion now. Infusion started with PTT timed at 6 hours after initiation. Critical troponin results reported to Dr. Cortez (at 15:20 and 17:10), with no orders received each time. Dr. Cortez also notified of elevated BP; see orders. Pt c/o back pain, which she states was relieved with repositioning and pillow placement. Pt alert and oriented to self, location, situation, month, and year. She arrived from ED with BiPAP in place, and only tolerates 20-30min at a time on the nasal cannula before becoming dyspneic and requiring BiPAP again. Granddaughter Pippa was here during visiting hours; her questions were answered.
[2020-09-11] MEDS: atorvastatin 40 mg Tablet 20 MG PO (20:25)
[2020-09-11 20:32] LABS: Glucose Point of Care 136 mg/dL (70-110)
[2020-09-11] MEDS: acetaminophen 325 mg Tablet 650 MG PO (20:32)
[2020-09-12] VITALS (124 sets, daily range): BP systolic 81–207; BP diastolic 51–128; PULSE 63–88; RESP 14–35; TEMP 36.6–37.1; O2SAT 97–100
[2020-09-12 01:28] LABS: Partial Thromboplastin Time > 250.0 SECONDS (23.9-36.7)
[2020-09-12] MEDS: famotidine 20 mg/2 mL INJ IVP ×2 (03:21→17:10)
[2020-09-12] MEDS: FUROsemide 10 mg/mL SDV 10mL 100 MG IVP ×2 (03:21→17:10)
[2020-09-12] MEDS: nitroglycerin 1 gm/inch oint Pkt 1.5 INCH TOPICAL ×3 (03:22→17:10)
[2020-09-12 05:31] LABS: ABG PCO2 81.1 mmHg (35-45); ABG PH Result 7.43 (7.35-7.45); Base Excess ABG 26.3 mmol/L (-2.0-2.0); Blood Gas Allen Test Pos; Blood Gas Operator Identificat JB; Blood Gas Sample Site Radial, right; Blood Gas Sample Type Arterial; HCO3 ABG 54.1 mmol/L (22-26); Oxygen Device BIPAP; PO2 ABG 80.7 mmHg (80.0-100.0)
[2020-09-12 05:52] LABS: Basophils % 0.3 %; Eosinophils # 0.2 10^3/uL (0.0-0.8); Eosinophils % 2.7 %; Hematocrit 29.8 % (37.0-47.0); Hemoglobin 8.3 g/dL (11.5-15.3); Lymphocytes # 2.5 10^3/uL (0.8-4.8); Lymphocytes % 36.4 %; Mean Corpuscular HGB Conc 27.9 g/dL (30.0-36.0); Mean Corpuscular Hemoglobin 29.4 pg (28.0-34.0); Mean Corpuscular Volume 105.7 fL (81-99); Mean Platelet Volume 11.2 fL (7.4-10.4); Monocytes # 0.4 10^3/uL (0.2-0.9); Monocytes % 6.3 %; Neutrophils # 3.75 10^3/uL (1.8-7.7); Neutrophils % 54.2 %; Nucleated Red Blood Cells % 0 %; Platelet Count 183 10^3/cmm (130-400); Red Blood Count 2.82 10^6/uL (4.1-5.3); Red Cell Distribution Width 15.9 % (12.1-15.1); White Blood Count 6.9 10^3/uL (4.0-10.0)
[2020-09-12 06:05] LABS: Partial Thromboplastin Time 86.6 SECONDS (23.9-36.7)
[2020-09-12 06:19] LABS: Alanine Aminotransferase < 5 U/L (0-33); Albumin Level 2.7 g/dL (3.5-5.2); Alkaline Phosphatase 75 IU/L (35-105); Aspartate Amino Transferase 10 U/L (0-32); Blood Urea Nitrogen 51 mg/dL (8-23); Chloride 92 mmol/L (98-107); Globulin 4.1 g/dL (1.3-4.6); Glucose 79 mg/dL (65-115); Magnesium 2.2 mg/dL (1.7-2.3); Osmolality Calculated 317 mOsm/kg (285-295); Sodium 147 mmol/L (136-145); Total Bilirubin 0.4 mg/dL (0.15-1.2); Total Protein 6.8 g/dL (6.6-8.7)
--- NOTE | 2020-09-12 06:21 | USCV_ITS ---
Mora Messer Age: 75 Gender: F : 1945 Exam Date: 09/12/2020 05:57 Ordering Phys: Jaye Peralta MD ([email or web address]) Technologist: Ximena Bran Exam Location: [facility] [place] Indication: CHF/AFIB BP: 127 / 73 HR: 74 Rhythm: Sinus Technical Quality: Adequate MEASUREMENTS (Male / Female) Normal Values 2D ECHO LV Diastolic Diameter PLAX 3.4 cm 4.2 - 5.9 / 3.9 - 5.3 cm LV Systolic Diameter PLAX 2.3 cm LV Chamber Size 3.1 cm IVS Diastolic Thickness 1.7 cm 0.6 - 1.0 / 0.6 - 0.9 cm IVS Systolic Thickness 1.9 cm LVPW Diastolic Thickness 1.8 cm 0.6 - 1.0 / 0.6 - 0.9 cm LVPW Systolic Thickness 2.3 cm RV Chamber Size 3.4 cm LVOT Diameter 2.0 cm LV Ejection Fraction 2D Teich 64.5 % LV Ejection Fraction MOD 2C 47.7 % LV Ejection Fraction 2C AL 50.5 % LA Diameter 3.4 cm LA Width 3.0 cm LA Height 5.0 cm RA Width 3.2 cm RA Height 4.2 cm Aorta at Sinotubular Diameter 2.9 cm M-MODE LV Diastolic Diameter MM 4.8 cm 4.2 - 5.9 / 3.9 - 5.3 cm LV Systolic Diameter MM 2.8 cm LV Ejection Fraction MM Teich 72.7 % IVS Diastolic Thickness MM 0.9 cm 0.6 - 1.0 / 0.6 - 0.9 cm IVS Systolic Thickness MM 1.7 cm LVPW Diastolic Thickness MM 1.3 cm 0.6 - 1.0 / 0.6 - 0.9 cm LVPW Systolic Thickness MM 1.7 cm Aortic Annulus Diameter 1.9 cm LA Ao Ratio MM 1.9 MV E Point Septal Separation 0.6 cm FINDINGS Left Ventricle Mild concentric left renal hypertrophy. Mild hypokinesia of the basal inferior wall segment was noted. Overall ejection fraction around 50 to 55% Right Ventricle Possibly normal LV size and ejection fraction Right Atrium Mild to moderate dilatation of the right atrium. Left Atrium Mild to moderate dilatation of the left atrium. Mitral Valve Thickened mitral valve. Mild mitral annular calcification. Aortic Valve Thickened aortic valve. Tricuspid Valve No gross abnormalities noted Pulmonic Valve Pulmonic valve not well visualized. Pericardium Small to moderate echo-free space is noted posteriorly and laterally Aorta Normal aortic annulus size. CONCLUSIONS Mild concentric left renal hypertrophy. Mild hypokinesia of the basal inferior wall segment was noted. Overall ejection fraction around 50 to 55%. Features of small to moderate pericardial effusion-cannot exclude a loculated effusion Mild to moderate biatrial enlargement Thickened aortic and mitral valves with mild mitral annular calcification No previous study is available for comparison. This is compared to the study from 01/11/2020, there is some increase in the pericardial effusion Dr Jaye Peralta MD [facility] (Electronically Signed) Final Date: 12 September 2020 17:01 S
--- NOTE | 2020-09-12 06:31 | PC.NURSE ---
New Order: Per MD Ingrid recommendation Heparin gtt resumed at 25mL/hr. Heparin restarted at 25mL/hr @0635. New order for aPPT to be done @8700.
[2020-09-12 06:48] LABS: Carbon Dioxide 50 mmol/L (22-29)
--- NOTE | 2020-09-12 06:58 | PC.NURSE ---
Shift Summary: Patient c/o back pain. Did not tolerate turning very well. PRN Tylenol given to help ease pain. Placed on Bipap overnight. Some HTN noted. Notified MD Dayne production cook. No new orders at that time. Nitro paste applied X2. 625 u/o Heparin paused at 0130 per MD Dayne based on aPTT lab values. [facility] phoned overnight for update. Heparin resumed after a pause given by v/o from MD Dayne production cook based on aPPT lab value results. Per Ingrid recommendation, Heparin was resumed at 25mL/hr. Report given to jamel narvaez RN.
[2020-09-12 07:41] LABS: Partial Thromboplastin Time 27.9 SECONDS (23.9-36.7)
[2020-09-12] MEDS: carvedilol 12.5 mg Tablet PO ×2 (08:07→17:10)
[2020-09-12] MEDS: citalopram 20 mg Tablet PO (08:07)
[2020-09-12] MEDS: aspirin 81 mg EC Tablet PO (08:07)
[2020-09-12 08:12] LABS: Glucose Point of Care 89 mg/dL (70-110)
--- NOTE | 2020-09-12 08:50 | P.PN_ITS ---
Subjective Subjective: Interval history: Patient is feeling better. Her shortness of breath seems to be improving. She has no chest pain or palpitations. Continues to be in atrial fibrillation with a controlled ventricular response rate. Troponin I seems to be stable. Hemoglobin dropped to 8.3 today. No evidence of any active bleed. Medications: Reviewed: Yes Medication Review Details: Current Medications Acetaminophen (Acetaminophen 325 Mg Tablet) 650 mg PO QID PRN PRN Reason: Pain Last Admin: 09/11/20 20:32 Dose: 650 mg Documented by: Albuterol Sulfate (Albuterol 2.5 Mg/0.5 Ml Neb) 2.5 mg INHALATION Q4H PRN PRN Reason: Shortness Of Breath Aspirin (Aspirin 81 Mg Ec Tablet) 81 mg PO DAILY [facility] Last Admin: 09/12/20 08:07 Dose: 81 mg Documented by: Atorvastatin Calcium (Atorvastatin 40 Mg Tablet) 20 mg PO BEDTIME [facility] Last Admin: 09/11/20 20:25 Dose: 20 mg Documented by: Bisacodyl (Bisacodyl 10 Mg Supp) 10 mg [place] DAILY PRN PRN Reason: Constipation Carvedilol (Carvedilol 12.5 Mg Tablet) 12.5 mg PO BID [facility] Last Admin: 09/12/20 08:07 Dose: 12.5 mg Documented by: Citalopram Hydrobromide (Citalopram 20 Mg Tablet) 20 mg PO DAILY [facility] Last Admin: 09/12/20 08:07 Dose: 20 mg Documented by: Dextrose (Dextrose 50% Syringe 50 Ml) 25 ml IVP ONCE PRN; Protocol PRN Reason: hypoglycemia protocol Dextrose (Dextrose 50% Syringe 50 Ml) 50 ml IVP PRN PRN; Protocol PRN Reason: hypoglycemia protocol Famotidine (Famotidine 20 Mg/2 Ml Inj) 20 mg IVP Q12H NAGA Last Admin: 09/12/20 03:21 Dose: 20 mg Documented by: Furosemide (Furosemide 10 Mg/Ml Sdv 10ml) 100 mg IVP Q12H NAGA Last Admin: 09/12/20 03:21 Dose: 100 mg Documented by: Glucagon (Glucagon 1 Mg/Ml Inj 1 Ml) 1 mg IM ONCE PRN; Protocol PRN Reason: Adult Acute Hypoglycemia Prot. Heparin Sodium (Beef Lung) (Heparin 5,000 Unit/Ml Inj 1 Ml) 0 unit IV PRN PRN; Protocol PRN Reason: Heparin weight-base protocol Heparin Sodium/Sodium Chloride (Heparin Drip) 25,000 unit in 500 mls @ 0 mls/hr IV .Q0M NAGA; Protocol Last Titration: 09/12/20 01:30 Dose: 0 unit/kg/hr, 0 mls/hr Documented by: Dextrose (D5w) 500 mls @ 100 mls/hr IV ONCE PRN; Protocol PRN Reason: Adult Acute Hypoglycemia Prot Insulin Aspart (Insulin Aspart 100 Unit/1 Ml) 0 unit SUBCUT WM&BEDTIME NAGA; Protocol Last Admin: 09/12/20 07:52 Dose: Not Given Documented by: Lanolin (Lanolin Oint 7 Gm) 1 applic TOPICAL PRN PRN PRN Reason: DRYNESS Last Admin: 09/11/20 16:40 Dose: 1 applic Documented by: Nitroglycerin (Nitroglycerin 1 Gm/Inch Oint Pkt) 1.5 inch TOPICAL Q6H NAGA Last Admin: 09/12/20 03:22 Dose: 1.5 inch Documented by: Tramadol HCl (Tramadol 50 Mg Tablet) 50 mg PO BID PRN PRN Reason: Pain Vitals/I&O/Wt Last Vital Signs Temp 98.1 F 09/12/20 08:40 Pulse 77 09/12/20 08:40 Resp 33 H 09/12/20 08:40 BP 172/88 09/12/20 08:40 Pulse Ox 99 09/12/20 08:40 09/11/20 09/12/20 09/12/20 22:59 06:59 14:59 Intake Total 150 / 150 323.733 / 473.733 240 / 240 Output Total 1600 / 1600 650 / 2250 Balance -1450 / -1450 -326.267 / -1776.267 240 / 240 Weight last 48 hrs Weight 247 lb Weight 260 lb Physical Exam Narrative: EXAM NARRATIVE: GENERAL: The patient is alert and oriented times three. Not in any acute distress. Slightly tachypneic HEENT: Moderate pallor. No icterus or lymphadenopathy. NECK: Trachea appears to be central. No masses noted. No JVD or thyromegaly appreciated. No carotid bruit. RESPIRATORY: Chest is symmetrical. No intercostals muscle retraction or any accessory muscle activation. There is no chest wall tenderness. Breath sounds are heard bilaterally. Few fine rales at the bases.No evidence of any consolidation. Breath sounds are diminished at the bases BREASTS: Deferred. HEART: The PMI could not be palpated. No other palpable precordial events. First heart sound is variable. Second heart sound is normal. No S3. Short systolic murmur the left sternal border. No diastolic murmurs. ABDOMEN: Morbidly obese, pendulous. Nontender. Bowel sounds are normally heard. : Deferred. RECTAL: Deferred. LYMPHATIC: No lymphadenopathy noted in the neck or groin. EXTREMITIES: Features of chronic venous stasis, hyperpigmented skin with some ulcerations. 1-2+ edema of both lower extremities. The dorsalis pedis and posterior pulses are palpable but weak MUSCULOSKELETAL: No acute joint deformities or swelling. SKIN: Hyperpigmented excoriated skin bilaterally NEUROPSYCHIATRIC: The patient is alert and oriented x3. Appears to be in a good mood. The higher functions are grossly within normal limits. Left upper and lower extremity has motor weakness Urinary Catheter Management^: Riggins: Cath Placed During This Visit: yes Reason for Continuing Indwelling Catheter: Accurate Measurement of Urinary Output in Critically Ill Patients Urinary Catheter Date of Insertion: 09/11/20 Urinary Catheter Time of Insertion: : Data : 09/13/20 14:45 09/12/20 04:30 Other Labs: Laboratory Last Values WBC 6.9 10^3/uL (4.0-10.0) 09/12/20 04:30 RBC 2.82 10^6/uL (4.1-5.3) L 09/12/20 04:30 Hgb 8.3 g/dL (11.5-15.3) L 09/12/20 04:30 Hct 29.8 % (37.0-47.0) L 09/12/20 04:30 MCV 105.7 fL (81-99) H 09/12/20 04:30 MCH 29.4 pg (28.0-34.0) 09/12/20 04:30 MCHC 27.9 g/dL (30.0-36.0) L 09/12/20 04:30 RDW 15.9 % (12.1-15.1) H 09/12/20 04:30 Plt Count 183 10^3/cmm (130-400) 09/12/20 04:30 MPV 11.2 fL (7.4-10.4) H 09/12/20 04:30 Neut % (Auto) 54.2 % 09/12/20 04:30 Lymph % (Auto) 36.4 % 09/12/20 04:30 Kimball % (Auto) 6.3 % 09/12/20 04:30 Eos % (Auto) 2.7 % 09/12/20 04:30 Baso % (Auto) 0.3 % 09/12/20 04:30 Neut # (Auto) 3.75 10^3/uL (1.8-7.7) 09/12/20 04:30 Lymph # (Auto) 2.5 10^3/uL (0.8-4.8) 09/12/20 04:30 Kimball # (Auto) 0.4 10^3/uL (0.2-0.9) 09/12/20 04:30 Eos # (Auto) 0.2 10^3/uL (0.0-0.8) 09/12/20 04:30 Baso # (Auto) 0.0 10^3/uL (0.0-0.1) 09/12/20 04:30 Nucleated RBC % (auto) 0 % 09/12/20 04:30 Nucleated RBCs # 0.0 /100WBC 09/12/20 04:30 APTT 27.9 SECONDS (23.9-36.7) D 09/12/20 07:06 Specimen Type Arterial 09/12/20 05:18 Sample Site Radial, right 09/12/20 05:18 ABG pH 7.43 (7.35-7.45) 09/12/20 05:18 ABG pCO2 81.1 mmHg (35-45) H* 09/12/20 05:18 ABG pO2 80.7 mmHg (80.0-100.0) 09/12/20 05:18 ABG HCO3 54.1 mmol/L (22-26) H 09/12/20 05:18 ABG O2 Saturation 87.1 09/11/20 11:50 ABG Base Excess 26.3 mmol/L (-2.0-2.0) H 09/12/20 05:18 Jose Test Pos 09/12/20 05:18 A-a O2 Gradient Not Reportable 09/11/20 11:50 Hematocrit 26.0 % (37-47) L 09/12/20 05:18 Hgb O2 Saturation 84.6 % (95-100) L 09/11/20 11:50 Carboxyhemoglobin 2.1 %THgb (0.4-20.1) 09/11/20 11:50 Methemoglobin 0.7 % (0.4-1.5) 09/11/20 11:50 Total Hemoglobin 9.1 g/dL (12-16) L 09/11/20 11:50 Sodium 148.0 mmol/L (131-143) H 09/11/20 11:50 Potassium 4.8 mmol/L (3.5-5.0) 09/11/20 11:50 Glucose 136.0 mg/dL (70-115) H 09/11/20 11:50 Ionized Calcium 1.2 mmol/L (1.1-1.4) 09/11/20 11:50 O2 Delivery Device Bipap 09/12/20 05:18 O2 Liters/Min 4.0 % 09/12/20 05:18 FiO2 28.0 % 09/11/20 09:53 PEEP 8.0 cmH20 09/11/20 11:50 Supervisor Bleach Plant ID Anurag 09/12/20 05:18 Sodium 147 mmol/L (136-145) H 09/12/20 04:30 Potassium 4.0 mmol/L (3.5-5.1) 09/12/20 04:30 Chloride 92 mmol/L (98-107) L 09/12/20 04:30 Carbon Dioxide 50 mmol/L (22-29) H* 09/12/20 04:30 Anion Gap 9.0 (5-19) 09/12/20 04:30 BUN 51 mg/dL (8-23) H 09/12/20 04:30 Creatinine 2.1 mg/dL (0.5-0.9) H 09/12/20 04:30 GFR Calculation Not Reportable 09/12/20 04:30 Glucose 79 mg/dL (65-115) 09/12/20 04:30 POC Glucose 89 mg/dL (70-110) 09/12/20 07:52 Calculated Osmolality 317 mOsm/kg (285-295) H 09/12/20 04:30 Lactic Acid 0.8 mmol/L (0.5-2.2) 09/11/20 10:03 Calcium 9.0 mg/dL (8.5-10.5) 09/12/20 04:30 Magnesium 2.2 mg/dL (1.7-2.3) 09/12/20 04:30 Total Bilirubin 0.4 mg/dL (0.15-1.2) 09/12/20 04:30 AST 10 U/L (0-32) 09/12/20 04:30 ALT < 5 U/L (0-33) 09/12/20 04:30 Alkaline Phosphatase 75 IU/L (35-105) 09/12/20 04:30 Troponin T Baseline 457 ng/L (0-10) H* 09/11/20 10:03 Troponin T 120 Minute 453.0 ng/L (0-10) H 09/11/20 14:40 Delta Troponin T Not Reportable 09/11/20 14:40 Troponin T Hi Sens 6Hr 448.8 ng/L (0-10) H 09/11/20 16:25 Troponin T Hi Sens 6Hr Delta -8.2 ng/L (0-12) L 09/11/20 16:25 NT-Pro-B Natriuret Pep 6006 pg/mL (0-450) H 09/11/20 10:03 Total Protein 6.8 g/dL (6.6-8.7) 09/12/20 04:30 Albumin 2.7 g/dL (3.5-5.2) L 09/12/20 04:30 Globulin 4.1 g/dL (1.3-4.6) 09/12/20 04:30 Procalcitonin 0.11 ng/mL (0-0.5) 09/11/20 10:03 Urine Color Yellow (Yellow) 09/11/20 12:18 Urine Appearance Sl hazy (CLEAR) 09/11/20 12:18 Urine pH 7 (5-7) 09/11/20 12:18 Ur Specific [place] 1.005 (1.005-1.030) 09/11/20 12:18 Urine Protein Trace (Negative) 09/11/20 12:18 Urine Glucose (UA) Norm (Normal) 09/11/20 12:18 Urine Ketones Negative (Negative) 09/11/20 12:18 Urine Blood 3+ (Negative) H 09/11/20 12:18 Urine Nitrate Negative (Negative) 09/11/20 12:18 Urine Bilirubin Neg (Negative) 09/11/20 12:18 Urine Urobilinogen Norm mg/dL (Negative) 09/11/20 12:18 Ur Leukocyte Esterase Negative (Negative) 09/11/20 12:18 Urine RBC 40-50 /hpf (0-2) H 09/11/20 12:18 Urine WBC 0-4 /hpf (0-5) H 09/11/20 12:18 Ur Squamous Epith Cells 0-4 /hpf (0-5) H 09/11/20 12:18 Amorphous Sediment Not Reportable 09/11/20 12:18 Urine Bacteria Trace /hpf (NONE) 09/11/20 12:18 Serum Ketones Negative (Negative) 09/11/20 10:03 Echo: My impression: Echocardiogram from today revealed Mild concentric left renal hypertrophy. Mild hypokinesia of the basal inferior wall segment was noted. Overall ejection fraction around 50 to 55%. Features of small to moderate pericardial effusion-cannot exclude a loculated effusion Mild to moderate biatrial enlargement Thickened aortic and mitral valves with mild mitral annular calcification No previous study is available for comparison. This is compared to the study from 01/11/2020, there is some increase in the pericardial effusion A&P Assessment and plan (1) NSTEMI (non-ST elevated myocardial infarction): Patient currently has no specific symptoms. Persistently elevated troponin T with no significant delta. This could very well be a type II myocardial infarction. Hemodynamically she seems to be stable. Status: Acute (2) Acute on chronic diastolic (congestive) heart failure: Heart failure seems to be fairly compensated. Status: Acute (3) CKD (chronic kidney disease): The BUN and creatinine rishi elevated with no significant change. Status: Acute Qualifiers: Chronic kidney disease stage: unspecified stage Qualified Code(s): N18.9 - Chronic kidney disease, unspecified (4) Pulmonary hypertension: Continue on the current medications for the time being Status: Acute (5) Chronic atrial fibrillation: Since the ventricular response rate is under control, I may hold off on a ny medication changes at this time. Because of the anemia and chronic kidney disease, patient carries a high risk for bleeding. She may be kept on the aspirin for the time being. HAS BLED score is greater than 4 Status: Acute Additional A&P Information Other problems are Anemia Type 2 diabetes Morbid obesity Chronic venous stasis COPD Pulmonary hypertension Bilateral pleural effusion Patient expressed her desire not to undergo any invasive cardiac procedures. She just want to be treated medically. Will try to optimize her medical treatment. Attestations Medical Necessity Statement*: Patient requires continued hospital stay for close monitoring and further management Coding Level of Care Code Acute Cold Meat Cook for g Fwd Diagnoses NSTEMI (non-ST elevated myocardial infarction) I21.4 Acute on chronic diastolic (congestive) heart failure I50.33 CKD (chronic kidney disease) N18.9 Chronic kidney disease stage: unspecified stage Pulmonary hypertension I27.20 Chronic atrial fibrillation I48.20
[2020-09-12 11:24] LABS: Glucose Point of Care 167 mg/dL (70-110)
[2020-09-12] MEDS: heparin drip 25,000 UNIT/500 ML PREMIX 19 UNIT IV (14:07)
--- NOTE | 2020-09-12 16:34 | PM.PN ---
Subjective Subjective: Interval history: Off bipap since last evening, ABG improving. urin eoutput 2.2L. Cr stable at 2.1 Medications: Reviewed: Yes Vitals/I&O/Wt Last Vital Signs Temp 97.9 F 09/12/20 15:00 Pulse 72 09/12/20 16:00 Resp 29 H 09/12/20 16:00 BP 163/84 09/12/20 16:00 Pulse Ox 100 09/12/20 16:00 09/12/20 09/12/20 09/12/20 06:59 14:59 22:59 Intake Total 323.733 / 473.733 480 / 480 Output Total 650 / 2250 Balance -326.267 / -1776.267 480 / 480 Weight last 48 hrs Weight 111.697 kg Weight 112.037 kg Weight 117.934 kg Physical Exam Narrative: EXAM NARRATIVE: GEN: Awake, alert and oriented, no acute distress CVS: S1S2 N RS: CTA B/L except reduced breath sounds RLL Abd: Soft, nt/nd , bs+ PATTERN MARKING SUPERVISOR: no focal neuro deficits Urinary Catheter Management^: Riggins: Cath Placed During This Visit: yes Reason for Continuing Indwelling Catheter: Accurate Measurement of Urinary Output in Critically Ill Patients Urinary Catheter Date of Insertion: 09/11/20 Urinary Catheter Time of Insertion: 11:30 Data : 09/12/20 04:30 09/12/20 04:30 Micro: Microbiology 09/11/20 12:18 Urine Culture - Preliminary Urine,Clean Catch Gram Negative Rods A&P Assessment and plan (1) Acute exacerbation of CHF (congestive heart failure): Status: Acute (2) NSTEMI (non-ST elevated myocardial infarction): Status: Acute (3) COPD (chronic obstructive pulmonary disease): Status: Acute (4) Pulmonary hypertension: Status: Acute (5) Chronic venous stasis: Status: Acute (6) Atrial fibrillation: Status: Acute (7) Hypertension: Status: Inactive Qualifiers: Hypertension type: essential hypertension Qualified Code(s): I10 - Essential (primary) hypertension (8) CKD (chronic kidney disease): Status: Acute Qualifiers: Chronic kidney disease stage: unspecified stage Qualified Code(s): N18.9 - Chronic kidney disease, unspecified Additional A&P Information #Acute hypoxic hypercapnic respiratory failure, likely secondary to CHF exacerbation Continue patient on Lasix 100 mg IV every 12 hours , good urine output currently, cr stable Monitor closely urine output and intake Check daily weight Continue BiPAP prn, was able to titrated off last evening Covid negative on antigen test this morning at care home. Last echocardiogram from January 2020 with LVEF 55%, no regional wall motion abnormalities #NSTEMI Baseline troponin greater than 450, negative delta subsequently Limited echo taken, pending Patient has been started on heparin drip in the ER, can discontinue now with flat troponin trend Continue aspirin, statin, beta-vesta. Avoid plavix due to anemia and that patient will likely nee thoracentesis # B/L enlarging pleural effusions, Us thoracentesis tomorrow #Hypertension: Continue home medications #CKD: Creatinine currently at baseline at 2.1, monitor with diuresis Attestations Medical Necessity Statement*: need fo rongoing iv diuresis, NSTEMI and thoracentesis Coding Level of Care Code Acute Snow Removal Supervisor for g Fwd Diagnoses Acute exacerbation of CHF (congestive heart failure) I50.9 NSTEMI (non-ST elevated myocardial infarction) I21.4 COPD (chronic obstructive pulmonary disease) J44.9 Pulmonary hypertension I27.20 Chronic venous stasis I87.8 Atrial fibrillation I48.91 Hypertension I10 Hypertension type: essential hypertension CKD (chronic kidney disease) N18.9 Chronic kidney disease stage: unspecified stage
[2020-09-12 16:55] LABS: Glucose Point of Care 96 mg/dL (70-110)
[2020-09-12] MEDS: isosorbide mononitrate ER 30 mg Tablet PO (18:56)
[2020-09-12 19:55] LABS: Glucose Point of Care 214 mg/dL (70-110)
[2020-09-12] MEDS: atorvastatin 40 mg Tablet 20 MG PO (20:35)
[2020-09-13] VITALS (38 sets, daily range): BP systolic 86–180; BP diastolic 53–94; PULSE 67–89; RESP 12–37; TEMP 36.4–36.8; O2SAT 92–100
[2020-09-13] MEDS: FUROsemide 10 mg/mL SDV 10mL 100 MG IVP ×2 (02:55→16:31)
[2020-09-13] MEDS: famotidine 20 mg/2 mL INJ IVP ×2 (02:56→16:31)
[2020-09-13 04:21] LABS: INR 1.35 (0.8-1.2)
[2020-09-13 07:48] LABS: Glucose Point of Care 92 mg/dL (70-110)
[2020-09-13] MEDS: isosorbide mononitrate ER 30 mg Tablet PO (08:26)
[2020-09-13] MEDS: citalopram 20 mg Tablet PO (08:26)
[2020-09-13] MEDS: carvedilol 12.5 mg Tablet PO (08:27)
[2020-09-13] MEDS: aspirin 81 mg EC Tablet PO (08:27)
[2020-09-13] MEDS: metoprolol tartrate 25 mg Tablet PO (09:52)
--- NOTE | 2020-09-13 11:00 | US_ITS ---
WS: [id number] ULTRASOUND-GUIDED THORACENTESIS CLINICAL INFORMATION: enlarging bilatreal pleural effusions COMPARISON: None. PROCEDURE: Informed consent: The risks, benefits, and alternatives of the procedure were discussed with the linette ent. Verbal and written consent was obtained. Timeout: A timeout was performed to confirm the correct patient, procedure, and site. Site: Left Preparation: A suitable skin site was identified. The patient was prepped and draped in usual sterile fashion. Lidocaine 1% was used for local anesthesia. Catheter: 4 Serbian One-Step catheter. Fluid Volume: 600 ml Color: [place] Fluid sent for requested diagnostic tests. Complications: None. / thoracentesis [id number] IMPRESSION: Uncomplicated ultrasound-guided thoracentesis.
[2020-09-13 12:36] LABS: Glucose Point of Care 107 mg/dL (70-110)
--- NOTE | 2020-09-13 14:37 | XR_ITS ---
WS: [id number] CHEST XRAY TECHNIQUE: Portable chest. CLINICAL INFORMATION: post thorancentesis COMPARISON: September 11, 2020 FINDINGS: Shallow inspiration. Heart: Cardiomegaly. Aortic calcification. Lungs: Improved right pleural effusion post thoracentesis. No pneumothorax. Small left pleural effusi on. Bones: Osteopenia. XR/XR chest 1V portable [id number] IMPRESSION: 1. Shallow inspiration 2. Post thoracentesis. No pneumothorax. Improved right pleural effusion. 3. Small left pleural effusion.
[2020-09-13] MEDS: nystatin powder 15 gm Btl 1 APPLIC TOPICAL (16:32)
[2020-09-13 18:14] LABS: Glucose Point of Care 164 mg/dL (70-110)
--- NOTE | 2020-09-13 19:16 | PM.PN ---
Subjective Subjective: Interval history: Patient denies any chest pain or unusual shortness of breath. She is still is not able to ambulate much. The leg swelling is improving. Telemetry shows atrial fibrillation with a controlled ventricular response rate. Planning to have the thoracentesis today. Medications: Reviewed: Yes Medication Review Details: Current Medications Acetaminophen (Acetaminophen 325 Mg Tablet) 650 mg PO QID PRN PRN Reason: Pain Last Admin: 09/11/20 20:32 Dose: 650 mg Documented by: Albuterol Sulfate (Albuterol 2.5 Mg/0.5 Ml Neb) 2.5 mg INHALATION Q4H PRN PRN Reason: Shortness Of Breath Aspirin (Aspirin 81 Mg Ec Tablet) 81 mg PO DAILY [facility] Last Admin: 09/13/20 08:27 Dose: 81 mg Documented by: Atorvastatin Calcium (Atorvastatin 40 Mg Tablet) 20 mg PO BEDTIME [facility] Last Admin: 09/12/20 20:35 Dose: 20 mg Documented by: Bisacodyl (Bisacodyl 10 Mg Supp) 10 mg [place] DAILY PRN PRN Reason: Constipation Citalopram Hydrobromide (Citalopram 20 Mg Tablet) 20 mg PO DAILY [facility] Last Admin: 09/13/20 08:26 Dose: 20 mg Documented by: Dextrose (Dextrose 50% Syringe 50 Ml) 25 ml IVP ONCE PRN; Protocol PRN Reason: hypoglycemia protocol Dextrose (Dextrose 50% Syringe 50 Ml) 50 ml IVP PRN PRN; Protocol PRN Reason: hypoglycemia protocol Famotidine (Famotidine 20 Mg/2 Ml Inj) 20 mg IVP Q12H NAGA Last Admin: 09/13/20 16:31 Dose: 20 mg Documented by: Furosemide (Furosemide 10 Mg/Ml Sdv 10ml) 100 mg IVP Q12H NAGA Last Admin: 09/13/20 16:31 Dose: 100 mg Documented by: Glucagon (Glucagon 1 Mg/Ml Inj 1 Ml) 1 mg IM ONCE PRN; Protocol PRN Reason: Adult Acute Hypoglycemia Prot. Dextrose (D5w) 500 mls @ 100 mls/hr IV ONCE PRN; Protocol PRN Reason: Adult Acute Hypoglycemia Prot Insulin Aspart (Insulin Aspart 100 Unit/1 Ml) 0 unit SUBCUT WM&BEDTIME NAGA; Protocol Last Admin: 09/13/20 18:05 Dose: Not Given Documented by: Isosorbide Mononitrate (Isosorbide Mononitrate Er 30 Mg Tablet) 30 mg PO DAILY [facility] Last Admin: 09/13/20 08:26 Dose: 30 mg Documented by: Lanolin (Lanolin Oint 7 Gm) 1 applic TOPICAL PRN PRN PRN Reason: DRYNESS Last Admin: 09/11/20 16:40 Dose: 1 applic Documented by: Metoprolol Tartrate (Metoprolol Tartrate 50 Mg Tablet) 50 mg PO BID [facility] Nystatin (Nystatin Powder 15 Gm Btl) 1 applic TOPICAL BID [facility] Last Admin: 09/13/20 16:32 Dose: 1 applic Documented by: Tramadol HCl (Tramadol 50 Mg Tablet) 50 mg PO BID PRN PRN Reason: Pain Vitals/I&O/Wt Last Vital Signs Temp 97.8 F 09/13/20 07:30 Pulse 68 09/13/20 18:30 Resp 24 H 09/13/20 18:30 BP 129/64 09/13/20 18:30 Pulse Ox 100 09/13/20 18:30 09/13/20 09/13/20 09/13/20 06:59 14:59 22:59 Intake Total 60 / 60 120 / 180 Output Total 1099 / 2049 1000 / 1000 Balance -1100 / -635.217 60 / 60 -880 / -820 Weight last 48 hrs Weight 242 lb 9 oz Weight 246 lb 4 oz Physical Exam Narrative: EXAM NARRATIVE: GENERAL: The patient is alert and oriented times three. Not in any acute distress. Slightly tachypneic HEENT: Moderate pallor. No icterus or lymphadenopathy. NECK: Trachea appears to be central. No masses noted. No JVD or thyromegaly appreciated. No carotid bruit. RESPIRATORY: Chest is symmetrical. No intercostals muscle retraction or any accessory muscle activation. There is no chest wall tenderness. Breath sounds are heard bilaterally. Occasional expiratory wheezing.No evidence of any consolidation. Breath sounds are diminished at the bases-up to the mid chest BREASTS: Deferred. HEART: The PMI could not be palpated. No other palpable precordial events. First heart sound is variable. Second heart sound is normal. No S3. Short systolic murmur the left sternal border. No diastolic murmurs. ABDOMEN: Morbidly obese, pendulous. Nontender. Bowel sounds are normally heard. : Deferred. RECTAL: Deferred. LYMPHATIC: No lymphadenopathy noted in the neck or groin. EXTREMITIES: Features of chronic venous stasis, hyperpigmented skin with some ulcerations. 1-2+ edema of both lower extremities. The dorsalis pedis and posterior pulses are palpable but weak MUSCULOSKELETAL: No acute joint deformities or swelling. SKIN: Hyperpigmented excoriated skin bilaterally NEUROPSYCHIATRIC: The patient is alert and oriented x3. Appears to be in a good mood. The higher functions are grossly within normal limits. Left upper and lower extremity has motor weakness Urinary Catheter Management^: Riggins: Cath Placed During This Visit: yes Reason for Continuing Indwelling Catheter: Accurate Measurement of Urinary Output in Critically Ill Patients Urinary Catheter Date of Insertion: 09/11/20 Urinary Catheter Time of Insertion: 11:30 Data : 09/13/20 14:45 09/12/20 04:30 Micro: Microbiology 09/13/20 14:45 Gram Stain - Final Pleural Fluid 09/11/20 12:18 Urine Culture - Final Urine,Clean Catch Escherichia coli A&P Assessment and plan (1) Benign essential hypertension with target blood pressure below 140/90: For better control of the blood pressure, I may start her on amlodipine 5 mg p.o. now and daily. The other medications may be continued. Status: Acute (2) Elevated troponin: Most likely this is related to type II myocardial infarction. Patient currently has no specific symptoms. In view of her multiple comorbidities, it was decided to treat her medically. May continue on the current medications. Status: Acute (3) Acute on chronic diastolic (congestive) heart failure: Heart failure seems to be fairly compensated. Careful IV diuresis on a as needed basis. Status: Acute (4) CKD (chronic kidney disease): The BUN and creatinine rishi elevated with no significant change. Status: Acute Qualifiers: Chronic kidney disease stage: unspecified stage Qualified Code(s): N18.9 - Chronic kidney disease, unspecified (5) Pulmonary hypertension: Continue on the current medications for the time being Status: Acute (6) Chronic atrial fibrillation: Since the ventricular response rate is under control, I may hold off on any medication changes at this time. Because of the anemia and chronic kidney disease, patient carries a high risk for bleeding. She may be kept on the aspirin for the time being. HAS BLED score is greater than 4 Status: Acute Additional A&P Information Other problems are Anemia Type 2 diabetes Morbid obesity Chronic venous stasis COPD Bilateral pleural effusion Patient expressed her desire not to undergo any invasive cardiac procedures. She just want to be treated medically. Will try to optimize her medical treatment. Thoracentesis today. Disposition as per the primary Attestations Medical Necessity Statement*: Deferred to the primary Coding Level of Care Code Acute Bark Peeler for Chg Fwd Diagnoses Benign essential hypertension with target blood pressure below 140/90 I10 Elevated troponin R77.8 Acute on chronic diastolic (congestive) heart failure I50.33 CKD (chronic kidney disease) N18.9 Chronic kidney disease stage: unspecified stage Pulmonary hypertension I27.20 Chronic atrial fibrillation I48.20
[2020-09-13 20:16] LABS: Albumin Body Fluid 1.7 g/dL; LDH Pleural Fluid 93 U/L; Total Protein Pleural Fluid 2.9 g/dL
--- NOTE | 2020-09-13 20:20 | P.PN_ITS ---
Subjective Subjective: Interval history: She states she is feeling all right. Breathing is little bit better today. At the time of my visit awaiting thoracentesis. Vitals/I&O/Wt Last Vital Signs Temp 97.8 F 09/13/20 07:30 Pulse 68 09/13/20 18:30 Resp 24 H 09/13/20 18:30 BP 129/64 09/13/20 18:30 Pulse Ox 100 09/13/20 18:30 09/13/20 09/13/20 09/13/20 06:59 14:59 22:59 Intake Total 60 / 60 120 / 180 Output Total 1100 / 0 1000 / 1000 Balance -1100 / -635.217 60 / 60 -880 / -820 Weight last 48 hrs Weight 110.024 kg Weight 111.697 kg Physical Exam Const: COMMON NORMALS: no acute distress, patient oriented x3 and alert ORIENTATION/CONSCIOUSNESS: Yes awake OTHER: Pleasant, conversant. HENMT: COMMON NORMALS: oropharynx normal Neck/C-Spine: COMMON NORMALS: no JVD Resp: COMMON NORMALS: normal respiratory effort AUSCULTATION: diminished lung sounds bilateral in the lower lung abdi Cardio: COMMON NORMALS: no JVD, regular rhythm, S1 normal heart sound present, S2 normal heart sound present and No murmurs present (Cardio) RHYTHM: regular rhythm HEART SOUNDS: S1 normal heart sound present and S2 normal heart sound present GI: COMMON NORMALS: Normal to inspection, nondistended, normoactive bowel sounds present, Soft to palpation and non-tender PALPATION: Yes Soft to palpation Extremity: COMMON NORMALS: no joint enlargement and no pedal edema Neuro: COMMON NORMALS: patient oriented x3 and moves all extremities SENSORIUM/ORIENTATION: Yes alert Skin: COMMON NORMALS: no rashes or lesions noted GENERAL SKIN EXAM: no rashes or lesions noted and dry skin (Dry scaly skin on both lower extremities) OTHER: Chronic severe venous stasis dermatitis bilaterally, with skin color change to reddish-purple, dry scaly skin, several ulcerations. Urinary Catheter Management^: Riggins: Cath Placed During This Visit: yes Reason for Continuing Indwelling Catheter: Accurate Measurement of Urinary Output in Critically Ill Patients Urinary Catheter Date of Insertion: 09/11/20 Urinary Catheter Time of Insertion: 11: Data : 09/13/20 14:45 09/12/20 04:30 Micro: Microbiology 09/13/20 14:45 Gram Stain - Final Pleural Fluid 09/11/20 12:18 Urine Culture - Final Urine,Clean Catch Escherichia coli A&P Assessment and plan (1) Acute exacerbation of CHF (congestive heart failure): Awaiting thoracentesis. This was completed with 550mL out. Unfortunately NH could no longer accept pt at that time. DC planned for tomorrow. Pleural fluid appears transudate of. Continue diuretic. Consider repeat imaging to confirm improvement of pleural effusions. Status: Acute (2) NSTEMI (non-ST elevated myocardial infarction): She is doing well. Discussed with cardiology. Appreciate recommendations. She decided not to pursue aggressive assessment of management. Continue optimization of medications. Follow-up with cardiology in office in 3 weeks. Status: Acute (3) COPD (chronic obstructive pulmonary disease): Status: Acute (4) Pulmonary hypertension: Status: Acute (5) Chronic venous stasis: Status: Acute (6) Atrial fibrillation: Status: Acute (7) Hypertension: Status: Inactive Qualifiers: Hypertension type: essential hypertension Qualified Code(s): I10 - Essential (primary) hypertension (8) CKD (chronic kidney disease): Status: Acute Qualifiers: Chronic kidney disease stage: unspecified stage Qualified Code(s): N18.9 - Chronic kidney disease, unspecified Additional A&P Information #Acute hypoxic hypercapnic respiratory failure, likely secondary to CHF exacerbation: Improving Continue BiPAP prn, was able to titrated off last evening Covid negative on antigen test this morning at [facility]. Last echocardiogram from January 2020 with LVEF 55%, no regional wall motion abnormalities # B/L enlarging pleural effusions, Us thoracentesis done #Hypertension: Continue home medications #CKD: Monitor creatinine with diuresis Attestations Medical Necessity Statement*: Continue admission for assessment management of respiratory failure, CHF, with return to [facility] tomorrow if no further issues. 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
[2020-09-13] MEDS: metoprolol tartrate 50 mg Tablet PO (20:52)
[2020-09-13] MEDS: atorvastatin 40 mg Tablet 20 MG PO (20:52)
[2020-09-13 21:30] LABS: Glucose Point of Care 206 mg/dL (70-110)
[2020-09-14] VITALS: BP 120/72; PULSE 57; RESP 16; TEMP 37.1; O2SAT 98
[2020-09-14 03:26] VITALS: PULSE 62; RESP 18; O2SAT 93
[2020-09-14 03:28] VITALS: BP 130/72; PULSE 68; RESP 21; TEMP 36.6; O2SAT 90
[2020-09-14] MEDS: famotidine 20 mg/2 mL INJ IVP (03:28)
[2020-09-14] MEDS: FUROsemide 10 mg/mL SDV 10mL 100 MG IVP (03:29)
--- NOTE | 2020-09-14 04:00 | XR_ITS ---
WS: [id number] Portable AP upright chest, 09/14/2020 Clinical Data: follow up effusions Comparison: Portable chest, 09/13/2020 Findings: The left pleural effusion is smaller than the right pleural effusion. The heart size is obs cured by the pleural effusions. No obvious masses are seen. The aortic arch and descending aorta show calcification. Monitor leads are on the chest wall. XR/XR chest 1V portable 65150 Impression: Bilateral pleural effusions with more on the right than the left.
[2020-09-14 07:09] LABS: Glucose Point of Care 100 mg/dL (70-110)
[2020-09-14 07:26] VITALS: BP 149/82; PULSE 74; RESP 18; TEMP 36.8; O2SAT 99
[2020-09-14] MEDS: citalopram 20 mg Tablet PO (08:43)
[2020-09-14] MEDS: isosorbide mononitrate ER 30 mg Tablet PO (08:43)
[2020-09-14] MEDS: aspirin 81 mg EC Tablet PO (08:44)
[2020-09-14] MEDS: metoprolol tartrate 50 mg Tablet PO (08:44)
[2020-09-14] MEDS: nystatin powder 15 gm Btl 1 APPLIC TOPICAL (08:46)
--- NOTE | 2020-09-14 09:24 | PM.DCS ---
Discharge Providers Date of Admission: 09/11/20 12:18 Date of Discharge: September 14, 2020 Attending Provider at Admission: Nevaeh Cortez MD Attending Provider at Discharge: Ewa Mohamud MD Consults: None Primary Care Provider: Alli Quintero MD Diagnoses at Discharge Discharge Diagnosis (1) Acute exacerbation of CHF (congestive heart failure): Status: Acute Permanent problem details: -better compensated following aggressive IV diureisis; switch to oral lasix -Echo (01/2020): EF=55% -s/p L therapeutic thoracentesis with output of 600 mL; f/u CXR shows improvement -intermittent BiPAP use, otherwise NC Qualifiers: Heart failure type: diastolic Qualified Code(s): I50.33 - Acute on chronic diastolic (congestive) heart failure (2) NSTEMI (non-ST elevated myocardial infarction): Status: Acute Permanent problem details: -medical management -continue to f/u with cardiology; consult by Dr. Fabian rodriguez -likely type II due to acute CHF exacerbation, renal impairment -no plavix due to anemia and bleeding risk (3) COPD (chronic obstructive pulmonary disease): Status: Chronic Permanent problem details: -oxygen dependent at baseline, 2 L -COVID-19 rapid test negative Qualifiers: COPD type: unspecified COPD Qualified Code(s): J44.9 - Chronic obstructive pulmonary disease, unspecified (4) Pulmonary hypertension: Status: Chronic (5) Chronic venous stasis: Status: Chronic (6) Atrial fibrillation: Status: Chronic Permanent problem details: -HR controlled -no AC due to anemia Qualifiers: Atrial fibrillation type: unspecified Qualified Code(s): I48.91 - Unspecified atrial fibrillation (7) Hypertension: Status: Inactive Permanent problem details: -VSS; continue to monitor vitals -continue BB Qualifiers: Hypertension type: essential hypertension Qualified Code(s): I10 - Essential (primary) hypertension (8) CKD (chronic kidney disease): Status: Acute Permanent problem details: -baseline Cr 1.5-2.2 Qualifiers: Chronic kidney disease stage: unspecified stage Qualified Code(s): N18.9 - Chronic kidney disease, unspecified Other Information Additional DC diagnoses/information: -Chronic macrocytic anemia; baseline Hg is 9-10 -Macular degeneration; continue eye drops -Hyperlipidemia; on statin -Morbid obesity: BMI-42 kg/m2 -Hyponatremia, metabolic alkalosis, hypochloremia; likely related to diuresis Reason for Visit Reason for Visit: DIFFICULTY BREATHING Hospital Course Hospital Course Patient was admitted to the cardiac stepdown unit and started on aggressive diuresis secondary to noted overtly decompensated acute diastolic CHF as evidenced by fluid overload on imaging, symptoms, BNP elevation, hypoxia. She was noted to have bilateral pleural effusions and is now status post left thoracentesis with removal of 600 mL of fluid with noted improvement on follow-up imaging. She has responded well to IV diuresis and will be switched to oral Lasix today. Due to noted elevated troponins, A. fib and decompensated CHF cardiology was consulted and recommended continued diuresis, medical management at this time. She is not a candidate for additional antiplatelet therapy or anticoagulation due to underlying anemia and associated bleeding risk. She initially required intermittent BiPAP use and is now down to her baseline oxygen requirement on nasal cannula. She did have a Riggins catheter placed in the ER for accurate ins and outs and due to her overt symptoms of shortness of breath. Due to underlying comorbidities she is likely to require hospitalization in the future due to CHF exacerbation. She will be discharged back to the long term this afternoon with the medications noted below. She will require continued follow-up with cardiology as well as with her primary care provider. She is to continue to use of supplemental oxygen support to maintain a saturation at or above 92% or for patient comfort. Her hemoglobin and renal function should continue to be monitored intermittently with recommendation for follow-up CBC and BMP on Friday09/18/20. Physical Exam Const: COMMON NORMALS: no acute distress, patient oriented x3 and alert GENERAL APPEARANCE: cooperative and comfortable NUTRITIONAL APPEARANCE: obese morbidly obese ORIENTATION/CONSCIOUSNESS: Yes awake HENMT: COMMON NORMALS: normocephalic, atraumatic, hearing grossly normal bilaterally and moist oral mucous membranes HEAD & SCALP: normocephalic and atraumatic Eye: COMMON NORMALS: Equal, round and reactive pupils present, EOMs intact bilaterally and conjunctivae normal CONJUNCTIVA: Yes conjunctivae normal PUPIL: Yes Equal, round and reactive pupils present Neck/C-Spine: COMMON NORMALS: full ROM GENERAL: Yes normal visual inspection and Yes trachea midline Resp: COMMON NORMALS: normal respiratory effort, No retractions and No use of accessory muscles EFFORT & INSPECTION: Yes able to speak in complete sentences, Yes symmetric chest movement and No tachypneic AUSCULTATION: diminished lung sounds OTHER: -on 3-4 L NC Cardio: COMMON NORMALS: regular rate, regular rhythm, S1 normal heart sound present, S2 normal heart sound present and No murmurs present (Cardio) RATE: regular rate RHYTHM: regular rhythm HEART SOUNDS: S1 normal heart sound present and S2 normal heart sound present GI: COMMON NORMALS: Normal to inspection, nondistended, normoactive bowel sounds present, Soft to palpation and non-tender INSPECTION: Yes central obesity PALPATION: Yes Soft to palpation : BLADDER/KIDNEY EXAM: Yes catheter in place Catheter type (Female): urethral Extremity: COMMON NORMALS: normal to inspection and full ROM NARRATIVE EXTREMITY EXAM: -trace pitting edema in bilateral LEs Neuro: COMMON NORMALS: patient oriented x3, moves all extremities, no focal motor deficits and no sensory deficits noted SENSORIUM/ORIENTATION: Yes alert Psych: COMMON NORMALS: mental status grossly normal, Normal thought process present, cooperative, normal affect and speech normal SPEECH: Yes normal speech THOUGHT PROCESS: Normal thought process present Skin: COMMON NORMALS: no jaundice, no petechiae and no mottling NARRATIVE SKIN EXAM: -chronic venous stasis dermatitis Urinary Catheter Management^: Riggins: Cath Placed During This Visit: yes Reason for Continuing Indwelling Catheter: Other Urinary Catheter Date of Insertion: 09/11/20 Urinary Catheter Time of Insertion: 11:30 Discharge Data Data Completed and Pending: Completed Studies During Hospitalization Category Date Time Status CXRP [XR chest 1V portable 90901] S tat Exams 09/13/20 14:37 Completed XR chest 1V jess ble 06261 Stat Exams 09/11/20 09:35 Completed CV echo limited 9 3308 Routine Ultrasound 09/12/20 06:21 Completed US thoracentesis 21639 Routine Ultrasound 09/13/20 11:00 Completed Pending at discharge Category Date Time Status XR chest 1V jess ble 17521 AM LABS Exams 09/14/20 04:00 Taken Body Fluid Cultur e & GS Routine Lab 09/12/20 16:49 Results Labs from last 24 hours 09/14/20 09/13/20 09/13/20 06:49 21:07 17:35 Hct POC Glucose 100 206 164 Fluid Albumin Pleural pH Pleural Total Prot ein Pleural LDH Pleural Glucose 09/13/20 09/13/20 09/13/20 14:45 14:45 12:33 Hct Cancelled POC Glucose 107 Fluid Albumin 1.7 Pleural pH 9.00 H Pleural Total Prot ein 2.9 Pleural LDH 93 Pleural Glucose 137.0 Vitals: Last Vital Signs Temp 98.3 F 09/14/20 07:26 Pulse 74 09/14/20 07:26 Resp 18 09/14/20 07:26 BP 149/82 09/14/20 07:26 Pulse Ox 99 09/14/20 07:26 Discharge Plan Discharge Patient Disposition: Xfer SNF Condition: Stable Prescriptions: New isosorbide mononitrate 30 mg Tablet Extended Release 24 Hr 30 mg PO DAILY Qty: 30 RF: 0 metoprolol tartrate 50 mg Tablet 50 mg PO BID Qty: 60 RF: 0 furosemide 80 mg tablet 40 mg PO BID Qty: 120 RF: 0 Continued acetaminophen 325 mg Tablet 650 mg PO QID PRN (Reason: Pain) RF: 0 albuterol sulfate 2.5 mg /3 mL (0.083 %) Solution For Nebulization 2.5 mg INHALATION Q4H PRN (Reason: Shortness Of Breath) RF: 0 Multiple Vitamin, Womens Tablet 1 tab PO DAILY RF: 0 atorvastatin 20 mg Tablet 20 mg PO BEDTIME RF: 0 polyethylene glycol 3350 [Miralax] 17 gram Powder In Packet 17 g PO DAILY RF: 0 sennosides-docusate sodium [Senna-S] 8.6-50 mg Tablet 1 tab-cap PO BID RF: 0 citalopram 20 mg Tablet 20 mg PO DAILY RF: 0 Artificial Tears (PF) 0.1-0.3 % Dropperette 1 drp OPHTHALMIC (EYE) QID RF: 0 aspirin [Aspirin Low Dose] 81 mg Tablet,Delayed Release (Dr/Ec) 81 mg PO DAILY RF: 0 insulin aspart U-100 [Novolog Flexpen U-100 Insulin] 100 unit/mL (3 mL) Insulin Pen See Rx Instructions .ROUTE .COMPLEX RF: 0 Tresiba U-100 Insulin 100 unit/mL Solution 25 unit SUBCUT BEDTIME RF: 0 bisacodyl 10 mg Suppository 10 mg GA DAILY PRN (Reason: Constipation) RF: 0 bisacodyl 5 mg Tablet,Delayed Release (Dr/Ec) 5 mg PO DAILY PRN (Reason: Constipation) RF: 0 Biofreeze (menthol) 4 % Gel 1 applic TOPICAL TID PRN (Reason: Pain) RF: 0 tramadol 50 mg tablet 50 mg PO BID PRN (Reason: Pain) RF: 0 Discontinued carvedilol 12.5 mg Tablet 12.5 mg PO BID RF: 0 isosorbide mononitrate 60 mg Tablet Extended Release 24 Hr 60 mg PO DAILY RF: 0 Hold Instructions: Resume on 02/01/20. Reinstitute based on blood pressures metolazone 5 mg Tablet 2.5 mg PO DAILY Qty: 30 RF: 0 bumetanide 2 mg tablet 2 mg PO BID Qty: 60 RF: 0 metolazone 2.5 mg tablet See Rx Instructions .ROUTE .COMPLEX RF: 0 furosemide 10 mg/mL solution See Rx Instructions .ROUTE .COMPLEX RF: 0 potassium chloride 10 mEq tablet extended release 10 meq PO BID RF: 0 Discharge Orders: Discharge Order (Routine); Ordered 09/13/20 Ordered By: Veto Mccullough Referrals: [facility] [Outside] Alli Quintero MD [Primary Care Provider] - 4-7 days (CHF, NSTEMI, pleural effusion) Jaye Peralta MD [Physician] - (In 3 weeks) Discharge Diet: As Directed Discharge Activity: Resume usual activity, Increase activity as tolerated and Oxygen as instructed Activity Restrictions/Additional Instructions: Continue oxygen as needed, 2 L by nasal cannula for CHF, target saturation 92%. Wean off as tolerating. Please refer for assessment by speech therapy due to occasional cough with drinking water. For now consider empirically thickening liquids to nectar thick. Continue dysphagia level 2 diet. Low sodium. Please reassess chest x-ray, consider additional thoracentesis as needed. Continue to follow renal function for chronic kidney disease. Avoid nephrotoxins. Continue monitoring blood pressure optimizing control of hypertension. Follow-up with cardiology, continue optimize control of CHF, CAD. Recommend follow-up CBC and BMP on 09/18/2020 continue to monitor her hemoglobin and renal function respectively Discharge Attestations Time Spent in Discharge Care*: greater than 30 min Specific Discharge Activities: educating patient, discussing with hospice case manager/social workers/dc planners, documenting/other paperwork and evaluating patient/reviewing data Status at Discharge: Cognitive status at discharge: cognitively intact, Behavioral status at discharge: cooperative and dependent in ADL's, Overall status at discharge: patient is progressing back to baseline Quality Metrics Clinical Quality Measures During this hospital stay, did patient experience: None Coding Level of Care Code Acute Silver Solution Mixer for [facility] Fwd Exam Comprehensive Diagnoses Acute exacerbation of CHF (congestive heart failure) I50.33 Heart failure type: diastolic NSTEMI (non-ST elevated myocardial infarction) I21.4 COPD (chronic obstructive pulmonary disease) J44.9 COPD type: unspecified COPD Pulmonary hypertension I27.20 Chronic venous stasis I87.8 Atrial fibrillation I48.91 Atrial fibrillation type: unspecified Hypertension I10 Hypertension type: essential hypertension CKD (chronic kidney disease) N18.9 Chronic kidney disease stage: unspecified stage
[2020-09-14 11:06] VITALS: BP 132/75; PULSE 60; RESP 18; TEMP 36.4; O2SAT 100
[2020-09-14 11:33] LABS: Glucose Point of Care 171 mg/dL (70-110)
[2020-09-14 13:02] VITALS: BP 132/75; PULSE 60; RESP 18; TEMP 36.4; O2SAT 100
== END 2020-09-14 12:48 | disposition skilled nursing facility (03) | DRG 280 ==
LOC: ER 11:12 → ICU 12:32 → MEDSURG 09-13 18:02
PROVIDERS: Internal Medicine; Admitting Provider Student in an Organized Health Care Education/Training Program; Emergency Provider Family Medicine; PCP Internal Medicine; Visit Provider Family Medicine
DX: I13.0 Hypertensive heart and chronic kidney disease with heart failure and stage 1 through stage 4 chronic kidney disease, or unspecified chronic kidney disease (principal); I50.33 Acute on chronic diastolic (congestive) heart failure; I21.A1 Myocardial infarction type 2; J96.01 Acute respiratory failure with hypoxia; J96.02 Acute respiratory failure with hypercapnia; I48.20 Chronic atrial fibrillation, unspecified; I69.954 Hemiplegia and hemiparesis following unspecified cerebrovascular disease affecting left non-dominant side; Z68.41 Body mass index [BMI] 40.0-44.9, adult; J90 Pleural effusion, not elsewhere classified; E87.2 Acidosis; N18.9 Chronic kidney disease, unspecified; E11.22 Type 2 diabetes mellitus with diabetic chronic kidney disease; E11.42 Type 2 diabetes mellitus with diabetic polyneuropathy; I87.8 Other specified disorders of veins; J44.9 Chronic obstructive pulmonary disease, unspecified; I25.10 Atherosclerotic heart disease of native coronary artery without angina pectoris; Z95.5 Presence of coronary angioplasty implant and graft; E78.5 Hyperlipidemia, unspecified; E66.01 Morbid (severe) obesity due to excess calories; I27.20 Pulmonary hypertension, unspecified; Z79.01 Long term (current) use of anticoagulants; D53.9 Nutritional anemia, unspecified; H35.30 Unspecified macular degeneration; Z79.51 Long term (current) use of inhaled steroids; Z79.4 Long term (current) use of insulin; Z79.82 Long term (current) use of aspirin
CPT/HCPCS: 12345; 32555; 36415; 36416; 36600; 51702; 71045; 80051; 80053; 81001; 82009; 82042; 82330; 82803; 82805; 82945; 82962; 83605; 83615; 83735; 83880; 83986; 84145; 84157; 84484; 85025; 85610; 85730; 87070; 87075; 87077; 87086; 87186; 87205; 93005; 93308; 94660; 96372; 96375; 99282; J0360; J1644; J1815; J1940; J3490

== ENCOUNTER 2020-09-29 05:47 | Inpatient (IN) | payer MEDICARE, MEDICAID, SELFPAY ==
[2020-09-29] VITALS (75 sets, daily range): BP systolic 65–212; BP diastolic 47–104; PULSE 67–92; RESP 9–33; TEMP 36.3–37.7; O2SAT 90–100; BMI 44.6
--- NOTE | 2020-09-29 05:53 | ED_ITS ---
HPI - SOB/Dyspnea General: Chief Complaint: Shortness of Breath/Dyspnea Stated Complaint: resp distress Time Seen by Provider: 09/29/20 05:51 History of Present Illness: HPI Narrative: 75 yo female brought in by EMS with complaints of dyspnea. She was brought in on CPAP. She switched over hospital BiPAP when she arrived. She is nonresponsive cannot really contribute anything to her history at this time. She will open her eyes when you speak to her but d oes not form any responses. She has a history of atrial fibrillation diabetes mellitus and congestive heart failure. On the ninth of this month she was admitted to the hospital with acute on chronic respiratory failure and exacerbation of congestive heart failure as well as elevated troponin COPD exacerbation. During that hospitalization she had approximately 600 mL removed by thoracentesis. Returns today by EMS and was decreasing responsiveness and respiratory distress patient is a DNI arm. MD elicited complaint: shortness of breath Pertinent past history: COPD and congestive heart failure Onset (ago): hour(s) Timing: constant and progressively worsening Exacerbating factors: lying flat Relieving factors: oxygen, upright position and other (CPAP/BiPAP) Known history of: COPD and congestive heart failure Treatment prior to arrival: oxygen and other (CPAP) Review of Systems General: Reports: ROS unobtainable due to medical condition PFSH ED PFSH: Medical History Acute and chronic respiratory failure with hypercapnia Acute on chronic diastolic (congestive) heart failure Atrial fibrillation -HR controlled -no AC due to anemia Benign essential hypertension with target blood pressure below 140/90 Chronic anticoagulation Chronic atrial fibrillation Chronic kidney disease Chronic venous stasis CKD (chronic kidney disease) -baseline Cr 1.5-2.2 Congestive heart failure -acutely decompensated diastolic CHF, as evidenced by fluid overload on imaging, BNP elevation (though this is chronic), hypoxia, SOB -resume oral diuresis -daily weights, monitor Is & Os; so far has diuresed 8.8 L/6 kg -Echo (01/2020): EF=55%, no RWMA, trace MR -Riggins catheter removed prior to d/c -intermittently requiring BiPAP, now on NC -continue to monitor respiratory status -continue to monitor vital signs, currently stable -telemetry monitoring -s/p L therapeutic thoracentesis with output of 800 mL; f/u CXR shows minimal L pleural effusion, small R pleural effusion -noted hypoalbuminemia, may benefit from albumin to facilitate diuresis -f/u CXR shows moderate bilateral pleural effusions, s/p L thoracentesis with removal of 660 mL. Fluid analysis consistent with exudative effusion. Follow-up x-ray shows small right pleural effusion and improved left pleural effusion. Pleural fluid Gram stain negative, culture prelim negative. Cytology pending COPD (chronic obstructive pulmonary disease) -oxygen dependent at baseline, 2 L -COVID-19 rapid test negative Coronary artery disease Diabetes mellitus type 2, insulin dependent -A1c-8.2 -Accuchecks, hypoglycemia precautions, ISS -complicated by peripheral neuropathy and nephropathy Elevated troponin History of CVA (cerebrovascular accident) Hyperlipidemia -on statin Hypertension -VSS; continue to monitor vitals -continue BB Macrocytic anemia -Acute on chronic macrocytic anemia -baseline Hg is 9-10 -continue to monitor H/H; s/p 2 unit of PRBCs -noted vitamin B12, folate levels -continue to hold AC Macular degeneration -on eye drops Morbid obesity -BMI-47 kg/m2 NSTEMI (non-ST elevated myocardial infarction) -medical management -continue to f/u with cardiology; consult by Dr. Peralta appreciated -likely type II due to acute CHF exacerbation, renal impairment -no plavix due to anemia and bleeding risk Peripheral neuropathy Pulmonary hypertension Surgical History History of appendectomy History of arthroscopic knee surgery Bilateral History of cholecystectomy History of hysterectomy History of lumpectomy of left breast Family History Other Diabetes Social History Smoking and tobacco status: never smoked Alcohol intake: never Physical Exam HENMT: COMMON NORMALS: normocephalic and atraumatic HEAD & SCALP: normocephalic and atraumatic Neck/C-Spine: COMMON NORMALS: no JVD Resp: AUSCULTATION: rales and diminished lung sounds Cardio: COMMON NORMALS: no JVD, regular rate, regular rhythm and No murmurs present (Cardio) RATE: regular rate RHYTHM: regular rhythm GI: COMMON NORMALS: Soft to palpation and No hepatosplenomegaly present AUSCULTATION: Yes normoactive bowel sounds PALPATION: Yes Soft to palpation, No Tenderness to palpation present (GI), No Guarding due to palpation present (G I) and Yes No hepatosplenomegaly present Extremity: NARRATIVE EXTREMITY EXAM: 1+ edema with chronic venous stasis ulcers. Course Vital Signs: Vital signs: Vital Signs Temperature 97.3 F L 09/29/20 05:47 Pulse Rate 79 09/29/20 08:57 Respiratory Rate 9 L 09/29/20 08:57 Blood Pressure 128/66 09/29/20 08:57 Pulse Oximetry 94 09/29/20 08:57 MDM - SOB/Dyspnea MDM Narrative: Medical decision making narrative: Patient is acute on chronic respiratory failure with acute exacerbation of CHF hypokalemia and anemia. She is currently doing well on BiPAP she is more awake and answers questions better than she did when she first arrived however is difficult to hear her because of the BiPAP. She denying any chest pain or abdominal pain. She is Do Not Recussitate. We will admit her to the ICU per the hospitalist direction. Confirmed with family she is Do Not Recussitate, they would like to go more along the lines of comfort care. Lab Data: Labs: Lab Results 09/29/20 09/29/20 09/29/20 Range/Units 05:55 06:15 06:15 WBC (4.0-10.0) 10^3/ uL RBC (4.1-5.3) 10^6/u L Hgb (11.5-15.3) g/dL Hct (37.0-47.0) % MCV (81-99) fL MCH (28.0-34.0) pg MCHC (30.0-36.0) g/dL RDW (12.1-15.1) % Plt Count (130-400) 10^3/c mm MPV (7.4-10.4) fL Neut % (Auto) % Lymph % (Auto) % Zavala % (Auto) % Eos % (Auto) % Baso % (Auto) % Neut # (Auto) (1.8-7.7) 10^3/u L Lymph # (Auto) (0.8-4.8) 10^3/u L Zavala # (Auto) (0.2-0.9) 10^3/u L Eos # (Auto) (0.0-0.8) 10^3/u L Baso # (Auto) (0.0-0.1) 10^3/u L Nucleated RBC % (a uto) % Nucleated RBCs # /100WBC Specimen Type Arterial Sample Site Radial, left ABG pH 7.37 (7.35-7.45) ABG pCO2 104.0 H* (35-45) mmHg ABG pO2 133.0 H (80.0-100.0) mmH g ABG HCO3 60.4 H (22-26) mmol/L ABG O2 Saturation 99.7 ABG Base Excess 30.2 H (-2.0-2.0) mmol/ L Jose Test Pos A-a O2 Gradient 60.3 H (5-10) mmHg Hematocrit 30.1 L (37-47) % Hgb O2 Saturation 96.2 (95-100) % Carboxyhemoglobin 2.7 (0.4-20.1) %THgb Methemoglobin 0.8 (0.4-1.5) % Total Hemoglobin 9.8 L (12-16) g/dL Sodium 146.0 H 144 (131-143) mmol/L Potassium 2.6 L 2.8 L* (3.5-5.0) mmol/L Glucose 81.0 77 (70-115) mg/dL Ionized Calcium 1.1 (1.1-1.4) mmol/L O2 Delivery Device Bipap FiO2 100.0 % Second Time Worker ID Hinja Chloride 83 L (98-107) mmol/L Carbon Dioxide > 55 H* (22-29) mmol/L Anion Gap 8.8 (5-19) BUN 44 H (8-23) mg/dL Creatinine 2.0 H (0.5-0.9) mg/dL GFR Calculation Not Reportable Calculated Osmolal ity 308 H (285-295) mOsm/k g Calcium 8.9 (8.5-10.5) mg/dL Total Bilirubin 0.4 (0.15-1.2) mg/dL AST 13 (0-32) U/L ALT 6 (0-33) U/L Alkaline Phosphata se 76 (35-105) IU/L Creatine Kinase 45 (26-192) U/L Troponin T Baselin e 458 H* (0-10) ng/L Total Protein 7.5 (6.6-8.7) g/dL Albumin 3.0 L (3.5-5.2) g/dL Globulin 4.5 (1.3-4.6) g/dL Urine Color (Yellow) Urine Appearance (CLEAR) Urine pH (5-7) Ur Specific Gravit y (1.005-1.030) Urine Protein (Negative) Urine Glucose (UA) (Normal) Urine Ketones (Negative) Urine Blood (Negative) Urine Nitrate (Negative) Urine Bilirubin (Negative) Urine Urobilinogen (Negative) mg/dL Ur Leukocyte Alfreda ase (Negative) Urine RBC (0-2) /hpf Urine WBC (0-5) /hpf Ur Squamous Epith Cells (0-5) /hpf Amorphous Sediment Urine Bacteria (NONE) /hpf 09/29/20 09/29/20 09/29/20 Range/Units 07:06 07:26 07:29 WBC 14.8 H (4.0-10.0) 10^3/ uL RBC 3.31 L (4.1-5.3) 10^6/u L Hgb 9.8 L (11.5-15.3) g/dL Hct 34.3 L (37.0-47.0) % MCV 103.6 H (81-99) fL MCH 29.6 (28.0-34.0) pg MCHC 28.6 L (30.0-36.0) g/dL RDW 15.0 (12.1-15.1) % Plt Count 205 (130-400) 10^3/c mm MPV 10.0 (7.4-10.4) fL Neut % (Auto) 84.3 % Lymph % (Auto) 10.0 % Zavala % (Auto) 4.9 % Eos % (Auto) 0.2 % Baso % (Auto) 0.3 % Neut # (Auto) 12.46 H (1.8-7.7) 10^3/u L Lymph # (Auto) 1.5 (0.8-4.8) 10^3/u L Zavala # (Auto) 0.7 (0.2-0.9) 10^3/u L Eos # (Auto) 0.0 (0.0-0.8) 10^3/u L Baso # (Auto) 0.0 (0.0-0.1) 10^3/u L Nucleated RBC % (a uto) 0 % Nucleated RBCs # 0.0 /100WBC Specimen Type Arterial Sample Site Radial, left ABG pH 7.36 (7.35-7.45) ABG pCO2 105.0 H* (35-45) mmHg ABG pO2 103.0 H (80.0-100.0) mmH g ABG HCO3 60.1 H (22-26) mmol/L ABG O2 Saturation 98.6 ABG Base Excess 29.9 H (-2.0-2.0) mmol/ L Jose Test Pos A-a O2 Gradient 50.0 H (5-10) mmHg Hematocrit 29.3 L (37-47) % Hgb O2 Saturation 95.3 (95-100) % Carboxyhemoglobin 2.5 (0.4-20.1) %THgb Methemoglobin 0.8 (0.4-1.5) % Total Hemoglobin 9.6 L (12-16) g/dL Sodium 145.0 H (131-143) mmol/L Potassium 2.7 L (3.5-5.0) mmol/L Glucose 84.0 (70-115) mg/dL Ionized Calcium 1.1 (1.1-1.4) mmol/L O2 Delivery Device Bipap FiO2 85.0 % Second Time Worker ID Cak Chloride (98-107) mmol/L Carbon Dioxide (22-29) mmol/L Anion Gap (5-19) BUN (8-23) mg/dL Creatinine (0.5-0.9) mg/dL GFR Calculation Calculated Osmolal ity (285-295) mOsm/k g Calcium (8.5-10.5) mg/dL Total Bilirubin (0.15-1.2) mg/dL AST (0-32) U/L ALT (0-33) U/L Alkaline Phosphata se (35-105) IU/L Creatine Kinase (26-192) U/L Troponin T Baselin e (0-10) ng/L Total Protein (6.6-8.7) g/dL Albumin (3.5-5.2) g/dL Globulin (1.3-4.6) g/dL Urine Color Yellow (Yellow) Urine Appearance Cloudy (CLEAR) Urine pH 5.0 (5-7) Ur Specific Gravit y 1.015 (1.005-1.030) Urine Protein 3+ H (Negative) Urine Glucose (UA) Norm (Normal) Urine Ketones Negative (Negative) Urine Blood 3+ H (Negative) Urine Nitrate Negative (Negative) Urine Bilirubin Neg (Negative) Urine Urobilinogen Norm (Negative) mg/dL Ur Leukocyte Alfreda ase 2+ H (Negative) Urine RBC >100 H (0-2) /hpf Urine WBC >100 H (0-5) /hpf Ur Squamous Epith Cells 0-4 H (0-5) /hpf Amorphous Sediment Not Reportable Urine Bacteria 3+ H (NONE) /hpf 09/29/20 Range/Units 08:54 WBC (4.0-10.0) 10^3/ uL RBC (4.1-5.3) 10^6/u L Hgb (11.5-15.3) g/dL Hct (37.0-47.0) % MCV (81-99) fL MCH (28.0-34.0) pg MCHC (30.0-36.0) g/dL RDW (12.1-15.1) % Plt Count (130-400) 10^3/c mm MPV (7.4-10.4) fL Neut % (Auto) % Lymph % (Auto) % Zavala % (Auto) % Eos % (Auto) % Baso % (Auto) % Neut # (Auto) (1.8-7.7) 10^3/u L Lymph # (Auto) (0.8-4.8) 10^3/u L Zavala # (Auto) (0.2-0.9) 10^3/u L Eos # (Auto) (0.0-0.8) 10^3/u L Baso # (Auto) (0.0-0.1) 10^3/u L Nucleated RBC % (a uto) % Nucleated RBCs # /100WBC Specimen Type Arterial Sample Site Radial, left ABG pH 7.44 (7.35-7.45) ABG pCO2 89.5 H* (35-45) mmHg ABG pO2 54.1 L (80.0-100.0) mmH g ABG HCO3 60.3 H (22-26) mmol/L ABG O2 Saturation ABG Base Excess 31.6 H (-2.0-2.0) mmol/ L Jose Test Pos A-a O2 Gradient (5-10) mmHg Hematocrit 28.4 L (37-47) % Hgb O2 Saturation (95-100) % Carboxyhemoglobin (0.4-20.1) %THgb Methemoglobin (0.4-1.5) % Total Hemoglobin (12-16) g/dL Sodium (131-143) mmol/L Potassium (3.5-5.0) mmol/L Glucose (70-115) mg/dL Ionized Calcium (1.1-1.4) mmol/L O2 Delivery Device Bipap FiO2 45.0 % Second Time Worker ID Cak Chloride (98-107) mmol/L Carbon Dioxide (22-29) mmol/L Anion Gap (5-19) BUN (8-23) mg/dL Creatinine (0.5-0.9) mg/dL GFR Calculation Calculated Osmolal ity (285-295) mOsm/k g Calcium (8.5-10.5) mg/dL Total Bilirubin (0.15-1.2) mg/dL AST (0-32) U/L ALT (0-33) U/L Alkaline Phosphata se (35-105) IU/L Creatine Kinase (26-192) U/L Troponin T Baselin e (0-10) ng/L Total Protein (6.6-8.7) g/dL Albumin (3.5-5.2) g/dL Globulin (1.3-4.6) g/dL Urine Color (Yellow) Urine Appearance (CLEAR) Urine pH (5-7) Ur Specific Gravit y (1.005-1.030) Urine Protein (Negative) Urine Glucose (UA) (Normal) Urine Ketones (Negative) Urine Blood (Negative) Urine Nitrate (Negative) Urine Bilirubin (Negative) Urine Urobilinogen (Negative) mg/dL Ur Leukocyte Alfreda ase (Negative) Urine RBC (0-2) /hpf Urine WBC (0-5) /hpf Ur Squamous Epith Cells (0-5) /hpf Amorphous Sediment Urine Bacteria (NONE) /hpf Discharge Plan Discharge Patient Disposition: Admitted As Inpatient Clinical Impression: Acute exacerbation of CHF (congestive heart failure), Acute hypokalemia, Anemia, Acute hypercapnic respiratory failure Condition: Stable Coding Level of Care Code ED Crane Follower for Chg Fwd Exam Detailed
--- NOTE | 2020-09-29 05:55 | ECG_ITS ---
[facility] Test Date: 2020-09-29 Pat Name: Mora Messer Department: Room: Gender: Female Marketing Strategy Lead: : 1945 Requested By: Milad Bernabe Order Number: [id number] Reading MD: BRIGITTE VANN Measurements Intervals [place] Rate: 74 P: AL: QRS: 27 QRSD: 156 T: -12 QT: 464 QTc: 517 Interpretive Statements ATRIAL FIBRILLATION WITH ABERRANT CONDUCTION OR VENTRICULAR PREMATURE COMPLEXES RIGHT BUNDLE BRANCH BLOCK [120+ ms QRS DURATION, UPRIGHT V1, 40+ ms S IN I/aVL/V4/V5/V6] POSSIBLE SEPTAL MYOCARDIAL INFARCTION , PROBABLY RECENT [30 ms Q WAVE IN V1/V2] ACUTE TN Compared to ECG 09/11/2020 12:18:17 Ventricular premature complex(es) now present Aberrant conduction of supraventricular beat(s) now present Myocardial infarct finding now present Electronically Signed On 09-29-2020 19:59:05 MANAGER PMO by BRIGITTE VANN [id number]
--- NOTE | 2020-09-29 05:55 | XR_ITS ---
WS: [id number] PORTABLE CHEST HISTORY: dyspnea/cough COMPARISON: 09/14/2020 Moderate bilateral pulmonary congestion and fluid overload. Haziness over both lungs without focal ar ea of dense consolidation. Small bilateral pleural effusions similar to the prior study. Cardiac size: Moderately enlarged cardiac silhouette. Mediastinum/Aorta: Mild atherosclerosis aorta. No osseous abnormality seen. XR/XR chest 1V portable [id number] IMPRESSION: 1. Persistent pulmonary congestion and small bilateral pleural effusions. 2. Cardiomegaly.
[2020-09-29 06:02] LABS: ABG PH Result 7.37 (7.35-7.45); Alveolar-Arterial Oxygen Gradi 60.3 mmHg (5-10); Arterial Blood Gas Hematocrit 30.1 % (37-47); Base Excess ABG 30.2 mmol/L (-2.0-2.0); Blood Gas Allen Test Pos; Blood Gas Sample Site Radial, left; Blood Gas Sample Type Arterial; Carboxyhemoglobin 2.7 %THgb (0.4-20.1); HCO3 ABG 60.4 mmol/L (22-26); HGB O2 Sat 96.2 % (95-100); Ionized Calcium Level - ABG 1.1 mmol/L (1.1-1.4); Methemoglobin 0.8 % (0.4-1.5); Oxygen Device BIPAP; Oxygen Saturation ABG 99.7; Potassium Level - ABG 2.6 mmol/L (3.5-5.0); Total Hemoglobin 9.8 g/dL (12-16)
[2020-09-29 06:51] LABS: Alanine Aminotransferase 6 U/L (0-33); Alkaline Phosphatase 76 IU/L (35-105); Aspartate Amino Transferase 13 U/L (0-32); Blood Urea Nitrogen 44 mg/dL (8-23); Calcium 8.9 mg/dL (8.5-10.5); Chloride 83 mmol/L (98-107); Creatine Phosphokinase 45 U/L (26-192); Globulin 4.5 g/dL (1.3-4.6); Glucose 77 mg/dL (65-115); Osmolality Calculated 308 mOsm/kg (285-295); Sodium 144 mmol/L (136-145); Total Bilirubin 0.4 mg/dL (0.15-1.2); Total Protein 7.5 g/dL (6.6-8.7)
[2020-09-29 06:59] LABS: Anion Gap 8.8 (5-19); Carbon Dioxide > 55 mmol/L (22-29); Potassium 2.8 mmol/L (3.5-5.1); Troponin(5th) Baseline 458 ng/L (0-10)
[2020-09-29] MEDS: lidocaine 1% 5 ML in potassium chloride premix 100 ML 25 ML IV ×2 (07:16→11:01)
[2020-09-29] MEDS: FUROsemide 10 mg/mL SDV 10mL 80 MG IVP ×2 (07:16→20:45)
--- NOTE | 2020-09-29 07:21 | PC.NURSE ---
Lab at bedside to draw blood.
[2020-09-29 07:23] LABS: Add Urine Microscopic? YES; Bilirubin Urine Neg (Negative); Blood Urine 3+ (Negative); Glucose Urine UA Norm (Normal); Ketones Urine Negative (Negative); Leukocyte Esterase Urine 2+ (Negative); Nitrate Urine Negative (Negative); Protein Urine 3+ (Negative); Specific Gravity, Urine 1.015 (1.005-1.030); Urine Appearance Cloudy (CLEAR); Urine Color Yellow (Yellow); Urobilinogen Urine Norm (Negative)
[2020-09-29 07:24] LABS: Add Urine Culture? Yes; Bacteria Urine 3+ /hpf; RBC Urine >100 /hpf (0-2); Squamous Epithelial Cell Urine 0-4 /hpf (0-5); WBC Urine >100 /hpf (0-5)
[2020-09-29 07:38] LABS: ABG PH Result 7.36 (7.35-7.45); Arterial Blood Gas Hematocrit 29.3 % (37-47); Base Excess ABG 29.9 mmol/L (-2.0-2.0); Blood Gas Allen Test Pos; Blood Gas Operator Identificat CAK; Blood Gas Sample Site Radial, left; Blood Gas Sample Type Arterial; Carboxyhemoglobin 2.5 %THgb (0.4-20.1); HCO3 ABG 60.1 mmol/L (22-26); HGB O2 Sat 95.3 % (95-100); Ionized Calcium Level - ABG 1.1 mmol/L (1.1-1.4); Methemoglobin 0.8 % (0.4-1.5); Oxygen Device BIPAP; Oxygen Saturation ABG 98.6; Potassium Level - ABG 2.7 mmol/L (3.5-5.0); Total Hemoglobin 9.6 g/dL (12-16)
--- NOTE | 2020-09-29 07:39 | PC.NURSE ---
Dr Gant at bedside to discuss pt care with pt son who is at bedside.
--- NOTE | 2020-09-29 07:51 | PC.NURSE ---
Dr Gant changed BiPap settings to TV 550, RR 13, FiO2 at 85%. Per Dr Gant, pt does not wish to be intubated and pt and son are agreeable to comfort care.
[2020-09-29 07:52] LABS: Basophils % 0.3 %; Eosinophils % 0.2 %; Hematocrit 34.3 % (37.0-47.0); Hemoglobin 9.8 g/dL (11.5-15.3); Lymphocytes # 1.5 10^3/uL (0.8-4.8); Mean Corpuscular HGB Conc 28.6 g/dL (30.0-36.0); Mean Corpuscular Hemoglobin 29.6 pg (28.0-34.0); Mean Corpuscular Volume 103.6 fL (81-99); Monocytes # 0.7 10^3/uL (0.2-0.9); Monocytes % 4.9 %; Neutrophils # 12.46 10^3/uL (1.8-7.7); Neutrophils % 84.3 %; Nucleated Red Blood Cells % 0 %; Platelet Count 205 10^3/cmm (130-400); Red Blood Count 3.31 10^6/uL (4.1-5.3); White Blood Count 14.8 10^3/uL (4.0-10.0)
--- NOTE | 2020-09-29 07:55 | ECG_ITS ---
[facility] Test Date: 2020-09-29 Pat Name: Mora Messer Department: Room: Gender: Female Practicing Urologist: : 1945 Requested By: Milad Bernabe Order Number: [id number] Reading MD: BRIGITTE VANN Measurements Intervals [place] Rate: 82 P: CT: QRS: 24 QRSD: 167 T: -41 QT: 449 QTc: 526 Interpretive Statements ATRIAL FIBRILLATION RIGHT BUNDLE BRANCH BLOCK [120+ ms QRS DURATION, UPRIGHT V1, 40+ ms S IN I/aVL/V4/V5/V6] ST DEVIATION AND MODERATE T-WAVE ABNORMALITY, CONSIDER LATERAL ISCHEMIA [-0.1+ mV T WAVE IN I/aVL/V5/V6] Compared to ECG 09/29/2020 05:53:09 T-wave abnormality now present Possible ischemia now present Ventricular premature complex(es) no longer present Aberrant conduction of supraventricular beat(s) no longer present Myocardial infarct finding no longer present Electronically Signed On 09-29-2020 20:07:01 DIGITAL SALES PLANNER by BRIGITTE VANN [id number]
--- NOTE | 2020-09-29 08:21 | PC.NURSE ---
Attempted to draw blood for 2 hr troponin, stuck pt 5 times with no success. Lab notified to draw blood.
--- NOTE | 2020-09-29 08:33 | PC.NURSE ---
Lab at bedside to draw blood
[2020-09-29 09:05] LABS: ABG PH Result 7.44 (7.35-7.45); Arterial Blood Gas Hematocrit 28.4 % (37-47); Base Excess ABG 31.6 mmol/L (-2.0-2.0); Blood Gas Allen Test Pos; Blood Gas Operator Identificat CAK; Blood Gas Sample Site Radial, left; Blood Gas Sample Type Arterial; HCO3 ABG 60.3 mmol/L (22-26); Oxygen Device BIPAP; PO2 ABG 54.1 mmHg (80.0-100.0)
[2020-09-29 09:07] LABS: ABG PCO2 89.5 mmHg (35-45)
[2020-09-29 10:30] LABS: Lactate (Lactic Acid level) 1.1 mmol/L (0.5-2.2)
--- NOTE | 2020-09-29 10:42 | PM.HP ---
Providers/Chief Complaint Admitting Physician: Johana Dow MD Primary Care Provider: Alli Quintero MD Chief Complaint: resp distress History of Present Illness Mora Messer is a 75 year old female with a past medical history of atrial fibrillation, chronic venous stasis, COPD, CHF, CAD, type 2 diabetes, CVA, hyperlipidemia, hypertension, morbid obesity, pulmonary pretension recent hospitalization for acute diastolic CHF exacerbation status post thoracocentesis, diuretic therapy, with NSTEMI with COPD exacerbation. Who presents to [facility] due to complaints of shortness of breath, currently patient is on the BiPAP, her PCO2 is 102, her son is at bedside, holding her hand. I have reached out to the [facility] multiple times, but have not been able to reach them, finally was able to reach them, they tell me that patient is a two-person assist, no dementia, has had generalized weakness, fatigue, has renal failure, thinking about dialysis for her, but she has refused, has fear heart failure. Early this morning, patient had episodes of shortness of breath, elevated blood pressure so they brought her to [facility]. In [facility] patient's PCO2 was 102, elevated troponin, chest x-ray showing showing significant pulmonary vascular congestion, bilateral pleural effusions, she was placed on BiPAP hospitalist team was called for admission. When I came down to the ER to see the patient, she was on the BiPAP, no repeat ABG that had been completed since her admission at 5 AM, but somnolent, on the BiPAP, has significant air leak around her face mask, BiPAP was sent on AVAPS, tidal volume 550, respiratory rate 13, 85 5% FiO2. Patient is a AND, son is at bedside, holding her hand. I advised patient and his son that patient's status is quite critical, given that she is and, she does not want to be intubated, she will she has a high risk of morbidity and mortality. I am doing the best I can with the BiPAP machine, but it seems that she is a bit somnolent, and she is not really working with the machine well, as a repeat ABG shows a PCO2 of 105. I discussed the risks and benefits of continuing medical intervention, my concerns that she might start to suffer, going to respiratory distress, become more somnolent, high of a high risk of morbidity and mortality, high risk of suffering. Patient nodded to me that she did not want to suffer. Patient son at bedside tells me that he does not want her to suffer. But all wants us to continue our medical interventions for now, but if she were to worsen, or start to suffer or go to respiratory distress he want us to pursue comfort measures, to make her comfortable as possible. Patient's BiPAP settings were changed, respiratory rate was increased to 18, PCO2 has come down to 89, I reexamined patient when she was in ICU, she feels better, is much more alert, but still somnolent, she wants to continue interventions for now. Patient also was found to be profoundly hypokalemic, potassium 2.8, is working on her second bag of K rider 40 mEq. Review of Systems General: Reports: ROS unobtainable due to medical condition Card: Denies: chest pain Resp: Reports: dyspnea Medications/Allergies Home Medications Medication Instructions Recorded Confirmed Last Taken Type atorvastatin 20 mg PO BEDTIME 01/11/20 09/29/20 09/28/20 History citalopram 20 mg PO DAILY 01/11/20 09/29/20 09/28/20 History polyethylene glycol 3350 [Miralax] 17 g PO DAILY 01/11/20 09/29/20 09/28/20 History sennosides-docusate sodium 1 tab-cap PO BID 01/11/20 09/29/20 09/28/20 History [Senna-S] Multiple Vitamin, Womens 1 tab PO DAILY 04/24/20 09/29/20 09/28/20 History acetaminophen 650 mg PO Q6H PRN 04/24/20 09/29/20 04/24/20 History albuterol sulfate 2.5 mg INHALATION Q4H PRN 04/24/20 09/29/20 04/23/20 History Tresiba U-100 Insulin 27 unit SUBCUT BEDTIME 06/06/20 09/29/20 09/10/20 History aspirin [Aspirin Low Dose] 81 mg PO DAILY 06/06/20 09/29/20 09/28/20 History insulin aspart U-100 [Novolog See Rx Instructions .ROUTE .COMPLEX 06/06/20 09/29/20 09/10/20 History Flexpen U-100 Insulin] Biofreeze (menthol) 1 applic TOPICAL DAILY PRN MDD 1 09/11/20 09/29/20 Unknown History time bisacodyl 5 mg PO DAILY PRN 09/11/20 09/29/20 Unknown History bisacodyl 10 mg OK DAILY PRN 09/11/20 09/29/20 Unknown History tramadol 50 mg PO BID PRN 09/11/20 09/29/20 Unknown History furosemide 40 mg PO BID #120 tab 09/13/20 09/29/20 09/28/20 Rx isosorbide mononitrate 30 mg PO DAILY #30 tab 09/13/20 09/29/20 09/28/20 Rx metoprolol tartrate 50 mg PO BID #60 tab 09/13/20 09/29/20 09/28/20 Rx polyvinyl alcohol [Artificial 1 drp OPHTHALMIC (EYE) QID 09/29/20 09/29/20 09/28/20 History Tears (polyvin alc)] Allergies Allergy/AdvReac Type Severity Reaction Status Date / Time adhesive tape Allergy Unknown Verified 04/14/20 10:34 nifedipine [From Procardia] Allergy Unknown Verified 04/14/20 10:34 Penicillins Allergy Unknown Verified 04/14/20 10:34 PFSH Acute PFSH: Medical History Acute and chronic respiratory failure with hypercapnia Acute on chronic diastolic (congestive) heart failure Atrial fibrillation -HR controlled -no AC due to anemia Benign essential hypertension with target blood pressure below 140/90 Chronic anticoagulation Chronic atrial fibrillation Chronic kidney disease Chronic venous stasis CKD (chronic kidney disease) -baseline Cr 1.5-2.2 Congestive heart failure -acutely decompensated diastolic CHF, as evidenced by fluid overload on imaging, BNP elevation (though this is chronic), hypoxia, SOB -resume oral diuresis -daily weights, monitor Is & Os; so far has diuresed 8.8 L/6 kg -Echo (01/2020): EF=55%, no RWMA, trace MR -Riggins catheter removed prior to d/c -intermittently requiring BiPAP, now on NC -continue to monitor respiratory status -continue to monitor vital signs, currently stable -telemetry monitoring -s/p L therapeutic thoracentesis with output of 800 mL; f/u CXR shows minimal L pleural effusion, small R pleural effusion -noted hypoalbuminemia, may benefit from albumin to facilitate diuresis -f/u CXR shows moderate bilateral pleural effusions, s/p L thoracentesis with removal of 660 mL. Fluid analysis consistent with exudative effusion. Follow-up x-ray shows small right pleural effusion and improved left pleural effusion. Pleural fluid Gram stain negative, culture prelim negative. Cytology pending COPD (chronic obstructive pulmonary disease) -oxygen dependent at baseline, 2 L -COVID-19 rapid test negative Coronary artery disease Diabetes mellitus type 2, insulin dependent -A1c-8.2 -Accuchecks, hypoglycemia precautions, ISS -complicated by peripheral neuropathy and nephropathy Elevated troponin History of CVA (cerebrovascular accident) Hyperlipidemia -on statin Hypertension -VSS; continue to monitor vitals -continue BB Macrocytic anemia -Acute on chronic macrocytic anemia -baseline Hg is 9-10 -continue to monitor H/H; s/p 2 unit of PRBCs -noted vitamin B12, folate levels -continue to hold AC Macular degeneration -on eye drops Morbid obesity -BMI-47 kg/m2 NSTEMI (non-ST elevated myocardial infarction) -medical management -continue to f/u with cardiology; consult by Dr. Peralta appreciated -likely type II due to acute CHF exacerbation, renal impairment -no plavix due to anemia and bleeding risk Peripheral neuropathy Pulmonary hypertension Surgical History History of appendectomy History of arthroscopic knee surgery Bilateral History of cholecystectomy History of hysterectomy History of lumpectomy of left breast Family History Other Diabetes Social History Smoking and tobacco status: never smoked Alcohol intake: never Vitals/I&O/Wt Last Vital Signs Temp 97.3 F L 09/29/20 05:47 Pulse 75 09/29/20 09:54 Resp 21 H 09/29/20 09:54 BP 131/52 09/29/20 09:54 Pulse Ox 99 09/29/20 09:54 Weight last 48 hrs Weight 117.934 kg Physical Exam Const: GENERAL APPEARANCE: ill appearing and diaphoretic ORIENTATION/CONSCIOUSNESS: Yes awake and Yes oriented to person; not oriented to place and not oriented to time HENMT: COMMON NORMALS: normocephalic Eye: COMMON NORMALS: Equal, round and reactive pupils present Lymph: LYMPHATIC: no lymphadenopathy noted Chest: COMMONS NORMALS: normal inspection of the chest Resp: EFFORT & INSPECTION: Yes abnormal respiratory pattern, Yes tachypneic and Yes retractions Cardio: RATE: tachycardic RHYTHM: regular rhythm HEART SOUNDS: S1 normal heart sound present and S2 normal heart sound present GI: COMMON NORMALS: Normal to inspection, nondistended, normoactive bowel sounds present, Soft to palpation, non-tender and No hepatosplenomegaly present Extremity: NARRATIVE EXTREMITY EXAM: Bilateral lower extremity venous stasis ulcers, nonpitting edema Skin: NARRATIVE SKIN EXAM: Bilateral lower extremity venous stasis ulcers, bilateral feet, dorsal aspect, has venous stasis ulcers Urinary Catheter Management^: Riggins: Cath Placed During This Visit: yes Reason for Continuing Indwelling Catheter: Acute Urinary Retention or Obstruction Urinary Catheter Date of Insertion: 09/29/20 Urinary Catheter Time of Insertion: 07:07 Data : 09/29/20 07:29 09/29/20 06:15 A&P Assessment and plan (1) Acute and chronic respiratory failure with hypercapnia: -Secondary to diastolic CHF exacerbation, acute flash pulmonary edema, bilateral pleural effusions, obesity hypoventilation syndrome, COPD exacerbation -PCO2 is down to 89, more alert, more awake, -BiPAP on AVAPS, respiratory rate 18, tidal volume 450, PO2 40 Plan: -Patient is DNR/DNI -Above all she does not want aggressive interventions, wants to remain comfortable if she starts to clinically worsen or goes into respiratory distress, patient son is at bedside, DPOA, he agrees -For now as her PCO2 is coming down, and she requires very close monitoring, I will admit her to the ICU -Continue BiPAP AVAPS -Working on second bag of potassium, recheck potassium at 2 -Start Lasix drip at 2, 10/h, uptitrate as needed monitor creatinine, monitor potassium -Monitor urine output, monitor creatinine, baseline 2 -Has bilateral pleural effusions, 600 cc removed on last admission, she cannot really lie flat so I do not think she will tolerate removal at this point, can consider if she starts to improve -For COPD, ipratropium every 4 hours, Solu-Medrol 40 every 8 hours, Rocephin and azithromycin antibiotic coverage, as I cannot see bilateral lower lobes, possibly could have a pneumonia, white blood cell count 14.8, neutrophilic 12.46 -UA shows evidence of UTI, Rocephin Status: Acute (2) Acute hypokalemia: 2.8, status post 80 mEq potassium Status: Acute (3) Acute on chronic diastolic (congestive) heart failure: Echocardiogram on September 12, 2020 showed mild hypokinesia of the basal inferior wall segment, EF 50 to 55%, Status: Acute (4) Coronary artery disease: Status: Acute (5) Acute renal failure: Creatinine 2.0 Status: Acute Qualifiers: Acute renal failure type: unspecified Qualified Code(s): N17.9 - Acute kidney failure, unspecified (6) Atrial fibrillation: Not on anticoagulation due to anemia Status: Inactive Qualifiers: Atrial fibrillation type: unspecified Qualified Code(s): I48.91 - Unspecified atrial fibrillation (7) NSTEMI (non-ST elevated myocardial infarction): No complaints of chest pain, however baseline troponin [address] depression lateral will, T wave inversions lateral wall Had elevated troponins on last hospital admission, on medical management Currently I am concerned for underlying cardiovascular etiology given the significant troponin elevation, but certainly supply demand ischemia could be playing a role -Continue aspirin, statin therapeutic Lovenox -I have consulted cardiology -Creatinine is 2, DNR/DNI, poor candidate for cardiac catheterization Status: Inactive (8) Morbid obesity: Status: Inactive (9) Hypertension: Status: Acute Qualifiers: Hypertension type: essential hypertension Qualified Code(s): I10 - Essential (primary) hypertension (10) Hyperlipidemia: Status: Inactive Qualifiers: Hyperlipidemia type: unspecified Qualified Code(s): E78.5 - Hyperlipidemia, unspecified (11) History of CVA (cerebrovascular accident): Status: Inactive (12) COPD (chronic obstructive pulmonary disease): Status: Inactive Qualifiers: COPD type: unspecified COPD Qualified Code(s): J44.9 - Chronic obstructive pulmonary disease, unspecified Attestations Medical Necessity Statement*: Patient requires hospitalization, inpatient, greater than 2 minutes, acute respiratory failure with hypercapnia secondary to CHF, primary edema, COPD, concerns for bilateral lower lobe pneumonia Coding Level of Care Code Acute Principal Network Engineer for [facility] Diagnoses Acute and chronic respiratory failure with hypercapnia J96.22 Acute hypokalemia E87.6 Acute on chronic diastolic (congestive) heart failure I50.33 Coronary artery disease I25.10 Acute renal failure N17.9 Acute renal failure type: unspecified Atrial fibrillation I48.91 Atrial fibrillation type: unspecified NSTEMI (non-ST elevated myocardial infarction) I21.4 Morbid obesity E66.01 Hypertension I10 Hypertension type: essential hypertension Hyperlipidemia E78.5 Hyperlipidemia type: unspecified History of CVA (cerebrovascular accident) Z86.73 COPD (chronic obstructive pulmonary disease) J44.9 COPD type: unspecified COPD
[2020-09-29] MEDS: pantoprazole 40 mg SDV IVP (11:03)
[2020-09-29] MEDS: enoxaparin 120 mg/0.8 mL Syringe SUBCUT (11:11)
--- NOTE | 2020-09-29 11:55 | ECG_ITS ---
[facility] Test Date: 2020-09-29 Pat Name: Mora Messer Department: Room: ICU02 Gender: Female [place]: : 1945 Requested By: Milad Bernabe Order Number: [id number] Reading MD: BRIGITTE VANN Measurements Intervals [place] Rate: 75 P: MT: QRS: 24 QRSD: 172 T: 0 QT: 445 QTc: 500 Interpretive Statements ATRIAL FIBRILLATION WITH ABERRANT CONDUCTION OR VENTRICULAR PREMATURE COMPLEXES INTRAVENTRICULAR CONDUCTION DELAY [130+ ms QRS DURATION] PROBABLE SEPTAL MYOCARDIAL INFARCTION [35 ms Q WAVE IN V1/V2], OF INDETERMINATE AGE Compared to ECG 09/29/2020 08:05:09 Ventricular premature complex(es) now present Aberrant conduction of supraventricular beat(s) now present Intraventricular conduction delay now present Myocardial infarct finding now present Right bundle-branch block no longer present T-wave abnormality no longer present Possible ischemia no longer present Electronically Signed On 09-29-2020 20:06:50 VALVE INSPECTOR by RBIGITTE VANN [id number]
[2020-09-29] MEDS: ipratropium-albuterol 3 mL Neb INHALATION ×4 (12:29→23:18)
[2020-09-29] MEDS: cefTRIAXone 1,000 MG in sodium chloride 0.9% (plus) 50 ML 100 MG IV (12:55)
[2020-09-29 13:00] LABS: Glucose Point of Care 129 mg/dL (70-110)
[2020-09-29] MEDS: azithromycin 500 MG in sodium chloride 0.9% 250 ML 250 MG IV (13:02)
[2020-09-29 13:15] LABS: Troponin 5 6HR 524.6 ng/L (0-10); Troponin 5 6HR Delta 66.6 ng/L (0-12)
[2020-09-29] MEDS: azithromycin 500 mg SDV (13:15)
[2020-09-29 14:08] LABS: ABG PH Result 7.48 (7.35-7.45); Base Excess ABG 32.3 mmol/L (-2.0-2.0); Blood Gas Allen Test Pos; Blood Gas Operator Identificat CAK; Blood Gas Sample Site Radial, left; Blood Gas Sample Type Arterial; Oxygen Device BIPAP; PO2 ABG 95.7 mmHg (80.0-100.0)
--- NOTE | 2020-09-29 16:03 | PC.NURSE ---
iv infiltrated in right ac space .. removed whole intact at this time resited into left hand with 24 cath at this time both legs with pitting edema and ulcerations on corona and lower legs and ankle unable to tolerate scds at this time due to status of legs... coccyx area with red areas noted
--- NOTE | 2020-09-29 16:13 | PC.NURSE ---
verified that lasix gtt to start at 10mg hr
[2020-09-29 16:48] LABS: Alanine Aminotransferase 6 U/L (0-33); Albumin Level 2.7 g/dL (3.5-5.2); Alkaline Phosphatase 71 IU/L (35-105); Blood Urea Nitrogen 50 mg/dL (8-23); Calcium 8.9 mg/dL (8.5-10.5); Chloride 88 mmol/L (98-107); Globulin 4.4 g/dL (1.3-4.6); Glucose 106 mg/dL (65-115); Osmolality Calculated 314 mOsm/kg (285-295); Sodium 145 mmol/L (136-145); Total Bilirubin 0.4 mg/dL (0.15-1.2); Total Protein 7.1 g/dL (6.6-8.7)
[2020-09-29 17:27] LABS: Anion Gap 11.7 (5-19); Aspartate Amino Transferase 17 U/L (0-32); Carbon Dioxide 49 mmol/L (22-29); Potassium 3.7 mmol/L (3.5-5.1)
--- NOTE | 2020-09-29 17:32 | PC.NURSE ---
Dr called k result and also b/p elevating orders noted
[2020-09-29] MEDS: potassium chloride ER 20 mEq Tablet 40 MEQ PO (17:41)
--- NOTE | 2020-09-29 17:50 | P.CONIM_ITS ---
Providers/Reason For Consult Consulting Physican/Specialty*: Cardiology Reason for Consult*: Respiratory failure, congestive heart failure, non-STEMI Attending Physician: Raúl Gant MD Primary Care Provider: Alli Quintero MD History of Present Illness History of Present Illness Mora Messer is a 75 year old female past medical history significant for coronary disease, COPD, obesity, renal failure, diabetes mellitus, history of pneumonia, pleural effusions s/p thoracocentesis, atrial fibrillation, recent hospital admission was admitted with respiratory failure with hypercapnia. Patient is DNR/DNI therefore she was started on BiPAP it improved carbon oxide to 80s. Patient was started on Lasix drip in the ER by medicine. Troponin was around 600 patient has history of chronic high troponin as well. Her creatinine is around 2.0 in the past she was high risk for angiogram/PCI plus being DNR/DNI family and medicine team decided regarding medical management. I have been asked to assist in care. Please note that patient is on BiPAP and disoriented she is not able to talk to me. Source of history is Dr. Olsen's note. Twelve- lead EKG showed atrial fibrillation with right bundle branch block. Review of Systems General: Reports: ROS unobtainable due to medical condition Eyes: Denies: photophobia ENMT: Denies: enlarged tonsils Card: Denies: chest pain Resp: Reports: dyspnea Musc: Denies: joint warmth Meds/Allergies Home Medications and Allergies Home Medications Medication Instructions Recorded Confirmed Last Taken Type atorvastatin 20 mg PO BEDTIME 01/11/20 09/29/20 09/28/20 History citalopram 20 mg PO DAILY 01/11/20 09/29/20 09/28/20 History polyethylene glycol 3350 [Miralax] 17 g PO DAILY 01/11/20 09/29/20 09/28/20 History sennosides-docusate sodium 1 tab-cap PO BID 01/11/20 09/29/20 09/28/20 History [Senna-S] Multiple Vitamin, Womens 1 tab PO DAILY 04/24/20 09/29/20 09/28/20 History acetaminophen 650 mg PO Q6H PRN 04/24/20 09/29/20 04/24/20 History albuterol sulfate 2.5 mg INHALATION Q4H PRN 04/24/20 09/29/20 04/23/20 History Tresiba U-100 Insulin 27 unit SUBCUT BEDTIME 06/06/20 09/29/20 09/10/20 History aspirin [Aspirin Low Dose] 81 mg PO DAILY 06/06/20 09/29/20 09/28/20 History insulin aspart U-100 [Novolog See Rx Instructions .ROUTE .COMPLEX 06/06/20 09/29/20 09/10/20 History Flexpen U-100 Insulin] Biofreeze (menthol) 1 applic TOPICAL DAILY PRN MDD 1 09/11/20 09/29/20 Unknown History time bisacodyl 5 mg PO DAILY PRN 09/11/20 09/29/20 Unknown History bisacodyl 10 mg MO DAILY PRN 09/11/20 09/29/20 Unknown History tramadol 50 mg PO BID PRN 09/11/20 09/29/20 Unknown History furosemide 40 mg PO BID #120 tab 09/13/20 09/29/20 09/28/20 Rx isosorbide mononitrate 30 mg PO DAILY #30 tab 09/13/20 09/29/20 09/28/20 Rx metoprolol tartrate 50 mg PO BID #60 tab 09/13/20 09/29/20 09/28/20 Rx polyvinyl alcohol [Artificial 1 drp OPHTHALMIC (EYE) QID 09/29/20 09/29/20 09/28/20 History Tears (polyvin alc)] Allergies Allergy/AdvReac Type Severity Reaction Status Date / Time adhesive tape Allergy Unknown Verified 04/14/20 10:34 nifedipine [From Procardia] Allergy Unknown Verified 04/14/20 10:34 Penicillins Allergy Unknown Verified 04/14/20 10:34 Current Medications Current Medications Generic Name Dose Route Start Last Admin Trade Name Freq PRN Reason Stop Dose Admin Albuterol/Ipratropium 3 ml 09/29/20 12:00 09/29/20 15:29 Ipratropium-Albuterol 3 Ml Neb INHALATION 3 ml Q4H.RESPIRATORY NAGA Administration Enoxaparin Sodium 120 mg 09/29/20 11:15 09/29/20 11:11 Enoxaparin 120 Mg/0.8 Ml Syringe SUBCUT 120 mg Q24H NAGA Administration Ceftriaxone Sodium 1,000 mg/ 50 mls @ 100 mls/hr 09/29/20 11:30 09/29/20 12:55 Sodium Chloride IV 100 mls/hr Q24H NAGA Administration Protocol Azithromycin 500 mg/ Sodium 250 mls @ 250 mls/hr 09/29/20 11:30 09/29/20 13:02 Chloride IV 250 mls/hr Q24H NAGA Administration Protocol Insulin Aspart 0 unit 09/29/20 12:00 09/29/20 16:45 Insulin Aspart 100 Unit/1 Ml SUBCUT Not Given TIDWM NAGA Protocol Methylprednisolone Sodium Succinate 40 mg 09/29/20 11:15 09/29/20 17:41 Methylprednisolone Sod Succ 40 Mg/Ml Inj IVP 40 mg Q8H NAGA Administration Pantoprazole Sodium 40 mg 09/29/20 11:00 09/29/20 11:03 Pantoprazole 40 Mg Sdv IVP 40 mg Q24H NAGA Administration PFSH Acute PFSH: Medical History (Updated 09/29/20 @ 18:54 by Renata Goldberg MD) Acute and chronic respiratory failure with hypercapnia Acute on chronic diastolic (congestive) heart failure Atrial fibrillation -HR controlled -no AC due to anemia Benign essential hypertension with target blood pressure below 140/90 Chronic anticoagulation Chronic atrial fibrillation Chronic kidney disease Chronic venous stasis CKD (chronic kidney disease) -baseline Cr 1.5-2.2 Congestive heart failure -acutely decompensated diastolic CHF, as evidenced by fluid overload on imaging, BNP elevation (though this is chronic), hypoxia, SOB -resume oral diuresis -daily weights, monitor Is & Os; so far has diuresed 8.8 L/6 kg -Echo (01/2020): EF=55%, no RWMA, trace MR -Riggins catheter removed prior to d/c -intermittently requiring BiPAP, now on NC -continue to monitor respiratory status -continue to monitor vital signs, currently stable -telemetry monitoring -s/p L therapeutic thoracentesis with output of 800 mL; f/u CXR shows minimal L pleural effusion, small R pleural effusion -noted hypoalbuminemia, may benefit from albumin to facilitate diuresis -f/u CXR shows moderate bilateral pleural effusions, s/p L thoracentesis with removal of 660 mL. Fluid analysis consistent with exudative effusion. Follow-up x-ray shows small right pleural effusion and improved left pleural effusion. Pleural fluid Gram stain negative, culture prelim negative. Cytology pending COPD (chronic obstructive pulmonary disease) -oxygen dependent at baseline, 2 L -COVID-19 rapid test negative Coronary artery disease Diabetes mellitus type 2, insulin dependent -A1c-8.2 -Accuchecks, hypoglycemia precautions, ISS -complicated by peripheral neuropathy and nephropathy Elevated troponin History of CVA (cerebrovascular accident) Hyperlipidemia -on statin Hypertension -VSS; continue to monitor vitals -continue BB Macrocytic anemia -Acute on chronic macrocytic anemia -baseline Hg is 9-10 -continue to monitor H/H; s/p 2 unit of PRBCs -noted vitamin B12, folate levels -continue to hold AC Macular degeneration -on eye drops Morbid obesity -BMI-47 kg/m2 NSTEMI (non-ST elevated myocardial infarction) -medical management -continue to f/u with cardiology; consult by Dr. Peralta appreciated -likely type II due to acute CHF exacerbation, renal impairment -no plavix due to anemia and bleeding risk Peripheral neuropathy Pulmonary hypertension Surgical History History of appendectomy History of arthroscopic knee surgery Bilateral History of cholecystectomy History of hysterectomy History of lumpectomy of left breast Family History Other Diabetes Social History Smoking and tobacco status: never smoked Alcohol intake: never Vitals/I&O/Wt Last Vital Signs Temp 98 F 09/29/20 15:45 Pulse 72 09/29/20 16:00 Resp 18 09/29/20 16:00 BP 207/83 09/29/20 15:45 Pulse Ox 100 09/29/20 15:45 09/29/20 09/29/20 09/29/20 06:59 14:59 22:59 Intake Total 93.75 / 93.75 Output Total 100 / 100 Balance 93.75 / 93.75 -100 / -6.25 Weight last 48 hrs Weight 260 lb Physical Exam Narrative: EXAM NARRATIVE: GENERAL: Patient is disoriented. NECK: No jugular vein distension. HEENT: No cyanosis. No icterus. No pallor. HEART: Regular S1 and S2. No murmur, rub or gallop. LUNGS: Decreased breath sound bilaterally. ABDOMEN: Soft, nontender and nondistended. Positive bowel sounds. No guarding, rebound or tenderness. CENTRAL NERVOUS SYSTEM: Grossly nonfocal. EXTREMITIES: Lower extremities without edema bilaterally. Const: GENERAL APPEARANCE: ill appearing and diaphoretic ORIENTATION/CONSCIOUSNESS: Yes awake and Yes oriented to person; not oriented to place and not oriented to time HENMT: COMMON NORMALS: normocephalic and atraumatic HEAD & SCALP: normocephalic and atraumatic Eye: COMMON NORMALS: Equal, round and reactive pupils present PUPIL: Yes Equal, round and reactive pupils present Neck/C-Spine: COMMON NORMALS: no JVD Lymph: LYMPHATIC: no lymphadenopathy noted Chest: COMMONS NORMALS: normal inspection of the chest Resp: COMMON NORMALS: normal respiratory effort, No retractions and No use of accessory muscles EFFORT & INSPECTION: Yes abnormal respiratory pattern, Yes tachypneic and Yes retractions AUSCULTATION: rales and diminished lung sounds Cardio: COMMON NORMALS: no JVD, regular rate, regular rhythm, S1 normal heart sound present, S2 normal heart sound present and No murmurs present (Cardio) RATE: regular rate and tachycardic RHYTHM: regular rhythm HEART SOUNDS: S1 normal heart sound present and S2 normal heart sound present GI: COMMON NORMALS: Normal to inspection, nondistended, normoactive bowel sounds present, Soft to palpation, non-tender and No hepatosplenomegaly present AUSCULTATION: Yes normoactive bowel sounds PALPATION: Yes Soft to palpation, No Tenderness to palpation present (GI), No Guarding due to palpation present (GI) and Yes No hepatosplenomegaly present Extremity: NARRATIVE EXTREMITY EXAM: Bilateral lower extremity venous stasis ulcers, nonpitting edema Neuro: SENSORIUM/ORIENTATION: Yes oriented to person, No oriented to place and No oriented to time Skin: NARRATIVE SKIN EXAM: Bilateral lower extremity venous stasis ulcers, bilateral feet, dorsal aspect, has venous stasis ulcers Urinary Catheter Management^: Riggins: Cath Placed During This Visit: yes Reason for Continuing Indwelling Catheter: Acute Urinary Retention or Obstruction Urinary Catheter Date of Insertion: 09/29/20 Urinary Catheter Time of Insertion: 07:07 A&P Assessment and plan (1) Acute hypercapnic respiratory failure: Continue BiPAP and COPD exacerbation treatment as per medicine. Status: Acute (2) Acute on chronic diastolic (congestive) heart failure: I think most likely patient insult is secondary to pulmonary and less likely CHF exacerbation. I would like to back off on Lasix. We will ask for echocardiogram and also to assess LV function and hemodynamics Status: Acute (3) Acute renal failure: Patient has underlying kidney disease acute on chronic failure secondary t o prerenal. Status: Acute Qualifiers: Acute renal failure type: unspecified Qualified Code(s): N17.9 - Acute kidney failure, unspecified (4) Coronary artery disease: Patient has underlying coronary disease with non-STEMI we will continue anticoagulation for now. We will continue to treat her medically since at the moment patient has not good candidate for intervention nor she would like to go ahead with. Further plan will be advised as per progress of the patient. Status: Acute Qualifiers: Associated angina: with unspecified angina Coronary Disease-Associated Artery/Lesion type: [place] artery [place] vs. transplanted heart: [place] heart Qualified Code(s): I25.119 - Atherosclerotic heart disease of [place] coronary artery with unspecified angina pectoris (5) Hypertensive crisis: We will start her on nitro drip. We will continue to titrate with goal over less than 130/80 in next 24 hours Status: Acute Coding Level of Care Code New Pt Acute Tube Skiver for Chg Fwd Patient Type New History Comprehensive Exam Comprehensive Medical Decision Making High Complexity Diagnoses Acute hypercapnic respiratory failure J96.02 Acute on chronic diastolic (congestive) heart failure I50.33 Acute renal failure N17.9 Acute renal failure type: unspecified Coronary artery disease I25.119 Associated angina: with unspecified angina Coronary Disease-Associated Artery/Lesion type: [place] artery [place] vs. transplanted heart: [place] heart Hypertensive crisis I16.9
[2020-09-29 18:48] LABS: Glucose Point of Care 107 mg/dL (70-110)
--- NOTE | 2020-09-29 20:00 | PC.NURSE ---
Performed cheetah test to see if patient was fluid responsive. Patient was not fluid responsive.
[2020-09-29] MEDS: atorvastatin 40 mg Tablet 20 MG PO (20:16)
--- NOTE | 2020-09-29 20:27 | PC.NURSE ---
Dr. Goldberg bedside discussing POC. Received verbal orders of 80mg IVP once and to call and update him at 2230 with urine output.
[2020-09-29] MEDS: nitroglycerin drip 50 MG/250 ML PREMIX IV (20:50)
--- NOTE | 2020-09-29 23:02 | PC.NURSE ---
Patient resting in room with eyes closed. Patient is alert and orientated. Patient is able to voice concerns and make needs known. Patient is on BIPAP at 35% FIO2. Riggins in place. Patient is not making alot of urine even after receiving lasix. Nitro drip running to keep BP down. Call light within reach. Continue care.
[2020-09-29 23:22] LABS: Alanine Aminotransferase 6 U/L (0-33); Albumin Level 2.7 g/dL (3.5-5.2); Alkaline Phosphatase 64 IU/L (35-105); Anion Gap 12.4 (5-19); Aspartate Amino Transferase 12 U/L (0-32); Blood Urea Nitrogen 53 mg/dL (8-23); Calcium 8.7 mg/dL (8.5-10.5); Chloride 85 mmol/L (98-107); Globulin 3.8 g/dL (1.3-4.6); Glucose 172 mg/dL (65-115); Osmolality Calculated 314 mOsm/kg (285-295); Potassium 3.4 mmol/L (3.5-5.1); Sodium 143 mmol/L (136-145); Total Bilirubin 0.3 mg/dL (0.15-1.2); Total Protein 6.5 g/dL (6.6-8.7)
[2020-09-29 23:27] LABS: Carbon Dioxide 49 mmol/L (22-29)
[2020-09-30] VITALS (80 sets, daily range): BP systolic 99–204; BP diastolic 51–139; PULSE 67–120; RESP 8–32; TEMP 36.6–37; O2SAT 91–100
--- NOTE | 2020-09-30 02:51 | PC.NURSE ---
Patients left abdominal fold is very excoriated and raw. Interdry placed to help absorb extra moisture after bed bath.
--- NOTE | 2020-09-30 03:41 | PC.NURSE ---
Patient received bed bath and linen change. Patient's abd folds are excoriated and raw and under breasts as well. Interdry applied after skin care.
[2020-09-30] MEDS: ipratropium-albuterol 3 mL Neb INHALATION ×5 (03:56→20:43)
[2020-09-30 04:16] LABS: Basophils % 0.1 %; Hematocrit 26.8 % (37.0-47.0); Hemoglobin 7.7 g/dL (11.5-15.3); Lymphocytes % 12.3 %; Mean Corpuscular HGB Conc 28.7 g/dL (30.0-36.0); Mean Corpuscular Hemoglobin 29.5 pg (28.0-34.0); Mean Corpuscular Volume 102.7 fL (81-99); Mean Platelet Volume 11.1 fL (7.4-10.4); Monocytes # 0.2 10^3/uL (0.2-0.9); Monocytes % 2.1 %; Neutrophils % 85.1 %; Nucleated Red Blood Cells % 0 %; Platelet Count 196 10^3/cmm (130-400); Red Blood Count 2.61 10^6/uL (4.1-5.3); Red Cell Distribution Width 15.6 % (12.1-15.1); White Blood Count 8.1 10^3/uL (4.0-10.0)
[2020-09-30 04:35] LABS: INR 1.41 (0.8-1.2)
[2020-09-30 04:38] LABS: D Dimer 1.03 ug/mIFEU (0-0.59)
[2020-09-30 04:55] LABS: Albumin Level 2.7 g/dL (3.5-5.2); Alkaline Phosphatase 65 IU/L (35-105); Blood Urea Nitrogen 58 mg/dL (8-23); C Reactive Protein 140.9 mg/L (0.0-4.9); Calcium 8.9 mg/dL (8.5-10.5); Chloride 88 mmol/L (98-107); Globulin 3.8 g/dL (1.3-4.6); Glucose 216 mg/dL (65-115); Magnesium 2.1 mg/dL (1.7-2.3); NT Pro B Type Natriuretic Pept 10574 pg/mL (0-450); Osmolality Calculated 325 mOsm/kg (285-295); Phosphorus 3.5 mg/dL (2.5-4.5); Sodium 146 mmol/L (136-145); Total Bilirubin 0.3 mg/dL (0.15-1.2); Total Protein 6.5 g/dL (6.6-8.7)
[2020-09-30 04:56] LABS: Alanine Aminotransferase 6 U/L (0-33); Anion Gap 15.7 (5-19); Aspartate Amino Transferase 22 U/L (0-32); Potassium 3.7 mmol/L (3.5-5.1)
[2020-09-30 04:58] LABS: Carbon Dioxide 46 mmol/L (22-29)
[2020-09-30 05:02] LABS: ABG PH Result 7.52 (7.35-7.45); Arterial Blood Gas Hematocrit 25.2 % (37-47); Base Excess ABG 25.1 mmol/L (-2.0-2.0); Blood Gas Allen Test Pos; Blood Gas Operator Identificat JB; Blood Gas Sample Site Radial, right; Blood Gas Sample Type Arterial; HCO3 ABG 50.9 mmol/L (22-26); Oxygen Device BIPAP; PO2 ABG 82.4 mmHg (80.0-100.0)
[2020-09-30 05:04] LABS: ABG PCO2 62.6 mmHg (35-45)
[2020-09-30 05:37] LABS: Procalcitonin 0.41 ng/mL (0-0.5)
[2020-09-30 06:07] LABS: Creatine Phosphokinase 45 U/L (26-192)
--- NOTE | 2020-09-30 07:00 | XRR_ITS ---
PROCEDURE INFORMATION: Exam: XR Chest, 1 View Exam date and time: 09/30/2020 4:42 AM Age: 75 years old Clinical indication: Shortness of breath; Additional info: SOB TECHNIQUE: Imaging protocol: XR of the chest Views: 1 view. COMPARISON: CR XR chest 1V portable [id number] 09/29/2020 5:59 AM FINDINGS: The heart size is enlarged. The lungs show pulmonary vascular congestion changes. Bilateral moderate pleural effusions are again seen. XR/XR chest 1V portable [id number] IMPRESSION: CHF showing no change.
[2020-09-30 07:24] LABS: Glucose Point of Care 132 mg/dL (70-110)
[2020-09-30 07:24] LABS: Glucose Point of Care 252 mg/dL (70-110)
--- NOTE | 2020-09-30 07:42 | PC.NURSE ---
b/p high weaning up on nitro gtt at this time pt with no distress noted
--- NOTE | 2020-09-30 08:41 | PC.NURSE ---
talked with pt at length with Dr Gant.... want to have all family brought down then made comfort care to talk with son
[2020-09-30] MEDS: metoprolol tartrate 50 mg Tablet PO ×2 (09:04→17:18)
[2020-09-30] MEDS: citalopram 20 mg Tablet PO (09:04)
[2020-09-30] MEDS: hyDRALAzine 10 mg Tablet PO ×4 (09:04→21:18)
[2020-09-30] MEDS: aspirin 81 mg EC Tablet PO (09:05)
[2020-09-30] MEDS: pantoprazole 40 mg SDV IVP (10:29)
[2020-09-30] MEDS: enoxaparin 120 mg/0.8 mL Syringe SUBCUT (10:30)
[2020-09-30] MEDS: cefTRIAXone 1,000 MG in sodium chloride 0.9% (plus) 50 ML 100 MG IV (10:30)
[2020-09-30] MEDS: azithromycin 500 MG in sodium chloride 0.9% 250 ML 15 MG IV (11:00)
[2020-09-30 12:07] LABS: Glucose Point of Care 236 mg/dL (70-110)
--- NOTE | 2020-09-30 12:34 | PM.PN ---
Subjective Subjective: Interval history: This morning patient was examined, she was taken off BiPAP, put on nasal cannula, she tells me that she is just tired, she wants to be at home with her family, she is tired of fighting, she is ready to go, she wants to remain comfortable I had an extensive discussion with patient with nurse LJ present -I advised the patient continues to have extensive pulmonary edema, bilateral pleural effusions, at some point she will require further diuresis, and or bilateral thoracocentesis to help her respiratory status -For now she is BiPAP dependent, her carbon dioxide levels have improved, but still quite elevated at 62.6 -She is anemic, hemoglobin is down to 7.7, no overt signs of bleeding, no hemodynamic compromise -She has hypertensive urgency, she is on a nitro drip, for which we are trying to wean her off -Unfortunately she is in renal failure, she has had 200 cc of urine output in the last 24 hours, she is received roughly 200 mg of Lasix, and has not responded, creatinine is up to 2.5 -I discussed the options of dialysis, dialysis would allow us to pull some of the fluid off her lungs, but she likely will require to be intubated for the procedure, which is against her wishes, and the procedure is associated with an increased risk of morbidity mortality given her NSTEMI and respiratory failure -After discussion of the risks and benefits, she voiced understanding, all questions answered, she wants to proceed to home with hospice -This will be arranged for her, she states that she wants to be at home with her family -I also had a discussion with patient's healthcare power of round cutter operator, Dimitri Messer, who agrees, he tells me that he had a discussion with his mom last night, she told him she just wants to be at home with her family, she wants to remain comfortable -We will proceed to home with hospice Vitals/I&O/Wt Last Vital Signs Temp 98 F 09/30/20 12:00 Pulse 80 09/30/20 12:00 Resp 25 H 09/30/20 12:00 BP 162/61 09/30/20 12:00 Pulse Ox 97 09/30/20 12:00 09/29/20 09/30/20 09/30/20 22:59 06:59 14:59 Intake Total 15.625 / 159.375 600 / 600 Output Total 100 / 100 100 / 200 Balance -100 / 43.75 -84.375 / -40.625 600 / 600 Weight last 48 hrs Weight 117.934 kg Physical Exam Const: COMMON NORMALS: patient oriented x3 GENERAL APPEARANCE: ill appearing NUTRITIONAL APPEARANCE: obese Resp: COMMON NORMALS: normal respiratory effort EFFORT & INSPECTION: Yes tachypneic and Yes retractions AUSCULTATION: crackles Cardio: COMMON NORMALS: regular rate, regular rhythm and S1 normal heart sound present RATE: regular rate RHYTHM: regular rhythm HEART SOUNDS: S1 normal heart sound present and no murmurs GI: COMMON NORMALS: Normal to inspection, nondistended, normoactive bowel sounds present, Soft to palpation, non-tender and No hepatosplenomegaly present PALPATION: Yes Soft to palpation and Yes No hepatosplenomegaly present Extremity: COMMON NORMALS: normal to inspection, full ROM, capillary refill normal, no clubbing, cyanosis or edema and no pedal edema Neuro: COMMON NORMALS: patient oriented x3 Urinary Catheter Management^: Riggins: Cath Placed During This Visit: yes Reason for Continuing Indwelling Catheter: Accurate Measurement of Urinary Output in Critically Ill Patients Urinary Catheter Date of Insertion: 09/29/20 Urinary Catheter Time of Insertion: 07:07 Data : 09/30/20 03:21 09/30/20 03:21 Micro: Microbiology 09/29/20 07:06 Urine Culture - Preliminary Urine Catheterized Gram Negative Rods A&P Assessment and plan (1) Acute and chronic respiratory failure with hypercapnia: -proceeding to home hospice -Currently on a nitro drip, will try to wean her off the nitro drip, to p.o. medication -Continue BiPAP as needed for shortness of breath, but I am okay with nasal cannula for now -Hold Lovenox as hemoglobin 7.7 -Ativan and morphine for pain -Secondary to diastolic CHF exacerbation, acute flash pulmonary edema, bilateral pleural effusions, obesity hypoventilation syndrome, COPD exacerbation, with acute renal failure, anemia -PCO2 is down to 89, more alert, more awake, -BiPAP on AVAPS, respiratory rate 18, tidal volume 450, PO2 40 Plan: -Patient is DNR/DNI -Above all she does not want aggressive interventions, wants to remain comfortable if she starts to clinically worsen or goes into respiratory distress, patient son is at bedside, DPOA, he agrees -For now as her PCO2 is coming down, and she requires very close monitoring, I will admit her to the ICU -Continue BiPAP AVAPS -Working on second bag of potassium, recheck potassium at 2 -Start Lasix drip at 2, 10/h, uptitrate as needed monitor creatinine, monitor potassium -Monitor urine output, monitor creatinine, baseline 2 -Has bilateral pleural effusions, 600 cc removed on last admission, she cannot really lie flat so I do not think she will tolerate removal at this point, can consider if she starts to improve -For COPD, ipratropium every 4 hours, Solu-Medrol 40 every 8 hours, Rocephin and azithromycin antibiotic coverage, as I cannot see bilateral lower lobes, possibly could have a pneumonia, white blood cell count 14.8, neutrophilic 12.46 -UA shows evidence of UTI, Rocephin Status: Acute (2) Acute hypokalemia: 2.8, status post 80 mEq potassium Status: Acute (3) Acute on chronic diastolic (congestive) heart failure: Echocardiogram on September 12, 2020 showed mild hypokinesia of the basal inferior wall segment, EF 50 to 55%, Status: Acute (4) Coronary artery disease: Status: Acute Qualifiers: Coronary Disease-Associated Artery/Lesion type: [place] artery [place] vs. transplanted heart: [place] heart Associated angina: with unspecified angina Qualified Code(s): I25.119 - Atherosclerotic heart disease of [place] coronary artery with unspecified angina pectoris (5) Acute renal failure: Creatinine 2.0 Status: Acute Qualifiers: Acute renal failure type: unspecified Qualified Code(s): N17.9 - Acute kidney failure, unspecified (6) Atrial fibrillation: Not on anticoagulation due to anemia Status: Inactive Qualifiers: Atrial fibrillation type: unspecified Qualified Code(s): I48.91 - Unspecified atrial fibrillation (7) NSTEMI (non-ST elevated myocardial infarction): No complaints of chest pain, however baseline troponin [address] depression lateral will, T wave inversions lateral wall Had elevated troponins on last hospital admission, on medical management Currently I am concerned for underlying cardiovascular etiology given the significant troponin elevation, but certainly supply demand ischemia could be playing a role -Continue aspirin, statin therapeutic Lovenox -I have consulted cardiology -Creatinine is 2, DNR/DNI, poor candidate for cardiac catheterization Status: Inactive (8) Morbid obesity: Status: Inactive (9) Hypertension: Status: Acute Qualifiers: Hypertension type: essential hypertension Qualified Code(s): I10 - Essential (primary) hypertension (10) Hyperlipidemia: Status: Inactive Qualifiers: Hyperlipidemia type: unspecified Qualified Code(s): E78.5 - Hyperlipidemia, unspecified (11) History of CVA (cerebrovascular accident): Status: Inactive (12) COPD (chronic obstructive pulmonary disease): Status: Inactive Qualifiers: COPD type: unspecified COPD Qualified Code(s): J44.9 - Chronic obstructive pulmonary disease, unspecified (13) Hypertensive crisis: Status: Acute Attestations Medical Necessity Statement*: Patient requires hospitalization for acute respiratory failure with hypercapnia, proceeding to hospice Coding Level of Care Code Acute Control Manager for [facility] Fwd Diagnoses Acute and chronic respiratory failure with hypercapnia J96.22 Acute hypokalemia E87.6 Acute on chronic diastolic (congestive) heart failure I50.33 Coronary artery disease I25.119 Coronary Disease-Associated Artery/Lesion type: [place] artery [place] vs. transplanted heart: [place] heart Associated angina: with unspecified angina Acute renal failure N17.9 Acute renal failure type: unspecified Atrial fibrillation I48.91 Atrial fibrillation type: unspecified NSTEMI (non-ST elevated myocardial infarction) I21.4 Morbid obesity E66.01 Hypertension I10 Hypertension type: essential hypertension Hyperlipidemia E78.5 Hyperlipidemia type: unspecified History of CVA (cerebrovascular accident) Z86.73 COPD (chronic obstructive pulmonary disease) J44.9 COPD type: unspecified COPD Hypertensive crisis I16.9
--- NOTE | 2020-09-30 16:02 | USCV_ITS ---
Julian Messernie Age: 75 Gender: F : 1945 Exam Date: 09/30/2020 06:33 Ordering Phys: Raúl Gant MD Technologist: Donna Fitzpatrick [place] [facility] [place]: [place]B BP: 148 / 113 HR: 90 Rhythm: Sinus Technical Quality: Technically difficult study MEASUREMENTS (Male / Female) Normal Values 2D ECHO LV Diastolic Diameter PLAX 3.6 cm 4.2 - 5.9 / 3.9 - 5.3 cm LV Systolic Diameter PLAX 2.5 cm LV Chamber Size 3.5 cm IVS Diastolic Thickness 1.6 cm 0.6 - 1.0 / 0.6 - 0.9 cm IVS Systolic Thickness 2.0 cm LVPW Diastolic Thickness 1.2 cm 0.6 - 1.0 / 0.6 - 0.9 cm LVPW Systolic Thickness 1.9 cm RV Chamber Size 3.3 cm LVOT Diameter 2.0 cm LV Ejection Fraction 2D Teich 60.4 % LA Diameter 3.2 cm LA Width 3.5 cm LA Height 5.8 cm RA Width 3.6 cm RA Height 5.2 cm Aorta at Sinotubular Diameter 2.7 cm M-MODE LV Diastolic Diameter MM 5.3 cm 4.2 - 5.9 / 3.9 - 5.3 cm LV Systolic Diameter MM 3.4 cm LV Ejection Fraction MM Teich 64.4 % IVS Diastolic Thickness MM 1.4 cm 0.6 - 1.0 / 0.6 - 0.9 cm IVS Systolic Thickness MM 1.8 cm LVPW Diastolic Thickness MM 1.3 cm 0.6 - 1.0 / 0.6 - 0.9 cm LVPW Systolic Thickness MM 1.8 cm RV Diastolic Diameter MM 1.2 cm Aortic Annulus Diameter 2.8 cm LA Ao Ratio MM 1.2 MV E Point Septal Separation 0.8 cm DOPPLER AV Peak Velocity 238.0 cm/s LVOT Peak Velocity 81.0 cm/s AV Area Cont Eq vti 1.1 cm squared AV Area Cont Eq pk 1.0 cm squared MV Area PHT 4.1 cm squared MV E' Velocity 125.0 cm/s TR Peak Velocity 301.4 cm/s TR Peak Gradient 36.3 mmHg TR Mean Velocity 273.3 cm/s TR Mean Gradient 31.6 mmHg TR Velocity Time Integral 112.7 cm TV Peak E Velocity 64.0 cm/s Right Atrial Pressure 15.0 mmHg Pulmonary Artery Systolic Pressu 51.3 mmHg PV Peak Velocity 101.0 cm/s RV Acceleration Time 0.1 s RV Ejection Time 0.2 s RV AcT/ET 0.3 FINDINGS Left Ventricle Normal left ventricular cavity size. Moderate left ventricular hypertrophy of concentric type. Normal left ventricular systolic function. Left ventricular ejection fraction is estimated at 60 %. Right Ventricle The right ventricle is normal in size and function. RVSP could not be calculated due to incomplete tricuspid regurgitation velocity profile. Right Atrium The right atrium is normal in size. Left Atrium The left atrium is normal in size. Mitral Valve Mildly thickened mitral valve. Mild mitral annular calcification. No mitral valve stenosis. Mild mitral valve regurgitation. Aortic Valve Severe aortic valve calcification. Mild to moderate aortic valve stenosis, mean gradient 12.3 mmHg, LEOBARDO 1.1 cm squared. Trace aortic valve regurgitation. Tricuspid Valve Trace tricuspid valve regurgitation. Pulmonic Valve Structurally normal pulmonic valve without significant stenosis. There is no pulmonic regurgitation. Pericardium Small to moderate pericardial effusion without tamponade physiology. Large pleural effusion noted Aorta Normal ascending aorta dimension. CONCLUSIONS 1-Normal left ventricular cavity size. Moderate left ventricular hypertrophy of concentric type. Normal left ventricular systolic function. Left ventricular ejection fraction is estimated at 60 %. 2-The right ventricle is normal in size and function. RVSP could not be calculated due to incomplete tricuspid regurgitation velocity profile. 3-Small to moderate pericardial effusion without tamponade physiology. Large pleural effusion noted. 4-Severe aortic valve calcification. Mild to moderate aortic valve stenosis, mean gradient 12.3 mmHg, LEOBARDO 1.1 cm squared. Trace aortic valve regurgitation. 5-Mildly thickened mitral valve. Mild mitral annular calcification. No mitral valve stenosis. Mild mitral valve regurgitation. 6-There is no pericardial effusion. 7-Right atrial pressure is around 20 mm of mercury. Possible secondary to BiPAP or intubation. 8-When compared to the prior echocardiogram dated January 11, 2020 there is mild to moderate pericardial effusion and possible moderate to large pleural effusion now. Renata Goldberg MD (Electronically Signed) Final Date: 30 September 2020 19:25 S
[2020-09-30 18:44] LABS: Glucose Point of Care 208 mg/dL (70-110)
[2020-09-30] MEDS: atorvastatin 40 mg Tablet 20 MG PO (21:18)
[2020-09-30 21:32] LABS: Glucose Point of Care 199 mg/dL (70-110)
[2020-10-01] VITALS (21 sets, daily range): BP systolic 119–180; BP diastolic 65–133; PULSE 72–103; RESP 16–33; TEMP 36.6–36.9; O2SAT 88–99
[2020-10-01] MEDS: ipratropium-albuterol 3 mL Neb INHALATION ×3 (00:16→07:31)
[2020-10-01 05:17] LABS: NT Pro B Type Natriuretic Pept 8343 pg/mL (0-450); Procalcitonin 0.43 ng/mL (0-0.5)
[2020-10-01 05:26] LABS: INR 1.41 (0.8-1.2)
[2020-10-01 05:28] LABS: C Reactive Protein 92.9 mg/L (0.0-4.9); Creatine Phosphokinase 56 U/L (26-192); Magnesium 2.3 mg/dL (1.7-2.3); Phosphorus 3.9 mg/dL (2.5-4.5)
[2020-10-01 05:29] LABS: D Dimer 1.22 ug/mIFEU (0-0.59)
[2020-10-01 07:42] LABS: Glucose Point of Care 208 mg/dL (70-110)
--- NOTE | 2020-10-01 07:42 | PM.DCS ---
Discharge Providers Date of Admission: 09/29/20 10:20 Date of Discharge: October 01, 2020 Attending Provider at Admission: Johana Dow MD Attending Provider at Discharge: Raúl Gant MD Primary Care Provider: Alli Quintero MD Diagnoses at Discharge Discharge Diagnosis (1) Acute hypercapnic respiratory failure: Status: Acute (2) Acute on chronic diastolic (congestive) heart failure: Status: Acute (3) Acute renal failure: Status: Acute Qualifiers: Acute renal failure type: unspecified Qualified Code(s): N17.9 - Acute kidney failure, unspecified (4) Coronary artery disease: Status: Acute Qualifiers: Coronary Disease-Associated Artery/Lesion type: [place] artery [place] vs. transplanted heart: [place] heart Associated angina: with unspecified angina Qualified Code(s): I25.119 - Atherosclerotic heart disease of [place] coronary artery with unspecified angina pectoris (5) Hypertensive crisis: Status: Acute Reason for Visit Reason for Visit: resp distress Hospital Course Hospital Course Mora Messer is a 75 year old female with a past medical history of atrial fibrillation, chronic venous stasis, COPD, CHF, CAD, type 2 diabetes, CVA, hyperlipidemia, hypertension, morbid obesity, pulmonary hypertension, history of chronic kidney disease with talks of dialysis however patient has refused, recent hospitalization for acute diastolic CHF exacerbation status post thoracocentesis, diuretic therapy, with NSTEMI with COPD exacerbation, who is a allow natural , who presents to [facility] due to complaints of shortness of breath, currently patient is on the BiPAP, her PCO2 is 102, her son is at bedside, holding her hand, she is short of breath, tachypneic, a bit lethargic Patient was admitted to [facility] for acute on on chronic hypercapnic respiratory failure with hypoxia, secondary to diastolic CHF, acute flash pulmonary edema, bilateral pleural effusions, obesity hypoventilation syndrome, COPD, possible bilateral lower lobe pneumonias. In addition she had hypertensive urgency. on admission I had an extensive discussion with patient, and her son who is the DPOA, Dimitri Messer who was at bedside. At this point patient should be intubated, given her PCO2, her lethargic, her tachypnea however she is allowed natural . However after discussion with family, they wanted to give a trial with medical interventions, they did not want aggressive medical interventions, above all they wanted her to remain comfortable, and if she were to clinically worsen they would proceed with hospice. Patient was admitted to [facility] ICU, received broad-spectrum antibiotic therapy, BiPAP therapy, steroid therapy, inhaler therapy, Lasix therapy, nitro drip, cardiology was consulted. Patient was kept on BiPAP for the next 24 hours, her PCO2 did improve to 62.6, pH 7.52, PO2 82.4. However even after aggressive Lasix therapy, patient had minimal diuresis, 200 cc output in the next 24 hours, patient was in acute renal failure. I had an extensive discussion with patient and her son about goals of care, this discussion was made in part of the nurse LJ, options that were discussed I had an extensive discussion with patient with nurse LJ present -I advised the patient continues to have extensive pulmonary edema, bilateral pleural effusions, at some point she will require further diuresis, and or bilateral thoracocentesis to help her respiratory status -For now she is BiPAP dependent, her carbon dioxide levels have improved, but still quite elevated at 62.6 -She is anemic, hemoglobin is down to 7.7, no overt signs of bleeding, no hemodynamic compromise -She has hypertensive urgency, she is on a nitro drip, for which we are trying to wean her off -Unfortunately she is in renal failure, she has had 200 cc of urine output in the last 24 hours, she has received roughly 200 mg of Lasix, and has not responded, creatinine is up to 2.5 -I discussed the options of dialysis, dialysis would allow us to pull some of the fluid off her lungs, but she likely will require to be intubated for the procedure, which is against her wishes, and the procedure is associated with an increased risk of morbidity mortality given her NSTEMI and respiratory failure -After discussion of the risks and benefits, she voiced understanding, all questions answered, she wants to proceed to home with hospice -I also had a discussion with patient's healthcare power of trade mark attorney, Dimitri Messer, who agrees, he tells me that he had a discussion with his mom last night, she told him she just wants to be at home with her family, she wants to remain comfortable -It was patient's wishes to be at home with her family, in her own words she stated that she was tired of fighting, she just wanted to remain comfortable, she wanted to be with her family at home -Patient proceeded to home with hospice on 10/01/2020 Physical Exam Const: GENERAL APPEARANCE: cooperative and ill appearing NUTRITIONAL APPEARANCE: obese ORIENTATION/CONSCIOUSNESS: Yes awake, Yes oriented to person, Yes oriented to place and Yes oriented to time Resp: EFFORT & INSPECTION: Yes tachypneic and Yes retractions intercostal AUSCULTATION: diminished lung sounds bilateral in the lower lung abdi Cardio: COMMON NORMALS: regular rate, regular rhythm, S1 normal heart sound present and S2 normal heart sound present RATE: regular rate RHYTHM: regular rhythm HEART SOUNDS: S1 normal heart sound present and S2 normal heart sound present GI: COMMON NORMALS: Normal to inspection, nondistended, normoactive bowel sounds present, Soft to palpation, non-tender and No hepatosplenomegaly present PALPATION: Yes Soft to palpation and Yes No hepatosplenomegaly present Extremity: COMMON NORMALS: capillary refill normal, no clubbing, cyanosis or edema and no pedal edema Neuro: SENSORIUM/ORIENTATION: Yes oriented to person, Yes oriented to place and Yes oriented to time Urinary Catheter Management^: Riggins: Cath Placed During This Visit: yes Reason for Continuing Indwelling Catheter: Accurate Measurement of Urinary Output in Critically Ill Patients Urinary Catheter Date of Insertion: 09/29/20 Urinary Catheter Time of Insertion: 07:07 Discharge Data Data Completed and Pending: Completed Studies During Hospitalization Category Date Time Status XR chest 1V jess ble [id number] Routine Exams 09/30/20 07:00 Completed XR chest 1V jess ble [id number] Stat Exams 09/29/20 05:55 Completed CV echo complete* [id number] Routine Ultrasound 09/30/20 16:02 Completed Pending at discharge Category Date Time Status Arterial Blood Ga s W/O Coox AM LABS Lab 10/01/20 04:00 Ordered Arterial Blood Ga s W/O Coox AM LABS Lab 10/02/20 04:00 Ordered C Reactive Protei n AM LABS Lab 10/02/20 04:00 Ordered Creatine Phosphok inase AM LABS Lab 10/02/20 04:00 Ordered D Dimer AM LABS Lab 10/02/20 04:00 Ordered Magnesium AM LABS Lab 10/02/20 04:00 Ordered NT Pro B Type Loan riuretic Pept QAM Lab 10/02/20 06:00 Ordered Phosphorus AM LAB S Lab 10/02/20 04:00 Ordered Procalcitonin AM LABS Lab 10/02/20 04:00 Ordered Prothrombin Time INR AM LABS Lab 10/02/20 04:00 Ordered Urine Culture Sta t Lab 09/29/20 07:06 Results Labs from last 24 hours 10/01/20 10/01/20 10/01/20 07:39 04:00 04:00 PT 17.70 H INR 1.41 H D-Dimer 1.22 H POC Glucose Pending Phosphorus 3.9 Magnesium 2.3 Creatine Kinase 56 C-Reactive Protein 92.9 H NT-Pro-B Natriuret Pep 8343 H Procalcitonin 0.43 09/30/20 09/30/20 09/30/20 21:18 17:10 11:52 PT INR D-Dimer POC Glucose 199 208 236 Phosphorus Magnesium Creatine Kinase C-Reactive Protein NT-Pro-B Natriuret Pep Procalcitonin Vitals: Last Vital Signs Temp 97.9 F 10/01/20 06:00 Pulse 92 10/01/20 07:34 Resp 20 H 10/01/20 07:32 BP 180/114 10/01/20 06:00 Pulse Ox 95 10/01/20 07:32 Discharge Plan Discharge Patient Disposition: Hospice - Home Condition: Stable Prescriptions: New hydralazine 10 mg Tablet 10 mg PO QID 30 Days Qty: 120 RF: 0 clonidine HCl 0.1 mg Tablet 0.1 mg PO BID 30 Days Qty: 60 RF: 0 doxycycline hyclate 100 mg capsule 100 mg PO BID 7 Days Qty: 14 RF: 0 prednisone 20 mg tablet 20 mg PO BID 5 Days Qty: 10 RF: 0 Continued acetaminophen 325 mg Tablet 650 mg PO Q6H PRN (Reason: Pain) RF: 0 albuterol sulfate 2.5 mg /3 mL (0.083 %) Solution For Nebulization 2.5 mg INHALATION Q4H PRN (Reason: Shortness Of Breath) RF: 0 Multiple Vitamin, Womens Tablet 1 tab PO DAILY RF: 0 Artificial Tears (polyvin alc) 1.4 % Drops 1 drp ophthalmic (eye) QID RF: 0 atorvastatin 20 mg Tablet 20 mg PO BEDTIME RF: 0 polyethylene glycol 3350 [Miralax] 17 gram Powder In Packet 17 g PO DAILY RF: 0 sennosides-docusate sodium [Senna-S] 8.6-50 mg Tablet 1 tab-cap PO BID RF: 0 citalopram 20 mg Tablet 20 mg PO DAILY RF: 0 aspirin [Aspirin Low Dose] 81 mg Tablet,Delayed Release (Dr/Ec) 81 mg PO DAILY RF: 0 insulin aspart U-100 [Novolog Flexpen U-100 Insulin] 100 unit/mL (3 mL) Insulin Pen See Rx Instructions .ROUTE .COMPLEX RF: 0 Tresiba U-100 Insulin 100 unit/mL Solution 27 unit SUBCUT BEDTIME RF: 0 bisacodyl 10 mg Suppository 10 mg DC DAILY PRN (Reason: Constipation) RF: 0 bisacodyl 5 mg Tablet,Delayed Release (Dr/Ec) 5 mg PO DAILY PRN (Reason: Constipation) RF: 0 Biofreeze (menthol) 4 % Gel 1 applic TOPICAL DAILY MDD 1 time PRN (Reason: Pain) RF: 0 tramadol 50 mg tablet 50 mg PO BID PRN (Reason: Pain) RF: 0 isosorbide mononitrate 30 mg Tablet Extended Release 24 Hr 30 mg PO DAILY Qty: 30 RF: 0 metoprolol tartrate 50 mg Tablet 50 mg PO BID Qty: 60 RF: 0 Discontinued furosemide 80 mg tablet 40 mg PO BID Qty: 120 RF: 0 Discharge Orders: Discharge Order (Routine); Ordered 10/01/20 Ordered By: Raúl Gant Ref[place]: [facility] ([facility]) [Outside] Alli Quintero MD [Primary Care Provider] - Discharge Diet: Cardiac Discharge Activity: Resume usual activity Patient Instructions: Living Will (GEN), Hospice Care (GEN) Discharge Attestations Time Spent in Discharge Care*: less than 30 min Status at Discharge: Cognitive status at discharge: cognitively intact, Behavioral status at discharge: cooperative and dependent in ADL's, Quality Metrics Clinical Quality Measures During this hospital stay, did patient experience: None Coding Level of Care Code 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 transplanted heart: [place] heart Associated angina: with unspecified angina Hypertensive crisis I16.9
--- NOTE | 2020-10-01 08:40 | PC.NURSE ---
aleksey mora called and is ready for transport all equipment at house . ivs removed at this time and dentures in mouth and phone given ..livan james called
[2020-10-01] MEDS: hyDRALAzine 10 mg Tablet 20 MG PO (08:58)
[2020-10-01] MEDS: aspirin 81 mg EC Tablet PO (08:59)
[2020-10-01] MEDS: cloNIDine 0.1 mg Tablet PO (08:59)
[2020-10-01] MEDS: metoprolol tartrate 50 mg Tablet PO (08:59)
[2020-10-01] MEDS: citalopram 20 mg Tablet PO (08:59)
--- NOTE | 2020-10-02 16:37 | PC.RESP ---
Pulmonary Rehab information sent to patient.
== END 2020-10-01 09:30 | disposition hospice, home (50) | DRG 189 ==
LOC: ER 07:33 → ICU 10:28
PROVIDERS: Admitting Provider Hospitalist; Emergency Provider Family Medicine; PCP Internal Medicine; Visit Provider Family Medicine
DX: J96.22 Acute and chronic respiratory failure with hypercapnia (principal); I50.33 Acute on chronic diastolic (congestive) heart failure; I16.9 Hypertensive crisis, unspecified; N17.9 Acute kidney failure, unspecified; Z68.41 Body mass index [BMI] 40.0-44.9, adult; I13.0 Hypertensive heart and chronic kidney disease with heart failure and stage 1 through stage 4 chronic kidney disease, or unspecified chronic kidney disease; Z66 Do not resuscitate; Z51.5 Encounter for palliative care; J96.21 Acute and chronic respiratory failure with hypoxia; I25.119 Atherosclerotic heart disease of native coronary artery with unspecified angina pectoris; I48.91 Unspecified atrial fibrillation; J44.9 Chronic obstructive pulmonary disease, unspecified; Z86.73 Personal history of transient ischemic attack (TIA), and cerebral infarction without residual deficits; E78.5 Hyperlipidemia, unspecified; E66.01 Morbid (severe) obesity due to excess calories; I27.20 Pulmonary hypertension, unspecified; I25.2 Old myocardial infarction; N18.9 Chronic kidney disease, unspecified; E11.22 Type 2 diabetes mellitus with diabetic chronic kidney disease; Z91.14 Patient's other noncompliance with medication regimen; Z79.82 Long term (current) use of aspirin; Z79.4 Long term (current) use of insulin; H35.30 Unspecified macular degeneration; E11.42 Type 2 diabetes mellitus with diabetic polyneuropathy
CPT/HCPCS: 12345; 36415; 36416; 36600; 51702; 71045; 80051; 80053; 81001; 82330; 82550; 82803; 82805; 82962; 83605; 83735; 83880; 84100; 84145; 84484; 85025; 85378; 85610; 86140; 87077; 87086; 87186; 93005; 93306; 94640; 94660; 96372; 96375; 99283; C9113; J0456; J0696; J1650; J1815; J1940; J2920; J3480; J3490; J7050